=== PATIENT | male | born 1955 | race Caucasian/White ===

== ENCOUNTER 2019-06-28 08:27 | Outpatient (CLI) | payer MEDICARE, BC, SELFPAY ==
--- NOTE | 2019-06-28 09:40 | XR_ITS ---
WS: [id number] CHEST 2 VIEWS HISTORY: SHORTNESS OF Breath; cough COMPARISON: 09/20/2018 Lungs: Benign granuloma LEFT lower lung field and in the RIGHT upper lung. No suspicious mass or nodu le. No pneumonia. There is mild flattening of the diaphragms and chronic emphysema. Cardiac size: Normal. Mediastinum/Aorta: Moderate atherosclerosis and ectasia of aorta. Bones: Focal kyphosis centered at the thoracolumbar junction. There are multiple compression fracture s with vertebroplasty throughout the mid to lower thoracic spine and lumbar spine. XR/XR chest 2V* [id number] IMPRESSION: 1. Chronic emphysema with no acute cardiopulmonary disease. 2. Ectatic calcified thoracic aorta.
--- NOTE | 2019-06-29 10:59 | ONC FU_ITS ---
Dr. Brody Patient Follow-Up Note Patient: Flaco Cardona Unit #: [id number]: [id number] Dicatated By: Christopher Brody M.D.Date of Visit:Jun 28, 2019 Onc Med Follow-up/Prog Note Chief Complaint: Myeloma/prostate cancer. History of Present Illness: This is a 62 year-old man with IgA kappa myeloma, stage IIIB. He has now been found to have metastatic prostate cancer involving the bone marrow. He was diagnosed with IgA kappa myeloma in October 2009. He presented at that time with anemia, hypercalcemia, renal failure, and severe osteopenia with multiple vertebral compression fractures. He was seen at the [facility] for his initial evaluation. He was treated on their standard arm Total Therapy 4 which included M-VTD-PACE induction and a second induction with VTD-PACE. He then underwent tandem transplants with high-dose melphalan conditioning in February and in March 2010. He reportedly had an excellent response to the treatment, and he was then consolidated with VTD-PACE in June 2010 and July 2010 followed by maintenance VRD. His maintenance therapy was complicated by depression due to Revlimid and severe neuropathy, and treatment was stopped by June 2011. He restarted treatment with Revlimid in August 2012, but he was again unable to tolerate it due to depression. He stopped treatment again in February 2013. He underwent evaluation at the [facility] in July 2014. At that time he was felt to have disease progression with MRI reporting new lesions in the clivus and in the right humerus. Bone marrow at that time showed 10% plasma cells in the aspirate and 20% in the biopsy. His M protein quantitated at 1 g compared to 0.3 g in February 2014. It was opted at that time to resume treatment with pomalidomide in combination with cyclophosphamide and dexamethasone. The prescribed regimen included pomalidomide 3 mg daily on days 1 through 21 of a 28 day cycle in combination with cyclophosphamide 500 mg/m??? by IV infusion days 1 and 15 and dexamethasone 20 mg weekly. As of 03/05/2015 he had completed 7 cycles of treatment with the cyclophosphamide administered on a day 1/day 15 schedule. In March his treatment was held, as he was pretty ill with pneumonia, and he ended up being treated for it in [place]. He had an uneventful recovery, and he was able to resume treatment on 04/16/2015. He had a restaging evaluation at the [facility] on 08/12/2015. Bone marrow aspiration/biopsy at that time showed an overall cellularity of 35%. The aspirate showed 6% plasma cells. By flow cytometry total plasma cells were estimated at 1.23%, with 0.69% myeloma cells and 0.54% normal plasma cells. The chromosome analysis showed a translocation involving chromosomes 4 and 8 in a single cell. The clinical significance of that finding was uncertain. I did not receive results of the protein electrophoresis studies. However, he was advised to continue treatment with pomalidomide, dexamethasone, and cyclophosphamide. However, due to his persistently low blood counts, in August 2015 his cyclophosphamide dosage was reduced to 500 mg. In October he continued with his 15th cycle of treatment. However, in November 2015 his cyclophosphamide was put on hold due to persistent neutropenia. He had subsequently continued his regular follow-up at [facility]. As of his follow-up visit there in December 2016 he had continued treatment with pomalidomide and dexamethasone, with the cyclophosphamide remaining on hold. He had a six-month follow-up at [facility] in June 2017. It incluided an MRI bone marrow blood supply exam on 07/07/2017 which showed a slight increase of mild hyperintense homogeneous signal in the marrow of the axial and peripheral skeletons. There was a slight increase of mildly restricted diffusion noted in the marrow cavity. There was interval development of a 2.5 cm focal lesion in the right posterior ilium with restricted diffusion and a 2 cm focal lesion in the right posterior elements at approximately T6, also with restricted diffusion. Bilateral small calvarial lesions were noted with interval punctate and bilateral interval rib lesions were noted. His bone marrow aspiration/biopsy on 07/10/2017 showed overall cellularity of 30% with the differential showing 7% plasma cells. The immunohistochemical stain for CD138 showed 5-10% plasma cells with interstitial and patchy distribution. His M protein was quantitated 0.7 g/dL. He was seen for a follow-up visit here on 07/11/2017. At that point he had become significantly more fatigued. He complained of shortness of breath, and he had been having episodes of passing out. His hemoglobin had dropped to 8.7 g. He was transfused 2 U of packed red blood cells on 07/13/2017. He had symptomatic improvement. He then returned to [facility] and on 07/15/2017 he began treatment with daratuzumab in addition to the pomalidomide/dexamethasone. He had no significant toxicity with the initial infusion of daratuzumab. During subsequent follow-up, there was a gradual decline in his granulocyte count. It nadired at 1200 at week 5 of daratuzumab, but it subsequently increased. He received week 8 of daratuzumab on 09/05/2017. His treatment was then put on hold due to persistent/recurrent pneumonia. He was admitted to the hospital on 09/14/2017 and again on 09/24/2017. With the second admission he was feeling weak and he had fallen several times. Brain MRI reported a 3.7 x 1.7 cm marrow replacing lesion within the clivus, consistent with plasmacytoma. A 7 mm focus of acute ischemia was noted in the right cerebellum. There was a small amount of associated edema. With those findings, he was transferred to [facility] for further management. His evaluation there was consistent with cerebellar stroke with subacute lacunar ischemic infarct on the right cerebellar hemisphere. Also reported was an expansile myelomatous clival lesion with bony erosion of the left carotid canal, erosion of the anterior and posterior cortex of the clivus, and extension into the sphenoid sinuses. The pneumonia improved after 7 days of IV cefepime. He was seen here again on 10/19/2017 and at that time he completed his 9th infusion of daratumumab. His next scheduled treatment was put on hold due to neutropenia and symptoms of respiratory infection. On 11/10/2017 he was admitted to the hospital with neutropenic fever. He was transferred to [facility] for further care. After recovering from that illness he had a restaging evaluation for the myeloma. His bone marrow aspiration/biopsy showed 5% plasma cells. His M protein quantitated at 0.4 g/dL. MRI bone marrow blood supply on 12/18/2017 showed interval worsening with increased size of the focal lesions involving the right temporal bone, clivus, and left parietal bone. There were only minimal changes noted in the spine from the previous studies. There was minimal progression of lesions in the proximal right humerus and in the upper sternum. With those findings, it was recommended that he change treatment to carfilzomib in combination with dexamethasone. He began cycle 1 on 12/27/2017 with the carfilzomib dosed at 20 mg/m???. He also started monthly replacement therapy with IVIG. At day 8 of cycle 1 the carfilzomib dosage was escalated to 36 mg/m???. He tolerated it well, and he was able to continue with cycle 2 on 01/24/2018. As of February 2018 he had completed 3 cycles of treatment. In May 2018 he underwent a stem cell transplant procedure at [facility]. He has had a gradual recovery following that treatment. I had seen him for follow-up here in September 2018. At that time he appeared stable clinically. He then continued his further follow-up at [facility]. He had recently been readmitted to [facility] after he developed fever up to 103 degrees. The fever resolved on antibiotic therapy, though I am not certain that a specific source was ever determined. His repeat bone marrow aspiration/biopsy on 06/12/2019 showed an unexpected finding of involvement with moderately differentiated metastatic adenocarcinoma which was felt to be most consistent with prostatic origin. It was morphologically negative for plasma cell neoplasm. His PSA was elevated in the range of 20 ng/mL. Restaging CT scans of the chest, abdomen, and pelvis on 06/22/2019 showed a small spiculated residual nodular density in the right upper lobe measuring 1.3 cm, decreased in size from 3.5 cm on a prior PET/CT from January 2019. It was felt to be most likely infectious/inflammatory. There were persistent tree-in-bud type nodularity in both lungs, particularly the lower lobes, felt to be suggestive of multifocal infectious/inflammatory change. There were no new pulmonary nodules and there was no pulmonary consolidation noted. There was no evidence of visceral/sherman metastatic disease in the abdomen/pelvis. There were faint sclerotic lesions in the C7 and T1 vertebral bodies. A bone scan on 06/24/2019 showed multiple focal areas of abnormal uptake which corresponded to the FDG avid osseous lesions noted on the PET/CT from 06/07/2019. These include with the upper thoracic spine, left T9 transverse process, and left posterior ischium. Overall, the findings were felt to be consistent with osteoblastic metastatic disease favoring metastatic prostate cancer over multiple myeloma. He began treatment with bicalutamide 50 mg daily, and he was discharged home with recommendation to continue his androgen deprivation therapy locally. He is seen now for a follow-up visit. He is still very weak generally following his recent hospitalization. His activity is very limited. ECOG score is 3. His appetite has been poor, and he has had further weight loss. He is currently not having fever or night sweating. He continues to have sinus congestion and drainage, and he still has cough, though it is productive of clear sputum. He has shortness of breath, and he is on DuoNeb pulmonary nebulizers at home. He has pain in the chest area with hard coughing. He had an episode of vomiting at home yesterday. He is otherwise not having nausea. His bowels fluctuate between diarrhea and constipation. He has no complaints with bladder function. He has pain in his back and legs, which comes and goes. He says he has not been on any pain medication for a long time, but his pain lately has been getting worse. He has numbness/tingling in his hands and feet. Medications: Acyclovir 1 (200 mg) Tablet Oral daily, Albuterol Sulfate 1 ((2.5 mg/3ml) 0.083%) Nebulization solution Inhalation four times a day PRN, AmLODIPine Besylate 1 Tablet (of 5 mg) Oral at bedtime PRN, Aspirin 1 (81 mg) Tablet Oral daily, Baclofen 1 (10 mg) Tablet Oral at bedtime PRN, Benzonatate 1 Capsule (of 100 mg) Oral t.i.d., Casodex 1 Tablet (of 50 mg) Oral daily, Colace Capsule Oral daily PRN, cultrelle 1 Capsule Oral daily, Cyproheptadine HCl 1 (4 mg) Tablet Oral b.i.d. PRN, D3-1000 Tablet Oral daily, Dapsone 1 Tablet (of 100 mg) Oral daily, Folic Acid 1 (1000 mcg) Tablet Oral b.i.d., Gabapentin 1 Capsule (of 600 mg) Oral at bedtime, Garlic 1 (3000 mg) Capsule Oral b.i.d., Hydrocodone-Acetaminophen 1 (10-325 mg) Tablet Oral four times a day PRN, Ipratropium-Albuterol 1 (20-100 mcg/act) Aerosol, solution Inhalation daily, Multivitamins 1 Capsule Oral daily, Pantoprazole Sodium 1 Tablet (of 40 mg) Tablet, enteric coated Oral daily PRN, Phos-NaK 1 Packet (of 280-160-250 mg) Pack Oral daily for 90 days, Prochlorperazine Maleate 0.5 Tablet (of 10 mg) Oral q 6 hours PRN, Promethazine-Codeine 5 mL (of 6.25-10 mg/5mL) Syrup Oral q 6 hours, Questran 1 (4 g) Pack Oral daily, Xanax 1 Tablet (of 0.25 mg) Oral t.i.d. PRN, Xyzal 1 (5 mg) Tablet Oral daily PRN, Zofran 1 Tablet (of 8 mg) Oral four times a day PRN Allergies: No Known Allergies. Review of Systems: Constitutional - He is very weak now and his activity is very limited. His appetite has been poorand he has continued to loose weight. He was having fever/chills and sweating, but that has resolved. ECOG score is 3, ENMT - He has sinus congestion/drainage. No mouth sores. No sore throat or difficulty swallowing, Hematologic/Lymphatic - He bruises easily, Respiratory - He has shortness of breath and he still has cough. It is productive of clear sputum. He has had pain with hard coughing. No hemoptysis, Cardiovascular - No angina pain. No palpitations, Gastrointestinal - He had one episode of vomiting since discharge from the hospital. No heartburn or acid reflux. His bowels fluctuate between diarrhea or constipation. No blood in the stool or black stools, Genitourinary (M) - No dysuria or hematuria. No urinary frequency. No urgency or incontinence, Musculoskeletal - He has pain in his back and legs, which comes and goes. He has been off pain medication for quite a while, but the pain recently has been getting a little worse, Integumentary - No skin complications, Neurologic - He has numbness/tingling in his hands and feet. No headache or dizziness, Psychiatric - He has anxiety and depression. He has not been sleeping well. Vital Signs: Performed on Jun 28, 2019 08:45 Height - 67.00 in Weight - 159.6 lbs (LOW) BSA - 1.84 sq.m BMI - 25.00 Temperature - 97.8 F (LOW) Pulse - 85 /min Respiration - 22 /min BP - 135/86 mm(hg) O2 Sat - 92 % (LOW) Pain - 0 Physical Examination: Constitutional - He appears generally weak, but not acutely ill, Eyes - Sclerae nonicteric. Conjunctivae clear, ENMT - No lesions noted in the oral cavity, Hematologic/Lymphatic - No cervical, clavicular, or axillary adenopathy, Respiratory - Lungs show diminished air movement bilaterally. There are scattered rales present, Cardiovascular - Heart rhythm is regular. There is no murmur, gallop, or rub noted, Abdomen - Soft. Liver and spleen are not enlarged. There is no abdominal mass or ascites noted and there is no inguinal adenopathy, Extremities - There are mild venous stasis changes bilaterally. There is no edema, Neurologic - No focal neurologic deficits noted. Impression: The patient has IgA kappa myeloma, stage IIIB. He had severe osteopenia with multiple vertebral compression fractures at initial diagnosis in October 2009. He responded well to his initial treatment, but on his evaluation in July 2014 at the [facility], there was evidence of disease progression. In August 2014 he restarted treatment with pomalidomide in combination with cyclophosphamide and dexamethasone. He had evidence of response by M protein level. Repeat bone marrow aspiration/biopsy in July 2015 showed only 6% plasma cells in the aspirate. By flow cytometry, about half of his plasma cells were felt to be myeloma cells. The chromosome analysis showed a 4;8 translocation, but only in a single cell. He had some treatment associated myelosuppression, particularly anemia, for which he had required transfusion. The anemia had shown no obvious response to treatment with Procrit, and he also then became become more significantly neutropenic. As of November 2015 his cyclophosphamide was put on hold, but he continued treatment with pomalidomide and dexamethasone, and he continued his regular follow-up at [facility]. On 07/11/2017 he had presented here with recent onset of shortness of breath. He also felt lightheaded, and he had nearly passed out on a couple of occasions. He was significantly anemic. His chest x-ray and VQ lung scan were unremarkable. He had significant symptomatic improvement following a transfusion of 2 U of packed red blood cells. In the meantime, his recent follow-up evaluation at [facility] did show some evidence of disease progression with 7% plasma cells in the bone marrow and some new lytic lesions by MRI. As such, he began treatment with daratuzumab in combination with his pomalidomide/dexamethasone. He received his initial infusion of daratuzumab on 07/15/2017. He tolerated it well, with just a minimal infusion reaction. During subsequent follow-up there was a gradual decline in his granulocyte count and he remained moderately anemic, but he was able to complete 8 weekly infusions daratumumab. His further treatment was then put on hold due to recurrent/persistent pneumonia. He also was found to have evidence of cerebellar stroke. He was unable to resume his treatment. He completed his ninth infusion of daratumumab on 10/19/2017. His further treatment was put on hold due to neutropenia and fever. His repeat bone marrow aspiration/biopsy on 11/29/2017 showed 5% plasma cells. M protein at that point quantitated 0.4 g/dL. Repeat MRI studies on 12/18/2017 showed only a few areas of slight progression. With those findings his treatment was changed to carfilzomib in combination with dexamethasone beginning on 12/27/2017. He also started monthly replacement therapy with IVIG. He was able to complete his first cycle of carfilzomib/dexamethasone with no adverse effects. He continued to have significant symptoms of orthostatic hypotension. He had no improvement on empiric treatment with fludrocortisone. He was then started on midodrine, but he then experienced a hypertensive crisis over this past weekend, requiring addition of hydrochlorothiazide. As of February 2018 he had completed 3 cycles of treatment with carfilzomib/dexamethasone. In May 2018 he underwent a stem cell transplant procedure at [facility]. He had gradual recovery following that treatment, and he then continued regular followup at [facility]. In May 2019 he was admitted to [facility] with fever up to 103 degrees. The fever resolved on antibiotic therapy. I am not certain that a specific source was identified. However, his bone marrow aspiration/biopsy on 06/12/2019 showed unexpected finding of moderately differentiated metastatic adenocarcinoma of the mid most consistent with prostatic origin. There was no morphologic evidence of plasma cell neoplasm. His PET/CT and bone scans showed several foci of osteoblastic involvement felt to be most consistent with metastatic prostate cancer. Restaging CT scans of the chest, abdomen, and pelvis showed no evidence for visceral or other non-osseous metastatic disease. PSA was elevated in the range of 20 ng/mL. He began treatment with bicalutamide 50 mg daily. At this point he is not had any recurrence of fever. He has very marginal performance status, ECOG score 3. He continues to have shortness of breath and cough, though it is productive of clear sputum. He has some pain in the back and legs. It is chronic, but now getting somewhat worse. Plan: He continues bicalutamide 50 mg daily. He will return Monday to begin androgen deprivation therapy with Depo-Lupron 22.5 mg by intramuscular injection. He will be given a prescription for hydrocodone/APAP, as he feels that his pain is getting worse and he is wanting to restart medication for it. At least for now he will remain off antibiotic therapy. A sputum culture will be repeated if his sputum becomes at all purulent. Signed By: Christopher Brody M.D. <<Signature on File>>
== END 2019-06-28 08:28 | disposition home or self-care (01) ==
PROVIDERS: Family Provider Family Medicine; PCP Family Medicine; Visit Provider Internal Medicine Medical Oncology
DX: C61 Malignant neoplasm of prostate (principal); C79.52 Secondary malignant neoplasm of bone marrow; C79.51 Secondary malignant neoplasm of bone; C90.00 Multiple myeloma not having achieved remission; R06.02 Shortness of breath; R05 Cough; F41.8 Other specified anxiety disorders; G89.29 Other chronic pain; M54.9 Dorsalgia, unspecified; Z79.899 Other long term (current) drug therapy; Z79.51 Long term (current) use of inhaled steroids; Z79.891 Long term (current) use of opiate analgesic; Z87.01 Personal history of pneumonia (recurrent); Z92.21 Personal history of antineoplastic chemotherapy
CPT/HCPCS: 71046; 99214

== ENCOUNTER 2019-07-01 11:04 | Outpatient (CLI) | payer MEDICARE, BC, SELFPAY ==
[2019-07-01] MEDS: leuprolide 22.5 mg Kit IM (11:28)
== END 2019-07-01 11:05 | disposition home or self-care (01) ==
LOC: ONCMED 11:04
PROVIDERS: Family Provider Family Medicine; PCP Family Medicine; Visit Provider Nurse Practitioner
DX: C61 Malignant neoplasm of prostate (principal); Z79.818 Long term (current) use of other agents affecting estrogen receptors and estrogen levels
CPT/HCPCS: 96372; 96402; J9217

== ENCOUNTER 2019-07-09 08:00 | Outpatient (CLI) | payer MEDICARE, BC, SELFPAY ==
[2019-07-09] MEDS: acetaminophen 325 mg Tablet 650 MG PO (09:00)
[2019-07-09] MEDS: sodium chloride 0.9% 250 ML 75 ML IV (09:00)
[2019-07-09] MEDS: diphenhydrAMINE 25 mg Capsule PO (14:39)
[2019-07-09] MEDS: FUROsemide 10 mg/mL SDV 2mL 20 MG IVP (14:40)
== END 2019-07-09 09:00 | disposition home or self-care (01) ==
LOC: ONCMED 12-31 13:14
PROVIDERS: PCP Family Medicine; Visit Provider Internal Medicine Medical Oncology
DX: C90.02 Multiple myeloma in relapse (principal); D64.81 Anemia due to antineoplastic chemotherapy; C61 Malignant neoplasm of prostate; C79.52 Secondary malignant neoplasm of bone marrow; D80.1 Nonfamilial hypogammaglobulinemia; R50.9 Fever, unspecified; T45.1X5D Adverse effect of antineoplastic and immunosuppressive drugs, subsequent encounter
CPT/HCPCS: J1940; J7050

== ENCOUNTER 2019-07-09 09:46 | Outpatient (RCR) | payer MEDICARE, BC, SELFPAY ==
[2019-07-08 08:44] LABS: Basophils % 1.2 %; Eosinophils # 0.1 10^3/uL (0.0-0.8); Eosinophils % 3.1 %; Hematocrit 22.6 % (42.0-52.0); Hemoglobin 6.6 g/dL (11.7-16.6); Lymphocytes # 0.9 10^3/uL (0.8-4.8); Lymphocytes % 36.6 %; Mean Corpuscular HGB Conc 29.2 g/dL (30.0-36.0); Mean Corpuscular Volume 109.7 fL (80-94); Mean Platelet Volume 10.9 fL (7.4-10.4); Monocytes # 0.3 10^3/uL (0.2-0.9); Monocytes % 11.7 %; Neutrophils # 1.2 10^3/uL (1.8-7.7); Neutrophils % 47.4 %; Nucleated Red Blood Cells % 0 %; Platelet Count 78 10^3/cmm (130-400); Red Blood Count 2.06 10^6/uL (4.1-5.3); Red Cell Distribution Width 19.6 % (12.1-15.1); White Blood Count 2.6 10^3/uL (4.0-10.0)
[2019-07-09] VITALS (9 sets, daily range): BP systolic 115–140; BP diastolic 74–84; PULSE 75–85; RESP 17–18; TEMP 36.1–36.8; O2SAT 97–99
== END 2019-07-13 23:59 | disposition home or self-care (01) ==
LOC: ONCMED 09:46
PROVIDERS: Family Provider Family Medicine; PCP Family Medicine; Visit Provider Internal Medicine Medical Oncology
DX: C90.00 Multiple myeloma not having achieved remission (principal); C61 Malignant neoplasm of prostate
CPT/HCPCS: 36415; 36430; 85025; 86850; 86900; J1940; J7050; P9040

== ENCOUNTER 2019-08-12 05:00 | Outpatient (RCR) | payer MEDICARE, BC, SELFPAY ==
[2019-07-15 09:44] LABS: Basophils % 0.5 %; Eosinophils # 0.2 10^3/uL (0.0-0.8); Eosinophils % 3.4 %; Hematocrit 28.6 % (42.0-52.0); Hemoglobin 8.8 g/dL (11.7-16.6); Lymphocytes % 21.6 %; Mean Corpuscular HGB Conc 30.8 g/dL (30.0-36.0); Mean Corpuscular Volume 110.4 fL (80-94); Mean Platelet Volume 10.9 fL (7.4-10.4); Monocytes # 0.4 10^3/uL (0.2-0.9); Monocytes % 7.9 %; Neutrophils # 2.9 10^3/uL (1.8-7.7); Neutrophils % 66.1 %; Nucleated Red Blood Cells % 0 %; Platelet Count 68 10^3/cmm (130-400); Red Blood Count 2.59 10^6/uL (4.1-5.3); Red Cell Distribution Width 20.5 % (12.1-15.1); White Blood Count 4.4 10^3/uL (4.0-10.0)
[2019-07-22 08:56] LABS: Basophils % 0.2 %; Eosinophils # 0.1 10^3/uL (0.0-0.8); Eosinophils % 2.4 %; Hematocrit 31.1 % (42.0-52.0); Hemoglobin 9.5 g/dL (11.7-16.6); Lymphocytes # 1.2 10^3/uL (0.8-4.8); Mean Corpuscular HGB Conc 30.5 g/dL (30.0-36.0); Mean Corpuscular Hemoglobin 34.4 pg (28.0-34.0); Mean Corpuscular Volume 112.7 fL (80-94); Mean Platelet Volume 11.1 fL (7.4-10.4); Monocytes # 0.5 10^3/uL (0.2-0.9); Monocytes % 9.1 %; Neutrophils # 3.2 10^3/uL (1.8-7.7); Neutrophils % 63.7 %; Nucleated Red Blood Cells % 0 %; Platelet Count 94 10^3/cmm (130-400); Red Blood Count 2.76 10^6/uL (4.1-5.3); Red Cell Distribution Width 19.8 % (12.1-15.1); White Blood Count 5.1 10^3/uL (4.0-10.0)
[2019-07-30 15:06] LABS: Alanine Aminotransferase 36 U/L (0-41); Albumin Level 3.8 g/dL (3.5-5.2); Alkaline Phosphatase 96 IU/L (40-130); Aspartate Amino Transferase 27 U/L (0-40); Blood Urea Nitrogen 30 mg/dL (8-23); Calcium 9.5 mg/dL (8.5-10.5); Carbon Dioxide 26 mmol/L (22-29); Chloride 103 mmol/L (98-107); Globulin 3.4 g/dL (1.3-4.6); Glomerular Filtration Rate 43.6 mL/min (90-130); Glucose 115 mg/dL (65-115); Osmolality Calculated 290 mOsm/kg (285-295); Sodium 141 mmol/L (136-145); Total Bilirubin 0.3 mg/dL (0.15-1.2); Total Protein 7.2 g/dL (6.6-8.7)
[2019-07-30 15:07] LABS: Basophils % 0.5 %; Eosinophils # 0.2 10^3/uL (0.0-0.8); Eosinophils % 3.5 %; Hematocrit 34.9 % (42.0-52.0); Hemoglobin 10.8 g/dL (11.7-16.6); Lymphocytes # 1.3 10^3/uL (0.8-4.8); Lymphocytes % 31.1 %; Mean Corpuscular HGB Conc 30.9 g/dL (30.0-36.0); Mean Corpuscular Hemoglobin 34.4 pg (28.0-34.0); Mean Corpuscular Volume 111.1 fL (80-94); Mean Platelet Volume 10.5 fL (7.4-10.4); Monocytes # 0.3 10^3/uL (0.2-0.9); Monocytes % 7.4 %; Neutrophils # 2.5 10^3/uL (1.8-7.7); Nucleated Red Blood Cells % 0 %; Platelet Count 106 10^3/cmm (130-400); Red Blood Count 3.14 10^6/uL (4.1-5.3); Red Cell Distribution Width 18.3 % (12.1-15.1); White Blood Count 4.3 10^3/uL (4.0-10.0)
[2019-07-30 16:21] LABS: Prostate Specific Antigen 4.15 ng/mL (0-4)
[2019-07-31 07:27] LABS: PROTEIN, TOTAL 6.8 g/dL (6.1-8.1)
[2019-07-31 11:56] LABS: KAPPA LIGHT CHAIN, FREE, SERUM 44.6 mg/L (3.3-19.4); KAPPA/LAMBDA LIGHT CHAINS FREE 1.09 (0.26-1.65); LAMBDA LIGHT CHAIN, FREE, SERU 41.1 mg/L (5.7-26.3)
[2019-07-31 12:53] LABS: ALBUMIN 3.5 g/dL (3.8-4.8); ALPHA 1 GLOBULIN 0.4 g/dL (0.2-0.3); BETA 1 GLOBULIN 0.4 g/dL (0.4-0.6); BETA 2 GLOBULIN 0.3 g/dL (0.2-0.5); GAMMA GLOBULIN 1.3 g/dL (0.8-1.7)
--- NOTE | 2019-08-03 10:10 | ONC FU_ITS ---
Dr. Brody Patient Follow-Up Note Patient: Flaco Cardona Unit #: [id number]: [id number] Dicatated By: Christopher Brody M.D.Date of Visit:Jul 31, 2019 Onc Med Follow-up/Prog Note Chief Complaint: Myeloma/prostate cancer. History of Present Illness: This is a 63 year-old man with IgA kappa myeloma, stage IIIB. He has now been found to have metastatic prostate cancer involving the bone marrow. He was diagnosed with IgA kappa myeloma in October 2009. He presented at that time with anemia, hypercalcemia, renal failure, and severe osteopenia with multiple vertebral compression fractures. He was seen at the [facility] for his initial evaluation. He was treated on their standard arm Total Therapy 4 which included M-VTD-PACE induction and a second induction with VTD-PACE. He then underwent tandem transplants with high-dose melphalan conditioning in February and in March 2010. He reportedly had an excellent response to the treatment, and he was then consolidated with VTD-PACE in June 2010 and July 2010 followed by maintenance VRD. His maintenance therapy was complicated by depression due to Revlimid and severe neuropathy, and treatment was stopped by June 2011. He restarted treatment with Revlimid in August 2012, but he was again unable to tolerate it due to depression. He stopped treatment again in February 2013. He underwent evaluation at the [facility] in July 2014. At that time he was felt to have disease progression with MRI reporting new lesions in the clivus and in the right humerus. Bone marrow at that time showed 10% plasma cells in the aspirate and 20% in the biopsy. His M protein quantitated at 1 g compared to 0.3 g in February 2014. It was opted at that time to resume treatment with pomalidomide in combination with cyclophosphamide and dexamethasone. The prescribed regimen included pomalidomide 3 mg daily on days 1 through 21 of a 28 day cycle in combination with cyclophosphamide 500 mg/m??? by IV infusion days 1 and 15 and dexamethasone 20 mg weekly. As of 03/05/2015 he had completed 7 cycles of treatment with the cyclophosphamide administered on a day 1/day 15 schedule. In March his treatment was held, as he was pretty ill with pneumonia, and he ended up being treated for it in [place]. He had an uneventful recovery, and he was able to resume treatment on 04/16/2015. He had a restaging evaluation at the [facility] on 08/12/2015. Bone marrow aspiration/biopsy at that time showed an overall cellularity of 35%. The aspirate showed 6% plasma cells. By flow cytometry total plasma cells were estimated at 1.23%, with 0.69% myeloma cells and 0.54% normal plasma cells. The chromosome analysis showed a translocation involving chromosomes 4 and 8 in a single cell. The clinical significance of that finding was uncertain. I did not receive results of the protein electrophoresis studies. However, he was advised to continue treatment with pomalidomide, dexamethasone, and cyclophosphamide. However, due to his persistently low blood counts, in August 2015 his cyclophosphamide dosage was reduced to 500 mg. In October he continued with his 15th cycle of treatment. However, in November 2015 his cyclophosphamide was put on hold due to persistent neutropenia. He had subsequently continued his regular follow-up at [facility]. As of his follow-up visit there in December 2016 he had continued treatment with pomalidomide and dexamethasone, with the cyclophosphamide remaining on hold. He had a six-month follow-up at [facility] in June 2017. It incluided an MRI bone marrow blood supply exam on 07/07/2017 which showed a slight increase of mild hyperintense homogeneous signal in the marrow of the axial and peripheral skeletons. There was a slight increase of mildly restricted diffusion noted in the marrow cavity. There was interval development of a 2.5 cm focal lesion in the right posterior ilium with restricted diffusion and a 2 cm focal lesion in the right posterior elements at approximately T6, also with restricted diffusion. Bilateral small calvarial lesions were noted with interval punctate and bilateral interval rib lesions were noted. His bone marrow aspiration/biopsy on 07/10/2017 showed overall cellularity of 30% with the differential showing 7% plasma cells. The immunohistochemical stain for CD138 showed 5-10% plasma cells with interstitial and patchy distribution. His M protein was quantitated 0.7 g/dL. He was seen for a follow-up visit here on 07/11/2017. At that point he had become significantly more fatigued. He complained of shortness of breath, and he had been having episodes of passing out. His hemoglobin had dropped to 8.7 g. He was transfused 2 U of packed red blood cells on 07/13/2017. He had symptomatic improvement. He then returned to [facility] and on 07/15/2017 he began treatment with daratuzumab in addition to the pomalidomide/dexamethasone. He had no significant toxicity with the initial infusion of daratuzumab. During subsequent follow-up, there was a gradual decline in his granulocyte count. It nadired at 1200 at week 5 of daratuzumab, but it subsequently increased. He received week 8 of daratuzumab on 09/05/2017. His treatment was then put on hold due to persistent/recurrent pneumonia. He was admitted to the hospital on 09/14/2017 and again on 09/24/2017. With the second admission he was feeling weak and he had fallen several times. Brain MRI reported a 3.7 x 1.7 cm marrow replacing lesion within the clivus, consistent with plasmacytoma. A 7 mm focus of acute ischemia was noted in the right cerebellum. There was a small amount of associated edema. With those findings, he was transferred to [facility] for further management. His evaluation there was consistent with cerebellar stroke with subacute lacunar ischemic infarct on the right cerebellar hemisphere. Also reported was an expansile myelomatous clival lesion with bony erosion of the left carotid canal, erosion of the anterior and posterior cortex of the clivus, and extension into the sphenoid sinuses. The pneumonia improved after 7 days of IV cefepime. He was seen here again on 10/19/2017 and at that time he completed his 9th infusion of daratumumab. His next scheduled treatment was put on hold due to neutropenia and symptoms of respiratory infection. On 11/10/2017 he was admitted to the hospital with neutropenic fever. He was transferred to [facility] for further care. After recovering from that illness he had a restaging evaluation for the myeloma. His bone marrow aspiration/biopsy showed 5% plasma cells. His M protein quantitated at 0.4 g/dL. MRI bone marrow blood supply on 12/18/2017 showed interval worsening with increased size of the focal lesions involving the right temporal bone, clivus, and left parietal bone. There were only minimal changes noted in the spine from the previous studies. There was minimal progression of lesions in the proximal right humerus and in the upper sternum. With those findings, it was recommended that he change treatment to carfilzomib in combination with dexamethasone. He began cycle 1 on 12/27/2017 with the carfilzomib dosed at 20 mg/m???. He also started monthly replacement therapy with IVIG. At day 8 of cycle 1 the carfilzomib dosage was escalated to 36 mg/m???. He tolerated it well, and he was able to continue with cycle 2 on 01/24/2018. As of February 2018 he had completed 3 cycles of treatment. In May 2018 he underwent a stem cell transplant procedure at [facility]. He has had a gradual recovery following that treatment. I had seen him for follow-up here in September 2018. At that time he appeared stable clinically. He then continued his further follow-up at [facility]. He had recently been readmitted to [facility] after he developed fever up to 103 degrees. The fever resolved on antibiotic therapy, though I am not certain that a specific source was ever determined. His repeat bone marrow aspiration/biopsy on 06/12/2019 showed an unexpected finding of involvement with moderately differentiated metastatic adenocarcinoma which was felt to be most consistent with prostatic origin. It was morphologically negative for plasma cell neoplasm. His PSA was elevated in the range of 20 ng/mL. Restaging CT scans of the chest, abdomen, and pelvis on 06/22/2019 showed a small spiculated residual nodular density in the right upper lobe measuring 1.3 cm, decreased in size from 3.5 cm on a prior PET/CT from January 2019. It was felt to be most likely infectious/inflammatory. There were persistent tree-in-bud type nodularity in both lungs, particularly the lower lobes, felt to be suggestive of multifocal infectious/inflammatory change. There were no new pulmonary nodules and there was no pulmonary consolidation noted. There was no evidence of visceral/sherman metastatic disease in the abdomen/pelvis. There were faint sclerotic lesions in the C7 and T1 vertebral bodies. A bone scan on 06/24/2019 showed multiple focal areas of abnormal uptake which corresponded to the FDG avid osseous lesions noted on the PET/CT from 06/07/2019. These include with the upper thoracic spine, left T9 transverse process, and left posterior ischium. Overall, the findings were felt to be consistent with osteoblastic metastatic disease favoring metastatic prostate cancer over multiple myeloma. He began treatment with bicalutamide 50 mg daily, and he was then seen here on to continue his androgen deprivation locally. He received his initial injection of Depo-Lupron 22.5 mg on 07/01/2019. He is seen for a follow-up visit. He continues to have very limited activity. His ECOG score is 3. His appetite has improved somewhat, and he has been eating a little better. He has not had fever. He does have some hot flashes/sweating. He has only a little sinus drainage now. He has not been having sore throat or cough, and he does not complain of shortness of breath or chest pain. He has not been having any nausea. His bowels are so-so. He tends to fluctuate between diarrhea and constipation. Bladder function has been fine. He has been having a lot of back pain. He has been taking his pain medication only at bedtime because it does tend to make him feel groggy. He has pain as well as numbness/tingling in his hands and feet. He has not been having headache or dizziness. Medications: Acyclovir 1 (200 mg) Tablet Oral daily, Albuterol Sulfate 1 ((2.5 mg/3ml) 0.083%) Nebulization solution Inhalation four times a day PRN, AmLODIPine Besylate 1 Tablet (of 5 mg) Oral at bedtime PRN, Aspirin 1 (81 mg) Tablet Oral daily, Baclofen 1 (10 mg) Tablet Oral at bedtime PRN, Benzonatate 1 Capsule (of 100 mg) Oral t.i.d., Casodex 1 Tablet (of 50 mg) Oral daily, Colace Capsule Oral daily PRN, cultrelle 1 Capsule Oral daily, Cyproheptadine HCl 1 (4 mg) Tablet Oral b.i.d. PRN, D3-1000 Tablet Oral daily, Dapsone 1 Tablet (of 100 mg) Oral daily, Folic Acid 1 (1000 mcg) Tablet Oral b.i.d., Gabapentin 1 Capsule (of 600 mg) Oral at bedtime, Garlic 1 (3000 mg) Capsule Oral b.i.d., Hydrocodone-Acetaminophen 1 (10-325 mg) Tablet Oral four times a day PRN, Ipratropium-Albuterol 1 (20-100 mcg/act) Aerosol, solution Inhalation daily, Multivitamins 1 Capsule Oral daily, Pantoprazole Sodium 1 Tablet (of 40 mg) Tablet, enteric coated Oral daily PRN, Phos-NaK 1 Packet (of 280-160-250 mg) Pack Oral daily for 90 days, Prochlorperazine Maleate 0.5 Tablet (of 10 mg) Oral q 6 hours PRN, Promethazine-Codeine 5 mL (of 6.25-10 mg/5mL) Syrup Oral q 6 hours, Questran 1 (4 g) Pack Oral daily, Xanax 1 Tablet (of 0.25 mg) Oral t.i.d. PRN, Xyzal 1 (5 mg) Tablet Oral daily PRN, Zofran 1 Tablet (of 8 mg) Oral four times a day PRN Allergies: No Known Allergies. Review of Systems: Constitutional - He still has very little activity. His appetite is a little better. No fever, but he has had some chills and sweating. ECOG score is 3, ENMT - He has just a little sinus drainage. No mouth sores. No sore throat or difficulty swallowing, Hematologic/Lymphatic - He bruises easily, Respiratory - No shortness of breath. No cough. No pleuritic pain or hemoptysis, Cardiovascular - No angina pain. No palpitations, Gastrointestinal - No nausea or vomiting. No heartburn or acid reflux. His bowels fluctuate between diarrhea and constipation. No blood in the stool or black stools, Genitourinary (M) - No dysuria or hematuria. No urinary frequency. No urgency or incontinence, Musculoskeletal - He has been having a lot of back pain. He is just taking pain medication at bedtime because it tends to make him groggy. He also has pain in his hands and feet, Integumentary - No skin complications, Neurologic - No headache or dizziness. He has numbness/tingling in his hands and feet, Psychiatric - He has anxiety and depression. He has not been sleeping well. Vital Signs: Performed on Jul 31, 2019 10:22 Height - 67.00 in Weight - 162.4 lbs (HIGH) BSA - 1.85 sq.m BMI - 25.44 Temperature - 97.9 F (LOW) Pulse - 110 /min (HIGH) Respiration - 24 /min BP - 114/60 mm(hg) O2 Sat - 99 % Pain - 7 Physical Examination: Constitutional - He appears generally weak, but somewhat better since his last visit, Eyes - Sclerae nonicteric. Conjunctivae clear, ENMT - No lesions noted in the oral cavity, Hematologic/Lymphatic - No cervical, clavicular, or axillary adenopathy, Respiratory - Lungs show diminished air movement and slightly coarse breath sounds bilaterally, Cardiovascular - Heart rhythm is regular with a mild tachycardia. There is no murmur, gallop, or rub noted, Abdomen - Soft. Liver and spleen are not enlarged. There is no abdominal mass or ascites noted and there is no inguinal adenopathy, Extremities - There are mild venous stasis changes bilaterally. There is no edema, Neurologic - No focal neurologic deficits noted. Lab/Imaging: Test performed on Jul 30, 2019 03:53 Sodium 141 mmol/L Potassium 5.0 mmol/L Chloride 103 mmol/L CO2 26 mmol/L Anion Gap 17.0 BUN 30 mg/dL Creatinine 1.6 mg/dL Cr Clearance (Est) 47.1300 mL/min eGFR 43.6 mL/min Glucose 115 mg/dL Calcium 9.5 mg/dL Protein, Total 7.2 g/dL Albumin 3.8 g/dL Globulin 3.4 g/dL Bilirubin, Total 0.3 mg/dL ALT (SGPT) 36 U/L AST (SGOT) 27 U/L Alkaline Phosphatase 96 IU/L WBC 4.3 10 3/uL RBC 3.14 10 6/uL HGB 10.8 g/dL HCT 34.9 % MCV 111.1 fL MCH 34.4 pg MCHC 30.9 g/dL RDW 18.3 % Platelet Count 106 10 3/cmm MPV 10.5 fL Neutrophils 2.5 10 3/uL Lymphocytes 1.3 10 3/uL Monocytes 0.3 10 3/uL Eosinophils 0.2 10 3/uL Basophils 0.0 10 3/uL Neutrophil % 57.0 % Lymphocyte % 31.1 % Monocyte % 7.4 % Eosinophil % 3.5 % Basophils % 0.5 % PSA 4.15 ng/mL Impression: 1. Patient with IgA kappa myeloma, stage IIIB. He had severe osteopenia with multiple vertebral compression fractures at initial diagnosis in October 2009. 2. He had responded well to his initial treatment, but on his evaluation in July 2014 at the [facility], there was evidence of disease progression. In August 2014 he restarted treatment with pomalidomide in combination with cyclophosphamide and dexamethasone. He had evidence of response by M protein level. 3. As of November 2015 his cyclophosphamide was put on hold due to worsening cytopenias, but he continued treatment with pomalidomide and dexamethasone. 4. As of July 2017 his evaluation at [facility] showed evidence of disease progression with 7% plasma cells in the bone marrow and some new lytic lesions by MRI. As such, he began treatment with daratuzumab in combination with the pomalidomide/dexamethasone. During subsequent follow-up there was a gradual decline in his granulocyte count and he remained moderately anemic, but he was able to complete 8 weekly infusions daratumumab. His treatment was then put on hold due to recurrent/persistent pneumonia. He also was found to have evidence of cerebellar stroke. 5. He was able to continue with his 9th infusion of daratumumab on 10/19/2017. His treatment was then put on hold again due to neutropenia and fever. 6. His repeat bone marrow aspiration/biopsy on 11/29/2017 showed 5% plasma cells. M protein at that point quantitated 0.4 g/dL. Repeat MRI studies on 12/18/2017 showed only a few areas of slight progression. With those findings his treatment was changed to carfilzomib in combination with dexamethasone beginning on 12/27/2017. He also started monthly replacement therapy with IVIG. 7. As of February 2018 he had completed 3 cycles of treatment with carfilzomib/dexamethasone. In May 2018 he underwent a stem cell transplant procedure at [facility]. He had gradual recovery following that treatment, and he then continued regular followup at [facility]. 8. Repeat bone marrow aspiration/biopsy on 06/12/2019 showed unexpected finding of moderately differentiated metastatic adenocarcinoma of the mid most consistent with prostatic origin. There was no morphologic evidence of plasma cell neoplasm. His PET/CT and bone scans showed several foci of osteoblastic involvement felt to be most consistent with metastatic prostate cancer. Restaging CT scans of the chest, abdomen, and pelvis showed no evidence for visceral or other non-osseous metastatic disease. PSA was elevated in the range of 20 ng/mL. 9. He began treatment with bicalutamide 50 mg daily, and on 07/01/2019 he received his initial injection of Depo-Lupron 22.5 mg. He has been feeling a little better generally since starting the androgen deprivation therapy. He does appear to be showing response by PSA level. He still has very limited activity. He also continues to have significant back pain, management of which is somewhat problematic due to poor tolerance for opiate pain medication. Plan: He is scheduled to begin further treatment for the myeloma next week with ixazomib in combination with lenalidomide and dexamethasone. He will now be transitioning his anti-androgen therapy from bicalutamide to enzalutamide 160 mg daily. He will be monitoring his laboratory studies with Dr. Garza. He will be transfused as needed. He will otherwise be scheduled for a follow-up visit here in 2 months, at which time he will be due for his next Depo-Lupron injection. In the meantime, at least for now, he prefers to continue with the same pain medication. Signed By: Christopher Brody M.D. <<Signature on File>>
[2019-08-07 16:54] LABS: Basophils % 0.6 %; Eosinophils # 0.1 10^3/uL (0.0-0.8); Eosinophils % 2.5 %; Hematocrit 26.2 % (42.0-52.0); Hemoglobin 8.2 g/dL (11.7-16.6); Lymphocytes # 1.6 10^3/uL (0.8-4.8); Lymphocytes % 30.6 %; Mean Corpuscular HGB Conc 31.3 g/dL (30.0-36.0); Mean Corpuscular Hemoglobin 34.7 pg (28.0-34.0); Mean Platelet Volume 10.2 fL (7.4-10.4); Monocytes # 0.7 10^3/uL (0.2-0.9); Monocytes % 13.3 %; Neutrophils # 2.7 10^3/uL (1.8-7.7); Neutrophils % 52.6 %; Nucleated Red Blood Cells % 0 %; Platelet Count 113 10^3/cmm (130-400); Red Blood Count 2.36 10^6/uL (4.1-5.3); Red Cell Distribution Width 18.1 % (12.1-15.1); White Blood Count 5.1 10^3/uL (4.0-10.0)
[2019-08-09] VITALS (10 sets, daily range): BP systolic 113–138; BP diastolic 71–83; PULSE 78–95; RESP 15–18; TEMP 36–37.4; O2SAT 95–98
[2019-08-09] MEDS: diphenhydrAMINE 25 mg Capsule PO (08:18)
[2019-08-09] MEDS: sodium chloride 0.9% 250 ML 999 ML IV (08:18)
[2019-08-09] MEDS: acetaminophen 325 mg Tablet 650 MG PO (08:18)
[2019-08-09] MEDS: FUROsemide 10 mg/mL SDV 2mL 20 MG IV (10:05)
[2019-08-12 11:57] LABS: Eosinophils # 0.2 10^3/uL (0.0-0.8); Eosinophils % 5.1 %; Hematocrit 33.8 % (42.0-52.0); Hemoglobin 10.4 g/dL (11.7-16.6); Lymphocytes # 1.1 10^3/uL (0.8-4.8); Lymphocytes % 32.1 %; Mean Corpuscular HGB Conc 30.8 g/dL (30.0-36.0); Mean Corpuscular Hemoglobin 33.3 pg (28.0-34.0); Mean Corpuscular Volume 108.3 fL (80-94); Mean Platelet Volume 11.2 fL (7.4-10.4); Monocytes # 0.2 10^3/uL (0.2-0.9); Monocytes % 6.5 %; Neutrophils # 1.9 10^3/uL (1.8-7.7); Neutrophils % 55.4 %; Nucleated Red Blood Cells % 0 %; Platelet Count 98 10^3/cmm (130-400); Red Blood Count 3.12 10^6/uL (4.1-5.3); Red Cell Distribution Width 20.9 % (12.1-15.1); White Blood Count 3.4 10^3/uL (4.0-10.0)
== END 2019-08-13 23:59 | disposition home or self-care (01) ==
LOC: ONCMED 05:00
PROVIDERS: Nurse Practitioner; Family Provider Family Medicine; PCP Family Medicine; Visit Provider Internal Medicine Medical Oncology
DX: D80.1 Nonfamilial hypogammaglobulinemia (principal); C61 Malignant neoplasm of prostate; C79.52 Secondary malignant neoplasm of bone marrow; C90.02 Multiple myeloma in relapse; F41.8 Other specified anxiety disorders; G89.3 Neoplasm related pain (acute) (chronic); Z79.899 Other long term (current) drug therapy; Z79.818 Long term (current) use of other agents affecting estrogen receptors and estrogen levels; Z79.82 Long term (current) use of aspirin
CPT/HCPCS: 36430; 80053; 83883; 84153; 84155; 84165; 85025; 86850; 86900; 86920; 99214; J1940; J7050; P9040

== ENCOUNTER 2019-09-10 06:45 | Outpatient (RCR) | payer MEDICARE, BC, SELFPAY ==
[2019-08-15] MEDS: acetaminophen 325 mg Tablet 650 MG PO (13:35)
[2019-08-19 07:33] LABS: Basophils % 0.8 %; Eosinophils # 0.2 10^3/uL (0.0-0.8); Eosinophils % 3.2 %; Hematocrit 31.8 % (42.0-52.0); Hemoglobin 9.9 g/dL (11.7-16.6); Lymphocytes # 1.5 10^3/uL (0.8-4.8); Mean Corpuscular HGB Conc 31.1 g/dL (30.0-36.0); Mean Corpuscular Hemoglobin 33.4 pg (28.0-34.0); Mean Corpuscular Volume 107.4 fL (80-94); Mean Platelet Volume 11.3 fL (7.4-10.4); Monocytes # 0.7 10^3/uL (0.2-0.9); Monocytes % 14.1 %; Neutrophils # 2.5 10^3/uL (1.8-7.7); Neutrophils % 50.3 %; Nucleated Red Blood Cells % 0 %; Platelet Count 97 10^3/cmm (130-400); Red Blood Count 2.96 10^6/uL (4.1-5.3); Red Cell Distribution Width 18.7 % (12.1-15.1)
[2019-08-26 09:18] LABS: Basophils # 0.1 10^3/uL (0.0-0.1); Basophils % 1.9 %; Eosinophils # 0.2 10^3/uL (0.0-0.8); Eosinophils % 7.3 %; Hematocrit 28.4 % (42.0-52.0); Hemoglobin 8.7 g/dL (11.7-16.6); Lymphocytes # 0.9 10^3/uL (0.8-4.8); Lymphocytes % 34.6 %; Mean Corpuscular HGB Conc 30.6 g/dL (30.0-36.0); Mean Corpuscular Hemoglobin 33.6 pg (28.0-34.0); Mean Corpuscular Volume 109.7 fL (80-94); Mean Platelet Volume 11.1 fL (7.4-10.4); Monocytes # 0.3 10^3/uL (0.2-0.9); Monocytes % 12.7 %; Neutrophils # 1.1 10^3/uL (1.8-7.7); Neutrophils % 43.1 %; Nucleated Red Blood Cells % 0 %; Platelet Count 92 10^3/cmm (130-400); Red Blood Count 2.59 10^6/uL (4.1-5.3); Red Cell Distribution Width 18.6 % (12.1-15.1); White Blood Count 2.6 10^3/uL (4.0-10.0)
[2019-09-09 10:31] LABS: Basophils # 0.1 10^3/uL (0.0-0.1); Basophils % 2.9 %; Eosinophils # 0.2 10^3/uL (0.0-0.8); Eosinophils % 5.2 %; Hematocrit 24.6 % (42.0-52.0); Hemoglobin 7.5 g/dL (11.7-16.6); Lymphocytes # 1.1 10^3/uL (0.8-4.8); Lymphocytes % 35.3 %; Mean Corpuscular HGB Conc 30.5 g/dL (30.0-36.0); Mean Corpuscular Hemoglobin 34.1 pg (28.0-34.0); Mean Corpuscular Volume 111.8 fL (80-94); Monocytes # 0.5 10^3/uL (0.2-0.9); Monocytes % 15.2 %; Neutrophils # 1.3 10^3/uL (1.8-7.7); Neutrophils % 41.4 %; Nucleated Red Blood Cells % 0 %; Platelet Count 89 10^3/cmm (130-400); Red Cell Distribution Width 17.9 % (12.1-15.1); White Blood Count 3.1 10^3/uL (4.0-10.0)
[2019-09-10] VITALS (10 sets, daily range): BP systolic 133–139; BP diastolic 52–98; PULSE 71–82; RESP 18; TEMP 36.3–37.2; O2SAT 94–97
[2019-09-10] MEDS: sodium chloride 0.9% 250 ML 999 ML IV (09:30)
[2019-09-10] MEDS: acetaminophen 325 mg Tablet 650 MG PO (09:35)
[2019-09-10] MEDS: diphenhydrAMINE 25 mg Capsule PO (09:45)
[2019-09-10] MEDS: FUROsemide 10 mg/mL SDV 2mL 20 MG IV (16:41)
== END 2019-09-12 23:59 | disposition home or self-care (01) ==
LOC: ONCMED 06:45
PROVIDERS: Nurse Practitioner; Family Provider Family Medicine; PCP Family Medicine; Visit Provider Internal Medicine Medical Oncology
DX: D80.1 Nonfamilial hypogammaglobulinemia (principal); C90.02 Multiple myeloma in relapse; C61 Malignant neoplasm of prostate; D64.9 Anemia, unspecified
CPT/HCPCS: 36415; 36430; 85025; 86850; 86900; 86920; 96365; 96366; 96375; J1568; J1940; J2930; J7050; P9040

== ENCOUNTER 2019-10-08 08:10 | Outpatient (RCR) | payer MEDICARE, BC, SELFPAY ==
[2019-09-16 13:17] LABS: Basophils # 0.1 10^3/uL (0.0-0.1); Basophils % 1.9 %; Eosinophils # 0.3 10^3/uL (0.0-0.8); Eosinophils % 9.4 %; Hematocrit 35.2 % (42.0-52.0); Hemoglobin 10.6 g/dL (11.7-16.6); Lymphocytes # 1.1 10^3/uL (0.8-4.8); Mean Corpuscular HGB Conc 30.1 g/dL (30.0-36.0); Mean Corpuscular Hemoglobin 32.4 pg (28.0-34.0); Mean Corpuscular Volume 107.6 fL (80-94); Mean Platelet Volume 10.6 fL (7.4-10.4); Monocytes # 0.2 10^3/uL (0.2-0.9); Monocytes % 4.9 %; Neutrophils # 1.4 10^3/uL (1.8-7.7); Neutrophils % 46.5 %; Nucleated Red Blood Cells % 0 %; Platelet Count 87 10^3/cmm (130-400); Red Blood Count 3.27 10^6/uL (4.1-5.3); Red Cell Distribution Width 19.4 % (12.1-15.1); White Blood Count 3.1 10^3/uL (4.0-10.0)
[2019-09-23 12:26] LABS: Basophils # 0.1 10^3/uL (0.0-0.1); Eosinophils # 0.4 10^3/uL (0.0-0.8); Eosinophils % 6.9 %; Hematocrit 28.9 % (42.0-52.0); Hemoglobin 8.7 g/dL (11.7-16.6); Lymphocytes # 2.4 10^3/uL (0.8-4.8); Lymphocytes % 38.6 %; Mean Corpuscular HGB Conc 30.1 g/dL (30.0-36.0); Mean Corpuscular Hemoglobin 33.2 pg (28.0-34.0); Mean Corpuscular Volume 110.3 fL (80-94); Monocytes # 0.6 10^3/uL (0.2-0.9); Monocytes % 9.8 %; Neutrophils # 2.7 10^3/uL (1.8-7.7); Neutrophils % 43.4 %; Nucleated Red Blood Cells % 0 %; Platelet Count 81 10^3/cmm (130-400); Red Blood Count 2.62 10^6/uL (4.1-5.3); Red Cell Distribution Width 19.5 % (12.1-15.1); White Blood Count 6.2 10^3/uL (4.0-10.0)
[2019-09-30 10:09] LABS: Basophils % 0.6 %; Eosinophils # 0.3 10^3/uL (0.0-0.8); Eosinophils % 9.7 %; Hematocrit 24.8 % (42.0-52.0); Hemoglobin 7.2 g/dL (11.7-16.6); Lymphocytes # 1.3 10^3/uL (0.8-4.8); Lymphocytes % 41.9 %; Mean Corpuscular Hemoglobin 33.6 pg (28.0-34.0); Mean Corpuscular Volume 115.9 fL (80-94); Mean Platelet Volume 11.6 fL (7.4-10.4); Monocytes # 0.3 10^3/uL (0.2-0.9); Monocytes % 7.8 %; Neutrophils # 1.3 10^3/uL (1.8-7.7); Neutrophils % 39.4 %; Nucleated Red Blood Cells % 0 %; Platelet Count 63 10^3/cmm (130-400); Red Blood Count 2.14 10^6/uL (4.1-5.3); White Blood Count 3.2 10^3/uL (4.0-10.0)
[2019-09-30 10:31] LABS: Prostate Specific Antigen 0.11 ng/mL (0-4)
[2019-09-30 10:42] LABS: Alanine Aminotransferase 22 U/L (0-41); Albumin Level 3.7 g/dL (3.5-5.2); Alkaline Phosphatase 72 IU/L (40-130); Anion Gap 15.3 (5-19); Aspartate Amino Transferase 22 U/L (0-40); Blood Urea Nitrogen 29 mg/dL (8-23); Calcium 8.6 mg/dL (8.5-10.5); Carbon Dioxide 25 mmol/L (22-29); Chloride 102 mmol/L (98-107); Globulin 2.3 g/dL (1.3-4.6); Glomerular Filtration Rate 33.7 mL/min (90-130); Glucose 134 mg/dL (65-115); Osmolality Calculated 285 mOsm/kg (285-295); Potassium 4.3 mmol/L (3.5-5.1); Sodium 138 mmol/L (136-145); Total Bilirubin 0.6 mg/dL (0.15-1.2)
[2019-10-01] VITALS (10 sets, daily range): BP systolic 100–139; BP diastolic 57–82; PULSE 68–83; RESP 16; TEMP 36.3–37.1; O2SAT 96–99
[2019-10-01] MEDS: acetaminophen 325 mg Tablet 650 MG PO ×2 (08:15→13:07)
[2019-10-01] MEDS: diphenhydrAMINE 25 mg Capsule PO ×2 (08:15→13:07)
[2019-10-01] MEDS: sodium chloride 0.9% 250 ML 999 ML IV (08:43)
[2019-10-01] MEDS: FUROsemide 10 mg/mL SDV 2mL 20 MG IV (10:39)
[2019-10-01] MEDS: leuprolide 22.5 mg Kit IM (15:20)
[2019-10-08 10:31] LABS: Basophils % 1.7 %; Eosinophils # 0.2 10^3/uL (0.0-0.8); Eosinophils % 6.3 %; Hematocrit 28.7 % (42.0-52.0); Hemoglobin 8.8 g/dL (11.7-16.6); Lymphocytes # 1.1 10^3/uL (0.8-4.8); Lymphocytes % 44.2 %; Mean Corpuscular HGB Conc 30.7 g/dL (30.0-36.0); Mean Corpuscular Hemoglobin 33.3 pg (28.0-34.0); Mean Corpuscular Volume 108.7 fL (80-94); Mean Platelet Volume 11.5 fL (7.4-10.4); Monocytes # 0.3 10^3/uL (0.2-0.9); Monocytes % 12.1 %; Neutrophils # 0.9 10^3/uL (1.8-7.7); Neutrophils % 35.7 %; Nucleated Red Blood Cells % 0 %; Platelet Count 52 10^3/cmm (130-400); Red Blood Count 2.64 10^6/uL (4.1-5.3); Red Cell Distribution Width 20.3 % (12.1-15.1); White Blood Count 2.4 10^3/uL (4.0-10.0)
[2019-10-08 10:59] LABS: Alanine Aminotransferase 20 U/L (0-41); Albumin Level 3.3 g/dL (3.5-5.2); Alkaline Phosphatase 71 IU/L (40-130); Anion Gap 14.2 (5-19); Aspartate Amino Transferase 19 U/L (0-40); Blood Urea Nitrogen 38 mg/dL (8-23); Calcium 9.8 mg/dL (8.5-10.5); Carbon Dioxide 26 mmol/L (22-29); Chloride 104 mmol/L (98-107); Globulin 2.8 g/dL (1.3-4.6); Glomerular Filtration Rate 35.8 mL/min (90-130); Glucose 86 mg/dL (65-115); Osmolality Calculated 287 mOsm/kg (285-295); Potassium 4.2 mmol/L (3.5-5.1); Sodium 140 mmol/L (136-145); Total Bilirubin 0.6 mg/dL (0.15-1.2); Total Protein 6.1 g/dL (6.6-8.7)
== END 2019-10-13 23:59 | disposition home or self-care (01) ==
LOC: ONCMED 08:10
PROVIDERS: Internal Medicine Medical Oncology; PCP Family Medicine; Visit Provider Nurse Practitioner
DX: C90.02 Multiple myeloma in relapse (principal); C61 Malignant neoplasm of prostate; C79.52 Secondary malignant neoplasm of bone marrow; D80.1 Nonfamilial hypogammaglobulinemia; F32.9 Major depressive disorder, single episode, unspecified; G62.9 Polyneuropathy, unspecified; Z92.21 Personal history of antineoplastic chemotherapy; Z79.899 Other long term (current) drug therapy
CPT/HCPCS: 36415; 36430; 80053; 84153; 85025; 86850; 86900; 86920; 96365; 96366; 96372; 96375; 96402; 99214; J1568; J1940; J2930; J7050; J9217; P9040

== ENCOUNTER 2019-11-11 08:15 | Outpatient (RCR) | payer MEDICARE, BC, SELFPAY ==
[2019-10-15 10:31] LABS: Basophils # 0.1 10^3/uL (0.0-0.1); Basophils % 1.5 %; Eosinophils # 0.1 10^3/uL (0.0-0.8); Eosinophils % 1.5 %; Hematocrit 26.6 % (42.0-52.0); Hemoglobin 8.4 g/dL (11.7-16.6); Lymphocytes # 1.5 10^3/uL (0.8-4.8); Mean Corpuscular HGB Conc 31.6 g/dL (30.0-36.0); Mean Corpuscular Hemoglobin 35.3 pg (28.0-34.0); Mean Corpuscular Volume 111.8 fL (80-94); Mean Platelet Volume 11.1 fL (7.4-10.4); Monocytes # 0.5 10^3/uL (0.2-0.9); Monocytes % 11.1 %; Neutrophils # 2.4 10^3/uL (1.8-7.7); Neutrophils % 52.7 %; Nucleated Red Blood Cells % 0 %; Platelet Count 75 10^3/cmm (130-400); Red Blood Count 2.38 10^6/uL (4.1-5.3); Red Cell Distribution Width 19.8 % (12.1-15.1); White Blood Count 4.6 10^3/uL (4.0-10.0)
[2019-10-17] VITALS (10 sets, daily range): BP systolic 106–140; BP diastolic 62–80; PULSE 69–84; RESP 18; TEMP 36.1–36.6; O2SAT 86–97
[2019-10-17] MEDS: acetaminophen 325 mg Tablet 650 MG PO (09:00)
[2019-10-17] MEDS: sodium chloride 0.9% 250 ML 75 ML IV (09:15)
[2019-10-17] MEDS: diphenhydrAMINE 25 mg Capsule PO (09:21)
[2019-10-17] MEDS: FUROsemide 10 mg/mL SDV 2mL 20 MG IV (15:50)
[2019-10-22 10:17] LABS: Eosinophils # 0.1 10^3/uL (0.0-0.8); Eosinophils % 3.4 %; Hematocrit 30.5 % (42.0-52.0); Hemoglobin 9.6 g/dL (11.7-16.6); Lymphocytes # 1.2 10^3/uL (0.8-4.8); Lymphocytes % 38.6 %; Mean Corpuscular HGB Conc 31.5 g/dL (30.0-36.0); Mean Corpuscular Hemoglobin 33.7 pg (28.0-34.0); Mean Platelet Volume 10.4 fL (7.4-10.4); Monocytes # 0.3 10^3/uL (0.2-0.9); Monocytes % 9.4 %; Neutrophils # 1.4 10^3/uL (1.8-7.7); Neutrophils % 47.3 %; Nucleated Red Blood Cells % 0 %; Platelet Count 78 10^3/cmm (130-400); Red Blood Count 2.85 10^6/uL (4.1-5.3); Red Cell Distribution Width 20.1 % (12.1-15.1)
[2019-10-29 09:52] LABS: Basophils % 0.3 %; Eosinophils # 0.1 10^3/uL (0.0-0.8); Eosinophils % 4.3 %; Hematocrit 26.2 % (42.0-52.0); Hemoglobin 8.1 g/dL (11.7-16.6); Lymphocytes # 1.3 10^3/uL (0.8-4.8); Lymphocytes % 40.6 %; Mean Corpuscular HGB Conc 30.9 g/dL (30.0-36.0); Mean Corpuscular Hemoglobin 34.5 pg (28.0-34.0); Mean Corpuscular Volume 111.5 fL (80-94); Mean Platelet Volume 9.8 fL (7.4-10.4); Monocytes # 0.2 10^3/uL (0.2-0.9); Monocytes % 6.2 %; Neutrophils # 1.6 10^3/uL (1.8-7.7); Neutrophils % 48.3 %; Nucleated Red Blood Cells % 0 %; Platelet Count 81 10^3/cmm (130-400); Red Blood Count 2.35 10^6/uL (4.1-5.3); White Blood Count 3.2 10^3/uL (4.0-10.0)
[2019-10-29 10:46] LABS: Prostate Specific Antigen 0.096 ng/mL (0-4)
[2019-10-30] MEDS: sodium chloride 0.9% 250 ML 999 ML IV (10:35)
[2019-10-30] MEDS: acetaminophen 325 mg Tablet 650 MG PO (10:45)
[2019-10-30] MEDS: fexofenadine 60 mg Tablet 180 MG PO (10:45)
[2019-10-30] MEDS: montelukast sodium 10 mg Tablet PO (10:45)
[2019-10-30 10:47] LABS: Basophils % 0.9 %; Eosinophils # 0.1 10^3/uL (0.0-0.8); Eosinophils % 3.1 %; Hematocrit 28.3 % (42.0-52.0); Hemoglobin 9.2 g/dL (11.7-16.6); Lymphocytes # 1.3 10^3/uL (0.8-4.8); Lymphocytes % 29.8 %; Mean Corpuscular HGB Conc 32.5 g/dL (30.0-36.0); Mean Corpuscular Hemoglobin 34.2 pg (28.0-34.0); Mean Corpuscular Volume 105.2 fL (80-94); Mean Platelet Volume 11.1 fL (7.4-10.4); Monocytes # 0.4 10^3/uL (0.2-0.9); Monocytes % 8.2 %; Neutrophils # 2.5 10^3/uL (1.8-7.7); Neutrophils % 57.5 %; Nucleated Red Blood Cells % 0 %; Platelet Count 101 10^3/cmm (130-400); Red Blood Count 2.69 10^6/uL (4.1-5.3); Red Cell Distribution Width 19.6 % (12.1-15.1); White Blood Count 4.3 10^3/uL (4.0-10.0)
[2019-10-30 11:12] LABS: Alanine Aminotransferase 17 U/L (0-41); Albumin Level 3.6 g/dL (3.5-5.2); Alkaline Phosphatase 74 IU/L (40-130); Aspartate Amino Transferase 23 U/L (0-40); Globulin 2.7 g/dL (1.3-4.6); Lactate Dehydrogenase 252 U/L (135-225); Total Bilirubin 0.5 mg/dL (0.15-1.2); Total Protein 6.3 g/dL (6.6-8.7)
[2019-11-04 09:41] LABS: Basophils % 0.3 %; Eosinophils # 0.1 10^3/uL (0.0-0.8); Eosinophils % 3.9 %; Hematocrit 23.4 % (42.0-52.0); Hemoglobin 7.3 g/dL (11.7-16.6); Lymphocytes % 32.6 %; Mean Corpuscular HGB Conc 31.2 g/dL (30.0-36.0); Mean Corpuscular Hemoglobin 34.6 pg (28.0-34.0); Mean Corpuscular Volume 110.9 fL (80-94); Mean Platelet Volume 12.1 fL (7.4-10.4); Monocytes # 0.2 10^3/uL (0.2-0.9); Monocytes % 6.9 %; Neutrophils # 1.7 10^3/uL (1.8-7.7); Nucleated Red Blood Cells % 0 %; Platelet Count 66 10^3/cmm (130-400); Red Blood Count 2.11 10^6/uL (4.1-5.3); Red Cell Distribution Width 20.1 % (12.1-15.1)
[2019-11-05] VITALS (8 sets, daily range): BP systolic 111–140; BP diastolic 58–83; PULSE 81–90; RESP 18; TEMP 35.9–37.1; O2SAT 96–97
[2019-11-05] MEDS: diphenhydrAMINE 25 mg Capsule PO (08:25)
[2019-11-05] MEDS: acetaminophen 325 mg Tablet 650 MG PO ×2 (08:25→12:13)
[2019-11-05] MEDS: sodium chloride 0.9% 250 ML 999 ML IV ×2 (08:30→12:20)
[2019-11-05] MEDS: fexofenadine 60 mg Tablet 180 MG PO (12:52)
[2019-11-05] MEDS: montelukast sodium 10 mg Tablet PO (12:52)
[2019-11-05] MEDS: FUROsemide 10 mg/mL SDV 2mL 20 MG IV (13:52)
--- NOTE | 2019-11-06 08:36 | ONC FU_ITS ---
Dr. Brody Patient Follow-Up Note Patient: Flaco Cardona Unit #: [id number]: [id number] Dicatated By: Christopher Brody M.D.Date of Visit:Nov 05, 2019 Onc Med Follow-up/Prog Note Chief Complaint: Myeloma/prostate cancer. History of Present Illness: This is a 63 year-old man with IgA kappa myeloma, stage IIIB. He has now been found to have metastatic prostate cancer involving the bone marrow. He was diagnosed with IgA kappa myeloma in October 2009. He presented at that time with anemia, hypercalcemia, renal failure, and severe osteopenia with multiple vertebral compression fractures. He was seen at the [facility] for his initial evaluation. He was treated on their standard arm Total Therapy 4 which included M-VTD-PACE induction and a second induction with VTD-PACE. He then underwent tandem transplants with high-dose melphalan conditioning in February and in March 2010. He reportedly had an excellent response to the treatment, and he was then consolidated with VTD-PACE in June 2010 and July 2010 followed by maintenance VRD. His maintenance therapy was complicated by depression due to Revlimid and severe neuropathy, and treatment was stopped by June 2011. He restarted treatment with Revlimid in August 2012, but he was again unable to tolerate it due to depression. He stopped treatment again in February 2013. He underwent evaluation at the [facility] in July 2014. At that time he was felt to have disease progression with MRI reporting new lesions in the clivus and in the right humerus. Bone marrow at that time showed 10% plasma cells in the aspirate and 20% in the biopsy. His M protein quantitated at 1 g compared to 0.3 g in February 2014. It was opted at that time to resume treatment with pomalidomide in combination with cyclophosphamide and dexamethasone. The prescribed regimen included pomalidomide 3 mg daily on days 1 through 21 of a 28 day cycle in combination with cyclophosphamide 500 mg/m??? by IV infusion days 1 and 15 and dexamethasone 20 mg weekly. As of 03/05/2015 he had completed 7 cycles of treatment with the cyclophosphamide administered on a day 1/day 15 schedule. In March his treatment was held, as he was pretty ill with pneumonia, and he ended up being treated for it in [place]. He had an uneventful recovery, and he was able to resume treatment on 04/16/2015. He had a restaging evaluation at the [facility] on 08/12/2015. Bone marrow aspiration/biopsy at that time showed an overall cellularity of 35%. The aspirate showed 6% plasma cells. By flow cytometry total plasma cells were estimated at 1.23%, with 0.69% myeloma cells and 0.54% normal plasma cells. The chromosome analysis showed a translocation involving chromosomes 4 and 8 in a single cell. The clinical significance of that finding was uncertain. I did not receive results of the protein electrophoresis studies. However, he was advised to continue treatment with pomalidomide, dexamethasone, and cyclophosphamide. However, due to his persistently low blood counts, in August 2015 his cyclophosphamide dosage was reduced to 500 mg. In October he continued with his 15th cycle of treatment. However, in November 2015 his cyclophosphamide was put on hold due to persistent neutropenia. He had subsequently continued his regular follow-up at [facility]. As of his follow-up visit there in December 2016 he had continued treatment with pomalidomide and dexamethasone, with the cyclophosphamide remaining on hold. He had a six-month follow-up at [facility] in June 2017. It incluided an MRI bone marrow blood supply exam on 07/07/2017 which showed a slight increase of mild hyperintense homogeneous signal in the marrow of the axial and peripheral skeletons. There was a slight increase of mildly restricted diffusion noted in the marrow cavity. There was interval development of a 2.5 cm focal lesion in the right posterior ilium with restricted diffusion and a 2 cm focal lesion in the right posterior elements at approximately T6, also with restricted diffusion. Bilateral small calvarial lesions were noted with interval punctate and bilateral interval rib lesions were noted. His bone marrow aspiration/biopsy on 07/10/2017 showed overall cellularity of 30% with the differential showing 7% plasma cells. The immunohistochemical stain for CD138 showed 5-10% plasma cells with interstitial and patchy distribution. His M protein was quantitated 0.7 g/dL. He was seen for a follow-up visit here on 07/11/2017. At that point he had become significantly more fatigued. He complained of shortness of breath, and he had been having episodes of passing out. His hemoglobin had dropped to 8.7 g. He was transfused 2 U of packed red blood cells on 07/13/2017. He had symptomatic improvement. He then returned to [facility] and on 07/15/2017 he began treatment with daratuzumab in addition to the pomalidomide/dexamethasone. He had no significant toxicity with the initial infusion of daratuzumab. During subsequent follow-up, there was a gradual decline in his granulocyte count. It nadired at 1200 at week 5 of daratuzumab, but it subsequently increased. He received week 8 of daratuzumab on 09/05/2017. His treatment was then put on hold due to persistent/recurrent pneumonia. He was admitted to the hospital on 09/14/2017 and again on 09/24/2017. With the second admission he was feeling weak and he had fallen several times. Brain MRI reported a 3.7 x 1.7 cm marrow replacing lesion within the clivus, consistent with plasmacytoma. A 7 mm focus of acute ischemia was noted in the right cerebellum. There was a small amount of associated edema. With those findings, he was transferred to [facility] for further management. His evaluation there was consistent with cerebellar stroke with subacute lacunar ischemic infarct on the right cerebellar hemisphere. Also reported was an expansile myelomatous clival lesion with bony erosion of the left carotid canal, erosion of the anterior and posterior cortex of the clivus, and extension into the sphenoid sinuses. The pneumonia improved after 7 days of IV cefepime. He was seen here again on 10/19/2017 and at that time he completed his 9th infusion of daratumumab. His next scheduled treatment was put on hold due to neutropenia and symptoms of respiratory infection. On 11/10/2017 he was admitted to the hospital with neutropenic fever. He was transferred to [facility] for further care. After recovering from that illness he had a restaging evaluation for the myeloma. His bone marrow aspiration/biopsy showed 5% plasma cells. His M protein quantitated at 0.4 g/dL. MRI bone marrow blood supply on 12/18/2017 showed interval worsening with increased size of the focal lesions involving the right temporal bone, clivus, and left parietal bone. There were only minimal changes noted in the spine from the previous studies. There was minimal progression of lesions in the proximal right humerus and in the upper sternum. With those findings, it was recommended that he change treatment to carfilzomib in combination with dexamethasone. He began cycle 1 on 12/27/2017 with the carfilzomib dosed at 20 mg/m???. He also started monthly replacement therapy with IVIG. At day 8 of cycle 1 the carfilzomib dosage was escalated to 36 mg/m???. He tolerated it well, and he was able to continue with cycle 2 on 01/24/2018. As of February 2018 he had completed 3 cycles of treatment. In May 2018 he underwent a stem cell transplant procedure at [facility]. He has had a gradual recovery following that treatment. I had seen him for follow-up here in September 2018. At that time he appeared stable clinically. He then continued his further follow-up at [facility]. He had recently been readmitted to [facility] after he developed fever up to 103 degrees. The fever resolved on antibiotic therapy, though I am not certain that a specific source was ever determined. His repeat bone marrow aspiration/biopsy on 06/12/2019 showed an unexpected finding of involvement with moderately differentiated metastatic adenocarcinoma which was felt to be most consistent with prostatic origin. It was morphologically negative for plasma cell neoplasm. His PSA was elevated in the range of 20 ng/mL. Restaging CT scans of the chest, abdomen, and pelvis on 06/22/2019 showed a small spiculated residual nodular density in the right upper lobe measuring 1.3 cm, decreased in size from 3.5 cm on a prior PET/CT from January 2019. It was felt to be most likely infectious/inflammatory. There were persistent tree-in-bud type nodularity in both lungs, particularly the lower lobes, felt to be suggestive of multifocal infectious/inflammatory change. There were no new pulmonary nodules and there was no pulmonary consolidation noted. There was no evidence of visceral/sherman metastatic disease in the abdomen/pelvis. There were faint sclerotic lesions in the C7 and T1 vertebral bodies. A bone scan on 06/24/2019 showed multiple focal areas of abnormal uptake which corresponded to the FDG avid osseous lesions noted on the PET/CT from 06/07/2019. These include with the upper thoracic spine, left T9 transverse process, and left posterior ischium. Overall, the findings were felt to be consistent with osteoblastic metastatic disease favoring metastatic prostate cancer over multiple myeloma. He began treatment with bicalutamide 50 mg daily, and he was then seen here on to continue his androgen deprivation locally. He received his initial injection of Depo-Lupron 22.5 mg on 07/01/2019. He tolerated with no adverse effects, and he then continued with a second Lupron injection on 10/01/2019. At that point his PSA had decreased to 0.11 ng/mL. He was seen for a follow-up visit at [facility] on 10/25/2019. His PET/CT showed an FDG avid right frontotemporal calvarial lesion measuring 2 cm, but with interval resolution of abnormal FDG uptake within a sclerotic left posterior iliac lesion. There was no evidence of metastatic disease. With that finding, he was recommended to restart treatment for the myeloma with daratumumab in combination with cyclophosphamide 100 mg weekly, Revlimid 10 mg daily on a /-day schedule, and dexamethasone 8 mg. He began his week 1 daratumumab on 10/30/2019. He is seen for a follow-up visit. Overall is been feeling a little better generally, though he does complain that he is tired. He is able to do some light work at home. His ECOG score is 1. He has good appetite. He has not had fever and he is not having actual hot flashes, but he does have sweating intermittently, and he sometimes wakes up at night ringing wet. He says he has been having a lot of muscle cramps, especially in his hands and in his legs and feet. He thinks this is related to the Revlimid. He is taking baclofen for it. He has not had sore mouth or throat. Lately he has had some shortness of breath. He does not complain of cough, and he has not been having chest pain. He has not having nausea. He does get acid reflux when he takes dexamethasone. He still has diarrhea intermittently, but it is controlled with Imodium. He has no complaints. He has been having more back pain, but it is still managed adequately with Hickman. He does report having numbness/tingling in his hands and feet. Medications: Acyclovir 1 (200 mg) Tablet Oral daily, Albuterol Sulfate 1 ((2.5 mg/3ml) 0.083%) Nebulization solution Inhalation four times a day PRN, AmLODIPine Besylate 1 Tablet (of 5 mg) Oral at bedtime PRN, Aspirin 1 (81 mg) Tablet Oral daily, Baclofen 1 (10 mg) Tablet Oral at bedtime PRN, Benzonatate 1 Capsule (of 100 mg) Oral t.i.d., Casodex 1 Tablet (of 50 mg) Oral daily, Colace Capsule Oral daily PRN, cultrelle 1 Capsule Oral daily, Cyproheptadine HCl 1 (4 mg) Tablet Oral b.i.d. PRN, D3-1000 Tablet Oral daily, Dapsone 1 Tablet (of 100 mg) Oral daily, Folic Acid 1 (1000 mcg) Tablet Oral b.i.d., Gabapentin 1 Capsule (of 600 mg) Oral at bedtime, Garlic 1 (3000 mg) Capsule Oral b.i.d., Hydrocodone-Acetaminophen 1 (10-325 mg) Tablet Oral four times a day PRN, Ipratropium-Albuterol 1 (20-100 mcg/act) Aerosol, solution Inhalation daily, Multivitamins 1 Capsule Oral daily, Pantoprazole Sodium 1 Tablet (of 40 mg) Tablet, enteric coated Oral daily PRN, Phos-NaK 1 Packet (of 280-160-250 mg) Pack Oral daily for 90 days, Prochlorperazine Maleate 0.5 Tablet (of 10 mg) Oral q 6 hours PRN, Promethazine-Codeine 5 mL (of 6.25-10 mg/5mL) Syrup Oral q 6 hours, Questran 1 (4 g) Pack Oral daily, Xanax 1 Tablet (of 0.25 mg) Oral t.i.d. PRN, Xyzal 1 (5 mg) Tablet Oral daily PRN, Zofran 1 Tablet (of 8 mg) Oral four times a day PRN Allergies: No Known Allergies. Review of Systems: Constitutional - He has been feeling tired. He is able to do light work at home. Appetite is good and weight is stable. No fever. He has been having sweating. He sometimes wakes up wringing wet. ECOG score is 1, ENMT - He complains that his nose drips. No mouth sores. No sore throat or difficulty swallowing, Hematologic/Lymphatic - He has easy bruising, Respiratory - He has some shortness of breath. No cough. No pleuritic pain or hemoptysis, Cardiovascular - No angina pain. No palpitations, Gastrointestinal - No nausea or vomiting. He has acid reflux when he takes dexamethasone. He has intermittent diarrhea. No constipation. No blood in the stool or black stools, Genitourinary (M) - No dysuria or hematuria. No urinary frequency. No urgency or incontinence, Musculoskeletal - He has been having more back pain. He still manages it adequately with Hickman, Neurologic - No headache or dizziness. He has numbness/tingling, Psychiatric - He has anxiety/depression. He does not sleep well. Vital Signs: Performed on Nov 05, 2019 10:57 Height - 67.00 in Weight - 173.8 lbs (HIGH) BSA - 1.90 sq.m BMI - 27.22 Temperature - 97.7 F (LOW) Pulse - 82 /min Respiration - 18 /min BP - 136/84 mm(hg) O2 Sat - 97 % Pain - 0 Physical Examination: Constitutional - He looks a little better generally, Eyes - Sclerae nonicteric. Conjunctivae clear, ENMT - No lesions noted in the oral cavity, Hematologic/Lymphatic - No cervical, clavicular, or axillary adenopathy, Respiratory - Lungs sound clear with some decrease in air movement bilaterally, Cardiovascular - Heart rhythm is regular. There is no murmur, gallop, or rub noted, Abdomen - Soft. Liver and spleen are not enlarged. There is no abdominal mass or ascites noted and there is no inguinal adenopathy, Extremities - There are mild venous stasis changes bilaterally. There is no edema, Neurologic - No focal neurologic deficits noted. Lab/Imaging: CBC shows hemoglobin 7.3 g, white blood cell count 3000, and platelet count 66,000. Impression: 1. Patient with IgA kappa myeloma, stage IIIB. He had severe osteopenia with multiple vertebral compression fractures at initial diagnosis in October 2009. 2. He had responded well to his initial treatment, but on his evaluation in July 2014 at the [facility], there was evidence of disease progression. In August 2014 he restarted treatment with pomalidomide in combination with cyclophosphamide and dexamethasone. He had evidence of response by M protein level. 3. As of November 2015 his cyclophosphamide was put on hold due to worsening cytopenias, but he continued treatment with pomalidomide and dexamethasone. 4. As of July 2017 his evaluation at [facility] showed evidence of disease progression with 7% plasma cells in the bone marrow and some new lytic lesions by MRI. As such, he began treatment with daratuzumab in combination with the pomalidomide/dexamethasone. During subsequent follow-up there was a gradual decline in his granulocyte count and he remained moderately anemic, but he was able to complete 8 weekly infusions daratumumab. His treatment was then put on hold due to recurrent/persistent pneumonia. He also was found to have evidence of cerebellar stroke. 5. He was able to continue with his 9th infusion of daratumumab on 10/19/2017. His treatment was then put on hold again due to neutropenia and fever. 6. His repeat bone marrow aspiration/biopsy on 11/29/2017 showed 5% plasma cells. M protein at that point quantitated 0.4 g/dL. Repeat MRI studies on 12/18/2017 showed only a few areas of slight progression. With those findings his treatment was changed to carfilzomib in combination with dexamethasone beginning on 12/27/2017. He also started monthly replacement therapy with IVIG. 7. As of February 2018 he had completed 3 cycles of treatment with carfilzomib/dexamethasone. In May 2018 he underwent a stem cell transplant procedure at [facility]. He had gradual recovery following that treatment, and he then continued regular followup at [facility]. 8. Repeat bone marrow aspiration/biopsy on 06/12/2019 showed unexpected finding of moderately differentiated metastatic adenocarcinoma of the mid most consistent with prostatic origin. There was no morphologic evidence of plasma cell neoplasm. His PET/CT and bone scans showed several foci of osteoblastic involvement felt to be most consistent with metastatic prostate cancer. Restaging CT scans of the chest, abdomen, and pelvis showed no evidence for visceral or other non-osseous metastatic disease. PSA was elevated in the range of 20 ng/mL. 9. He began treatment with bicalutamide 50 mg daily, and on 07/01/2019 he received his initial injection of Depo-Lupron 22.5 mg. He appeared to have a good respone to the androgen deprivatiopn therapy by PSA level. He continued with his second Depo-Lupron injection on 10/01/2019. At his follow-up visit at [facility] on 10/24/2019, there was evidence of progression of the myeloma with PET/CT showing a new 2 cm FDG avid lesion in the right frontal calvarium. With that finding, he has restarted myeloma therapy with daratumumab in combination with cyclophosphamide, lenalidomide, and dexamethasone. He tolerated his initial infusion of daratumumab with no adverse effects. Overall, he appears to be doing a little better clinically, but he remains anemic. He also has mild neutropenia and moderately severe thrombocytopenia. Plan: He will proceed with his week 2 daratumumab infusion, and he will continue his treatment with cyclophosphamide in combination with lenalidomide and dexamethasone. He will be transfused 2 units PRBC today. He returns in one week. Signed By: Christopher Brody M.D. <<Signature on File>>
[2019-11-11 11:09] LABS: Basophils % 0.3 %; Eosinophils # 0.1 10^3/uL (0.0-0.8); Eosinophils % 2.8 %; Hematocrit 35.5 % (42.0-52.0); Hemoglobin 11.2 g/dL (11.7-16.6); Lymphocytes # 1.1 10^3/uL (0.8-4.8); Lymphocytes % 30.5 %; Mean Corpuscular HGB Conc 31.5 g/dL (30.0-36.0); Mean Corpuscular Hemoglobin 32.7 pg (28.0-34.0); Mean Corpuscular Volume 103.5 fL (80-94); Mean Platelet Volume 11.5 fL (7.4-10.4); Monocytes # 0.3 10^3/uL (0.2-0.9); Monocytes % 8.8 %; Neutrophils % 57.3 %; Nucleated Red Blood Cells % 0 %; Platelet Count 65 10^3/cmm (130-400); Red Blood Count 3.43 10^6/uL (4.1-5.3); White Blood Count 3.5 10^3/uL (4.0-10.0)
[2019-11-11 11:39] LABS: Prostate Specific Antigen 0.089 ng/mL (0-4)
[2019-11-11 11:50] LABS: Alanine Aminotransferase 14 U/L (0-41); Albumin Level 4.1 g/dL (3.5-5.2); Alkaline Phosphatase 75 IU/L (40-130); Aspartate Amino Transferase 14 U/L (0-40); Blood Urea Nitrogen 27 mg/dL (8-23); Calcium 9.2 mg/dL (8.5-10.5); Carbon Dioxide 25 mmol/L (22-29); Chloride 99 mmol/L (98-107); Globulin 2.5 g/dL (1.3-4.6); Glomerular Filtration Rate 43.6 mL/min (90-130); Glucose 86 mg/dL (65-115); Lactate Dehydrogenase 201 U/L (135-225); Osmolality Calculated 278 mOsm/kg (285-295); Sodium 136 mmol/L (136-145); Total Bilirubin 0.6 mg/dL (0.15-1.2); Total Protein 6.6 g/dL (6.6-8.7)
== END 2019-11-12 23:59 | disposition home or self-care (01) ==
LOC: ONCMED 08:15
PROVIDERS: Nurse Practitioner; PCP Family Medicine; Visit Provider Internal Medicine Medical Oncology
DX: Z51.12 Encounter for antineoplastic immunotherapy (principal); C90.02 Multiple myeloma in relapse; C61 Malignant neoplasm of prostate; C79.52 Secondary malignant neoplasm of bone marrow; D80.1 Nonfamilial hypogammaglobulinemia; Z79.818 Long term (current) use of other agents affecting estrogen receptors and estrogen levels; Z79.899 Other long term (current) drug therapy
CPT/HCPCS: 36415; 36430; 80053; 80076; 80500; 82248; 83615; 84153; 85025; 86850; 86870; 86900; 86920; 96367; 96413; 96415; 99214; J1100; J1200; J1940; J7030; J7050; J9145; P9040

== ENCOUNTER 2019-12-11 06:43 | Outpatient (RCR) | payer MEDICARE, BC, SELFPAY ==
[2019-11-13] MEDS: acetaminophen 325 mg Tablet 650 MG PO (13:52)
[2019-11-13] MEDS: sodium chloride 0.9% 250 ML 999 ML IV (13:53)
[2019-11-13] MEDS: montelukast sodium 10 mg Tablet PO (14:10)
[2019-11-13] MEDS: fexofenadine 60 mg Tablet 180 MG PO (14:12)
[2019-11-19 09:33] LABS: Basophils % 0.5 %; Eosinophils # 0.1 10^3/uL (0.0-0.8); Eosinophils % 2.7 %; Hematocrit 25.9 % (42.0-52.0); Hemoglobin 8.2 g/dL (11.7-16.6); Lymphocytes # 0.7 10^3/uL (0.8-4.8); Lymphocytes % 37.8 %; Mean Corpuscular HGB Conc 31.7 g/dL (30.0-36.0); Mean Corpuscular Hemoglobin 33.6 pg (28.0-34.0); Mean Corpuscular Volume 106.1 fL (80-94); Mean Platelet Volume 11.4 fL (7.4-10.4); Monocytes # 0.2 10^3/uL (0.2-0.9); Monocytes % 11.2 %; Neutrophils # 0.9 10^3/uL (1.8-7.7); Neutrophils % 47.3 %; Nucleated Red Blood Cells % 0 %; Platelet Count 69 10^3/cmm (130-400); Red Blood Count 2.44 10^6/uL (4.1-5.3); Red Cell Distribution Width 21.5 % (12.1-15.1); White Blood Count 1.9 10^3/uL (4.0-10.0)
[2019-11-19 09:52] LABS: Alanine Aminotransferase 16 U/L (0-41); Albumin Level 3.5 g/dL (3.5-5.2); Alkaline Phosphatase 59 IU/L (40-130); Anion Gap 10.8 (5-19); Aspartate Amino Transferase 14 U/L (0-40); Blood Urea Nitrogen 25 mg/dL (8-23); Calcium 9.1 mg/dL (8.5-10.5); Carbon Dioxide 29 mmol/L (22-29); Chloride 102 mmol/L (98-107); Globulin 2.3 g/dL (1.3-4.6); Glomerular Filtration Rate 38.1 mL/min (90-130); Glucose 88 mg/dL (65-115); Osmolality Calculated 282 mOsm/kg (285-295); Potassium 3.8 mmol/L (3.5-5.1); Sodium 138 mmol/L (136-145); Total Bilirubin 0.5 mg/dL (0.15-1.2); Total Protein 5.8 g/dL (6.6-8.7)
[2019-11-20] VITALS (9 sets, daily range): BP systolic 100–117; BP diastolic 60–72; PULSE 78–102; RESP 18; TEMP 36.4–37.7; O2SAT 89–96
[2019-11-20] MEDS: acetaminophen 325 mg Tablet 650 MG PO ×2 (09:55→13:40)
[2019-11-20] MEDS: sodium chloride 0.9% 250 ML 999 ML IV (12:20)
[2019-11-20] MEDS: montelukast sodium 10 mg Tablet PO (13:40)
[2019-11-20] MEDS: fexofenadine 60 mg Tablet 180 MG PO (13:40)
[2019-11-20] MEDS: FUROsemide 10 mg/mL SDV 2mL 20 MG IV (17:33)
[2019-11-20] MEDS: diphenhydrAMINE 25 mg Capsule PO (17:33)
--- NOTE | 2019-11-23 12:36 | ONC FU_ITS ---
Dr. Brody Patient Follow-Up Note Patient: Flaco Cardona Unit #: [id number]: 1955 Dicatated By: Christopher Brody M.D.Date of Visit:Nov 20, 2019 Onc Med Follow-up/Prog Note Chief Complaint: Myeloma/prostate cancer. History of Present Illness: This is a 63 year-old man with IgA kappa myeloma, stage IIIB. He has now been found to have metastatic prostate cancer involving the bone marrow. He was diagnosed with IgA kappa myeloma in October 2009. He presented at that time with anemia, hypercalcemia, renal failure, and severe osteopenia with multiple vertebral compression fractures. He was seen at the [facility] for his initial evaluation. He was treated on their standard arm Total Therapy 4 which included M-VTD-PACE induction and a second induction with VTD-PACE. He then underwent tandem transplants with high-dose melphalan conditioning in February and in March 2010. He reportedly had an excellent response to the treatment, and he was then consolidated with VTD-PACE in June 2010 and July 2010 followed by maintenance VRD. His maintenance therapy was complicated by depression due to Revlimid and severe neuropathy, and treatment was stopped by June 2011. He restarted treatment with Revlimid in August 2012, but he was again unable to tolerate it due to depression. He stopped treatment again in February 2013. He underwent evaluation at the [facility] in July 2014. At that time he was felt to have disease progression with MRI reporting new lesions in the clivus and in the right humerus. Bone marrow at that time showed 10% plasma cells in the aspirate and 20% in the biopsy. His M protein quantitated at 1 g compared to 0.3 g in February 2014. It was opted at that time to resume treatment with pomalidomide in combination with cyclophosphamide and dexamethasone. The prescribed regimen included pomalidomide 3 mg daily on days 1 through 21 of a 28 day cycle in combination with cyclophosphamide 500 mg/m??? by IV infusion days 1 and 15 and dexamethasone 20 mg weekly. As of 03/05/2015 he had completed 7 cycles of treatment with the cyclophosphamide administered on a day 1/day 15 schedule. In March his treatment was held, as he was pretty ill with pneumonia, and he ended up being treated for it in [place]. He had an uneventful recovery, and he was able to resume treatment on 04/16/2015. He had a restaging evaluation at the [facility] on 08/12/2015. Bone marrow aspiration/biopsy at that time showed an overall cellularity of 35%. The aspirate showed 6% plasma cells. By flow cytometry total plasma cells were estimated at 1.23%, with 0.69% myeloma cells and 0.54% normal plasma cells. The chromosome analysis showed a translocation involving chromosomes 4 and 8 in a single cell. The clinical significance of that finding was uncertain. I did not receive results of the protein electrophoresis studies. However, he was advised to continue treatment with pomalidomide, dexamethasone, and cyclophosphamide. However, due to his persistently low blood counts, in August 2015 his cyclophosphamide dosage was reduced to 500 mg. In October he continued with his 15th cycle of treatment. However, in November 2015 his cyclophosphamide was put on hold due to persistent neutropenia. He had subsequently continued his regular follow-up at [facility]. As of his follow-up visit there in December 2016 he had continued treatment with pomalidomide and dexamethasone, with the cyclophosphamide remaining on hold. He had a six-month follow-up at [facility] in June 2017. It incluided an MRI bone marrow blood supply exam on 07/07/2017 which showed a slight increase of mild hyperintense homogeneous signal in the marrow of the axial and peripheral skeletons. There was a slight increase of mildly restricted diffusion noted in the marrow cavity. There was interval development of a 2.5 cm focal lesion in the right posterior ilium with restricted diffusion and a 2 cm focal lesion in the right posterior elements at approximately T6, also with restricted diffusion. Bilateral small calvarial lesions were noted with interval punctate and bilateral interval rib lesions were noted. His bone marrow aspiration/biopsy on 07/10/2017 showed overall cellularity of 30% with the differential showing 7% plasma cells. The immunohistochemical stain for CD138 showed 5-10% plasma cells with interstitial and patchy distribution. His M protein was quantitated 0.7 g/dL. He was seen for a follow-up visit here on 07/11/2017. At that point he had become significantly more fatigued. He complained of shortness of breath, and he had been having episodes of passing out. His hemoglobin had dropped to 8.7 g. He was transfused 2 U of packed red blood cells on 07/13/2017. He had symptomatic improvement. He then returned to [facility] and on 07/15/2017 he began treatment with daratuzumab in addition to the pomalidomide/dexamethasone. He had no significant toxicity with the initial infusion of daratuzumab. During subsequent follow-up, there was a gradual decline in his granulocyte count. It nadired at 1200 at week 5 of daratuzumab, but it subsequently increased. He received week 8 of daratuzumab on 09/05/2017. His treatment was then put on hold due to persistent/recurrent pneumonia. He was admitted to the hospital on 09/14/2017 and again on 09/24/2017. With the second admission he was feeling weak and he had fallen several times. Brain MRI reported a 3.7 x 1.7 cm marrow replacing lesion within the clivus, consistent with plasmacytoma. A 7 mm focus of acute ischemia was noted in the right cerebellum. There was a small amount of associated edema. With those findings, he was transferred to [facility] for further management. His evaluation there was consistent with cerebellar stroke with subacute lacunar ischemic infarct on the right cerebellar hemisphere. Also reported was an expansile myelomatous clival lesion with bony erosion of the left carotid canal, erosion of the anterior and posterior cortex of the clivus, and extension into the sphenoid sinuses. The pneumonia improved after 7 days of IV cefepime. He was seen here again on 10/19/2017 and at that time he completed his 9th infusion of daratumumab. His next scheduled treatment was put on hold due to neutropenia and symptoms of respiratory infection. On 11/10/2017 he was admitted to the hospital with neutropenic fever. He was transferred to [facility] for further care. After recovering from that illness he had a restaging evaluation for the myeloma. His bone marrow aspiration/biopsy showed 5% plasma cells. His M protein quantitated at 0.4 g/dL. MRI bone marrow blood supply on 12/18/2017 showed interval worsening with increased size of the focal lesions involving the right temporal bone, clivus, and left parietal bone. There were only minimal changes noted in the spine from the previous studies. There was minimal progression of lesions in the proximal right humerus and in the upper sternum. With those findings, it was recommended that he change treatment to carfilzomib in combination with dexamethasone. He began cycle 1 on 12/27/2017 with the carfilzomib dosed at 20 mg/m???. He also started monthly replacement therapy with IVIG. At day 8 of cycle 1 the carfilzomib dosage was escalated to 36 mg/m???. He tolerated it well, and he was able to continue with cycle 2 on 01/24/2018. As of February 2018 he had completed 3 cycles of treatment. In May 2018 he underwent a stem cell transplant procedure at [facility]. He has had a gradual recovery following that treatment. I had seen him for follow-up here in September 2018. At that time he appeared stable clinically. He then continued his further follow-up at [facility]. He had recently been readmitted to [facility] after he developed fever up to 103 degrees. The fever resolved on antibiotic therapy, though I am not certain that a specific source was ever determined. His repeat bone marrow aspiration/biopsy on 06/12/2019 showed an unexpected finding of involvement with moderately differentiated metastatic adenocarcinoma which was felt to be most consistent with prostatic origin. It was morphologically negative for plasma cell neoplasm. His PSA was elevated in the range of 20 ng/mL. Restaging CT scans of the chest, abdomen, and pelvis on 06/22/2019 showed a small spiculated residual nodular density in the right upper lobe measuring 1.3 cm, decreased in size from 3.5 cm on a prior PET/CT from January 2019. It was felt to be most likely infectious/inflammatory. There were persistent tree-in-bud type nodularity in both lungs, particularly the lower lobes, felt to be suggestive of multifocal infectious/inflammatory change. There were no new pulmonary nodules and there was no pulmonary consolidation noted. There was no evidence of visceral/sherman metastatic disease in the abdomen/pelvis. There were faint sclerotic lesions in the C7 and T1 vertebral bodies. A bone scan on 06/24/2019 showed multiple focal areas of abnormal uptake which corresponded to the FDG avid osseous lesions noted on the PET/CT from 06/07/2019. These include with the upper thoracic spine, left T9 transverse process, and left posterior ischium. Overall, the findings were felt to be consistent with osteoblastic metastatic disease favoring metastatic prostate cancer over multiple myeloma. He began treatment with bicalutamide 50 mg daily, and he was then seen here on to continue his androgen deprivation locally. He received his initial injection of Depo-Lupron 22.5 mg on 07/01/2019. He tolerated with no adverse effects, and he then continued with a second Lupron injection on 10/01/2019. At that point his PSA had decreased to 0.11 ng/mL. He was seen for a follow-up visit at [facility] on 10/25/2019. His PET/CT showed an FDG avid right frontotemporal calvarial lesion measuring 2 cm, but with interval resolution of abnormal FDG uptake within a sclerotic left posterior iliac lesion. There was no evidence of metastatic disease. With that finding, he was recommended to restart treatment for the myeloma with daratumumab in combination with cyclophosphamide 100 mg weekly, Revlimid 10 mg daily on a 21/28-day schedule, and dexamethasone 8 mg. He began his week 1 daratumumab on 10/30/2019. He has tolerated the daratumumab without acute toxicity, and he then continued the daratumumab weekly. As of 11/13/2019 he had completed his third weekly infusion. He is seen for a follow-up visit. He still has very limited activity, though he has been able to do some walking and a little gardening. ECOG score is 2. His appetite is improving. He has not had fever. He still has some hot flashes, but not as bad. His sinus drainage also has improved. He has had no mouth sores. He has some shortness of breath, but lately his breathing has been pretty good. He does not complain of cough and he has not been having chest pain. He has heartburn when he takes dexamethasone. His bowels fluctuate between diarrhea and constipation. Bladder function is pretty good, though he says his urination is a little slow when he sometimes has hesitancy. He has been having more back pain, but it is still managed adequately with medication. He has a little bit of orthostatic lightheadedness. He has numbness/tingling in his hands and feet. He has been sleeping better lately. Medications: Acyclovir 1 (200 mg) Tablet Oral daily, Albuterol Sulfate 1 ((2.5 mg/3ml) 0.083%) Nebulization solution Inhalation four times a day PRN, Aspirin 1 (81 mg) Tablet Oral daily, Baclofen 1 (10 mg) Tablet Oral at bedtime PRN, Benzonatate 1 Capsule (of 100 mg) Oral t.i.d., Casodex 1 Tablet (of 50 mg) Oral daily, Colace Capsule Oral daily PRN, cultrelle 1 Capsule Oral daily, Cyproheptadine HCl 1 (4 mg) Tablet Oral b.i.d. PRN, D3-1000 Tablet Oral daily, Dapsone 1 Tablet (of 100 mg) Oral daily, Folic Acid 1 (1000 mcg) Tablet Oral b.i.d., Gabapentin 1 Capsule (of 600 mg) Oral at bedtime, Hydrocodone-Acetaminophen 1 (10-325 mg) Tablet Oral four times a day PRN, Ipratropium-Albuterol 1 (20-100 mcg/act) Aerosol, solution Inhalation daily, Multivitamins 1 Capsule Oral daily, Pantoprazole Sodium 1 Tablet (of 40 mg) Tablet, enteric coated Oral daily PRN, Phos-NaK 1 Packet (of 280-160-250 mg) Pack Oral daily for 90 days, Questran 1 (4 g) Pack Oral daily, Revlimid 1 Capsule (of 10 mg) Oral daily, Xanax 1 Tablet (of 0.25 mg) Oral t.i.d. PRN, Xyzal 1 (5 mg) Tablet Oral daily PRN, Zofran 1 Tablet (of 8 mg) Oral four times a day PRN Allergies: No Known Allergies. Review of Systems: Constitutional - He has limited activity. He is doing a little gardening. He has been able to do some walking. His appetite is improving. He has not had fever. His hot flashes and night sweating are not as bad now. ECOG score is 2, ENMT - His sinus symptoms are better. No mouth sores. No sore throat or difficulty swallowing, Hematologic/Lymphatic - He bruises very easily, Respiratory - He has some shortness of breath, but his breathing is pretty good. No cough. No pleuritic pain or hemoptysis, Cardiovascular - No angina pain. No palpitations, Gastrointestinal - No nausea or vomiting. He has heartburn when he takes dexamethasone. His bowels tend to fluctuate between diarrhea and constipation. No blood in the stool or black stools, Genitourinary (M) - He has some hesitancy, and his urination is a little slow. No dysuria or hematuria. No urinary frequency. No urgency or incontinence, Musculoskeletal - He has been having a little more bone pain, Integumentary - No skin rash, Neurologic - No headache. He has a little bit of orthostatic lightheadedness. He has numbness/tingling in his hands and feet. No other focal neurologic symptoms, Psychiatric - No anxiety or depression. He is sleeping better. Vital Signs: Performed on Nov 20, 2019 10:13 Height - 67.00 in Temperature - 98.0 F (LOW) Pulse - 77 /min Respiration - 17 /min BP - 100/64 mm(hg) O2 Sat - 89 % (LOW) Pain - 0 Physical Examination: Constitutional - He appears somewhat weak generally, Eyes - Sclerae nonicteric. Conjunctivae clear, ENMT - No lesions noted in the oral cavity, Hematologic/Lymphatic - No cervical, clavicular, or axillary adenopathy, Respiratory - Lungs show some decrease in air movement bilaterally. There are a few rales present, Cardiovascular - Heart rhythm is regular. There is no murmur, gallop, or rub noted, Abdomen - Soft. Liver and spleen are not enlarged. There is no abdominal mass or ascites noted and there is no inguinal adenopathy, Extremities - No edema, Neurologic - No focal neurologic deficits noted. Lab/Imaging: CBC shows hemoglobin 8.2 g, white blood cell count 1900, and platelet count 69,000. The absolute neutrophil count is 900. CHEM profile shows borderline renal function with BUN 25 and creatinine 1.8 mg/dL. The liver enzymes are normal. Impression: 1. Patient with IgA kappa myeloma, stage IIIB. He had severe osteopenia with multiple vertebral compression fractures at initial diagnosis in October 2009. 2. He had responded well to his initial treatment, but on his evaluation in July 2014 at the [facility], there was evidence of disease progression. In August 2014 he restarted treatment with pomalidomide in combination with cyclophosphamide and dexamethasone. He had evidence of response by M protein level. 3. As of November 2015 his cyclophosphamide was put on hold due to worsening cytopenias, but he continued treatment with pomalidomide and dexamethasone. 4. As of July 2017 his evaluation at [facility] showed evidence of disease progression with 7% plasma cells in the bone marrow and some new lytic lesions by MRI. As such, he began treatment with daratuzumab in combination with the pomalidomide/dexamethasone. During subsequent follow-up there was a gradual decline in his granulocyte count and he remained moderately anemic, but he was able to complete 8 weekly infusions daratumumab. His treatment was then put on hold due to recurrent/persistent pneumonia. He also was found to have evidence of cerebellar stroke. 5. He was able to continue with his 9th infusion of daratumumab on 10/19/2017. His treatment was then put on hold again due to neutropenia and fever. 6. His repeat bone marrow aspiration/biopsy on 11/29/2017 showed 5% plasma cells. M protein at that point quantitated 0.4 g/dL. Repeat MRI studies on 12/18/2017 showed only a few areas of slight progression. With those findings his treatment was changed to carfilzomib in combination with dexamethasone beginning on 12/27/2017. He also started monthly replacement therapy with IVIG. 7. As of February 2018 he had completed 3 cycles of treatment with carfilzomib/dexamethasone. In May 2018 he underwent a stem cell transplant procedure at [facility]. He had gradual recovery following that treatment, and he then continued regular followup at [facility]. 8. Repeat bone marrow aspiration/biopsy on 06/12/2019 showed unexpected finding of moderately differentiated metastatic adenocarcinoma of the mid most consistent with prostatic origin. There was no morphologic evidence of plasma cell neoplasm. His PET/CT and bone scans showed several foci of osteoblastic involvement felt to be most consistent with metastatic prostate cancer. Restaging CT scans of the chest, abdomen, and pelvis showed no evidence for visceral or other non-osseous metastatic disease. PSA was elevated in the range of 20 ng/mL. 9. He began treatment with bicalutamide 50 mg daily, and on 07/01/2019 he received his initial injection of Depo-Lupron 22.5 mg. He appeared to have a good respone to the androgen deprivatiopn therapy by PSA level. He continued with his second Depo-Lupron injection on 10/01/2019. At his follow-up visit at [facility] on 10/24/2019, there was evidence of progression of the myeloma with PET/CT showing a new 2 cm FDG avid lesion in the right frontal calvarium. With that finding, he restarted myeloma therapy with daratumumab in combination with cyclophosphamide, lenalidomide, and dexamethasone. He tolerated his initial infusion of daratumumab with no adverse effects, and he then continued daratumumab infusions weekly. During this time he has continued to have transfusion dependent anemia, and he has continued to have mild neutropenia and mild thrombocytopenia. He has been showing some improvement in his clincal status. Plan: He will proceed with his week 4 daratumumab infusion, and he will continue his treatment with cyclophosphamide in combination with lenalidomide and dexamethasone. He is being transfused 2 units PRBC today. With the decrease in his neutrophil count, the cyclophosphamide and Revlimid will be put on hold.He returns in 1 week and or a followup visit in 2 weeks. Signed By: Christopher Brody M.D. <<Signature on file>>
[2019-11-26 10:20] LABS: Basophils % 1.4 %; Eosinophils # 0.1 10^3/uL (0.0-0.8); Eosinophils % 2.8 %; Hemoglobin 11.5 g/dL (11.7-16.6); Lymphocytes # 0.9 10^3/uL (0.8-4.8); Lymphocytes % 31.7 %; Mean Corpuscular HGB Conc 31.9 g/dL (30.0-36.0); Mean Corpuscular Volume 103.4 fL (80-94); Mean Platelet Volume 9.8 fL (7.4-10.4); Monocytes # 0.4 10^3/uL (0.2-0.9); Monocytes % 15.3 %; Neutrophils # 1.36 10^3/uL (1.8-7.7); Neutrophils % 48.4 %; Nucleated Red Blood Cells % 0 %; Platelet Count 64 10^3/cmm (130-400); Red Blood Count 3.48 10^6/uL (4.1-5.3); Red Cell Distribution Width 21.1 % (12.1-15.1); White Blood Count 2.8 10^3/uL (4.0-10.0)
[2019-11-26 10:47] LABS: Alanine Aminotransferase 16 U/L (0-41); Albumin Level 3.9 g/dL (3.5-5.2); Alkaline Phosphatase 73 IU/L (40-130); Anion Gap 15.6 (5-19); Aspartate Amino Transferase 15 U/L (0-40); Blood Urea Nitrogen 38 mg/dL (8-23); Calcium 9.5 mg/dL (8.5-10.5); Carbon Dioxide 28 mmol/L (22-29); Chloride 99 mmol/L (98-107); Glomerular Filtration Rate 35.8 mL/min (90-130); Glucose 86 mg/dL (65-115); Osmolality Calculated 283 mOsm/kg (285-295); Potassium 4.6 mmol/L (3.5-5.1); Sodium 138 mmol/L (136-145); Total Bilirubin 0.6 mg/dL (0.15-1.2); Total Protein 5.9 g/dL (6.6-8.7)
[2019-11-27] MEDS: fexofenadine 60 mg Tablet 180 MG PO (13:52)
[2019-11-27] MEDS: montelukast sodium 10 mg Tablet PO (13:52)
[2019-11-27] MEDS: acetaminophen 325 mg Tablet 650 MG PO (13:52)
[2019-12-03 09:26] LABS: Eosinophils # 0.1 10^3/uL (0.0-0.8); Eosinophils % 1.5 %; Hematocrit 27.1 % (42.0-52.0); Hemoglobin 8.3 g/dL (11.7-16.6); Lymphocytes # 1.3 10^3/uL (0.8-4.8); Lymphocytes % 31.5 %; Mean Corpuscular HGB Conc 30.6 g/dL (30.0-36.0); Mean Corpuscular Hemoglobin 32.2 pg (28.0-34.0); Mean Platelet Volume 10.6 fL (7.4-10.4); Monocytes # 0.5 10^3/uL (0.2-0.9); Monocytes % 13.4 %; Neutrophils # 2.07 10^3/uL (1.8-7.7); Neutrophils % 52.1 %; Nucleated Red Blood Cells % 0 %; Platelet Count 99 10^3/cmm (130-400); Red Blood Count 2.58 10^6/uL (4.1-5.3)
[2019-12-03 09:48] LABS: Alanine Aminotransferase 18 U/L (0-41); Albumin Level 3.9 g/dL (3.5-5.2); Alkaline Phosphatase 74 IU/L (40-130); Anion Gap 13.1 (5-19); Aspartate Amino Transferase 20 U/L (0-40); Blood Urea Nitrogen 43 mg/dL (8-23); Calcium 8.9 mg/dL (8.5-10.5); Carbon Dioxide 26 mmol/L (22-29); Chloride 105 mmol/L (98-107); Globulin 2.5 g/dL (1.3-4.6); Glomerular Filtration Rate 31.9 mL/min (90-130); Glucose 91 mg/dL (65-115); Osmolality Calculated 285 mOsm/kg (285-295); Potassium 5.1 mmol/L (3.5-5.1); Sodium 139 mmol/L (136-145); Total Bilirubin 0.6 mg/dL (0.15-1.2); Total Protein 6.4 g/dL (6.6-8.7)
[2019-12-04] VITALS (8 sets, daily range): BP systolic 107–134; BP diastolic 66–86; PULSE 76–87; RESP 18; TEMP 36.4–37.2; O2SAT 91–97
[2019-12-04] MEDS: sodium chloride 0.9% 250 ML 999 ML IV ×2 (13:10→13:50)
[2019-12-04] MEDS: montelukast sodium 10 mg Tablet PO (14:20)
[2019-12-04] MEDS: fexofenadine 60 mg Tablet 180 MG PO (14:20)
[2019-12-04] MEDS: acetaminophen 325 mg Tablet 650 MG PO (14:30)
[2019-12-05] MEDS: diphenhydrAMINE 25 mg Capsule PO (15:58)
[2019-12-05] MEDS: FUROsemide 10 mg/mL SDV 2mL 20 MG IV (16:07)
[2019-12-10 11:04] LABS: Basophils % 0.4 %; Eosinophils # 0.1 10^3/uL (0.0-0.8); Eosinophils % 2.2 %; Hematocrit 29.6 % (42.0-52.0); Hemoglobin 9.1 g/dL (11.7-16.6); Lymphocytes % 21.6 %; Mean Corpuscular HGB Conc 30.7 g/dL (30.0-36.0); Mean Corpuscular Hemoglobin 32.5 pg (28.0-34.0); Mean Corpuscular Volume 105.7 fL (80-94); Mean Platelet Volume 11.7 fL (7.4-10.4); Monocytes # 0.4 10^3/uL (0.2-0.9); Monocytes % 8.8 %; Neutrophils # 2.97 10^3/uL (1.8-7.7); Neutrophils % 66.8 %; Nucleated Red Blood Cells % 0 %; Platelet Count 87 10^3/cmm (130-400); Red Cell Distribution Width 22.9 % (12.1-15.1); White Blood Count 4.5 10^3/uL (4.0-10.0)
[2019-12-10 11:21] LABS: Alanine Aminotransferase 21 U/L (0-41); Albumin Level 3.7 g/dL (3.5-5.2); Alkaline Phosphatase 67 IU/L (40-130); Anion Gap 11.1 (5-19); Aspartate Amino Transferase 20 U/L (0-40); Blood Urea Nitrogen 38 mg/dL (8-23); Calcium 8.6 mg/dL (8.5-10.5); Carbon Dioxide 30 mmol/L (22-29); Chloride 103 mmol/L (98-107); Globulin 2.3 g/dL (1.3-4.6); Glomerular Filtration Rate 40.7 mL/min (90-130); Glucose 88 mg/dL (65-115); Osmolality Calculated 285 mOsm/kg (285-295); Potassium 5.1 mmol/L (3.5-5.1); Sodium 139 mmol/L (136-145); Total Bilirubin 0.9 mg/dL (0.15-1.2)
[2019-12-11] MEDS: fexofenadine 60 mg Tablet 180 MG PO (13:50)
[2019-12-11] MEDS: montelukast sodium 10 mg Tablet PO (13:50)
[2019-12-11] MEDS: acetaminophen 325 mg Tablet 650 MG PO (13:50)
[2019-12-11] MEDS: sodium chloride 0.9% 500 ML 999 ML IV (13:57)
== END 2019-12-13 23:59 | disposition home or self-care (01) ==
LOC: ONCMED 06:43
PROVIDERS: Internal Medicine Medical Oncology; PCP Family Medicine; Visit Provider Nurse Practitioner
DX: Z51.12 Encounter for antineoplastic immunotherapy (principal); C90.02 Multiple myeloma in relapse; C61 Malignant neoplasm of prostate; C79.52 Secondary malignant neoplasm of bone marrow; G89.3 Neoplasm related pain (acute) (chronic); F32.9 Major depressive disorder, single episode, unspecified; G62.9 Polyneuropathy, unspecified; Z98.1 Arthrodesis status; Z79.899 Other long term (current) drug therapy; Z79.818 Long term (current) use of other agents affecting estrogen receptors and estrogen levels; Z79.82 Long term (current) use of aspirin; Z79.891 Long term (current) use of opiate analgesic; Z87.01 Personal history of pneumonia (recurrent); Z94.84 Stem cells transplant status; Z87.891 Personal history of nicotine dependence
CPT/HCPCS: 36430; 80053; 84153; 85025; 86850; 86870; 86900; 86920; 96367; 96413; 96415; 99214; J1100; J1200; J1940; J7030; J7040; J7050; J9145; P9040

== ENCOUNTER 2020-01-09 05:39 | Outpatient (RCR) | payer MEDICARE, BC, SELFPAY ==
[2019-12-17 10:04] LABS: Basophils % 0.3 %; Eosinophils # 0.2 10^3/uL (0.0-0.8); Eosinophils % 2.6 %; Hematocrit 24.3 % (42.0-52.0); Hemoglobin 7.7 g/dL (11.7-16.6); Lymphocytes # 1.4 10^3/uL (0.8-4.8); Lymphocytes % 22.8 %; Mean Corpuscular HGB Conc 31.7 g/dL (30.0-36.0); Mean Corpuscular Hemoglobin 35.3 pg (28.0-34.0); Mean Corpuscular Volume 111.5 fL (80-94); Mean Platelet Volume 11.9 fL (7.4-10.4); Monocytes # 0.8 10^3/uL (0.2-0.9); Monocytes % 12.8 %; Neutrophils # 3.72 10^3/uL (1.8-7.7); Nucleated Red Blood Cells % 0 %; Platelet Count 85 10^3/cmm (130-400); Red Blood Count 2.18 10^6/uL (4.1-5.3); Red Cell Distribution Width 24.7 % (12.1-15.1); White Blood Count 6.1 10^3/uL (4.0-10.0)
[2019-12-17 10:20] LABS: Alanine Aminotransferase 17 U/L (0-41); Albumin Level 3.9 g/dL (3.5-5.2); Alkaline Phosphatase 76 IU/L (40-130); Anion Gap 11.5 (5-19); Aspartate Amino Transferase 19 U/L (0-40); Blood Urea Nitrogen 39 mg/dL (8-23); Calcium 8.6 mg/dL (8.5-10.5); Carbon Dioxide 26 mmol/L (22-29); Chloride 106 mmol/L (98-107); Globulin 2.2 g/dL (1.3-4.6); Glucose 102 mg/dL (65-115); Osmolality Calculated 286 mOsm/kg (285-295); Potassium 4.5 mmol/L (3.5-5.1); Sodium 139 mmol/L (136-145); Total Bilirubin 0.7 mg/dL (0.15-1.2); Total Protein 6.1 g/dL (6.6-8.7)
[2019-12-18] VITALS (10 sets, daily range): BP systolic 126–164; BP diastolic 70–99; PULSE 81–94; RESP 16; TEMP 36–36.9; O2SAT 97–100
[2019-12-18] MEDS: acetaminophen 325 mg Tablet 650 MG PO ×2 (09:20→13:45)
[2019-12-18] MEDS: diphenhydrAMINE 25 mg Capsule PO (09:20)
[2019-12-18] MEDS: montelukast sodium 10 mg Tablet PO (13:45)
[2019-12-18] MEDS: fexofenadine 60 mg Tablet 180 MG PO (13:45)
[2019-12-18] MEDS: sodium chloride 0.9% 250 ML 999 ML IV (14:11)
[2019-12-18] MEDS: FUROsemide 10 mg/mL SDV 2mL 20 MG IV (15:55)
[2019-12-31 10:56] LABS: Basophils % 0.7 %; Eosinophils # 0.1 10^3/uL (0.0-0.8); Eosinophils % 2.4 %; Hematocrit 23.2 % (42.0-52.0); Lymphocytes % 22.2 %; Mean Corpuscular HGB Conc 30.2 g/dL (30.0-36.0); Mean Corpuscular Hemoglobin 34.7 pg (28.0-34.0); Mean Corpuscular Volume 114.9 fL (80-94); Mean Platelet Volume 11.5 fL (7.4-10.4); Monocytes # 0.6 10^3/uL (0.2-0.9); Monocytes % 12.6 %; Neutrophils # 2.83 10^3/uL (1.8-7.7); Neutrophils % 61.7 %; Nucleated Red Blood Cells % 0 %; Platelet Count 65 10^3/cmm (130-400); Red Blood Count 2.02 10^6/uL (4.1-5.3); Red Cell Distribution Width 24.6 % (12.1-15.1); White Blood Count 4.6 10^3/uL (4.0-10.0)
[2019-12-31 11:22] LABS: Prostate Specific Antigen 0.057 ng/mL (0-4)
[2019-12-31 11:33] LABS: Alanine Aminotransferase 15 U/L (0-41); Albumin Level 3.5 g/dL (3.5-5.2); Alkaline Phosphatase 72 IU/L (40-130); Anion Gap 15.5 (5-19); Aspartate Amino Transferase 19 U/L (0-40); Blood Urea Nitrogen 36 mg/dL (8-23); Calcium 8.7 mg/dL (8.5-10.5); Carbon Dioxide 24 mmol/L (22-29); Chloride 106 mmol/L (98-107); Globulin 1.8 g/dL (1.3-4.6); Glomerular Filtration Rate 33.6 mL/min (90-130); Glucose 93 mg/dL (65-115); Osmolality Calculated 289 mOsm/kg (285-295); Potassium 4.5 mmol/L (3.5-5.1); Sodium 141 mmol/L (136-145); Total Bilirubin 0.5 mg/dL (0.15-1.2); Total Protein 5.3 g/dL (6.6-8.7)
[2020-01-01] VITALS (10 sets, daily range): BP systolic 105–141; BP diastolic 63–95; PULSE 73–83; RESP 16; TEMP 36.1–37.3; O2SAT 96–100
[2020-01-01] MEDS: acetaminophen 325 mg Tablet 650 MG PO (10:00)
[2020-01-01] MEDS: diphenhydrAMINE 25 mg Capsule PO (10:00)
[2020-01-01] MEDS: sodium chloride 0.9% 250 ML 999 ML IV (11:16)
[2020-01-01] MEDS: FUROsemide 10 mg/mL SDV 2mL 20 MG IV (12:47)
[2020-01-01] MEDS: fexofenadine 60 mg Tablet 180 MG PO (14:30)
[2020-01-01] MEDS: montelukast sodium 10 mg Tablet PO (14:30)
--- NOTE | 2020-01-04 14:42 | ONC FU_ITS ---
Dr. Brody Patient Follow-Up Note Patient: Flaco Cardona Unit #: [id number]: [id number] Dicatated By: Christopher Brody M.D.Date of Visit:Jan 01, 2020 Onc Med Follow-up/Prog Note Chief Complaint: Myeloma/prostate cancer. History of Present Illness: This is a 64 year-old man with IgA kappa myeloma, stage IIIB. During followup he was found to have metastatic prostate cancer involving the bone marrow. He was diagnosed with IgA kappa myeloma in October 2009. He presented at that time with anemia, hypercalcemia, renal failure, and severe osteopenia with multiple vertebral compression fractures. He was seen at the [facility] for his initial evaluation. He was treated on their standard arm Total Therapy 4 which included M-VTD-PACE induction and a second induction with VTD-PACE. He then underwent tandem transplants with high-dose melphalan conditioning in February and in March 2010. He reportedly had an excellent response to the treatment, and he was then consolidated with VTD-PACE in June 2010 and July 2010 followed by maintenance VRD. His maintenance therapy was complicated by depression due to Revlimid and severe neuropathy, and treatment was stopped by June 2011. He restarted treatment with Revlimid in August 2012, but he was again unable to tolerate it due to depression. He stopped treatment again in February 2013. He underwent evaluation at the [facility] in July 2014. At that time he was felt to have disease progression with MRI reporting new lesions in the clivus and in the right humerus. Bone marrow at that time showed 10% plasma cells in the aspirate and 20% in the biopsy. His M protein quantitated at 1 g compared to 0.3 g in February 2014. It was opted at that time to resume treatment with pomalidomide in combination with cyclophosphamide and dexamethasone. The prescribed regimen included pomalidomide 3 mg daily on days 1 through 21 of a 28 day cycle in combination with cyclophosphamide 500 mg/m??? by IV infusion days 1 and 15 and dexamethasone 20 mg weekly. As of 03/05/2015 he had completed 7 cycles of treatment with the cyclophosphamide administered on a day 1/day 15 schedule. In March his treatment was held, as he was pretty ill with pneumonia, and he ended up being treated for it in [place]. He had an uneventful recovery, and he was able to resume treatment on 04/16/2015. He had a restaging evaluation at the [facility] on 08/12/2015. Bone marrow aspiration/biopsy at that time showed an overall cellularity of 35%. The aspirate showed 6% plasma cells. By flow cytometry total plasma cells were estimated at 1.23%, with 0.69% myeloma cells and 0.54% normal plasma cells. The chromosome analysis showed a translocation involving chromosomes 4 and 8 in a single cell. The clinical significance of that finding was uncertain. I did not receive results of the protein electrophoresis studies. However, he was advised to continue treatment with pomalidomide, dexamethasone, and cyclophosphamide. However, due to his persistently low blood counts, in August 2015 his cyclophosphamide dosage was reduced to 500 mg. In October he continued with his 15th cycle of treatment. However, in November 2015 his cyclophosphamide was put on hold due to persistent neutropenia. He had subsequently continued his regular follow-up at [facility]. As of his follow-up visit there in December 2016 he had continued treatment with pomalidomide and dexamethasone, with the cyclophosphamide remaining on hold. He had a six-month follow-up at [facility] in June 2017. It incluided an MRI bone marrow blood supply exam on 07/07/2017 which showed a slight increase of mild hyperintense homogeneous signal in the marrow of the axial and peripheral skeletons. There was a slight increase of mildly restricted diffusion noted in the marrow cavity. There was interval development of a 2.5 cm focal lesion in the right posterior ilium with restricted diffusion and a 2 cm focal lesion in the right posterior elements at approximately T6, also with restricted diffusion. Bilateral small calvarial lesions were noted with interval punctate and bilateral interval rib lesions were noted. His bone marrow aspiration/biopsy on 07/10/2017 showed overall cellularity of 30% with the differential showing 7% plasma cells. The immunohistochemical stain for CD138 showed 5-10% plasma cells with interstitial and patchy distribution. His M protein was quantitated 0.7 g/dL. He was seen for a follow-up visit here on 07/11/2017. At that point he had become significantly more fatigued. He complained of shortness of breath, and he had been having episodes of passing out. His hemoglobin had dropped to 8.7 g. He was transfused 2 U of packed red blood cells on 07/13/2017. He had symptomatic improvement. He then returned to [facility] and on 07/15/2017 he began treatment with daratuzumab in addition to the pomalidomide/dexamethasone. He had no significant toxicity with the initial infusion of daratuzumab. During subsequent follow-up, there was a gradual decline in his granulocyte count. It nadired at 1200 at week 5 of daratuzumab, but it subsequently increased. He received week 8 of daratuzumab on 09/05/2017. His treatment was then put on hold due to persistent/recurrent pneumonia. He was admitted to the hospital on 09/14/2017 and again on 09/24/2017. With the second admission he was feeling weak and he had fallen several times. Brain MRI reported a 3.7 x 1.7 cm marrow replacing lesion within the clivus, consistent with plasmacytoma. A 7 mm focus of acute ischemia was noted in the right cerebellum. There was a small amount of associated edema. With those findings, he was transferred to [facility] for further management. His evaluation there was consistent with cerebellar stroke with subacute lacunar ischemic infarct on the right cerebellar hemisphere. Also reported was an expansile myelomatous clival lesion with bony erosion of the left carotid canal, erosion of the anterior and posterior cortex of the clivus, and extension into the sphenoid sinuses. The pneumonia improved after 7 days of IV cefepime. He was seen here again on 10/19/2017 and at that time he completed his 9th infusion of daratumumab. His next scheduled treatment was put on hold due to neutropenia and symptoms of respiratory infection. On 11/10/2017 he was admitted to the hospital with neutropenic fever. He was transferred to [facility] for further care. After recovering from that illness he had a restaging evaluation for the myeloma. His bone marrow aspiration/biopsy showed 5% plasma cells. His M protein quantitated at 0.4 g/dL. MRI bone marrow blood supply on 12/18/2017 showed interval worsening with increased size of the focal lesions involving the right temporal bone, clivus, and left parietal bone. There were only minimal changes noted in the spine from the previous studies. There was minimal progression of lesions in the proximal right humerus and in the upper sternum. With those findings, it was recommended that he change treatment to carfilzomib in combination with dexamethasone. He began cycle 1 on 12/27/2017 with the carfilzomib dosed at 20 mg/m???. He also started monthly replacement therapy with IVIG. At day 8 of cycle 1 the carfilzomib dosage was escalated to 36 mg/m???. He tolerated it well, and he was able to continue with cycle 2 on 01/24/2018. As of February 2018 he had completed 3 cycles of treatment. In May 2018 he underwent a stem cell transplant procedure at [facility]. He has had a gradual recovery following that treatment. I had seen him for follow-up here in September 2018. At that time he appeared stable clinically. He then continued his further follow-up at [facility]. He had recently been readmitted to [facility] after he developed fever up to 103 degrees. The fever resolved on antibiotic therapy, though I am not certain that a specific source was ever determined. His repeat bone marrow aspiration/biopsy on 06/12/2019 showed an unexpected finding of involvement with moderately differentiated metastatic adenocarcinoma which was felt to be most consistent with prostatic origin. It was morphologically negative for plasma cell neoplasm. His PSA was elevated in the range of 20 ng/mL. Restaging CT scans of the chest, abdomen, and pelvis on 06/22/2019 showed a small spiculated residual nodular density in the right upper lobe measuring 1.3 cm, decreased in size from 3.5 cm on a prior PET/CT from January 2019. It was felt to be most likely infectious/inflammatory. There were persistent tree-in-bud type nodularity in both lungs, particularly the lower lobes, felt to be suggestive of multifocal infectious/inflammatory change. There were no new pulmonary nodules and there was no pulmonary consolidation noted. There was no evidence of visceral/sherman metastatic disease in the abdomen/pelvis. There were faint sclerotic lesions in the C7 and T1 vertebral bodies. A bone scan on 06/24/2019 showed multiple focal areas of abnormal uptake which corresponded to the FDG avid osseous lesions noted on the PET/CT from 06/07/2019. These include with the upper thoracic spine, left T9 transverse process, and left posterior ischium. Overall, the findings were felt to be consistent with osteoblastic metastatic disease favoring metastatic prostate cancer over multiple myeloma. He began treatment with bicalutamide 50 mg daily, and he was then seen here on to continue his androgen deprivation locally. He received his initial injection of Depo-Lupron 22.5 mg on 07/01/2019. He tolerated with no adverse effects, and he then continued with a second Lupron injection on 10/01/2019. At that point his PSA had decreased to 0.11 ng/mL. He was seen for a follow-up visit at [facility] on 10/25/2019. His PET/CT showed an FDG avid right frontotemporal calvarial lesion measuring 2 cm, but with interval resolution of abnormal FDG uptake within a sclerotic left posterior iliac lesion. There was no evidence of metastatic disease. With that finding, he was recommended to restart treatment for the myeloma with daratumumab in combination with cyclophosphamide 100 mg weekly, Revlimid 10 mg daily on a 21/28-day schedule, and dexamethasone 8 mg. He began his week 1 daratumumab on 10/30/2019. He has tolerated the daratumumab without acute toxicity, and he then continued the daratumumab weekly. At his follow-up visit on 11/20/2019 the lenalidomide and cyclophosphamide were put on hold due to neutropenia, ANC 1300. Both were restarted on 12/04/2019 but with the lenalidomide dosage reduced to 5 mg daily. As of 12/18/2019 he had completed his 8th weekly infusion of daratumumab. He is seen for a follow-up visit. He has been feeling more tired than usual. He is still able to live independently, though. His ECOG score is 1. His appetite is pretty good. He has not had fever. He does have some night sweating, but lately it has been a little better. He has shortness of breath when his blood count gets low. His breathing is otherwise pretty good. He is not having cough, and he does not complain of chest pain. He has had no nausea. He has a little bit of heartburn with the dexamethasone. He has chronic constipation, but bowel function has been adequate. He has no complaints. He has chronic back pain. It is tolerable with his medication. He has some dizziness and lightheadedness. He has neuropathy in his hands and feet, but that is unchanged. Medications: Acyclovir 1 (200 mg) Tablet Oral daily, Albuterol Sulfate 1 ((2.5 mg/3ml) 0.083%) Nebulization solution Inhalation four times a day PRN, Aspirin 1 (81 mg) Tablet Oral daily, Baclofen 1 (10 mg) Tablet Oral at bedtime PRN, Benzonatate 1 Capsule (of 100 mg) Oral t.i.d., Casodex 1 Tablet (of 50 mg) Oral daily, Colace Capsule Oral daily PRN, cultrelle 1 Capsule Oral daily, Cyproheptadine HCl 1 (4 mg) Tablet Oral b.i.d. PRN, D3-1000 Tablet Oral daily, Dapsone 1 Tablet (of 100 mg) Oral daily, Folic Acid 1 (1000 mcg) Tablet Oral b.i.d., Gabapentin 1 Capsule (of 600 mg) Oral at bedtime, Hydrocodone-Acetaminophen 1 (10-325 mg) Tablet Oral four times a day PRN, Ipratropium-Albuterol 1 (20-100 mcg/act) Aerosol, solution Inhalation daily, Multivitamins 1 Capsule Oral daily, Pantoprazole Sodium 1 Tablet (of 40 mg) Tablet, enteric coated Oral daily PRN, Phos-NaK 1 Packet (of 280-160-250 mg) Pack Oral daily for 90 days, Questran 1 (4 g) Pack Oral daily, Revlimid 1 Capsule (of 10 mg) Oral daily, Xanax 1 Tablet (of 0.5 mg) Oral t.i.d. PRN, Zofran 1 Tablet (of 8 mg) Oral four times a day PRN Allergies: No Known Allergies. Review of Systems: Constitutional - He has been feeling more tired, but he is still able to live independently. His appetite is pretty good. He has not had fever. He has had night sweating, but lately that has been a little better. ECOG score is 1, ENMT - He has sinus congestion/drainage. No mouth sores. No sore throat or difficulty swallowing, Hematologic/Lymphatic - He has easy bruising. No other bleeding, Respiratory - He has some shortness of breath. No cough. No pleuritic pain or hemoptysis, Cardiovascular - No angina pain. No palpitations, Gastrointestinal - No nausea or vomiting. He has a little acid reflux. He has chronic constipation. No blood in the stool or black stools, Genitourinary (M) - No dysuria or hematuria. No urinary frequency. No urgency or incontinence, Musculoskeletal - He has chronic back pain. It is tolerable with his current pain medication, Integumentary - No skin rash, Neurologic - No headache. He has dizziness and lightheadedness. He has neuropathy in his hands and feet. It is unchanged, Psychiatric - No anxiety or depression. Lately has been sleeping better. Vital Signs: Performed on Jan 01, 2020 11:15 Height - 67.00 in Temperature - 98.1 F (LOW) Pulse - 82 /min Respiration - 16 /min BP - 105/63 mm(hg) O2 Sat - 96 % Pain - 5 Fatigue - 8 Physical Examination: Constitutional - He appears somewhat weak generally, Eyes - Sclerae nonicteric. Conjunctivae clear, ENMT - No lesions noted in the oral cavity, Hematologic/Lymphatic - No cervical, clavicular, or axillary adenopathy, Respiratory - Lungs show some decrease in air movement bilaterally. He has slightly coarse breath sounds, Cardiovascular - Heart rhythm is regular. There is no murmur, gallop, or rub noted, Abdomen - Soft. Liver and spleen are not enlarged. There is no abdominal mass or ascites noted and there is no inguinal adenopathy, Extremities - No edema, Neurologic - No focal neurologic deficits noted. Lab/Imaging: CBC shows hemoglobin 7.0 g, white blood cell count 4600, and platelet count 65,000. Comprehensive metabolic profile shows elevated BUN and creatinine at 36 and 2.0 mg/dL. Liver enzymes are normal. His PSA is down to 0.057 ng/mL. Impression: 1. Patient with IgA kappa myeloma, stage IIIB. He had severe osteopenia with multiple vertebral compression fractures at initial diagnosis in October 2009. 2. He had responded well to his initial treatment, but on his evaluation in July 2014 at the [facility], there was evidence of disease progression. In August 2014 he restarted treatment with pomalidomide in combination with cyclophosphamide and dexamethasone. He had evidence of response by M protein level. 3. As of November 2015 his cyclophosphamide was put on hold due to worsening cytopenias, but he continued treatment with pomalidomide and dexamethasone. 4. As of July 2017 his evaluation at [facility] showed evidence of disease progression with 7% plasma cells in the bone marrow and some new lytic lesions by MRI. As such, he began treatment with daratuzumab in combination with the pomalidomide/dexamethasone. During subsequent follow-up there was a gradual decline in his granulocyte count and he remained moderately anemic, but he was able to complete 8 weekly infusions daratumumab. His treatment was then put on hold due to recurrent/persistent pneumonia. He also was found to have evidence of cerebellar stroke. 5. He was able to continue with his 9th infusion of daratumumab on 10/19/2017. His treatment was then put on hold again due to neutropenia and fever. 6. His repeat bone marrow aspiration/biopsy on 11/29/2017 showed 5% plasma cells. M protein at that point quantitated 0.4 g/dL. Repeat MRI studies on 12/18/2017 showed only a few areas of slight progression. With those findings his treatment was changed to carfilzomib in combination with dexamethasone beginning on 12/27/2017. He also started monthly replacement therapy with IVIG. 7. As of February 2018 he had completed 3 cycles of treatment with carfilzomib/dexamethasone. In May 2018 he underwent a stem cell transplant procedure at [facility]. He had gradual recovery following that treatment, and he then continued regular followup at [facility]. 8. Repeat bone marrow aspiration/biopsy on 06/12/2019 showed unexpected finding of moderately differentiated metastatic adenocarcinoma of the mid most consistent with prostatic origin. There was no morphologic evidence of plasma cell neoplasm. His PET/CT and bone scans showed several foci of osteoblastic involvement felt to be most consistent with metastatic prostate cancer. Restaging CT scans of the chest, abdomen, and pelvis showed no evidence for visceral or other non-osseous metastatic disease. PSA was elevated in the range of 20 ng/mL. 9. He began treatment with bicalutamide 50 mg daily, and on 07/01/2019 he received his initial injection of Depo-Lupron 22.5 mg. He appeared to have a good respone to the androgen deprivatiopn therapy by PSA level. He continued with his second Depo-Lupron injection on 10/01/2019. At his follow-up visit at [facility] on 10/24/2019, there was evidence of progression of the myeloma with PET/CT showing a new 2 cm FDG avid lesion in the right frontal calvarium. With that finding, he restarted myeloma therapy with daratumumab in combination with cyclophosphamide, lenalidomide, and dexamethasone. He tolerated his initial infusion of daratumumab with no adverse effects, and he then continued daratumumab infusions weekly. As of 12/18/2019 he had completed his 8th infusion at the weekly interval. At week 4 his cyclophosphamide and lenalidomide had been put on hold due to neutropenia. They were able to be restarted at week 6 with the lenalidomide dosage reduced to 5 mg daily. During this time he is continued to have significant fatigue, and he has continued to have transfusion dependent anemia. However, he has shown some improvement in his overall clinical status. Plan: He will proceed with his 1st infusion of daratumumab at the 2-week dosing interval. He continues his treatment with cyclophosphamide in combination with lenalidomide and dexamethasone. The lenalidomide dosage remains the same at 5 mg daily. He is being transfused 2 units PRBC today, and he will be transfused again as needed. He also is due for his next Depo-Lupron injection. He returns in 2 weeks. Signed By: Christopher Brody M.D. <<Signature on File>>
[2020-01-08] MEDS: acetaminophen 325 mg Tablet 650 MG PO (11:00)
[2020-01-08] MEDS: lidocaine 1% INJ 20 mL INJECTION (11:05)
[2020-01-08] MEDS: goserelin acetate 10.8 mg Implant IM (11:17)
[2020-01-08 11:49] LABS: Basophils % 0.7 %; Eosinophils # 0.1 10^3/uL (0.0-0.8); Eosinophils % 2.8 %; Hematocrit 27.1 % (42.0-52.0); Hemoglobin 8.4 g/dL (11.7-16.6); Lymphocytes # 1.1 10^3/uL (0.8-4.8); Lymphocytes % 22.8 %; Mean Corpuscular Hemoglobin 34.3 pg (28.0-34.0); Mean Corpuscular Volume 110.6 fL (80-94); Mean Platelet Volume 11.3 fL (7.4-10.4); Monocytes # 0.4 10^3/uL (0.2-0.9); Monocytes % 8.7 %; Neutrophils # 2.96 10^3/uL (1.8-7.7); Neutrophils % 64.3 %; Nucleated Red Blood Cells % 0 %; Platelet Count 57 10^3/cmm (130-400); Red Blood Count 2.45 10^6/uL (4.1-5.3); Red Cell Distribution Width 26.5 % (12.1-15.1); White Blood Count 4.6 10^3/uL (4.0-10.0)
[2020-01-09] VITALS (9 sets, daily range): BP systolic 145–167; BP diastolic 83–94; PULSE 80–90; RESP 18; TEMP 36.6–37.1; O2SAT 92–95
[2020-01-09] MEDS: sodium chloride 0.9% 250 ML 999 ML IV (08:30)
[2020-01-09] MEDS: acetaminophen 325 mg Tablet 650 MG PO (08:30)
[2020-01-09] MEDS: diphenhydrAMINE 25 mg Capsule PO (15:26)
[2020-01-09] MEDS: FUROsemide 10 mg/mL SDV 2mL 20 MG IV (15:27)
== END 2020-01-13 23:59 | disposition home or self-care (01) ==
LOC: ONCMED 05:39
PROVIDERS: Nurse Practitioner; PCP Family Medicine; Visit Provider Internal Medicine Medical Oncology
DX: Z51.12 Encounter for antineoplastic immunotherapy (principal); C90.02 Multiple myeloma in relapse; C61 Malignant neoplasm of prostate; C79.52 Secondary malignant neoplasm of bone marrow; D80.1 Nonfamilial hypogammaglobulinemia; D64.81 Anemia due to antineoplastic chemotherapy; T45.1X5A Adverse effect of antineoplastic and immunosuppressive drugs, initial encounter; F32.9 Major depressive disorder, single episode, unspecified; G62.9 Polyneuropathy, unspecified
CPT/HCPCS: 36430; 80053; 84153; 85025; 86850; 86870; 86900; 86920; 96361; 96365; 96366; 96367; 96372; 96375; 96402; 96413; 96415; 99214; J1100; J1200; J1568; J1940; J2930; J7040; J7050; J9145; J9202; P9040

== ENCOUNTER 2020-02-11 09:20 | Outpatient (RCR) | payer MEDICARE, BC, SELFPAY ==
[2020-01-21 11:42] LABS: Basophils # 0.1 10^3/uL (0.0-0.1); Basophils % 1.2 %; Eosinophils # 0.1 10^3/uL (0.0-0.8); Eosinophils % 2.9 %; Hematocrit 28.9 % (42.0-52.0); Hemoglobin 8.9 g/dL (11.7-16.6); Lymphocytes # 1.1 10^3/uL (0.8-4.8); Lymphocytes % 24.9 %; Mean Corpuscular HGB Conc 30.8 g/dL (30.0-36.0); Mean Corpuscular Volume 110.3 fL (80-94); Mean Platelet Volume 10.5 fL (7.4-10.4); Monocytes # 0.3 10^3/uL (0.2-0.9); Monocytes % 7.8 %; Neutrophils # 2.64 10^3/uL (1.8-7.7); Neutrophils % 62.7 %; Nucleated Red Blood Cells % 0 %; Platelet Count 66 10^3/cmm (130-400); Red Blood Count 2.62 10^6/uL (4.1-5.3); Red Cell Distribution Width 22.5 % (12.1-15.1); White Blood Count 4.2 10^3/uL (4.0-10.0)
[2020-01-23 23:37] LABS: CMV DNA By PCR <200 IU/mL; CMV DNA, QN PCR <2.30 Log IU/mL; SOURCE BLOOD
[2020-01-24 17:52] LABS: Aspergillus AG,EIA,Serum NOT DETECTED; Aspergillus Galactomannan Inde <0.50
[2020-01-28 11:04] LABS: Basophils % 0.4 %; Eosinophils # 0.1 10^3/uL (0.0-0.8); Eosinophils % 2.2 %; Hematocrit 21.9 % (42.0-52.0); Hemoglobin 6.7 g/dL (11.7-16.6); Lymphocytes # 1.4 10^3/uL (0.8-4.8); Lymphocytes % 26.7 %; Mean Corpuscular HGB Conc 30.6 g/dL (30.0-36.0); Mean Corpuscular Hemoglobin 34.9 pg (28.0-34.0); Mean Corpuscular Volume 114.1 fL (80-94); Mean Platelet Volume 10.7 fL (7.4-10.4); Monocytes # 0.5 10^3/uL (0.2-0.9); Monocytes % 8.6 %; Neutrophils # 3.27 10^3/uL (1.8-7.7); Neutrophils % 61.2 %; Nucleated Red Blood Cells % 0 %; Platelet Count 50 10^3/cmm (130-400); Red Blood Count 1.92 10^6/uL (4.1-5.3); Red Cell Distribution Width 22.9 % (12.1-15.1); White Blood Count 5.4 10^3/uL (4.0-10.0)
[2020-01-28 11:39] LABS: Alanine Aminotransferase 13 U/L (0-41); Albumin Level 3.1 g/dL (3.5-5.2); Alkaline Phosphatase 64 IU/L (40-130); Anion Gap 14.4 (5-19); Aspartate Amino Transferase 18 U/L (0-40); Blood Urea Nitrogen 27 mg/dL (8-23); Calcium 8.3 mg/dL (8.5-10.5); Carbon Dioxide 28 mmol/L (22-29); Chloride 103 mmol/L (98-107); Glomerular Filtration Rate 27.2 mL/min (90-130); Glucose 91 mg/dL (65-115); Osmolality Calculated 289 mOsm/kg (285-295); Potassium 4.4 mmol/L (3.5-5.1); Sodium 141 mmol/L (136-145); Total Bilirubin 0.3 mg/dL (0.15-1.2); Total Protein 5.1 g/dL (6.6-8.7)
[2020-01-28 12:18] LABS: C Reactive Protein 67.2 mg/L (0.0-4.9)
[2020-01-29] VITALS (7 sets, daily range): BP systolic 119–136; BP diastolic 74–82; PULSE 75–85; RESP 18; TEMP 36.6–37; O2SAT 93–96
[2020-01-29] MEDS: acetaminophen 325 mg Tablet 650 MG PO (08:30)
[2020-01-29] MEDS: sodium chloride 0.9% 250 ML 999 ML IV (09:35)
[2020-01-29] MEDS: FUROsemide 10 mg/mL SDV 2mL 20 MG IV (10:56)
[2020-01-29] MEDS: diphenhydrAMINE 25 mg Capsule PO (13:10)
[2020-01-31] MEDS: montelukast sodium 10 mg Tablet PO (09:48)
[2020-01-31] MEDS: acetaminophen 325 mg Tablet 650 MG PO (09:48)
[2020-01-31] MEDS: fexofenadine 60 mg Tablet 180 MG PO (09:48)
[2020-01-31] MEDS: sodium chloride 0.9% 250 ML 75 ML IV (09:50)
[2020-02-04 11:31] LABS: Eosinophils # 0.1 10^3/uL (0.0-0.8); Eosinophils % 3.7 %; Hematocrit 28.1 % (42.0-52.0); Hemoglobin 8.7 g/dL (11.7-16.6); Lymphocytes # 0.7 10^3/uL (0.8-4.8); Mean Corpuscular Hemoglobin 33.7 pg (28.0-34.0); Mean Corpuscular Volume 108.9 fL (80-94); Mean Platelet Volume 10.4 fL (7.4-10.4); Monocytes # 0.4 10^3/uL (0.2-0.9); Monocytes % 14.2 %; Neutrophils % 57.4 %; Nucleated Red Blood Cells % 0 %; Platelet Count 52 10^3/cmm (130-400); Red Blood Count 2.58 10^6/uL (4.1-5.3); Red Cell Distribution Width 22.5 % (12.1-15.1)
[2020-02-04 11:54] LABS: Alanine Aminotransferase 19 U/L (0-41); Albumin Level 3.2 g/dL (3.5-5.2); Alkaline Phosphatase 59 IU/L (40-130); Anion Gap 13.9 (5-19); Aspartate Amino Transferase 23 U/L (0-40); Blood Urea Nitrogen 27 mg/dL (8-23); C Reactive Protein 27.5 mg/L (0.0-4.9); Calcium 8.4 mg/dL (8.5-10.5); Carbon Dioxide 28 mmol/L (22-29); Chloride 103 mmol/L (98-107); Globulin 2.4 g/dL (1.3-4.6); Glomerular Filtration Rate 40.5 mL/min (90-130); Glucose 80 mg/dL (65-115); Osmolality Calculated 294 mOsm/kg (285-295); Potassium 4.9 mmol/L (3.5-5.1); Sodium 140 mmol/L (136-145); Total Bilirubin 0.4 mg/dL (0.15-1.2); Total Protein 5.6 g/dL (6.6-8.7)
[2020-02-11 12:22] LABS: Basophils % 0.9 %; Eosinophils # 0.1 10^3/uL (0.0-0.8); Eosinophils % 6.3 %; Hemoglobin 7.6 g/dL (11.7-16.6); Lymphocytes # 0.6 10^3/uL (0.8-4.8); Lymphocytes % 28.4 %; Mean Corpuscular HGB Conc 30.4 g/dL (30.0-36.0); Mean Corpuscular Hemoglobin 34.4 pg (28.0-34.0); Mean Corpuscular Volume 113.1 fL (80-94); Mean Platelet Volume 10.7 fL (7.4-10.4); Monocytes # 0.3 10^3/uL (0.2-0.9); Monocytes % 15.3 %; Neutrophils # 1.08 10^3/uL (1.8-7.7); Neutrophils % 48.6 %; Nucleated Red Blood Cells % 0 %; Platelet Count 64 10^3/cmm (130-400); Red Blood Count 2.21 10^6/uL (4.1-5.3); Red Cell Distribution Width 22.1 % (12.1-15.1); White Blood Count 2.2 10^3/uL (4.0-10.0)
[2020-02-11 12:48] LABS: Alanine Aminotransferase 28 U/L (0-41); Albumin Level 3.4 g/dL (3.5-5.2); Alkaline Phosphatase 58 IU/L (40-130); Anion Gap 11.3 (5-19); Aspartate Amino Transferase 33 U/L (0-40); Blood Urea Nitrogen 26 mg/dL (8-23); Calcium 8.3 mg/dL (8.5-10.5); Carbon Dioxide 26 mmol/L (22-29); Chloride 109 mmol/L (98-107); Globulin 2.1 g/dL (1.3-4.6); Glomerular Filtration Rate 46.8 mL/min (90-130); Glucose 87 mg/dL (65-115); Osmolality Calculated 298 mOsm/kg (285-295); Potassium 4.3 mmol/L (3.5-5.1); Sodium 142 mmol/L (136-145); Total Bilirubin 0.5 mg/dL (0.15-1.2); Total Protein 5.5 g/dL (6.6-8.7)
== END 2020-02-12 09:00 | disposition home or self-care (01) ==
LOC: ONCMED 09:20
PROVIDERS: Nurse Practitioner; PCP Family Medicine; Visit Provider Internal Medicine Medical Oncology
DX: Z51.12 Encounter for antineoplastic immunotherapy (principal); C90.02 Multiple myeloma in relapse; C61 Malignant neoplasm of prostate; D80.1 Nonfamilial hypogammaglobulinemia; C79.52 Secondary malignant neoplasm of bone marrow
CPT/HCPCS: 36415; 36430; 80048; 80053; 80076; 85025; 86140; 86850; 86900; 86920; 87305; 87496; 96365; 96366; 96367; 96401; C9062; C9399; J1100; J1200; J1568; J1940; J7050; P9040

== ENCOUNTER 2020-03-11 05:33 | Outpatient (RCR) | payer MEDICARE, BC, SELFPAY ==
[2020-02-13] MEDS: acetaminophen 325 mg Tablet 650 MG PO (09:14)
[2020-02-13] MEDS: dexamethasone 4 mg Tablet 10 MG PO (10:50)
[2020-02-13] MEDS: diphenhydrAMINE 25 mg Capsule PO ×2 (10:50)
[2020-02-13] MEDS: sodium chloride 0.9% 250 ML 999 ML IV ×2 (10:50→10:55)
[2020-02-13] MEDS: FUROsemide 10 mg/mL SDV 2mL 20 MG IV (17:15)
--- NOTE | 2020-02-16 10:21 | ONC FU_ITS ---
Dr. Brody Patient Follow-Up Note Patient: Flaco Cardona Unit #: [id number]: [id number] Dicatated By: Christopher Brody M.D.Date of Visit:Feb 13, 2020 Onc Med Follow-up/Prog Note Chief Complaint: Myeloma/prostate cancer. History of Present Illness: This is a 64 year-old man with IgA kappa myeloma, stage IIIB. During followup he was found to have metastatic prostate cancer involving the bone marrow. He was diagnosed with IgA kappa myeloma in October 2009. He presented at that time with anemia, hypercalcemia, renal failure, and severe osteopenia with multiple vertebral compression fractures. He was seen at the [facility] for his initial evaluation. He was treated on their standard arm Total Therapy 4 which included M-VTD-PACE induction and a second induction with VTD-PACE. He then underwent tandem transplants with high-dose melphalan conditioning in February and in March 2010. He reportedly had an excellent response to the treatment, and he was then consolidated with VTD-PACE in June 2010 and July 2010 followed by maintenance VRD. His maintenance therapy was complicated by depression due to Revlimid and severe neuropathy, and treatment was stopped by June 2011. He restarted treatment with Revlimid in August 2012, but he was again unable to tolerate it due to depression. He stopped treatment again in February 2013. He underwent evaluation at the [facility] in July 2014. At that time he was felt to have disease progression with MRI reporting new lesions in the clivus and in the right humerus. Bone marrow at that time showed 10% plasma cells in the aspirate and 20% in the biopsy. His M protein quantitated at 1 g compared to 0.3 g in February 2014. It was opted at that time to resume treatment with pomalidomide in combination with cyclophosphamide and dexamethasone. The prescribed regimen included pomalidomide 3 mg daily on days 1 through 21 of a 28 day cycle in combination with cyclophosphamide 500 mg/m??? by IV infusion days 1 and 15 and dexamethasone 20 mg weekly. As of 03/05/2015 he had completed 7 cycles of treatment with the cyclophosphamide administered on a day 1/day 15 schedule. In March his treatment was held, as he was pretty ill with pneumonia, and he ended up being treated for it in [place]. He had an uneventful recovery, and he was able to resume treatment on 04/16/2015. He had a restaging evaluation at the [facility] on 08/12/2015. Bone marrow aspiration/biopsy at that time showed an overall cellularity of 35%. The aspirate showed 6% plasma cells. By flow cytometry total plasma cells were estimated at 1.23%, with 0.69% myeloma cells and 0.54% normal plasma cells. The chromosome analysis showed a translocation involving chromosomes 4 and 8 in a single cell. The clinical significance of that finding was uncertain. I did not receive results of the protein electrophoresis studies. However, he was advised to continue treatment with pomalidomide, dexamethasone, and cyclophosphamide. However, due to his persistently low blood counts, in August 2015 his cyclophosphamide dosage was reduced to 500 mg. In October he continued with his 15th cycle of treatment. However, in November 2015 his cyclophosphamide was put on hold due to persistent neutropenia. He had subsequently continued his regular follow-up at [facility]. As of his follow-up visit there in December 2016 he had continued treatment with pomalidomide and dexamethasone, with the cyclophosphamide remaining on hold. He had a six-month follow-up at [facility] in June 2017. It incluided an MRI bone marrow blood supply exam on 07/07/2017 which showed a slight increase of mild hyperintense homogeneous signal in the marrow of the axial and peripheral skeletons. There was a slight increase of mildly restricted diffusion noted in the marrow cavity. There was interval development of a 2.5 cm focal lesion in the right posterior ilium with restricted diffusion and a 2 cm focal lesion in the right posterior elements at approximately T6, also with restricted diffusion. Bilateral small calvarial lesions were noted with interval punctate and bilateral interval rib lesions were noted. His bone marrow aspiration/biopsy on 07/10/2017 showed overall cellularity of 30% with the differential showing 7% plasma cells. The immunohistochemical stain for CD138 showed 5-10% plasma cells with interstitial and patchy distribution. His M protein was quantitated 0.7 g/dL. He was seen for a follow-up visit here on 07/11/2017. At that point he had become significantly more fatigued. He complained of shortness of breath, and he had been having episodes of passing out. His hemoglobin had dropped to 8.7 g. He was transfused 2 U of packed red blood cells on 07/13/2017. He had symptomatic improvement. He then returned to [facility] and on 07/15/2017 he began treatment with daratuzumab in addition to the pomalidomide/dexamethasone. He had no significant toxicity with the initial infusion of daratuzumab. During subsequent follow-up, there was a gradual decline in his granulocyte count. It nadired at 1200 at week 5 of daratuzumab, but it subsequently increased. He received week 8 of daratuzumab on 09/05/2017. His treatment was then put on hold due to persistent/recurrent pneumonia. He was admitted to the hospital on 09/14/2017 and again on 09/24/2017. With the second admission he was feeling weak and he had fallen several times. Brain MRI reported a 3.7 x 1.7 cm marrow replacing lesion within the clivus, consistent with plasmacytoma. A 7 mm focus of acute ischemia was noted in the right cerebellum. There was a small amount of associated edema. With those findings, he was transferred to [facility] for further management. His evaluation there was consistent with cerebellar stroke with subacute lacunar ischemic infarct on the right cerebellar hemisphere. Also reported was an expansile myelomatous clival lesion with bony erosion of the left carotid canal, erosion of the anterior and posterior cortex of the clivus, and extension into the sphenoid sinuses. The pneumonia improved after 7 days of IV cefepime. He was seen here again on 10/19/2017 and at that time he completed his 9th infusion of daratumumab. His next scheduled treatment was put on hold due to neutropenia and symptoms of respiratory infection. On 11/10/2017 he was admitted to the hospital with neutropenic fever. He was transferred to [facility] for further care. After recovering from that illness he had a restaging evaluation for the myeloma. His bone marrow aspiration/biopsy showed 5% plasma cells. His M protein quantitated at 0.4 g/dL. MRI bone marrow blood supply on 12/18/2017 showed interval worsening with increased size of the focal lesions involving the right temporal bone, clivus, and left parietal bone. There were only minimal changes noted in the spine from the previous studies. There was minimal progression of lesions in the proximal right humerus and in the upper sternum. With those findings, it was recommended that he change treatment to carfilzomib in combination with dexamethasone. He began cycle 1 on 12/27/2017 with the carfilzomib dosed at 20 mg/m???. He also started monthly replacement therapy with IVIG. At day 8 of cycle 1 the carfilzomib dosage was escalated to 36 mg/m???. He tolerated it well, and he was able to continue with cycle 2 on 01/24/2018. As of February 2018 he had completed 3 cycles of treatment. In May 2018 he underwent a stem cell transplant procedure at [facility]. He has had a gradual recovery following that treatment. I had seen him for follow-up here in September 2018. At that time he appeared stable clinically. He then continued his further follow-up at [facility]. He had recently been readmitted to [facility] after he developed fever up to 103 degrees. The fever resolved on antibiotic therapy, though I am not certain that a specific source was ever determined. His repeat bone marrow aspiration/biopsy on 06/12/2019 showed an unexpected finding of involvement with moderately differentiated metastatic adenocarcinoma which was felt to be most consistent with prostatic origin. It was morphologically negative for plasma cell neoplasm. His PSA was elevated in the range of 20 ng/mL. Restaging CT scans of the chest, abdomen, and pelvis on 06/22/2019 showed a small spiculated residual nodular density in the right upper lobe measuring 1.3 cm, decreased in size from 3.5 cm on a prior PET/CT from January 2019. It was felt to be most likely infectious/inflammatory. There were persistent tree-in-bud type nodularity in both lungs, particularly the lower lobes, felt to be suggestive of multifocal infectious/inflammatory change. There were no new pulmonary nodules and there was no pulmonary consolidation noted. There was no evidence of visceral/sherman metastatic disease in the abdomen/pelvis. There were faint sclerotic lesions in the C7 and T1 vertebral bodies. A bone scan on 06/24/2019 showed multiple focal areas of abnormal uptake which corresponded to the FDG avid osseous lesions noted on the PET/CT from 06/07/2019. These include with the upper thoracic spine, left T9 transverse process, and left posterior ischium. Overall, the findings were felt to be consistent with osteoblastic metastatic disease favoring metastatic prostate cancer over multiple myeloma. He began treatment with bicalutamide 50 mg daily, and he was then seen here on to continue his androgen deprivation locally. He received his initial injection of Depo-Lupron 22.5 mg on 07/01/2019. He tolerated with no adverse effects, and he then continued with a second Lupron injection on 10/01/2019. At that point his PSA had decreased to 0.11 ng/mL. He was seen for a follow-up visit at [facility] on 10/25/2019. His PET/CT showed an FDG avid right frontotemporal calvarial lesion measuring 2 cm, but with interval resolution of abnormal FDG uptake within a sclerotic left posterior iliac lesion. There was no evidence of metastatic disease. With that finding, he was recommended to restart treatment for the myeloma with daratumumab in combination with cyclophosphamide 100 mg weekly, Revlimid 10 mg daily on a 21/28-day schedule, and dexamethasone 8 mg. He began his week 1 daratumumab on 10/30/2019. He has tolerated the daratumumab without acute toxicity, and he then continued the daratumumab weekly. At his follow-up visit on 11/20/2019 the lenalidomide and cyclophosphamide were put on hold due to neutropenia, ANC 1300. Both were restarted on 12/04/2019 but with the lenalidomide dosage reduced to 5 mg daily. As of 12/18/2019 he had completed his 8th weekly infusion of daratumumab. He is seen for a follow-up visit. He has been feeling more draggy lately. He says he has been trying to do some walking, but he is not doing much of any work activity. He is up and around. His ECOG score is 2. Appetite is not the best, but he is eating. He does not have fever. His night sweating lately has not been as bad. He has shortness of breath with activity. He has cough associated with the sinus drainage. He does not complain of chest pain. He has been having some nausea with the Xtandi. His acid reflux is adequately managed with Tums. He has no problems with bowel or bladder function. He has chronic back pain, which tends to get worse afternoon. He is also been having more aching. His pain, though, is still adequately managed with medication. He has some sinus pressure headache. He sometimes feels wobbly. He has neuropathy in the lower extremities, and he is having leg cramps at night. Medications: Acyclovir 1 (200 mg) Tablet Oral daily, Albuterol Sulfate 1 ((2.5 mg/3ml) 0.083%) Nebulization solution Inhalation four times a day PRN, Aspirin 1 (81 mg) Tablet Oral daily, Baclofen 1 (10 mg) Tablet Oral at bedtime PRN, Benzonatate 1 Capsule (of 100 mg) Oral t.i.d., Casodex 1 Tablet (of 50 mg) Oral daily, Colace Capsule Oral daily PRN, cultrelle 1 Capsule Oral daily, Cyproheptadine HCl 1 (4 mg) Tablet Oral b.i.d. PRN, D3-1000 Tablet Oral daily, Dapsone 1 Tablet (of 100 mg) Oral daily, Folic Acid 1 (1000 mcg) Tablet Oral b.i.d., Gabapentin 1 Capsule (of 600 mg) Oral at bedtime, Hydrocodone-Acetaminophen 1 (10-325 mg) Tablet Oral four times a day PRN, Ipratropium-Albuterol 1 (20-100 mcg/act) Aerosol, solution Inhalation daily, Multivitamins 1 Capsule Oral daily, Pantoprazole Sodium 1 Tablet (of 40 mg) Tablet, enteric coated Oral daily PRN, Phos-NaK 1 Packet (of 280-160-250 mg) Pack Oral daily for 90 days, Questran 1 (4 g) Pack Oral daily, Revlimid 1 Capsule (of 10 mg) Oral daily, Xanax 1 Tablet (of 0.5 mg) Oral t.i.d. PRN, Zofran 1 Tablet (of 8 mg) Oral four times a day PRN Allergies: No Known Allergies. Review of Systems: Constitutional - He has been dragging more. He is trying to do some walking, but he does not do much of any work activity now. He is up and around. His appetite is not the best, but he is eating. He has not had fever. He says his night sweating has not been as bad lately. ECOG score is 2, ENMT - He has sinus congestion/drainage. No mouth sores. No sore throat or difficulty swallowing, Hematologic/Lymphatic - He has easy bruising, Respiratory - He has shortness of breath with activity. He has cough with the sinus drainage.. No pleuritic pain or hemoptysis, Cardiovascular - No angina pain. No palpitations, Gastrointestinal - He is having some nausea with the Xtandi. His acid reflux is adequately managed with Tums. No diarrhea or constipation. No blood in the stool or black stools, Genitourinary (M) - No dysuria or hematuria. No urinary frequency. No urgency or incontinence, Musculoskeletal - He has chronic back pain which tends to get worse afternoon. He is having more generalized aching. His pain, though, is still adequately managed with medication, Integumentary - No skin rash, Neurologic - He has headache associated with sinus pressure. He sometimes feels wobbly. He has neuropathy in the lower extremities and he continues to have a lot of leg cramps at night, Psychiatric - He has anxiety/depression. He has difficulty sleeping at night. Vital Signs: Blood pressure 165/86, pulse 87, respirations 24, temp 98.2 degrees, oxygen saturation 93%. Physical Examination: Constitutional - He appears somewhat weak generally, Eyes - Sclerae nonicteric. Conjunctivae clear, ENMT - No lesions noted in the oral cavity, Hematologic/Lymphatic - No cervical, clavicular, or axillary adenopathy, Respiratory - Lungs sound clear with some decrease in air movement bilaterally, Cardiovascular - Heart rhythm is regular. There is no murmur, gallop, or rub noted, Abdomen - Soft. Liver and spleen are not enlarged. There is no abdominal mass or ascites noted and there is no inguinal adenopathy, Extremities - There are venous stasis changes bilaterally. There is just slight lower extremity edema, Neurologic - No focal neurologic deficits noted. Lab/Imaging: CBC shows hemoglobin 7.6 g, white blood cell count 2200, and platelet count 64,000. Comprehensive metabolic profile shows stable renal function with BUN 26 and creatinine 1.5 mg/dL. Bilirubin and liver enzymes are normal. Impression: 1. Patient with IgA kappa myeloma, stage IIIB. He had severe osteopenia with multiple vertebral compression fractures at initial diagnosis in October 2009. 2. He had responded well to his initial treatment, but on his evaluation in July 2014 at the [facility], there was evidence of disease progression. In August 2014 he restarted treatment with pomalidomide in combination with cyclophosphamide and dexamethasone. He had evidence of response by M protein level. 3. As of November 2015 his cyclophosphamide was put on hold due to worsening cytopenias, but he continued treatment with pomalidomide and dexamethasone. 4. As of July 2017 his evaluation at [facility] showed evidence of disease progression with 7% plasma cells in the bone marrow and some new lytic lesions by MRI. As such, he began treatment with daratuzumab in combination with the pomalidomide/dexamethasone. During subsequent follow-up there was a gradual decline in his granulocyte count and he remained moderately anemic, but he was able to complete 8 weekly infusions daratumumab. His treatment was then put on hold due to recurrent/persistent pneumonia. He also was found to have evidence of cerebellar stroke. 5. He was able to continue with his 9th infusion of daratumumab on 10/19/2017. His treatment was then put on hold again due to neutropenia and fever. 6. His repeat bone marrow aspiration/biopsy on 11/29/2017 showed 5% plasma cells. M protein at that point quantitated 0.4 g/dL. Repeat MRI studies on 12/18/2017 showed only a few areas of slight progression. With those findings his treatment was changed to carfilzomib in combination with dexamethasone beginning on 12/27/2017. He also started monthly replacement therapy with IVIG. 7. As of February 2018 he had completed 3 cycles of treatment with carfilzomib/dexamethasone. In May 2018 he underwent a stem cell transplant procedure at [facility]. He had gradual recovery following that treatment, and he then continued regular followup at [facility]. 8. Repeat bone marrow aspiration/biopsy on 06/12/2019 showed unexpected finding of moderately differentiated metastatic adenocarcinoma of the mid most consistent with prostatic origin. There was no morphologic evidence of plasma cell neoplasm. His PET/CT and bone scans showed several foci of osteoblastic involvement felt to be most consistent with metastatic prostate cancer. Restaging CT scans of the chest, abdomen, and pelvis showed no evidence for visceral or other non-osseous metastatic disease. PSA was elevated in the range of 20 ng/mL. 9. He began treatment with bicalutamide 50 mg daily, and on 07/01/2019 he received his initial injection of Depo-Lupron 22.5 mg. He appeared to have a good respone to the androgen deprivatiopn therapy by PSA level. He continued with his second Depo-Lupron injection on 10/01/2019. At his follow-up visit at [facility] on 10/24/2019, there was evidence of progression of the myeloma with PET/CT showing a new 2 cm FDG avid lesion in the right frontal calvarium. With that finding, he restarted myeloma therapy with daratumumab in combination with cyclophosphamide, lenalidomide, and dexamethasone. He tolerated his initial infusion of daratumumab with no adverse effects, and he then continued daratumumab infusions weekly. As of 12/18/2019 he had completed his 8th infusion at the weekly interval. At week 4 his cyclophosphamide and lenalidomide had been put on hold due to neutropenia. They were able to be restarted at week 6 with the lenalidomide dosage reduced to 5 mg daily. During this time he is continued to have significant fatigue, and he has continued to have transfusion dependent anemia. Plan: He will daratumumab at the 2-week dosing interval. He continues his treatment with cyclophosphamide in combination with lenalidomide and dexamethasone. The dosages remain the same. He is being transfused 2 units PRBC today. He will be transfused again as needed. He returns in 2 weeks. Signed By: Christopher Brody M.D. <<Signature on File>>
[2020-02-18 09:30] LABS: Basophils % 0.7 %; Eosinophils # 0.2 10^3/uL (0.0-0.8); Hematocrit 35.1 % (42.0-52.0); Lymphocytes # 1.4 10^3/uL (0.8-4.8); Lymphocytes % 31.9 %; Mean Corpuscular HGB Conc 31.3 g/dL (30.0-36.0); Mean Corpuscular Hemoglobin 33.4 pg (28.0-34.0); Mean Corpuscular Volume 106.7 fL (80-94); Mean Platelet Volume 10.9 fL (7.4-10.4); Monocytes # 0.3 10^3/uL (0.2-0.9); Monocytes % 7.6 %; Neutrophils # 2.48 10^3/uL (1.8-7.7); Neutrophils % 55.4 %; Nucleated Red Blood Cells % 0 %; Platelet Count 64 10^3/cmm (130-400); Red Blood Count 3.29 10^6/uL (4.1-5.3); Red Cell Distribution Width 23.2 % (12.1-15.1); White Blood Count 4.5 10^3/uL (4.0-10.0)
[2020-02-18 09:47] LABS: Alanine Aminotransferase 23 U/L (0-41); Albumin Level 3.6 g/dL (3.5-5.2); Alkaline Phosphatase 73 IU/L (40-130); Anion Gap 14.6 (5-19); Aspartate Amino Transferase 21 U/L (0-40); Blood Urea Nitrogen 35 mg/dL (8-23); Calcium 9.4 mg/dL (8.5-10.5); Carbon Dioxide 27 mmol/L (22-29); Chloride 105 mmol/L (98-107); Globulin 2.3 g/dL (1.3-4.6); Glomerular Filtration Rate 40.5 mL/min (90-130); Glucose 121 mg/dL (65-115); Immunoglobulin IGG 751 mg/dL (700-1600); Osmolality Calculated 303 mOsm/kg (285-295); Potassium 4.6 mmol/L (3.5-5.1); Sodium 142 mmol/L (136-145); Total Bilirubin 0.5 mg/dL (0.15-1.2); Total Protein 5.9 g/dL (6.6-8.7)
[2020-02-18 10:04] LABS: Immunoglobulin IGA < 50 mg/dL (70-400); Immunoglobulin IGM < 25 mg/dL (40-230)
[2020-02-19 12:31] LABS: KAPPA LIGHT CHAIN, FREE, SERUM 6.4 mg/L (3.3-19.4); KAPPA/LAMBDA LIGHT CHAINS FREE 0.85 (0.26-1.65); LAMBDA LIGHT CHAIN, FREE, SERU 7.5 mg/L (5.7-26.3)
[2020-02-19 13:01] LABS: PROTEIN, TOTAL 5.5 g/dL (6.1-8.1)
[2020-02-20 13:21] LABS: ABNORMAL PROTEIN BAND 1 0.1 g/dL (NONE DETECTED); ALBUMIN 3.3 g/dL (3.8-4.8); ALPHA 1 GLOBULIN 0.4 g/dL (0.2-0.3); ALPHA 2 GLOBULIN 0.6 g/dL (0.5-0.9); BETA 1 GLOBULIN 0.3 g/dL (0.4-0.6); BETA 2 GLOBULIN 0.2 g/dL (0.2-0.5); GAMMA GLOBULIN 0.7 g/dL (0.8-1.7)
[2020-02-25 12:11] LABS: Basophils % 0.3 %; Eosinophils # 0.1 10^3/uL (0.0-0.8); Hematocrit 28.1 % (42.0-52.0); Hemoglobin 8.7 g/dL (11.7-16.6); Lymphocytes # 1.6 10^3/uL (0.8-4.8); Lymphocytes % 24.3 %; Mean Corpuscular Hemoglobin 34.5 pg (28.0-34.0); Mean Corpuscular Volume 111.5 fL (80-94); Mean Platelet Volume 11.8 fL (7.4-10.4); Monocytes # 0.6 10^3/uL (0.2-0.9); Monocytes % 9.7 %; Neutrophils # 4.15 10^3/uL (1.8-7.7); Neutrophils % 63.1 %; Nucleated Red Blood Cells % 0 %; Platelet Count 64 10^3/cmm (130-400); Red Blood Count 2.52 10^6/uL (4.1-5.3); Red Cell Distribution Width 22.2 % (12.1-15.1); White Blood Count 6.6 10^3/uL (4.0-10.0)
[2020-02-25 12:22] LABS: Alanine Aminotransferase 22 U/L (0-41); Albumin Level 3.6 g/dL (3.5-5.2); Alkaline Phosphatase 79 IU/L (40-130); Anion Gap 13.1 (5-19); Aspartate Amino Transferase 21 U/L (0-40); Blood Urea Nitrogen 30 mg/dL (8-23); C Reactive Protein 176.3 mg/L (0.0-4.9); Calcium 8.4 mg/dL (8.5-10.5); Carbon Dioxide 26 mmol/L (22-29); Chloride 104 mmol/L (98-107); Globulin 2.2 g/dL (1.3-4.6); Glomerular Filtration Rate 46.8 mL/min (90-130); Glucose 91 mg/dL (65-115); Osmolality Calculated 294 mOsm/kg (285-295); Potassium 4.1 mmol/L (3.5-5.1); Sodium 139 mmol/L (136-145); Total Bilirubin 0.6 mg/dL (0.15-1.2); Total Protein 5.8 g/dL (6.6-8.7)
[2020-02-26] MEDS: montelukast sodium 10 mg Tablet PO (13:03)
[2020-02-26] MEDS: diphenhydrAMINE 25 mg Capsule 50 MG PO (13:03)
[2020-02-26] MEDS: acetaminophen 325 mg Tablet 650 MG PO (13:03)
[2020-02-26] MEDS: fexofenadine 60 mg Tablet 180 MG PO (13:03)
[2020-02-26] MEDS: dexamethasone 4 mg Tablet 10 MG PO (13:03)
[2020-02-27] MEDS: sodium chloride 0.9% 250 ML 999 ML IV ×2 (09:44→10:00)
[2020-02-27] MEDS: diphenhydrAMINE 25 mg Capsule PO (09:45)
[2020-02-27] MEDS: acetaminophen 325 mg Tablet 650 MG PO (10:45)
[2020-02-27 10:50] VITALS: BP 149/67; PULSE 97; RESP 18; TEMP 37.3; O2SAT 96
[2020-02-27 11:05] VITALS: BP 131/73; PULSE 97; RESP 18; TEMP 37.2; O2SAT 99
[2020-02-27] MEDS: FUROsemide 10 mg/mL SDV 2mL 20 MG IV (12:55)
[2020-02-27] MEDS: ondansetron 2 mg/ML SDV 2 mL 8 MG IVP (15:34)
[2020-03-03 12:48] LABS: Basophils % 0.7 %; Eosinophils # 0.1 10^3/uL (0.0-0.8); Eosinophils % 2.1 %; Hematocrit 30.5 % (42.0-52.0); Hemoglobin 9.7 g/dL (11.7-16.6); Lymphocytes # 1.2 10^3/uL (0.8-4.8); Lymphocytes % 27.5 %; Mean Corpuscular HGB Conc 31.8 g/dL (30.0-36.0); Mean Corpuscular Hemoglobin 33.6 pg (28.0-34.0); Mean Corpuscular Volume 105.5 fL (80-94); Mean Platelet Volume 10.5 fL (7.4-10.4); Monocytes # 0.7 10^3/uL (0.2-0.9); Monocytes % 16.6 %; Neutrophils # 2.29 10^3/uL (1.8-7.7); Neutrophils % 52.9 %; Nucleated Red Blood Cells % 0 %; Platelet Count 56 10^3/cmm (130-400); Red Blood Count 2.89 10^6/uL (4.1-5.3); White Blood Count 4.3 10^3/uL (4.0-10.0)
[2020-03-03 13:49] LABS: Alanine Aminotransferase 20 U/L (0-41); Albumin Level 3.2 g/dL (3.5-5.2); Alkaline Phosphatase 107 IU/L (40-130); Anion Gap 11.2 (5-19); Aspartate Amino Transferase 21 U/L (0-40); Blood Urea Nitrogen 21 mg/dL (8-23); Carbon Dioxide 27 mmol/L (22-29); Chloride 100 mmol/L (98-107); Glomerular Filtration Rate 50.7 mL/min (90-130); Glucose 85 mg/dL (65-115); Osmolality Calculated 280 mOsm/kg (285-295); Potassium 4.2 mmol/L (3.5-5.1); Sodium 134 mmol/L (136-145); Total Bilirubin 0.6 mg/dL (0.15-1.2); Total Protein 6.2 g/dL (6.6-8.7)
[2020-03-03 14:20] LABS: C Reactive Protein 192.9 mg/L (0.0-4.9)
[2020-03-10 09:42] LABS: Basophils % 0.9 %; Eosinophils # 0.1 10^3/uL (0.0-0.8); Eosinophils % 2.1 %; Hematocrit 30.4 % (42.0-52.0); Hemoglobin 9.5 g/dL (11.7-16.6); Lymphocytes # 1.4 10^3/uL (0.8-4.8); Mean Corpuscular HGB Conc 31.3 g/dL (30.0-36.0); Mean Corpuscular Hemoglobin 33.8 pg (28.0-34.0); Mean Corpuscular Volume 108.2 fL (80-94); Monocytes # 0.2 10^3/uL (0.2-0.9); Monocytes % 5.3 %; Neutrophils # 2.64 10^3/uL (1.8-7.7); Neutrophils % 60.5 %; Nucleated Red Blood Cells % 0 %; Platelet Count 72 10^3/cmm (130-400); Red Blood Count 2.81 10^6/uL (4.1-5.3); Red Cell Distribution Width 19.7 % (12.1-15.1); White Blood Count 4.4 10^3/uL (4.0-10.0)
[2020-03-10 10:04] LABS: Alanine Aminotransferase 27 U/L (0-41); Albumin Level 3.5 g/dL (3.5-5.2); Alkaline Phosphatase 83 IU/L (40-130); Anion Gap 12.1 (5-19); Aspartate Amino Transferase 23 U/L (0-40); Blood Urea Nitrogen 27 mg/dL (8-23); C Reactive Protein 31.7 mg/L (0.0-4.9); Calcium 8.9 mg/dL (8.5-10.5); Carbon Dioxide 27 mmol/L (22-29); Chloride 102 mmol/L (98-107); Globulin 2.5 g/dL (1.3-4.6); Glomerular Filtration Rate 43.5 mL/min (90-130); Glucose 107 mg/dL (65-115); Osmolality Calculated 290 mOsm/kg (285-295); Potassium 4.1 mmol/L (3.5-5.1); Sodium 137 mmol/L (136-145); Total Bilirubin 0.4 mg/dL (0.15-1.2)
[2020-03-11] MEDS: ipratropium-albuterol 3 mL Neb INHALATION (12:48)
[2020-03-11] MEDS: diphenhydrAMINE 25 mg Capsule 50 MG PO (12:50)
[2020-03-11] MEDS: fexofenadine 60 mg Tablet 180 MG PO (12:50)
[2020-03-11] MEDS: acetaminophen 325 mg Tablet 650 MG PO (12:50)
[2020-03-11] MEDS: montelukast sodium 10 mg Tablet PO (12:50)
[2020-03-11] MEDS: dexamethasone 4 mg Tablet 10 MG PO (12:50)
== END 2020-03-14 23:59 | disposition home or self-care (01) ==
LOC: ONCMED 05:33
PROVIDERS: Internal Medicine Medical Oncology; PCP Family Medicine; Visit Provider Nurse Practitioner
DX: Z51.12 Encounter for antineoplastic immunotherapy (principal); C90.02 Multiple myeloma in relapse; C61 Malignant neoplasm of prostate; C79.52 Secondary malignant neoplasm of bone marrow; D70.1 Agranulocytosis secondary to cancer chemotherapy; T45.1X5D Adverse effect of antineoplastic and immunosuppressive drugs, subsequent encounter; R53.83 Other fatigue; D64.9 Anemia, unspecified; Z94.84 Stem cells transplant status; Z86.73 Personal history of transient ischemic attack (TIA), and cerebral infarction without residual deficits; Z79.899 Other long term (current) drug therapy; Z79.52 Long term (current) use of systemic steroids
CPT/HCPCS: 36415; 36430; 80053; 82784; 83883; 84155; 84165; 85025; 86140; 86850; 86900; 86920; 96375; 96401; C9062; J1568; J1940; J2405; J7050; J8540; P9040

== ENCOUNTER 2020-04-08 05:45 | Outpatient (RCR) | payer MEDICARE, BC, SELFPAY ==
[2020-03-24 09:45] LABS: Basophils % 0.3 %; Eosinophils # 0.2 10^3/uL (0.0-0.8); Eosinophils % 2.3 %; Hematocrit 22.5 % (42.0-52.0); Hemoglobin 6.9 g/dL (11.7-16.6); Lymphocytes # 2.1 10^3/uL (0.8-4.8); Lymphocytes % 28.1 %; Mean Corpuscular HGB Conc 30.7 g/dL (30.0-36.0); Mean Corpuscular Hemoglobin 36.1 pg (28.0-34.0); Mean Corpuscular Volume 117.8 fL (80-94); Mean Platelet Volume 10.6 fL (7.4-10.4); Monocytes # 0.4 10^3/uL (0.2-0.9); Monocytes % 5.7 %; Neutrophils # 4.67 10^3/uL (1.8-7.7); Neutrophils % 63.2 %; Nucleated Red Blood Cells % 0 %; Platelet Count 75 10^3/cmm (130-400); Red Blood Count 1.91 10^6/uL (4.1-5.3); Red Cell Distribution Width 21.3 % (12.1-15.1); White Blood Count 7.4 10^3/uL (4.0-10.0)
[2020-03-24 10:07] LABS: Alanine Aminotransferase 16 U/L (0-41); Albumin Level 3.3 g/dL (3.5-5.2); Alkaline Phosphatase 79 IU/L (40-130); Anion Gap 13.6 (5-19); Aspartate Amino Transferase 16 U/L (0-40); Blood Urea Nitrogen 30 mg/dL (8-23); Calcium 8.7 mg/dL (8.5-10.5); Carbon Dioxide 27 mmol/L (22-29); Chloride 104 mmol/L (98-107); Globulin 2.4 g/dL (1.3-4.6); Glomerular Filtration Rate 46.8 mL/min (90-130); Glucose 103 mg/dL (65-115); Osmolality Calculated 298 mOsm/kg (285-295); Potassium 3.6 mmol/L (3.5-5.1); Sodium 141 mmol/L (136-145); Total Bilirubin 0.4 mg/dL (0.15-1.2); Total Protein 5.7 g/dL (6.6-8.7)
[2020-03-25] VITALS (11 sets, daily range): BP systolic 114–136; BP diastolic 73–88; PULSE 88–94; RESP 17–18; TEMP 37.2–37.3; O2SAT 95–97
[2020-03-25] MEDS: acetaminophen 325 mg Tablet 650 MG PO ×2 (09:15→13:55)
[2020-03-25] MEDS: diphenhydrAMINE 25 mg Capsule PO (09:15)
[2020-03-25] MEDS: sodium chloride 0.9% 250 ML 999 ML IV (09:15)
[2020-03-25] MEDS: FUROsemide 10 mg/mL SDV 2mL 20 MG IV (11:25)
[2020-03-25] MEDS: diphenhydrAMINE 25 mg Capsule 50 MG PO (14:00)
[2020-03-25] MEDS: montelukast sodium 10 mg Tablet PO (14:00)
[2020-03-25] MEDS: dexamethasone 4 mg Tablet 10 MG PO (14:00)
[2020-03-25] MEDS: fexofenadine 60 mg Tablet 180 MG PO (14:00)
[2020-04-07 14:33] LABS: Basophils % 0.5 %; Eosinophils # 0.1 10^3/uL (0.0-0.8); Eosinophils % 1.7 %; Hematocrit 29.9 % (42.0-52.0); Hemoglobin 9.2 g/dL (11.7-16.6); Lymphocytes # 2.1 10^3/uL (0.8-4.8); Lymphocytes % 36.5 %; Mean Corpuscular HGB Conc 30.8 g/dL (30.0-36.0); Mean Corpuscular Hemoglobin 35.2 pg (28.0-34.0); Mean Corpuscular Volume 114.6 fL (80-94); Mean Platelet Volume 10.8 fL (7.4-10.4); Monocytes # 0.4 10^3/uL (0.2-0.9); Monocytes % 6.6 %; Neutrophils # 3.14 10^3/uL (1.8-7.7); Neutrophils % 54.4 %; Nucleated Red Blood Cells % 0 %; Platelet Count 92 10^3/cmm (130-400); Red Blood Count 2.61 10^6/uL (4.1-5.3); Red Cell Distribution Width 21.8 % (12.1-15.1); White Blood Count 5.8 10^3/uL (4.0-10.0)
[2020-04-07 14:50] LABS: Alanine Aminotransferase 22 U/L (0-41); Albumin Level 3.8 g/dL (3.5-5.2); Alkaline Phosphatase 85 IU/L (40-130); Anion Gap 13.5 (5-19); Aspartate Amino Transferase 18 U/L (0-40); Blood Urea Nitrogen 28 mg/dL (8-23); C Reactive Protein 21.4 mg/L (0.0-4.9); Calcium 9.2 mg/dL (8.5-10.5); Carbon Dioxide 30 mmol/L (22-29); Chloride 97 mmol/L (98-107); Globulin 2.2 g/dL (1.3-4.6); Glomerular Filtration Rate 43.5 mL/min (90-130); Glucose 76 mg/dL (65-115); Iron 231 ug/dL (59-158); Magnesium 2.4 mg/dL (1.7-2.3); Osmolality Calculated 286 mOsm/kg (285-295); Potassium 4.5 mmol/L (3.5-5.1); Sodium 136 mmol/L (136-145); Total Bilirubin 0.3 mg/dL (0.15-1.2)
[2020-04-07 15:05] LABS: Ferritin 3400 ng/mL (30-400); Percent Saturation 93.1 % (20-50); Total Iron Binding Capacity 248 mcg/dl; Unsaturated Iron Binding < 17 ug/dL (112-347)
[2020-04-07 15:06] LABS: Vitamin B12 346 pg/mL (232-1245)
[2020-04-07 15:50] LABS: Folate Level > 20.0 ng/mL (4.5-32.2)
[2020-04-08] MEDS: fexofenadine 60 mg Tablet 180 MG PO (10:32)
[2020-04-08] MEDS: dexamethasone 4 mg Tablet 10 MG PO (10:32)
[2020-04-08] MEDS: diphenhydrAMINE 25 mg Capsule 50 MG PO (10:32)
[2020-04-08] MEDS: acetaminophen 325 mg Tablet 650 MG PO ×2 (10:32→14:20)
[2020-04-08] MEDS: montelukast sodium 10 mg Tablet PO (10:32)
[2020-04-08] MEDS: sodium chloride 0.9% 250 ML 999 ML IV (11:06)
[2020-04-08] MEDS: lidocaine 1% INJ 20 mL INJECTION (11:10)
[2020-04-08] MEDS: goserelin acetate 10.8 mg Implant IM (11:28)
== END 2020-04-13 23:59 | disposition home or self-care (01) ==
LOC: ONCMED 05:45
PROVIDERS: Nurse Practitioner; PCP Family Medicine; Visit Provider Internal Medicine Medical Oncology
DX: Z51.12 Encounter for antineoplastic immunotherapy (principal); C90.02 Multiple myeloma in relapse; C61 Malignant neoplasm of prostate; C79.52 Secondary malignant neoplasm of bone marrow; D80.1 Nonfamilial hypogammaglobulinemia; R79.0 Abnormal level of blood mineral; D64.81 Anemia due to antineoplastic chemotherapy; T45.1X5A Adverse effect of antineoplastic and immunosuppressive drugs, initial encounter; F32.9 Major depressive disorder, single episode, unspecified; Z79.899 Other long term (current) drug therapy
CPT/HCPCS: 36415; 36430; 80053; 82607; 82728; 82746; 83540; 83550; 83735; 85025; 86140; 86850; 86900; 86920; 96365; 96366; 96372; 96401; 96402; 99214; C9062; J1568; J1940; J7050; J8540; J9202; P9040

== ENCOUNTER 2020-05-05 08:42 | Outpatient (RCR) | payer MEDICARE, BC, SELFPAY ==
[2020-04-21 10:08] LABS: Alanine Aminotransferase 26 U/L (0-41); Albumin Level 3.5 g/dL (3.5-5.2); Alkaline Phosphatase 64 IU/L (40-130); Anion Gap 11.8 (5-19); Aspartate Amino Transferase 24 U/L (0-40); Blood Urea Nitrogen 24 mg/dL (8-23); C Reactive Protein 25.8 mg/L (0.0-4.9); Calcium 8.8 mg/dL (8.5-10.5); Carbon Dioxide 29 mmol/L (22-29); Chloride 105 mmol/L (98-107); Glomerular Filtration Rate 60.6 mL/min (90-130); Glucose 71 mg/dL (65-115); Iron 210 ug/dL (59-158); Magnesium 1.9 mg/dL (1.7-2.3); Osmolality Calculated 297 mOsm/kg (285-295); Potassium 3.8 mmol/L (3.5-5.1); Sodium 142 mmol/L (136-145); Total Bilirubin 0.3 mg/dL (0.15-1.2); Total Protein 5.5 g/dL (6.6-8.7)
[2020-04-21 10:21] LABS: Ferritin 2899 ng/mL (30-400); Percent Saturation 92.5 % (20-50); Total Iron Binding Capacity 227 mcg/dl; Unsaturated Iron Binding < 17 ug/dL (112-347)
[2020-04-21 10:40] LABS: Basophils % 0.4 %; Eosinophils # 0.1 10^3/uL (0.0-0.8); Eosinophils % 2.5 %; Hematocrit 23.5 % (42.0-52.0); Hemoglobin 7.6 g/dL (11.7-16.6); Lymphocytes # 1.1 10^3/uL (0.8-4.8); Lymphocytes % 20.2 %; Mean Corpuscular HGB Conc 32.3 g/dL (30.0-36.0); Mean Corpuscular Hemoglobin 36.9 pg (28.0-34.0); Mean Corpuscular Volume 114.1 fL (80-94); Mean Platelet Volume 11.4 fL (7.4-10.4); Monocytes # 0.4 10^3/uL (0.2-0.9); Monocytes % 7.6 %; Neutrophils # 3.84 10^3/uL (1.8-7.7); Neutrophils % 69.1 %; Nucleated Red Blood Cells % 0 %; Platelet Count 60 10^3/cmm (130-400); Red Blood Count 2.06 10^6/uL (4.1-5.3); Red Cell Distribution Width 20.5 % (12.1-15.1); White Blood Count 5.6 10^3/uL (4.0-10.0)
[2020-04-22] VITALS (8 sets, daily range): BP systolic 130–155; BP diastolic 72–81; PULSE 87–94; RESP 18; TEMP 36.6–37.7; O2SAT 95–97
[2020-04-22] MEDS: sodium chloride 0.9% 250 ML 999 ML IV (10:00)
[2020-04-22] MEDS: diphenhydrAMINE 25 mg Capsule PO (10:30)
[2020-04-22] MEDS: acetaminophen 325 mg Tablet 650 MG PO ×3 (10:30→16:05)
[2020-04-22] MEDS: fexofenadine 60 mg Tablet 180 MG PO (15:20)
[2020-04-22] MEDS: dexamethasone 4 mg Tablet 10 MG PO (15:20)
[2020-04-22] MEDS: montelukast sodium 10 mg Tablet PO ×2 (15:20)
[2020-04-22] MEDS: FUROsemide 10 mg/mL SDV 2mL 20 MG IV (16:00)
[2020-04-22 16:09] LABS: Prostate Specific Antigen 0.041 ng/mL (0-4)
[2020-05-05 10:04] LABS: Basophils % 0.6 %; Eosinophils # 0.1 10^3/uL (0.0-0.8); Eosinophils % 2.7 %; Hematocrit 35.3 % (42.0-52.0); Hemoglobin 11.1 g/dL (11.7-16.6); Lymphocytes # 1.4 10^3/uL (0.8-4.8); Lymphocytes % 26.9 %; Mean Corpuscular HGB Conc 31.4 g/dL (30.0-36.0); Mean Corpuscular Hemoglobin 34.9 pg (28.0-34.0); Mean Platelet Volume 10.5 fL (7.4-10.4); Monocytes # 0.3 10^3/uL (0.2-0.9); Monocytes % 5.2 %; Neutrophils # 3.31 10^3/uL (1.8-7.7); Neutrophils % 64.2 %; Nucleated Red Blood Cells % 0 %; Platelet Count 82 10^3/cmm (130-400); Red Blood Count 3.18 10^6/uL (4.1-5.3); Red Cell Distribution Width 18.7 % (12.1-15.1); White Blood Count 5.2 10^3/uL (4.0-10.0)
[2020-05-05 10:23] LABS: Alanine Aminotransferase 24 U/L (0-41); Albumin Level 3.7 g/dL (3.5-5.2); Alkaline Phosphatase 97 IU/L (40-130); Anion Gap 13.5 (5-19); Aspartate Amino Transferase 15 U/L (0-40); Blood Urea Nitrogen 29 mg/dL (8-23); C Reactive Protein 26.7 mg/L (0.0-4.9); Calcium 9.2 mg/dL (8.5-10.5); Carbon Dioxide 29 mmol/L (22-29); Chloride 98 mmol/L (98-107); Globulin 2.5 g/dL (1.3-4.6); Glomerular Filtration Rate 60.6 mL/min (90-130); Glucose 74 mg/dL (65-115); Osmolality Calculated 286 mOsm/kg (285-295); Potassium 4.5 mmol/L (3.5-5.1); Sodium 136 mmol/L (136-145); Total Bilirubin 0.3 mg/dL (0.15-1.2); Total Protein 6.2 g/dL (6.6-8.7)
== END 2020-05-14 23:59 | disposition home or self-care (01) ==
LOC: ONCMED 08:42
PROVIDERS: Nurse Practitioner; PCP Family Medicine; Visit Provider Internal Medicine Medical Oncology
DX: Z51.12 Encounter for antineoplastic immunotherapy (principal); C90.02 Multiple myeloma in relapse; C61 Malignant neoplasm of prostate; C79.52 Secondary malignant neoplasm of bone marrow; D80.1 Nonfamilial hypogammaglobulinemia; E61.1 Iron deficiency; D64.81 Anemia due to antineoplastic chemotherapy; T45.1X5A Adverse effect of antineoplastic and immunosuppressive drugs, initial encounter; G25.81 Restless legs syndrome; Z79.899 Other long term (current) drug therapy
CPT/HCPCS: 36430; 80053; 82728; 83540; 83550; 83735; 84153; 85025; 86140; 86850; 86900; 86920; 96401; 99214; C9062; J1940; J7050; J8540; P9040

== ENCOUNTER 2020-06-11 07:51 | Outpatient (RCR) | payer MEDICARE, BC, SELFPAY ==
[2020-05-19 10:10] LABS: Basophils % 0.4 %; Eosinophils # 0.2 10^3/uL (0.0-0.8); Eosinophils % 3.7 %; Hematocrit 28.3 % (42.0-52.0); Hemoglobin 8.9 g/dL (11.7-16.6); Lymphocytes # 1.4 10^3/uL (0.8-4.8); Mean Corpuscular HGB Conc 31.4 g/dL (30.0-36.0); Mean Corpuscular Hemoglobin 35.9 pg (28.0-34.0); Mean Corpuscular Volume 114.1 fL (80-94); Mean Platelet Volume 10.4 fL (7.4-10.4); Monocytes # 0.4 10^3/uL (0.2-0.9); Monocytes % 7.2 %; Neutrophils # 3.65 10^3/uL (1.8-7.7); Neutrophils % 64.5 %; Nucleated Red Blood Cells % 0 %; Platelet Count 65 10^3/cmm (130-400); Red Blood Count 2.48 10^6/uL (4.1-5.3); Red Cell Distribution Width 17.8 % (12.1-15.1); White Blood Count 5.7 10^3/uL (4.0-10.0)
[2020-05-19 10:38] LABS: Alanine Aminotransferase 30 U/L (0-41); Albumin Level 3.7 g/dL (3.5-5.2); Alkaline Phosphatase 79 IU/L (40-130); Aspartate Amino Transferase 24 U/L (0-40); Blood Urea Nitrogen 29 mg/dL (8-23); Calcium 8.7 mg/dL (8.5-10.5); Carbon Dioxide 30 mmol/L (22-29); Chloride 102 mmol/L (98-107); Globulin 1.8 g/dL (1.3-4.6); Glomerular Filtration Rate 55.2 mL/min (90-130); Glucose 82 mg/dL (65-115); Osmolality Calculated 291 mOsm/kg (285-295); Sodium 138 mmol/L (136-145); Total Bilirubin 0.3 mg/dL (0.15-1.2); Total Protein 5.5 g/dL (6.6-8.7)
[2020-05-19 14:07] LABS: Prostate Specific Antigen 0.033 ng/mL (0-4)
[2020-06-01 10:19] LABS: Basophils % 0.8 %; Eosinophils # 0.1 10^3/uL (0.0-0.8); Eosinophils % 2.3 %; Hematocrit 26.2 % (42.0-52.0); Hemoglobin 8.1 g/dL (11.7-16.6); Lymphocytes # 1.3 10^3/uL (0.8-4.8); Lymphocytes % 33.6 %; Mean Corpuscular HGB Conc 30.9 g/dL (30.0-36.0); Mean Corpuscular Hemoglobin 37.3 pg (28.0-34.0); Mean Corpuscular Volume 120.7 fL (80-94); Mean Platelet Volume 10.3 fL (7.4-10.4); Monocytes # 0.4 10^3/uL (0.2-0.9); Monocytes % 9.2 %; Neutrophils % 53.8 %; Nucleated Red Blood Cells % 0 %; Platelet Count 62 10^3/cmm (130-400); Red Blood Count 2.17 10^6/uL (4.1-5.3); Red Cell Distribution Width 17.6 % (12.1-15.1); White Blood Count 3.9 10^3/uL (4.0-10.0)
[2020-06-01 10:45] LABS: Prostate Specific Antigen 0.036 ng/mL (0-4)
[2020-06-01 10:56] LABS: Alanine Aminotransferase 21 U/L (0-41); Albumin Level 3.7 g/dL (3.5-5.2); Alkaline Phosphatase 78 IU/L (40-130); Anion Gap 9.6 (5-19); Aspartate Amino Transferase 19 U/L (0-40); Blood Urea Nitrogen 34 mg/dL (8-23); Calcium 8.6 mg/dL (8.5-10.5); Carbon Dioxide 29 mmol/L (22-29); Chloride 105 mmol/L (98-107); Globulin 2.1 g/dL (1.3-4.6); Glomerular Filtration Rate 43.5 mL/min (90-130); Glucose 89 mg/dL (65-115); Osmolality Calculated 295 mOsm/kg (285-295); Potassium 4.6 mmol/L (3.5-5.1); Sodium 139 mmol/L (136-145); Total Bilirubin 0.4 mg/dL (0.15-1.2); Total Protein 5.8 g/dL (6.6-8.7)
[2020-06-03] VITALS (9 sets, daily range): BP systolic 124–146; BP diastolic 71–81; PULSE 82–88; RESP 18–19; TEMP 28.8–37; O2SAT 95–98
[2020-06-03] MEDS: diphenhydrAMINE 25 mg Capsule PO (10:00)
[2020-06-03] MEDS: sodium chloride 0.9% 250 ML 999 ML IV ×2 (10:00)
[2020-06-03] MEDS: acetaminophen 325 mg Tablet 650 MG PO (10:00)
[2020-06-03] MEDS: sodium chloride 0.9% 250 ML 125 ML IV (11:30)
[2020-06-03] MEDS: FUROsemide 10 mg/mL SDV 2mL 20 MG IV (11:35)
[2020-06-03] MEDS: ipratropium-albuterol 3 mL Neb INHALATION (13:15)
[2020-06-03] MEDS: fexofenadine 60 mg Tablet 180 MG PO (13:15)
[2020-06-03] MEDS: dexamethasone 4 mg Tablet 10 MG PO (13:15)
[2020-06-03] MEDS: montelukast sodium 10 mg Tablet PO (13:15)
[2020-06-03] MEDS: diphenhydrAMINE 25 mg Capsule 50 MG PO (15:53)
--- NOTE | 2020-06-07 10:08 | ONC FU_ITS ---
Dr. Brody Patient Follow-Up Note Patient: Flaco Cardona Unit #: [id number]: [id number] Dicatated By: Christopher Brody M.D.Date of Visit:Jun 03, 2020 Onc Med Follow-up/Prog Note Chief Complaint: Myeloma/prostate cancer. History of Present Illness: This is a 64 year-old man with IgA kappa myeloma, stage IIIB. During followup he was found to have metastatic prostate cancer involving the bone marrow. He was diagnosed with IgA kappa myeloma in October 2009. He presented at that time with anemia, hypercalcemia, renal failure, and severe osteopenia with multiple vertebral compression fractures. He was seen at the [facility] for his initial evaluation. He was treated on their standard arm Total Therapy 4 which included M-VTD-PACE induction and a second induction with VTD-PACE. He then underwent tandem transplants with high-dose melphalan conditioning in February and in March 2010. He reportedly had an excellent response to the treatment, and he was then consolidated with VTD-PACE in June 2010 and July 2010 followed by maintenance VRD. His maintenance therapy was complicated by depression due to Revlimid and severe neuropathy, and treatment was stopped by June 2011. He restarted treatment with Revlimid in August 2012, but he was again unable to tolerate it due to depression. He stopped treatment again in February 2013. He underwent evaluation at the [facility] in July 2014. At that time he was felt to have disease progression with MRI reporting new lesions in the clivus and in the right humerus. Bone marrow at that time showed 10% plasma cells in the aspirate and 20% in the biopsy. His M protein quantitated at 1 g compared to 0.3 g in February 2014. It was opted at that time to resume treatment with pomalidomide in combination with cyclophosphamide and dexamethasone. As of 03/05/2015 he had completed 7 cycles of treatment with the cyclophosphamide administered on a day 1/day 15 schedule. He had a restaging evaluation at the [facility] on 08/12/2015. Bone marrow aspiration/biopsy at that time showed an overall cellularity of 35%. The aspirate showed 6% plasma cells. By flow cytometry total plasma cells were estimated at 1.23%, with 0.69% myeloma cells and 0.54% normal plasma cells. The chromosome analysis showed a translocation involving chromosomes 4 and 8 in a single cell. The clinical significance of that finding was uncertain. He was advised to continue treatment with pomalidomide, dexamethasone, and cyclophosphamide. As of November 2015 the cyclophosphamide was put on hold due to persistent neutropenia. He had follow-up at [facility] in June 2017. His MRI bone marrow blood supply exam on 07/07/2017 showed a slight increase of mild hyperintense homogeneous signal in the marrow of the axial and peripheral skeletons. There was a slight increase of mildly restricted diffusion noted in the marrow cavity. There was interval development of a 2.5 cm focal lesion in the right posterior ilium with restricted diffusion and a 2 cm focal lesion in the right posterior elements at approximately T6, also with restricted diffusion. Bilateral small calvarial lesions were noted with interval punctate and bilateral interval rib lesions were noted. His bone marrow aspiration/biopsy on 07/10/2017 showed overall cellularity of 30% with the differential showing 7% plasma cells. The immunohistochemical stain for CD138 showed 5-10% plasma cells with interstitial and patchy distribution. His M protein was quantitated 0.7 g/dL. He was seen for a follow-up visit here on 07/11/2017. At that point he had become significantly more fatigued. He complained of shortness of breath, and he had been having episodes of passing out. His hemoglobin had dropped to 8.7 g. He was transfused 2 U of packed red blood cells on 07/13/2017. He had symptomatic improvement. He then returned to [facility] and on 07/15/2017 he began treatment with daratuzumab in addition to the pomalidomide/dexamethasone. He had no significant toxicity with the initial infusion of daratuzumab. During subsequent follow-up, there was a gradual decline in his granulocyte count. It nadired at 1200 at week 5 of daratuzumab, but it subsequently increased. He received week 8 of daratuzumab on 09/05/2017. His treatment was then put on hold due to persistent/recurrent pneumonia. He was admitted to the hospital on 09/14/2017 and again on 09/24/2017. With the second admission he was feeling weak and he had fallen several times. Brain MRI reported a 3.7 x 1.7 cm marrow replacing lesion within the clivus, consistent with plasmacytoma. A 7 mm focus of acute ischemia was noted in the right cerebellum. There was a small amount of associated edema. With those findings, he was transferred to [facility] for further management. His evaluation there was consistent with cerebellar stroke with subacute lacunar ischemic infarct on the right cerebellar hemisphere. Also reported was an expansile myelomatous clival lesion with bony erosion of the left carotid canal, erosion of the anterior and posterior cortex of the clivus, and extension into the sphenoid sinuses. The pneumonia improved after 7 days of IV cefepime. He was seen here again on 10/19/2017 and at that time he completed his 9th infusion of daratumumab. His next scheduled treatment was put on hold due to neutropenia and symptoms of respiratory infection. On 11/10/2017 he was admitted to the hospital with neutropenic fever. He was transferred to [facility] for further care. After recovering from that illness he had a restaging evaluation for the myeloma. His bone marrow aspiration/biopsy showed 5% plasma cells. His M protein quantitated at 0.4 g/dL. MRI bone marrow blood supply on 12/18/2017 showed interval worsening with increased size of the focal lesions involving the right temporal bone, clivus, and left parietal bone. There were only minimal changes noted in the spine from the previous studies. There was minimal progression of lesions in the proximal right humerus and in the upper sternum. With those findings, it was recommended that he change treatment to carfilzomib in combination with dexamethasone. He began cycle 1 on 12/27/2017 with the carfilzomib dosed at 20 mg/m???. He also started monthly replacement therapy with IVIG. At day 8 of cycle 1 the carfilzomib dosage was escalated to 36 mg/m???. He tolerated it well, and he was able to continue with cycle 2 on 01/24/2018. As of February 2018 he had completed 3 cycles of treatment. In May 2018 he underwent a stem cell transplant procedure at [facility]. He has had a gradual recovery following that treatment. I had seen him for follow-up here in September 2018. At that time he appeared stable clinically. He then continued his further follow-up at [facility]. His repeat bone marrow aspiration/biopsy on 06/12/2019 showed an unexpected finding of involvement with moderately differentiated metastatic adenocarcinoma which was felt to be most consistent with prostatic origin. It was morphologically negative for plasma cell neoplasm. His PSA was elevated in the range of 20 ng/mL. Restaging CT scans of the chest, abdomen, and pelvis on 06/22/2019 showed a small spiculated residual nodular density in the right upper lobe measuring 1.3 cm, decreased in size from 3.5 cm on a prior PET/CT from January 2019. It was felt to be most likely infectious/inflammatory. There were persistent tree-in-bud type nodularity in both lungs, particularly the lower lobes, felt to be suggestive of multifocal infectious/inflammatory change. There were no new pulmonary nodules and there was no pulmonary consolidation noted. There was no evidence of visceral/sherman metastatic disease in the abdomen/pelvis. There were faint sclerotic lesions in the C7 and T1 vertebral bodies. A bone scan on 06/24/2019 showed multiple focal areas of abnormal uptake which corresponded to the FDG avid osseous lesions noted on the PET/CT from 06/07/2019. These include with the upper thoracic spine, left T9 transverse process, and left posterior ischium. Overall, the findings were felt to be consistent with osteoblastic metastatic disease favoring metastatic prostate cancer over multiple myeloma. He began treatment with bicalutamide 50 mg daily, and he was then seen here on to continue his androgen deprivation locally. He received his initial injection of Depo-Lupron 22.5 mg on 07/01/2019. He tolerated with no adverse effects, and he then continued with a second Lupron injection on 10/01/2019. At that point his PSA had decreased to 0.11 ng/mL. He was seen for a follow-up visit at [facility] on 10/25/2019. His PET/CT showed an FDG avid right frontotemporal calvarial lesion measuring 2 cm, but with interval resolution of abnormal FDG uptake within a sclerotic left posterior iliac lesion. There was no evidence of metastatic disease. With that finding, he was recommended to restart treatment for the myeloma with daratumumab in combination with cyclophosphamide 100 mg weekly, Revlimid 10 mg daily on a 21/28-day schedule, and dexamethasone 8 mg. He began his week 1 daratumumab on 10/30/2019. He tolerated the daratumumab without acute toxicity, and he then continued the daratumumab weekly. At his follow-up visit on 11/20/2019 the lenalidomide and cyclophosphamide were put on hold due to neutropenia, ANC 1300. Both were restarted on 12/04/2019 but with the lenalidomide dosage reduced to 5 mg daily. As of December 2019 the frequency of the daratumumab infusions was reduced to every 2 weeks and during that time he continued treatment for the prostate cancer with Zoladex in combination with enzalutamide. He also continued replacement IVIG. He is seen for a follow-up visit. He is now on a monthly schedule with his daratumumab infusions. He complains that he has felt draggy the last couple of days. He is still getting around, though he does not do a lot of walking. His ECOG score is 2. Appetite is just so-so. He has not had fever. He does have some sweating, not as bad since he started Effexor. He has just occasional hot flashes. He has not had mouth sores. He has shortness of breath and his breathing has been a little worse this past week. He is not having cough. He has not had chest pain. He has nausea and acid reflux after he takes dexamethasone. His bowels fluctuate between constipation and loose stools. He has no complaints. He has been having pain in his right shoulder and his right lower rib cage after falling this morning while getting out of his pickup. He says his back pain has not been too bad. The neuropathy pain is worse and he also complains of having severe leg cramps in his legs and feet despite taking baclofen at bedtime. Medications: Acyclovir 1 (200 mg) Tablet Oral daily, Albuterol Sulfate 1 ((2.5 mg/3ml) 0.083%) Nebulization solution Inhalation four times a day PRN, Aspirin 1 (81 mg) Tablet Oral daily, Baclofen 1 (10 mg) Tablet Oral at bedtime PRN, Casodex 1 Tablet (of 50 mg) Oral daily, Colace Capsule Oral daily PRN, cultrelle 1 Capsule Oral daily, Cyproheptadine HCl 1 (4 mg) Tablet Oral b.i.d. PRN, D3-1000 Tablet Oral daily, Dapsone 1 Tablet (of 100 mg) Oral daily, Folic Acid 1 (1000 mcg) Tablet Oral b.i.d., Gabapentin 1 Capsule (of 600 mg) Oral at bedtime, Hydrocodone-Acetaminophen 1 (10-325 mg) Tablet Oral four times a day PRN, Ipratropium-Albuterol 1 (20-100 mcg/act) Aerosol, solution Inhalation daily, Multivitamins 1 Capsule Oral daily, Pantoprazole Sodium 1 Tablet (of 40 mg) Tablet, enteric coated Oral daily PRN, Phos-NaK 1 Packet (of 280-160-250 mg) Pack Oral daily for 90 days, Questran 1 (4 g) Pack Oral daily, Revlimid 1 Capsule (of 5 mg) Oral daily, Xanax 1 Tablet (of 0.5 mg) Oral t.i.d. PRN, Zofran 1 Tablet (of 8 mg) Oral four times a day PRN Allergies: No Known Allergies. Vital Signs: Performed on Jun 03, 2020 10:32 Height - 67.00 in Weight - 167 lbs (HIGH) BSA - 1.87 sq.m BMI - 26.16 Temperature - 98.6 F Pulse - 86 /min Respiration - 18 /min BP - 166/90 mm(hg) (HIGH) O2 Sat - 98 % Pain - 6 Physical Examination: Constitutional - He appears somewhat weak generally, Eyes - Sclerae nonicteric. Conjunctivae clear, ENMT - No lesions noted in the oral cavity, Hematologic/Lymphatic - No cervical, clavicular, or axillary adenopathy, Respiratory - Lungs show slightly coarse breath sounds with some decrease in air movement bilaterally, Cardiovascular - Heart rhythm is regular. There is no murmur, gallop, or rub noted, Abdomen - Soft. Liver and spleen are not enlarged. There is no abdominal mass or ascites noted and there is no inguinal adenopathy, Extremities - There are venous stasis changes bilaterally. There is currently no edema, Neurologic - No focal neurologic deficits noted. Lab/Imaging: CBC shows hemoglobin 8.1 g, white blood cell count 3900, and platelet count 62,000. Comprehensive metabolic profile shows elevated BUN and creatinine at 34 and 1.6 mg/dL. Bilirubin and liver enzymes are normal. Problem List: 1. IgA kappa myeloma, stage IIIB. He had severe osteopenia with multiple vertebral compression fractures at initial diagnosis in October 2009. 2. He has undergone treatment through [facility] which initially included treatment on the Total Therapy 4 program followed by tandem stem cell transplants with high-dose melphalan conditioning. He had maintenance therapy with VRD, stopped in February 2013 due to side effects. 3. He had evidence of relapse/progression of the myeloma in July 2014. Since then he has had multiple salvage therapies, including a repeat stem cell transplant in May 2018. He is currently on treatment with daratumumab in combination with cyclophosphamide, lenalidomide, and dexamethasone. 4. Repeat bone marrow aspiration/biopsy on 06/12/2019 showed unexpected finding of moderately differentiated metastatic adenocarcinoma of the mid most consistent with prostatic origin. There was no morphologic evidence of plasma cell neoplasm. His PET/CT and bone scans showed several foci of osteoblastic involvement felt to be most consistent with metastatic prostate cancer. Restaging CT scans of the chest, abdomen, and pelvis showed no evidence for visceral or other non-osseous metastatic disease. PSA was elevated in the range of 20 ng/mL. He began treatment with bicalutamide 50 mg daily, and on 07/01/2019 he received his initial injection of Depo-Lupron 22.5 mg. He had a good clinical response, his androgen deprivation therapy was subsequently transitioned to Zoladex in combination with enzalutamide. 5. 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 He is on replacement IVIG due to recurrent episodes of pneumonia. 6. Chronic anemia, multifactorial. 7. Treatment related peripheral neuropathy. 8. History of cerebellar stroke in September 2017. 9. Depression. Problems Addressed with this Encounter and Plan: 1. IgA kappa myeloma, stage IIIB. He had severe osteopenia with multiple vertebral compression fractures at initial diagnosis in October 2009. He has been followed at [facility] and has been extensively treated. His disease currently has been stable on a regimen of daratumumab in combination with cyclophosphamide, lenalidomide, and dexamethasone. The daratumumab infusions now are being administered at 4-week intervals, and he the cyclophosphamide and lenalidomide have been administered at reduced dosages due to neutropenia. He has fairly marginal performance status, but in the absence of any obvious progression of the myeloma, he will be given daratumumab 1800 mg by IV infusion and the other medications will be continued at the same dosages. He returns in 4 weeks. 2. He has chronic anemia. This is likely to be multifactorial. He has transfusion dependent. With his hemoglobin back down to 8.1 g, he will be transfused 2 units PRBC today. Blood counts will be monitored weekly and he will be transfused again as needed. 3. He has chronic immunosuppression associated with his myeloma. He has had recurrent hospitalizations for pneumonia. He continues replacement IVIG at the same dosage. 4. Metastatic prostate cancer, diagnosed by bone marrow aspiration/biopsy on 06/12/2019. His PSA level has remained adequately suppressed on androgen deprivation therapy with Zoladex in combination with enzalutamide. Thus far he has been able to tolerate treatment with acceptable toxicity. He continues the enzalutamide at 160 mg daily. He is due for Zoladex again next month. 5. He has chronic pain, due in part to his multiple vertebral compression fractures and to treatment related neuropathy. It does appear to be managed adequately with his current medications, which will be continued at the same dosages. Signed By: Christopher Brody M.D. <<Signature on File>>
[2020-06-11 12:14] LABS: Eosinophils # 0.1 10^3/uL (0.0-0.8); Eosinophils % 2.4 %; Hematocrit 32.5 % (42.0-52.0); Hemoglobin 10.1 g/dL (11.7-16.6); Lymphocytes # 1.7 10^3/uL (0.8-4.8); Lymphocytes % 42.2 %; Mean Corpuscular HGB Conc 31.1 g/dL (30.0-36.0); Mean Corpuscular Hemoglobin 34.9 pg (28.0-34.0); Mean Corpuscular Volume 112.5 fL (80-94); Mean Platelet Volume 10.6 fL (7.4-10.4); Monocytes # 0.3 10^3/uL (0.2-0.9); Neutrophils # 1.89 10^3/uL (1.8-7.7); Neutrophils % 46.2 %; Nucleated Red Blood Cells % 0 %; Platelet Count 82 10^3/cmm (130-400); Red Blood Count 2.89 10^6/uL (4.1-5.3); Red Cell Distribution Width 21.5 % (12.1-15.1); White Blood Count 4.1 10^3/uL (4.0-10.0)
== END 2020-06-14 23:59 | disposition home or self-care (01) ==
LOC: ONCMED 07:51
PROVIDERS: Nurse Practitioner; PCP Family Medicine; Visit Provider Internal Medicine Medical Oncology
DX: Z51.12 Encounter for antineoplastic immunotherapy (principal); C90.02 Multiple myeloma in relapse; C61 Malignant neoplasm of prostate; C79.52 Secondary malignant neoplasm of bone marrow; D80.1 Nonfamilial hypogammaglobulinemia; G62.0 Drug-induced polyneuropathy; D70.1 Agranulocytosis secondary to cancer chemotherapy; T45.1X5A Adverse effect of antineoplastic and immunosuppressive drugs, initial encounter; D84.81 Immunodeficiency due to conditions classified elsewhere; D63.0 Anemia in neoplastic disease; M48.50XD Collapsed vertebra, not elsewhere classified, site unspecified, subsequent encounter for fracture with routine healing; Z94.84 Stem cells transplant status; Z79.899 Other long term (current) drug therapy; Z79.818 Long term (current) use of other agents affecting estrogen receptors and estrogen levels
CPT/HCPCS: 36415; 36430; 80053; 84153; 85025; 86850; 86900; 86920; 96366; 96367; 96401; 99215; J1568; J1940; J7050; J8540; J9144; P9040

== ENCOUNTER 2020-07-07 08:15 | Outpatient (RCR) | payer MEDICARE, BC, SELFPAY ==
[2020-06-16 10:24] LABS: Basophils % 0.5 %; Eosinophils # 0.1 10^3/uL (0.0-0.8); Eosinophils % 1.6 %; Lymphocytes % 35.2 %; Mean Corpuscular HGB Conc 31.3 g/dL (30.0-36.0); Mean Corpuscular Hemoglobin 34.8 pg (28.0-34.0); Mean Corpuscular Volume 111.5 fL (80-94); Mean Platelet Volume 10.6 fL (7.4-10.4); Monocytes # 0.4 10^3/uL (0.2-0.9); Monocytes % 6.7 %; Neutrophils # 3.15 10^3/uL (1.8-7.7); Neutrophils % 55.6 %; Nucleated Red Blood Cells % 0 %; Platelet Count 74 10^3/cmm (130-400); Red Blood Count 2.87 10^6/uL (4.1-5.3); Red Cell Distribution Width 20.3 % (12.1-15.1); White Blood Count 5.7 10^3/uL (4.0-10.0)
[2020-06-23 10:02] LABS: Basophils % 0.5 %; Eosinophils # 0.1 10^3/uL (0.0-0.8); Eosinophils % 2.9 %; Hematocrit 28.3 % (42.0-52.0); Lymphocytes # 1.4 10^3/uL (0.8-4.8); Lymphocytes % 37.8 %; Mean Corpuscular HGB Conc 31.8 g/dL (30.0-36.0); Mean Corpuscular Hemoglobin 35.6 pg (28.0-34.0); Mean Corpuscular Volume 111.9 fL (80-94); Mean Platelet Volume 11.1 fL (7.4-10.4); Monocytes # 0.3 10^3/uL (0.2-0.9); Monocytes % 8.8 %; Neutrophils # 1.86 10^3/uL (1.8-7.7); Nucleated Red Blood Cells % 0 %; Platelet Count 73 10^3/cmm (130-400); Red Blood Count 2.53 10^6/uL (4.1-5.3); Red Cell Distribution Width 19.9 % (12.1-15.1); White Blood Count 3.7 10^3/uL (4.0-10.0)
[2020-06-23 10:25] LABS: Iron 207 ug/dL (59-158)
[2020-06-23 10:47] LABS: Percent Saturation 91.1 % (20-50); Total Iron Binding Capacity 227 mcg/dl; Unsaturated Iron Binding 20 ug/dL (112-347)
[2020-06-23 10:48] LABS: Ferritin 2965 ng/mL (30-400)
[2020-06-30 13:07] LABS: Basophils % 0.4 %; Eosinophils # 0.2 10^3/uL (0.0-0.8); Eosinophils % 3.2 %; Hematocrit 25.2 % (42.0-52.0); Hemoglobin 7.9 g/dL (11.7-16.6); Lymphocytes # 1.2 10^3/uL (0.8-4.8); Lymphocytes % 25.9 %; Mean Corpuscular HGB Conc 31.3 g/dL (30.0-36.0); Mean Corpuscular Hemoglobin 35.9 pg (28.0-34.0); Mean Corpuscular Volume 114.5 fL (80-94); Monocytes # 0.4 10^3/uL (0.2-0.9); Monocytes % 8.4 %; Neutrophils # 2.86 10^3/uL (1.8-7.7); Neutrophils % 61.7 %; Nucleated Red Blood Cells % 0 %; Platelet Count 67 10^3/cmm (130-400); Red Cell Distribution Width 20.4 % (12.1-15.1); White Blood Count 4.6 10^3/uL (4.0-10.0)
[2020-06-30 13:22] LABS: Alanine Aminotransferase 26 U/L (0-41); Albumin Level 3.5 g/dL (3.5-5.2); Alkaline Phosphatase 87 IU/L (40-130); Anion Gap 9.8 (5-19); Aspartate Amino Transferase 21 U/L (0-40); Blood Urea Nitrogen 30 mg/dL (8-23); C Reactive Protein 12.3 mg/L (0.0-4.9); Calcium 8.6 mg/dL (8.5-10.5); Carbon Dioxide 27 mmol/L (22-29); Chloride 105 mmol/L (98-107); Globulin 2.1 g/dL (1.3-4.6); Glomerular Filtration Rate 60.6 mL/min (90-130); Glucose 79 mg/dL (65-115); Osmolality Calculated 289 mOsm/kg (285-295); Potassium 4.8 mmol/L (3.5-5.1); Sodium 137 mmol/L (136-145); Total Bilirubin 0.5 mg/dL (0.15-1.2); Total Protein 5.6 g/dL (6.6-8.7)
[2020-07-02] VITALS (9 sets, daily range): BP systolic 127–151; BP diastolic 70–76; PULSE 72–81; RESP 18; TEMP 36–37; O2SAT 96–99
[2020-07-02] MEDS: acetaminophen 325 mg Tablet 650 MG PO ×2 (10:25→12:20)
[2020-07-02] MEDS: diphenhydrAMINE 25 mg Capsule PO (10:25)
[2020-07-02] MEDS: sodium chloride 0.9% 250 ML 999 ML IV (10:55)
[2020-07-02] MEDS: montelukast sodium 10 mg Tablet PO (12:20)
[2020-07-02] MEDS: dexamethasone 4 mg Tablet 10 MG PO (12:20)
[2020-07-02] MEDS: fexofenadine 60 mg Tablet 180 MG PO (12:20)
[2020-07-02] MEDS: sodium chloride 0.9% (100 ml) 100 ML 46 ML (12:25)
[2020-07-02] MEDS: FUROsemide 10 mg/mL SDV 2mL 20 MG IV (12:45)
[2020-07-02] MEDS: lidocaine 1% INJ 20 mL INJECTION (14:10)
[2020-07-02] MEDS: goserelin acetate 10.8 mg Implant IM (14:30)
--- NOTE | 2020-07-06 07:43 | ONC FU_ITS ---
Dr. Brody Patient Follow-Up Note Patient: Flaco Cardona Unit #: [id number]: 1955 Dicatated By: Christopher Brody M.D.Date of Visit:Jul 02, 2020 Onc Med Follow-up/Prog Note Chief Complaint: Myeloma/prostate cancer. History of Present Illness: This is a 64 year-old man with IgA kappa myeloma, stage IIIB. During followup he was found to have metastatic prostate cancer involving the bone marrow. He was diagnosed with IgA kappa myeloma in October 2009. He presented at that time with anemia, hypercalcemia, renal failure, and severe osteopenia with multiple vertebral compression fractures. He was seen at the [facility] for his initial evaluation. He was treated on their standard arm Total Therapy 4 which included M-VTD-PACE induction and a second induction with VTD-PACE. He then underwent tandem transplants with high-dose melphalan conditioning in February and in March 2010. He reportedly had an excellent response to the treatment, and he was then consolidated with VTD-PACE in June 2010 and July 2010 followed by maintenance VRD. His maintenance therapy was complicated by depression due to Revlimid and severe neuropathy, and treatment was stopped by June 2011. He restarted treatment with Revlimid in August 2012, but he was again unable to tolerate it due to depression. He stopped treatment again in February 2013. He underwent evaluation at the [facility] in July 2014. At that time he was felt to have disease progression with MRI reporting new lesions in the clivus and in the right humerus. Bone marrow at that time showed 10% plasma cells in the aspirate and 20% in the biopsy. His M protein quantitated at 1 g compared to 0.3 g in February 2014. It was opted at that time to resume treatment with pomalidomide in combination with cyclophosphamide and dexamethasone. As of 03/05/2015 he had completed 7 cycles of treatment with the cyclophosphamide administered on a day 1/day 15 schedule. He had a restaging evaluation at the [facility] on 08/12/2015. Bone marrow aspiration/biopsy at that time showed an overall cellularity of 35%. The aspirate showed 6% plasma cells. By flow cytometry total plasma cells were estimated at 1.23%, with 0.69% myeloma cells and 0.54% normal plasma cells. The chromosome analysis showed a translocation involving chromosomes 4 and 8 in a single cell. The clinical significance of that finding was uncertain. He was advised to continue treatment with pomalidomide, dexamethasone, and cyclophosphamide. As of November 2015 the cyclophosphamide was put on hold due to persistent neutropenia. He had follow-up at [facility] in June 2017. His MRI bone marrow blood supply exam on 07/07/2017 showed a slight increase of mild hyperintense homogeneous signal in the marrow of the axial and peripheral skeletons. There was a slight increase of mildly restricted diffusion noted in the marrow cavity. There was interval development of a 2.5 cm focal lesion in the right posterior ilium with restricted diffusion and a 2 cm focal lesion in the right posterior elements at approximately T6, also with restricted diffusion. Bilateral small calvarial lesions were noted with interval punctate and bilateral interval rib lesions were noted. His bone marrow aspiration/biopsy on 07/10/2017 showed overall cellularity of 30% with the differential showing 7% plasma cells. The immunohistochemical stain for CD138 showed 5-10% plasma cells with interstitial and patchy distribution. His M protein was quantitated 0.7 g/dL. He was seen for a follow-up visit here on 07/11/2017. At that point he had become significantly more fatigued. He complained of shortness of breath, and he had been having episodes of passing out. His hemoglobin had dropped to 8.7 g. He was transfused 2 U of packed red blood cells on 07/13/2017. He had symptomatic improvement. He then returned to [facility] and on 07/15/2017 he began treatment with daratuzumab in addition to the pomalidomide/dexamethasone. He had no significant toxicity with the initial infusion of daratuzumab. During subsequent follow-up, there was a gradual decline in his granulocyte count. It nadired at 1200 at week 5 of daratuzumab, but it subsequently increased. He received week 8 of daratuzumab on 09/05/2017. His treatment was then put on hold due to persistent/recurrent pneumonia. He was admitted to the hospital on 09/14/2017 and again on 09/24/2017. With the second admission he was feeling weak and he had fallen several times. Brain MRI reported a 3.7 x 1.7 cm marrow replacing lesion within the clivus, consistent with plasmacytoma. A 7 mm focus of acute ischemia was noted in the right cerebellum. There was a small amount of associated edema. With those findings, he was transferred to [facility] for further management. His evaluation there was consistent with cerebellar stroke with subacute lacunar ischemic infarct on the right cerebellar hemisphere. Also reported was an expansile myelomatous clival lesion with bony erosion of the left carotid canal, erosion of the anterior and posterior cortex of the clivus, and extension into the sphenoid sinuses. The pneumonia improved after 7 days of IV cefepime. He was seen here again on 10/19/2017 and at that time he completed his 9th infusion of daratumumab. His next scheduled treatment was put on hold due to neutropenia and symptoms of respiratory infection. On 11/10/2017 he was admitted to the hospital with neutropenic fever. He was transferred to [facility] for further care. After recovering from that illness he had a restaging evaluation for the myeloma. His bone marrow aspiration/biopsy showed 5% plasma cells. His M protein quantitated at 0.4 g/dL. MRI bone marrow blood supply on 12/18/2017 showed interval worsening with increased size of the focal lesions involving the right temporal bone, clivus, and left parietal bone. There were only minimal changes noted in the spine from the previous studies. There was minimal progression of lesions in the proximal right humerus and in the upper sternum. With those findings, it was recommended that he change treatment to carfilzomib in combination with dexamethasone. He began cycle 1 on 12/27/2017 with the carfilzomib dosed at 20 mg/m???. He also started monthly replacement therapy with IVIG. At day 8 of cycle 1 the carfilzomib dosage was escalated to 36 mg/m???. He tolerated it well, and he was able to continue with cycle 2 on 01/24/2018. As of February 2018 he had completed 3 cycles of treatment. In May 2018 he underwent a stem cell transplant procedure at [facility]. He has had a gradual recovery following that treatment. I had seen him for follow-up here in September 2018. At that time he appeared stable clinically. He then continued his further follow-up at [facility]. His repeat bone marrow aspiration/biopsy on 06/12/2019 showed an unexpected finding of involvement with moderately differentiated metastatic adenocarcinoma which was felt to be most consistent with prostatic origin. It was morphologically negative for plasma cell neoplasm. His PSA was elevated in the range of 20 ng/mL. Restaging CT scans of the chest, abdomen, and pelvis on 06/22/2019 showed a small spiculated residual nodular density in the right upper lobe measuring 1.3 cm, decreased in size from 3.5 cm on a prior PET/CT from January 2019. It was felt to be most likely infectious/inflammatory. There were persistent tree-in-bud type nodularity in both lungs, particularly the lower lobes, felt to be suggestive of multifocal infectious/inflammatory change. There were no new pulmonary nodules and there was no pulmonary consolidation noted. There was no evidence of visceral/sherman metastatic disease in the abdomen/pelvis. There were faint sclerotic lesions in the C7 and T1 vertebral bodies. A bone scan on 06/24/2019 showed multiple focal areas of abnormal uptake which corresponded to the FDG avid osseous lesions noted on the PET/CT from 06/07/2019. These include with the upper thoracic spine, left T9 transverse process, and left posterior ischium. Overall, the findings were felt to be consistent with osteoblastic metastatic disease favoring metastatic prostate cancer over multiple myeloma. He began treatment with bicalutamide 50 mg daily, and he was then seen here on to continue his androgen deprivation locally. He received his initial injection of Depo-Lupron 22.5 mg on 07/01/2019. He tolerated with no adverse effects, and he then continued with a second Lupron injection on 10/01/2019. At that point his PSA had decreased to 0.11 ng/mL. He was seen for a follow-up visit at [facility] on 10/25/2019. His PET/CT showed an FDG avid right frontotemporal calvarial lesion measuring 2 cm, but with interval resolution of abnormal FDG uptake within a sclerotic left posterior iliac lesion. There was no evidence of metastatic disease. With that finding, he was recommended to restart treatment for the myeloma with daratumumab in combination with cyclophosphamide 100 mg weekly, Revlimid 10 mg daily on a 21/28-day schedule, and dexamethasone 8 mg. He began his week 1 daratumumab on 10/30/2019. He tolerated the daratumumab without acute toxicity, and he then continued the daratumumab weekly. At his follow-up visit on 11/20/2019 the lenalidomide and cyclophosphamide were put on hold due to neutropenia, ANC 1300. Both were restarted on 12/04/2019 but with the lenalidomide dosage reduced to 5 mg daily. As of December 2019 the frequency of the daratumumab infusions was reduced to every 2 weeks and during that time he continued treatment for the prostate cancer with Zoladex in combination with enzalutamide. He also continued replacement IVIG. He is seen for a follow-up visit. He has continued his myeloma treatment but with the cyclophosphamide dosage adjusted to 500 mg every 2 weeks. His Revlimid dosage has remained the same at 5 mg daily on a 21/28 day schedule, and his daratumumab infusions are now being administered every 4 weeks. He has been feeling weak and tired, and he is short of breath with activity. His ECOG score is 2. Appetite is not as good, but still OK. He has no fever, but he does have night sweating. He does not complain of cough and he has not been having chest pain. He gets heartburn with dexamethasone. He has no other GI or complaints. His back has been pretty sore. He has pain in his neck and shoulders and he has pain in all of his major joints. He has numbness/tingling in his hands and feet. Medications: Acyclovir 1 (200 mg) Tablet Oral daily, Albuterol Sulfate 1 ((2.5 mg/3ml) 0.083%) Nebulization solution Inhalation four times a day PRN, Aspirin 1 (81 mg) Tablet Oral daily, Baclofen 1 (10 mg) Tablet Oral at bedtime PRN, Casodex 1 Tablet (of 50 mg) Oral daily, Colace Capsule Oral daily PRN, cultrelle 1 Capsule Oral daily, Cyproheptadine HCl 1 (4 mg) Tablet Oral b.i.d. PRN, D3-1000 Tablet Oral daily, Dapsone 1 Tablet (of 100 mg) Oral daily, Folic Acid 1 (1000 mcg) Tablet Oral b.i.d., Gabapentin 1 Capsule (of 600 mg) Oral at bedtime, Hydrocodone-Acetaminophen 1 (10-325 mg) Tablet Oral four times a day PRN, Ipratropium-Albuterol 1 (20-100 mcg/act) Aerosol, solution Inhalation daily, Multivitamins 1 Capsule Oral daily, Pantoprazole Sodium 1 Tablet (of 40 mg) Tablet, enteric coated Oral daily PRN, Phos-NaK 1 Packet (of 280-160-250 mg) Pack Oral daily for 90 days, Questran 1 (4 g) Pack Oral daily, Revlimid 1 Capsule (of 5 mg) Oral daily, Xanax 1 Tablet (of 0.5 mg) Oral t.i.d. PRN, Zofran 1 Tablet (of 8 mg) Oral four times a day PRN Allergies: No Known Allergies. Vital Signs: Performed on Jul 02, 2020 10:42 Height - 67.00 in Temperature - 98.3 F (LOW) Pulse - 78 /min Respiration - 17 /min BP - 128/72 mm(hg) O2 Sat - 95 % (LOW) Pain - 7 Fatigue - 0 Physical Examination: Constitutional - He appears somewhat weak generally, Eyes - Sclerae nonicteric. Conjunctivae clear, ENMT - No lesions noted in the oral cavity, Hematologic/Lymphatic - No cervical, clavicular, or axillary adenopathy, Respiratory - Lungs show a few scattered rales bilaterally, Cardiovascular - Heart rhythm is regular. There is no murmur, gallop, or rub noted, Abdomen - Soft. Liver and spleen are not enlarged. There is no abdominal mass or ascites noted and there is no inguinal adenopathy, Extremities - There are venous stasis changes bilaterally. There is no edema, Neurologic - No focal neurologic deficits noted. Lab/Imaging: CBC shows hemoglobin 7.9 g, white blood cell count 4600, and platelet count 67,000. Comprehensive metabolic profile shows improved renal function with BUN 30 and creatinine 1.2 mg/dL. Bilirubin and liver enzymes are normal. PSA level stable at 0.030 ng/mL. Problem List: 1. IgA kappa myeloma, stage IIIB. He had severe osteopenia with multiple vertebral compression fractures at initial diagnosis in October 2009. 2. He has undergone treatment through [facility] which initially included treatment on the Total Therapy 4 program followed by tandem stem cell transplants with high-dose melphalan conditioning. He had maintenance therapy with VRD, stopped in February 2013 due to side effects. 3. He had evidence of relapse/progression of the myeloma in July 2014. Since then he has had multiple salvage therapies, including a repeat stem cell transplant in May 2018. He is currently on treatment with daratumumab in combination with cyclophosphamide, lenalidomide, and dexamethasone. 4. Repeat bone marrow aspiration/biopsy on 06/12/2019 showed unexpected finding of moderately differentiated metastatic adenocarcinoma of the mid most consistent with prostatic origin. There was no morphologic evidence of plasma cell neoplasm. His PET/CT and bone scans showed several foci of osteoblastic involvement felt to be most consistent with metastatic prostate cancer. Restaging CT scans of the chest, abdomen, and pelvis showed no evidence for visceral or other non-osseous metastatic disease. PSA was elevated in the range of 20 ng/mL. He began treatment with bicalutamide 50 mg daily, and on 07/01/2019 he received his initial injection of Depo-Lupron 22.5 mg. He had a good clinical response, his androgen deprivation therapy was subsequently transitioned to Zoladex in combination with enzalutamide. 5. 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 He is on replacement IVIG due to recurrent episodes of pneumonia. 6. Chronic anemia, multifactorial. 7. Treatment related peripheral neuropathy. 8. History of cerebellar stroke in September 2017. 9. Depression. Problems Addressed with this Encounter and Plan: 1. IgA kappa myeloma, stage IIIB. He had severe osteopenia with multiple vertebral compression fractures at initial diagnosis in October 2009. He has been followed at [facility] and has been extensively treated. His disease currently has been stable on a regimen of daratumumab in combination with cyclophosphamide, lenalidomide, and dexamethasone. The daratumumab infusions now are being administered at 4-week intervals, and he the cyclophosphamide and lenalidomide have been administered at reduced dosages due to neutropenia. During follow-up he has had somewhat marginal performance status, but he appears stable clinically. In the absence of any obvious progression of the myeloma, he will be given daratumumab 1800 mg by IV infusion. He continues treatment with lenalidomide 5 mg daily on a 21/20-day schedule together with cyclophosphamide 500 mg every 14 days. He returns in 4 weeks. 2. He has chronic anemia which appears to be multifactorial. He has been transfusion dependent. He is symptomatic his recent hemoglobin at 7.9 g. He will be transfused 2 units PRBC today. Blood counts will be rechecked in 2 weekls. He will be transfused again as needed. 3. He has chronic immunosuppression associated with his myeloma. He has had recurrent hospitalizations for pneumonia. He continues replacement IVIG at the same dosage. 4. Metastatic prostate cancer, diagnosed by bone marrow aspiration/biopsy on 06/12/2019. He has had a good response by PSA level, and his PSA remains adequately suppressed on androgen deprivation therapy with Zoladex in combination with enzalutamide. Thus far he has been able to tolerate treatment with acceptable toxicity. He will be given Zoladex 10.8 mg by subcutaneous injection. He continues the enzalutamide at 160 mg daily. 5. He has chronic pain, due in part to his multiple vertebral compression fractures and to treatment related neuropathy. It does appear to be managed adequately with his current medications, which will be continued at the same dosages. Signed By: Christopher Brody M.D. <<Signature on File>>
[2020-07-07 11:04] LABS: Basophils % 0.8 %; Eosinophils # 0.1 10^3/uL (0.0-0.8); Eosinophils % 1.8 %; Hematocrit 33.5 % (42.0-52.0); Hemoglobin 10.5 g/dL (11.7-16.6); Lymphocytes # 1.2 10^3/uL (0.8-4.8); Mean Corpuscular HGB Conc 31.3 g/dL (30.0-36.0); Mean Corpuscular Hemoglobin 34.1 pg (28.0-34.0); Mean Corpuscular Volume 108.8 fL (80-94); Mean Platelet Volume 10.8 fL (7.4-10.4); Monocytes # 0.3 10^3/uL (0.2-0.9); Monocytes % 8.8 %; Neutrophils # 2.18 10^3/uL (1.8-7.7); Neutrophils % 56.3 %; Nucleated Red Blood Cells % 0 %; Platelet Count 53 10^3/cmm (130-400); Red Blood Count 3.08 10^6/uL (4.1-5.3); Red Cell Distribution Width 19.7 % (12.1-15.1); White Blood Count 3.9 10^3/uL (4.0-10.0)
[2020-07-07 11:30] LABS: Alanine Aminotransferase 20 U/L (0-41); Albumin Level 3.5 g/dL (3.5-5.2); Alkaline Phosphatase 90 IU/L (40-130); Anion Gap 11.1 (5-19); Aspartate Amino Transferase 18 U/L (0-40); Blood Urea Nitrogen 38 mg/dL (8-23); C Reactive Protein 13.3 mg/L (0.0-4.9); Calcium 9.3 mg/dL (8.5-10.5); Carbon Dioxide 28 mmol/L (22-29); Chloride 104 mmol/L (98-107); Globulin 2.6 g/dL (1.3-4.6); Glomerular Filtration Rate 46.8 mL/min (90-130); Glucose 99 mg/dL (65-115); Osmolality Calculated 297 mOsm/kg (285-295); Potassium 4.1 mmol/L (3.5-5.1); Sodium 139 mmol/L (136-145); Total Bilirubin 0.4 mg/dL (0.15-1.2); Total Protein 6.1 g/dL (6.6-8.7)
== END 2020-07-12 23:59 | disposition home or self-care (01) ==
LOC: ONCMED 08:15
PROVIDERS: PCP Family Medicine; Visit Provider Internal Medicine Medical Oncology
DX: Z51.11 Encounter for antineoplastic chemotherapy (principal); C90.02 Multiple myeloma in relapse; C61 Malignant neoplasm of prostate; C79.52 Secondary malignant neoplasm of bone marrow; D80.1 Nonfamilial hypogammaglobulinemia; D64.81 Anemia due to antineoplastic chemotherapy; G62.0 Drug-induced polyneuropathy; T45.1X5A Adverse effect of antineoplastic and immunosuppressive drugs, initial encounter; E61.1 Iron deficiency; F32.9 Major depressive disorder, single episode, unspecified; Z86.73 Personal history of transient ischemic attack (TIA), and cerebral infarction without residual deficits; Z79.899 Other long term (current) drug therapy
CPT/HCPCS: 36430; 80053; 82728; 83540; 83550; 84153; 85025; 86140; 86850; 86870; 86900; 86920; 96365; 96366; 96372; 96401; 96402; 99215; J1568; J1940; J7050; J8540; J9144; J9202; P9040

== ENCOUNTER 2020-08-12 08:19 | Outpatient (RCR) | payer MEDICARE, BC, SELFPAY ==
[2020-07-14 11:06] LABS: Basophils % 0.4 %; Eosinophils # 0.1 10^3/uL (0.0-0.8); Eosinophils % 1.2 %; Hematocrit 28.6 % (42.0-52.0); Hemoglobin 8.8 g/dL (11.7-16.6); Lymphocytes # 1.2 10^3/uL (0.8-4.8); Lymphocytes % 24.4 %; Mean Corpuscular HGB Conc 30.8 g/dL (30.0-36.0); Mean Corpuscular Hemoglobin 34.1 pg (28.0-34.0); Mean Corpuscular Volume 110.9 fL (80-94); Mean Platelet Volume 10.5 fL (7.4-10.4); Monocytes # 0.5 10^3/uL (0.2-0.9); Monocytes % 9.5 %; Neutrophils # 3.18 10^3/uL (1.8-7.7); Neutrophils % 64.3 %; Nucleated Red Blood Cells % 0 %; Platelet Count 55 10^3/cmm (130-400); Red Blood Count 2.58 10^6/uL (4.1-5.3)
[2020-07-14 11:24] LABS: Alanine Aminotransferase 32 U/L (0-41); Albumin Level 3.5 g/dL (3.5-5.2); Alkaline Phosphatase 79 IU/L (40-130); Anion Gap 9.7 (5-19); Aspartate Amino Transferase 25 U/L (0-40); Blood Urea Nitrogen 33 mg/dL (8-23); Calcium 8.6 mg/dL (8.5-10.5); Carbon Dioxide 29 mmol/L (22-29); Chloride 100 mmol/L (98-107); Globulin 2.3 g/dL (1.3-4.6); Glomerular Filtration Rate 50.7 mL/min (90-130); Glucose 79 mg/dL (65-115); Iron 206 ug/dL (59-158); Osmolality Calculated 286 mOsm/kg (285-295); Potassium 3.7 mmol/L (3.5-5.1); Sodium 135 mmol/L (136-145); Total Bilirubin 0.4 mg/dL (0.15-1.2); Total Protein 5.8 g/dL (6.6-8.7)
[2020-07-14 12:17] LABS: Ferritin 2994 ng/mL (30-400); Unsaturated Iron Binding < 17 ug/dL (112-347)
[2020-07-14 12:18] LABS: Percent Saturation 92.3 % (20-50); Total Iron Binding Capacity 223 mcg/dl
[2020-07-21 10:00] LABS: Basophils % 0.4 %; Eosinophils # 0.1 10^3/uL (0.0-0.8); Eosinophils % 1.8 %; Hematocrit 24.4 % (42.0-52.0); Hemoglobin 7.5 g/dL (11.7-16.6); Lymphocytes # 1.2 10^3/uL (0.8-4.8); Lymphocytes % 26.9 %; Mean Corpuscular HGB Conc 30.7 g/dL (30.0-36.0); Mean Corpuscular Hemoglobin 35.2 pg (28.0-34.0); Mean Corpuscular Volume 114.6 fL (80-94); Mean Platelet Volume 10.4 fL (7.4-10.4); Monocytes # 0.4 10^3/uL (0.2-0.9); Monocytes % 9.1 %; Neutrophils # 2.75 10^3/uL (1.8-7.7); Neutrophils % 61.4 %; Nucleated Red Blood Cells % 0 %; Platelet Count 70 10^3/cmm (130-400); Red Blood Count 2.13 10^6/uL (4.1-5.3); Red Cell Distribution Width 18.8 % (12.1-15.1); White Blood Count 4.5 10^3/uL (4.0-10.0)
[2020-07-21 10:35] LABS: Alanine Aminotransferase 22 U/L (0-41); Albumin Level 3.4 g/dL (3.5-5.2); Alkaline Phosphatase 72 IU/L (40-130); Anion Gap 11.1 (5-19); Aspartate Amino Transferase 20 U/L (0-40); Blood Urea Nitrogen 33 mg/dL (8-23); Calcium 8.5 mg/dL (8.5-10.5); Carbon Dioxide 28 mmol/L (22-29); Chloride 105 mmol/L (98-107); Globulin 2.2 g/dL (1.3-4.6); Glomerular Filtration Rate 37.9 mL/min (90-130); Glucose 98 mg/dL (65-115); Osmolality Calculated 297 mOsm/kg (285-295); Potassium 4.1 mmol/L (3.5-5.1); Sodium 140 mmol/L (136-145); Total Bilirubin 0.4 mg/dL (0.15-1.2); Total Protein 5.6 g/dL (6.6-8.7)
[2020-07-23] MEDS: acetaminophen 325 mg Tablet 650 MG PO (10:20)
[2020-07-23] MEDS: diphenhydrAMINE 25 mg Capsule PO (10:20)
[2020-07-23] MEDS: sodium chloride 0.9% 250 ML 999 ML IV (10:20)
[2020-07-23] MEDS: FUROsemide 10 mg/mL SDV 2mL 20 MG IV (12:35)
[2020-07-28 11:38] LABS: Basophils % 0.3 %; Eosinophils # 0.1 10^3/uL (0.0-0.8); Eosinophils % 1.7 %; Hemoglobin 9.6 g/dL (11.7-16.6); Lymphocytes # 1.1 10^3/uL (0.8-4.8); Lymphocytes % 19.2 %; Mean Corpuscular Hemoglobin 34.9 pg (28.0-34.0); Mean Corpuscular Volume 112.7 fL (80-94); Mean Platelet Volume 10.7 fL (7.4-10.4); Monocytes # 0.4 10^3/uL (0.2-0.9); Monocytes % 6.6 %; Neutrophils # 4.13 10^3/uL (1.8-7.7); Nucleated Red Blood Cells % 0 %; Platelet Count 62 10^3/cmm (130-400); Red Blood Count 2.75 10^6/uL (4.1-5.3); Red Cell Distribution Width 20.1 % (12.1-15.1); White Blood Count 5.7 10^3/uL (4.0-10.0)
[2020-07-28 12:11] LABS: Alanine Aminotransferase 25 U/L (0-41); Albumin Level 3.4 g/dL (3.5-5.2); Alkaline Phosphatase 71 IU/L (40-130); Anion Gap 11.7 (5-19); Aspartate Amino Transferase 23 U/L (0-40); Blood Urea Nitrogen 31 mg/dL (8-23); Calcium 8.5 mg/dL (8.5-10.5); Carbon Dioxide 28 mmol/L (22-29); Chloride 107 mmol/L (98-107); Globulin 2.2 g/dL (1.3-4.6); Glomerular Filtration Rate 60.6 mL/min (90-130); Glucose 86 mg/dL (65-115); Osmolality Calculated 302 mOsm/kg (285-295); Potassium 3.7 mmol/L (3.5-5.1); Sodium 143 mmol/L (136-145); Total Bilirubin 0.4 mg/dL (0.15-1.2); Total Protein 5.6 g/dL (6.6-8.7)
[2020-07-29] MEDS: montelukast sodium 10 mg Tablet PO (10:00)
[2020-07-29] MEDS: dexamethasone 4 mg Tablet 10 MG PO (10:00)
[2020-07-29] MEDS: diphenhydrAMINE 25 mg Capsule 50 MG PO (10:00)
[2020-07-29] MEDS: acetaminophen 325 mg Tablet 650 MG PO (10:00)
[2020-07-29] MEDS: fexofenadine 60 mg Tablet 180 MG PO (10:20)
[2020-07-29] MEDS: sodium chloride 0.9% 250 ML 999 ML IV (10:20)
[2020-07-29] MEDS: ipratropium-albuterol 3 mL Neb INHALATION (10:20)
--- NOTE | 2020-07-29 10:40 | ONC FU_ITS ---
Dr. Brody Patient Follow-Up Note Patient: Flaoc Cardona Unit #: [id number]: [id number] Dicatated By: Christopher Brody M.D.Date of Visit:Jul 29, 2020 Onc Med Follow-up/Prog Note Chief Complaint: Myeloma/prostate cancer. History of Present Illness: This is a 64 year-old man with IgA kappa myeloma, stage IIIB. During followup he was found to have metastatic prostate cancer involving the bone marrow. He was diagnosed with IgA kappa myeloma in October 2009. He presented at that time with anemia, hypercalcemia, renal failure, and severe osteopenia with multiple vertebral compression fractures. He was seen at the [facility] for his initial evaluation. He was treated on their standard arm Total Therapy 4 which included M-VTD-PACE induction and a second induction with VTD-PACE. He then underwent tandem transplants with high-dose melphalan conditioning in February and in March 2010. He reportedly had an excellent response to the treatment, and he was then consolidated with VTD-PACE in June 2010 and July 2010 followed by maintenance VRD. His maintenance therapy was complicated by depression due to Revlimid and severe neuropathy, and treatment was stopped by June 2011. He restarted treatment with Revlimid in August 2012, but he was again unable to tolerate it due to depression. He stopped treatment again in February 2013. He underwent evaluation at the [facility] in July 2014. At that time he was felt to have disease progression with MRI reporting new lesions in the clivus and in the right humerus. Bone marrow at that time showed 10% plasma cells in the aspirate and 20% in the biopsy. His M protein quantitated at 1 g compared to 0.3 g in February 2014. It was opted at that time to resume treatment with pomalidomide in combination with cyclophosphamide and dexamethasone. As of 03/05/2015 he had completed 7 cycles of treatment with the cyclophosphamide administered on a day 1/day 15 schedule. He had a restaging evaluation at the [facility] on 08/12/2015. Bone marrow aspiration/biopsy at that time showed an overall cellularity of 35%. The aspirate showed 6% plasma cells. By flow cytometry total plasma cells were estimated at 1.23%, with 0.69% myeloma cells and 0.54% normal plasma cells. The chromosome analysis showed a translocation involving chromosomes 4 and 8 in a single cell. The clinical significance of that finding was uncertain. He was advised to continue treatment with pomalidomide, dexamethasone, and cyclophosphamide. As of November 2015 the cyclophosphamide was put on hold due to persistent neutropenia. He had follow-up at [facility] in June 2017. His MRI bone marrow blood supply exam on 07/07/2017 showed a slight increase of mild hyperintense homogeneous signal in the marrow of the axial and peripheral skeletons. There was a slight increase of mildly restricted diffusion noted in the marrow cavity. There was interval development of a 2.5 cm focal lesion in the right posterior ilium with restricted diffusion and a 2 cm focal lesion in the right posterior elements at approximately T6, also with restricted diffusion. Bilateral small calvarial lesions were noted with interval punctate and bilateral interval rib lesions were noted. His bone marrow aspiration/biopsy on 07/10/2017 showed overall cellularity of 30% with the differential showing 7% plasma cells. The immunohistochemical stain for CD138 showed 5-10% plasma cells with interstitial and patchy distribution. His M protein was quantitated 0.7 g/dL. He was seen for a follow-up visit here on 07/11/2017. At that point he had become significantly more fatigued. He complained of shortness of breath, and he had been having episodes of passing out. His hemoglobin had dropped to 8.7 g. He was transfused 2 U of packed red blood cells on 07/13/2017. He had symptomatic improvement. He then returned to [facility] and on 07/15/2017 he began treatment with daratuzumab in addition to the pomalidomide/dexamethasone. He had no significant toxicity with the initial infusion of daratuzumab. During subsequent follow-up, there was a gradual decline in his granulocyte count. It nadired at 1200 at week 5 of daratuzumab, but it subsequently increased. He received week 8 of daratuzumab on 09/05/2017. His treatment was then put on hold due to persistent/recurrent pneumonia. He was admitted to the hospital on 09/14/2017 and again on 09/24/2017. With the second admission he was feeling weak and he had fallen several times. Brain MRI reported a 3.7 x 1.7 cm marrow replacing lesion within the clivus, consistent with plasmacytoma. A 7 mm focus of acute ischemia was noted in the right cerebellum. There was a small amount of associated edema. With those findings, he was transferred to [facility] for further management. His evaluation there was consistent with cerebellar stroke with subacute lacunar ischemic infarct on the right cerebellar hemisphere. Also reported was an expansile myelomatous clival lesion with bony erosion of the left carotid canal, erosion of the anterior and posterior cortex of the clivus, and extension into the sphenoid sinuses. The pneumonia improved after 7 days of IV cefepime. He was seen here again on 10/19/2017 and at that time he completed his 9th infusion of daratumumab. His next scheduled treatment was put on hold due to neutropenia and symptoms of respiratory infection. On 11/10/2017 he was admitted to the hospital with neutropenic fever. He was transferred to [facility] for further care. After recovering from that illness he had a restaging evaluation for the myeloma. His bone marrow aspiration/biopsy showed 5% plasma cells. His M protein quantitated at 0.4 g/dL. MRI bone marrow blood supply on 12/18/2017 showed interval worsening with increased size of the focal lesions involving the right temporal bone, clivus, and left parietal bone. There were only minimal changes noted in the spine from the previous studies. There was minimal progression of lesions in the proximal right humerus and in the upper sternum. With those findings, it was recommended that he change treatment to carfilzomib in combination with dexamethasone. He began cycle 1 on 12/27/2017 with the carfilzomib dosed at 20 mg/m???. He also started monthly replacement therapy with IVIG. At day 8 of cycle 1 the carfilzomib dosage was escalated to 36 mg/m???. He tolerated it well, and he was able to continue with cycle 2 on 01/24/2018. As of February 2018 he had completed 3 cycles of treatment. In May 2018 he underwent a stem cell transplant procedure at [facility]. He has had a gradual recovery following that treatment. I had seen him for follow-up here in September 2018. At that time he appeared stable clinically. He then continued his further follow-up at [facility]. His repeat bone marrow aspiration/biopsy on 06/12/2019 showed an unexpected finding of involvement with moderately differentiated metastatic adenocarcinoma which was felt to be most consistent with prostatic origin. It was morphologically negative for plasma cell neoplasm. His PSA was elevated in the range of 20 ng/mL. Restaging CT scans of the chest, abdomen, and pelvis on 06/22/2019 showed a small spiculated residual nodular density in the right upper lobe measuring 1.3 cm, decreased in size from 3.5 cm on a prior PET/CT from January 2019. It was felt to be most likely infectious/inflammatory. There were persistent tree-in-bud type nodularity in both lungs, particularly the lower lobes, felt to be suggestive of multifocal infectious/inflammatory change. There were no new pulmonary nodules and there was no pulmonary consolidation noted. There was no evidence of visceral/sherman metastatic disease in the abdomen/pelvis. There were faint sclerotic lesions in the C7 and T1 vertebral bodies. A bone scan on 06/24/2019 showed multiple focal areas of abnormal uptake which corresponded to the FDG avid osseous lesions noted on the PET/CT from 06/07/2019. These include with the upper thoracic spine, left T9 transverse process, and left posterior ischium. Overall, the findings were felt to be consistent with osteoblastic metastatic disease favoring metastatic prostate cancer over multiple myeloma. He began treatment with bicalutamide 50 mg daily, and he was then seen here on to continue his androgen deprivation locally. He received his initial injection of Depo-Lupron 22.5 mg on 07/01/2019. He tolerated with no adverse effects, and he then continued with a second Lupron injection on 10/01/2019. At that point his PSA had decreased to 0.11 ng/mL. He was seen for a follow-up visit at [facility] on 10/25/2019. His PET/CT showed an FDG avid right frontotemporal calvarial lesion measuring 2 cm, but with interval resolution of abnormal FDG uptake within a sclerotic left posterior iliac lesion. There was no evidence of metastatic disease. With that finding, he was recommended to restart treatment for the myeloma with daratumumab in combination with cyclophosphamide 100 mg weekly, Revlimid 10 mg daily on a 21/28-day schedule, and dexamethasone 8 mg. He began his week 1 daratumumab on 10/30/2019. He tolerated the daratumumab without acute toxicity, and he then continued the daratumumab weekly. At his follow-up visit on 11/20/2019 the lenalidomide and cyclophosphamide were put on hold due to neutropenia, ANC 1300. Both were restarted on 12/04/2019 but with the lenalidomide dosage reduced to 5 mg daily. As of December 2019 the frequency of the daratumumab infusions was reduced to every 2 weeks and during that time he continued treatment for the prostate cancer with Zoladex in combination with enzalutamide. He also continued replacement IVIG. He is seen for a follow-up visit. His main complaint today is that he had fallen 10 days ago and injured his right shoulder. It was evaluated with x-ray, which was unrevealing. He has continued to have pain, and he is now scheduled to see an orthopedic surgeon. His energy is so-so. He still has limited activity. His ECOG score is 2. Appetite is fair. He has not had fever. He does have some sweating at night. He has ongoing problems with sinus drainage. He has very little cough. His breathing has been okay. He does not complain of chest pain. He still has nausea occasionally. He sometimes has acid reflux, typically when he takes dexamethasone. Bowel and bladder function have been okay. He also has pain in his neck and he has chronic back pain. He still manages it with hydrocodone 10/APAP, which he takes 2 or 3 times a day. He does not complain of headache or dizziness. He has numbness/tingling in his hands and feet. Medications: Acyclovir 1 (200 mg) Tablet Oral daily, Albuterol Sulfate 1 ((2.5 mg/3ml) 0.083%) Nebulization solution Inhalation four times a day PRN, Aspirin 1 (81 mg) Tablet Oral daily, Baclofen 1 (10 mg) Tablet Oral at bedtime PRN, Casodex 1 Tablet (of 50 mg) Oral daily, Colace Capsule Oral daily PRN, cultrelle 1 Capsule Oral daily, Cyproheptadine HCl 1 (4 mg) Tablet Oral b.i.d. PRN, D3-1000 Tablet Oral daily, Dapsone 1 Tablet (of 100 mg) Oral daily, Folic Acid 1 (1000 mcg) Tablet Oral b.i.d., Gabapentin 1 Capsule (of 600 mg) Oral at bedtime, Hydrocodone-Acetaminophen 1 (10-325 mg) Tablet Oral four times a day PRN, Ipratropium-Albuterol 1 (20-100 mcg/act) Aerosol, solution Inhalation daily, Multivitamins 1 Capsule Oral daily, Pantoprazole Sodium 1 Tablet (of 40 mg) Tablet, enteric coated Oral daily PRN, Phos-NaK 1 Packet (of 280-160-250 mg) Pack Oral daily for 90 days, Questran 1 (4 g) Pack Oral daily, Revlimid 1 Capsule (of 5 mg) Oral daily, Xanax 1 Tablet (of 0.5 mg) Oral t.i.d. PRN, Zofran 1 Tablet (of 8 mg) Oral four times a day PRN Allergies: No Known Allergies. Vital Signs: Performed on Jul 29, 2020 09:38 Height - 67.00 in Weight - 172.6 lbs (HIGH) BSA - 1.90 sq.m BMI - 27.03 Temperature - 98.3 F (LOW) Pulse - 83 /min Respiration - 18 /min BP - 165/90 mm(hg) (HIGH) O2 Sat - 97 % Pain - 9 Fatigue - 5 Physical Examination: Constitutional - He appears somewhat weak generally, Eyes - Sclerae nonicteric. Conjunctivae clear, ENMT - No lesions noted in the oral cavity, Hematologic/Lymphatic - No cervical, clavicular, or axillary adenopathy, Respiratory - Lungs sound clear today, Cardiovascular - Heart rhythm is regular. There is no murmur, gallop, or rub noted, Abdomen - Soft. Liver and spleen are not enlarged. There is no abdominal mass or ascites noted and there is no inguinal adenopathy, Extremities - There are venous stasis changes bilaterally. There is mild edema, Integumentary - There is a healing abrasion on the right anterior tibial area, Neurologic - No focal neurologic deficits noted. Lab/Imaging: CBC shows hemoglobin 9.6 g, white blood cell count 5700, and platelet count 62,000. Comprehensive metabolic profile shows stable renal function with BUN 31 and creatinine 1.2 mg/dL. Bilirubin and liver enzymes are normal. Problem List: 1. IgA kappa myeloma, stage IIIB. He had severe osteopenia with multiple vertebral compression fractures at initial diagnosis in October 2009. 2. He has undergone treatment through [facility] which initially included treatment on the Total Therapy 4 program followed by tandem stem cell transplants with high-dose melphalan conditioning. He had maintenance therapy with VRD, stopped in February 2013 due to side effects. 3. He had evidence of relapse/progression of the myeloma in July 2014. Since then he has had multiple salvage therapies, including a repeat stem cell transplant in May 2018. He is currently on treatment with daratumumab in combination with cyclophosphamide, lenalidomide, and dexamethasone. 4. Repeat bone marrow aspiration/biopsy on 06/12/2019 showed unexpected finding of moderately differentiated metastatic adenocarcinoma of the mid most consistent with prostatic origin. There was no morphologic evidence of plasma cell neoplasm. His PET/CT and bone scans showed several foci of osteoblastic involvement felt to be most consistent with metastatic prostate cancer. Restaging CT scans of the chest, abdomen, and pelvis showed no evidence for visceral or other non-osseous metastatic disease. PSA was elevated in the range of 20 ng/mL. He began treatment with bicalutamide 50 mg daily, and on 07/01/2019 he received his initial injection of Depo-Lupron 22.5 mg. He had a good clinical response, his androgen deprivation therapy was subsequently transitioned to Zoladex in combination with enzalutamide. 5. 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 He is on replacement IVIG due to recurrent episodes of pneumonia. 6. Chronic anemia, multifactorial. 7. Treatment related peripheral neuropathy. 8. History of cerebellar stroke in September 2017. 9. Depression. Problems Addressed with this Encounter and Plan: 1. IgA kappa myeloma, stage IIIB. He had severe osteopenia with multiple vertebral compression fractures at initial diagnosis in October 2009. He has been followed at [facility] and has been extensively treated. His disease currently has been stable on a regimen of daratumumab in combination with cyclophosphamide, lenalidomide, and dexamethasone. The daratumumab infusions now are being administered at 4-week intervals, and the the cyclophosphamide and lenalidomide have been administered at reduced dosages due to neutropenia. During follow-up he has continued to have somewhat marginal performance status. His clinical status, though, appears stable without obvious progression of the myeloma. As such, he will be given daratumumab 1800 mg by IV infusion. He will continue treatment with lenalidomide 5 mg daily on a 21/20-day schedule together with cyclophosphamide 500 mg every 14 days. He returns in 4 weeks. 2. He has chronic anemia which appears to be multifactorial. He has been transfusion dependent. His blood counts today are adequate. I will repeat his CBC in 2 weeks and he will be transfused again as needed. 3. He has chronic immunosuppression associated with his myeloma. He has had recurrent hospitalizations for pneumonia. He continues replacement IVIG at the same dosage. 4. Metastatic prostate cancer, diagnosed by bone marrow aspiration/biopsy on 06/12/2019. He has had a good response by PSA level, and his PSA remains adequately suppressed on androgen deprivation therapy with Zoladex in combination with enzalutamide. Thus far he has been able to tolerate treatment with acceptable toxicity. He will be due for repeat PSA level and for Zoladex again in 2 months. 5. He has chronic pain, due in part to his multiple vertebral compression fractures and to treatment related neuropathy. It does appear to be managed adequately with his current medications, which will be continued at the same dosages. Signed By: Christopher Brody M.D. <<Signature on File>>
[2020-08-04 10:04] LABS: Basophils % 0.6 %; Eosinophils # 0.1 10^3/uL (0.0-0.8); Eosinophils % 1.4 %; Hematocrit 29.1 % (42.0-52.0); Hemoglobin 9.2 g/dL (11.7-16.6); Lymphocytes # 1.4 10^3/uL (0.8-4.8); Lymphocytes % 28.6 %; Mean Corpuscular HGB Conc 31.6 g/dL (30.0-36.0); Mean Corpuscular Hemoglobin 35.7 pg (28.0-34.0); Mean Corpuscular Volume 112.8 fL (80-94); Mean Platelet Volume 10.4 fL (7.4-10.4); Monocytes # 0.4 10^3/uL (0.2-0.9); Monocytes % 8.5 %; Neutrophils # 2.93 10^3/uL (1.8-7.7); Neutrophils % 60.7 %; Nucleated Red Blood Cells % 0 %; Platelet Count 67 10^3/cmm (130-400); Red Blood Count 2.58 10^6/uL (4.1-5.3); Red Cell Distribution Width 19.4 % (12.1-15.1); White Blood Count 4.8 10^3/uL (4.0-10.0)
[2020-08-04 10:30] LABS: Alanine Aminotransferase 24 U/L (0-41); Albumin Level 3.3 g/dL (3.5-5.2); Alkaline Phosphatase 74 IU/L (40-130); Anion Gap 9.5 (5-19); Aspartate Amino Transferase 29 U/L (0-40); Blood Urea Nitrogen 39 mg/dL (8-23); C Reactive Protein 18.1 mg/L (0.0-4.9); Calcium 8.7 mg/dL (8.5-10.5); Carbon Dioxide 27 mmol/L (22-29); Chloride 106 mmol/L (98-107); Globulin 2.8 g/dL (1.3-4.6); Glomerular Filtration Rate 50.7 mL/min (90-130); Glucose 76 mg/dL (65-115); Osmolality Calculated 294 mOsm/kg (285-295); Potassium 4.5 mmol/L (3.5-5.1); Sodium 138 mmol/L (136-145); Total Bilirubin 0.3 mg/dL (0.15-1.2); Total Protein 6.1 g/dL (6.6-8.7)
[2020-08-11 10:52] LABS: Basophils % 0.2 %; Eosinophils # 0.1 10^3/uL (0.0-0.8); Eosinophils % 0.9 %; Hemoglobin 8.4 g/dL (11.7-16.6); Lymphocytes # 1.1 10^3/uL (0.8-4.8); Lymphocytes % 20.1 %; Mean Corpuscular HGB Conc 31.1 g/dL (30.0-36.0); Mean Corpuscular Hemoglobin 36.5 pg (28.0-34.0); Mean Corpuscular Volume 117.4 fL (80-94); Mean Platelet Volume 10.6 fL (7.4-10.4); Monocytes # 0.5 10^3/uL (0.2-0.9); Monocytes % 8.6 %; Neutrophils # 3.71 10^3/uL (1.8-7.7); Neutrophils % 69.8 %; Nucleated Red Blood Cells % 0 %; Platelet Count 67 10^3/cmm (130-400); Red Cell Distribution Width 19.6 % (12.1-15.1); White Blood Count 5.3 10^3/uL (4.0-10.0)
[2020-08-11 11:04] LABS: Alanine Aminotransferase 22 U/L (0-41); Albumin Level 3.4 g/dL (3.5-5.2); Alkaline Phosphatase 68 IU/L (40-130); Anion Gap 13.7 (5-19); Aspartate Amino Transferase 21 U/L (0-40); Blood Urea Nitrogen 29 mg/dL (8-23); Calcium 8.6 mg/dL (8.5-10.5); Carbon Dioxide 26 mmol/L (22-29); Chloride 104 mmol/L (98-107); Globulin 2.4 g/dL (1.3-4.6); Glomerular Filtration Rate 55.2 mL/min (90-130); Glucose 87 mg/dL (65-115); Osmolality Calculated 295 mOsm/kg (285-295); Potassium 3.7 mmol/L (3.5-5.1); Sodium 140 mmol/L (136-145); Total Bilirubin 0.3 mg/dL (0.15-1.2); Total Protein 5.8 g/dL (6.6-8.7)
[2020-08-12] MEDS: sodium chloride 0.9% 250 ML 999 ML IV (09:00)
[2020-08-12] MEDS: acetaminophen 325 mg Tablet 650 MG PO (09:00)
[2020-08-12] MEDS: diphenhydrAMINE 25 mg Capsule PO (10:00)
[2020-08-12] MEDS: FUROsemide 10 mg/mL SDV 2mL 20 MG IV (11:30)
[2020-09-08 11:55] LABS: Basophils % 0.2 %; Eosinophils % 0.7 %; Hematocrit 35.2 % (42.0-52.0); Hemoglobin 11.1 g/dL (11.7-16.6); Lymphocytes # 1.6 10^3/uL (0.8-4.8); Lymphocytes % 28.6 %; Mean Corpuscular HGB Conc 31.5 g/dL (30.0-36.0); Mean Corpuscular Hemoglobin 33.4 pg (28.0-34.0); Mean Platelet Volume 10.7 fL (7.4-10.4); Monocytes # 0.6 10^3/uL (0.2-0.9); Neutrophils # 3.36 10^3/uL (1.8-7.7); Neutrophils % 60.1 %; Nucleated Red Blood Cells % 0 %; Platelet Count 81 10^3/cmm (130-400); Red Blood Count 3.32 10^6/uL (4.1-5.3); Red Cell Distribution Width 23.2 % (12.1-15.1); White Blood Count 5.6 10^3/uL (4.0-10.0)
[2020-09-08 12:16] LABS: Alanine Aminotransferase 25 U/L (0-41); Albumin Level 4.2 g/dL (3.5-5.2); Alkaline Phosphatase 78 IU/L (40-130); Aspartate Amino Transferase 25 U/L (0-40); Blood Urea Nitrogen 39 mg/dL (8-23); Calcium 8.8 mg/dL (8.5-10.5); Carbon Dioxide 27 mmol/L (22-29); Chloride 101 mmol/L (98-107); Globulin 2.7 g/dL (1.3-4.6); Glomerular Filtration Rate 50.7 mL/min (90-130); Glucose 78 mg/dL (65-115); Immunoglobulin IGA 67 mg/dL (70-400); Immunoglobulin IGG 977 mg/dL (700-1600); Osmolality Calculated 294 mOsm/kg (285-295); Sodium 138 mmol/L (136-145); Total Bilirubin 0.3 mg/dL (0.15-1.2); Total Protein 6.9 g/dL (6.6-8.7)
[2020-09-08 12:36] LABS: Immunoglobulin IGM < 25 mg/dL (40-230)
[2020-09-09 09:03] LABS: PROTEIN, TOTAL 6.3 g/dL (6.1-8.1)
[2020-09-09 13:27] LABS: KAPPA LIGHT CHAIN, FREE, SERUM 14.5 mg/L (3.3-19.4); KAPPA/LAMBDA LIGHT CHAINS FREE 1.88 (0.26-1.65); LAMBDA LIGHT CHAIN, FREE, SERU 7.7 mg/L (5.7-26.3)
[2020-09-09 15:02] LABS: ALBUMIN 3.6 g/dL (3.8-4.8); ALPHA 1 GLOBULIN 0.4 g/dL (0.2-0.3); ALPHA 2 GLOBULIN 0.7 g/dL (0.5-0.9); BETA 1 GLOBULIN 0.3 g/dL (0.4-0.6); BETA 2 GLOBULIN 0.4 g/dL (0.2-0.5); GAMMA GLOBULIN 0.9 g/dL (0.8-1.7)
== END 2020-08-12 23:59 | disposition home or self-care (01) ==
LOC: ONCMED 08:19
PROVIDERS: Nurse Practitioner; PCP Family Medicine; Visit Provider Internal Medicine Medical Oncology
DX: C90.02 Multiple myeloma in relapse (principal); C61 Malignant neoplasm of prostate; C79.52 Secondary malignant neoplasm of bone marrow; D64.89 Other specified anemias; R53.83 Other fatigue; R06.02 Shortness of breath; D80.1 Nonfamilial hypogammaglobulinemia; G62.0 Drug-induced polyneuropathy; T45.1X5A Adverse effect of antineoplastic and immunosuppressive drugs, initial encounter; G89.29 Other chronic pain; M48.50XD Collapsed vertebra, not elsewhere classified, site unspecified, subsequent encounter for fracture with routine healing; M85.88 Other specified disorders of bone density and structure, other site; Z94.84 Stem cells transplant status; Z79.899 Other long term (current) drug therapy; Z79.818 Long term (current) use of other agents affecting estrogen receptors and estrogen levels
CPT/HCPCS: 80053; 82728; 83540; 83550; 85025; 86140; 86850; 86900; 86920; 96365; 96366; 96401; 99214; J1568; J1940; J7050; J8540; J9144; P9040

== ENCOUNTER 2020-09-08 08:55 | Outpatient (RCR) | payer MEDICARE, BC, SELFPAY ==
[2020-08-20 11:17] LABS: Basophils % 0.2 %; Eosinophils % 0.3 %; Hematocrit 30.5 % (42.0-52.0); Hemoglobin 9.8 g/dL (11.7-16.6); Lymphocytes # 1.1 10^3/uL (0.8-4.8); Lymphocytes % 17.4 %; Mean Corpuscular HGB Conc 32.1 g/dL (30.0-36.0); Mean Corpuscular Hemoglobin 34.3 pg (28.0-34.0); Mean Corpuscular Volume 106.6 fL (80-94); Mean Platelet Volume 9.6 fL (7.4-10.4); Monocytes # 0.4 10^3/uL (0.2-0.9); Monocytes % 6.8 %; Neutrophils # 4.86 10^3/uL (1.8-7.7); Neutrophils % 74.8 %; Nucleated Red Blood Cells % 0 %; Platelet Count 61 10^3/cmm (130-400); Red Blood Count 2.86 10^6/uL (4.1-5.3); White Blood Count 6.5 10^3/uL (4.0-10.0)
[2020-08-20 11:51] LABS: Alanine Aminotransferase 22 U/L (0-41); Albumin Level 3.5 g/dL (3.5-5.2); Alkaline Phosphatase 69 IU/L (40-130); Aspartate Amino Transferase 19 U/L (0-40); Blood Urea Nitrogen 29 mg/dL (8-23); C Reactive Protein 14.6 mg/L (0.0-4.9); Calcium 8.4 mg/dL (8.5-10.5); Carbon Dioxide 27 mmol/L (22-29); Chloride 107 mmol/L (98-107); Globulin 2.1 g/dL (1.3-4.6); Glucose 113 mg/dL (65-115); Osmolality Calculated 301 mOsm/kg (285-295); Sodium 142 mmol/L (136-145); Total Bilirubin 0.3 mg/dL (0.15-1.2); Total Protein 5.6 g/dL (6.6-8.7)
[2020-08-25 11:51] LABS: Basophils % 0.2 %; Eosinophils % 0.6 %; Hematocrit 30.2 % (42.0-52.0); Hemoglobin 9.2 g/dL (11.7-16.6); Lymphocytes # 1.2 10^3/uL (0.8-4.8); Lymphocytes % 23.2 %; Mean Corpuscular HGB Conc 30.5 g/dL (30.0-36.0); Mean Corpuscular Hemoglobin 34.1 pg (28.0-34.0); Mean Corpuscular Volume 111.9 fL (80-94); Mean Platelet Volume 10.6 fL (7.4-10.4); Monocytes # 0.4 10^3/uL (0.2-0.9); Monocytes % 7.2 %; Neutrophils # 3.42 10^3/uL (1.8-7.7); Neutrophils % 68.4 %; Nucleated Red Blood Cells % 0 %; Platelet Count 69 10^3/cmm (130-400); Red Cell Distribution Width 21.7 % (12.1-15.1)
[2020-08-25 12:13] LABS: Alanine Aminotransferase 23 U/L (0-41); Albumin Level 3.4 g/dL (3.5-5.2); Alkaline Phosphatase 69 IU/L (40-130); Anion Gap 9.9 (5-19); Aspartate Amino Transferase 23 U/L (0-40); Blood Urea Nitrogen 34 mg/dL (8-23); Carbon Dioxide 27 mmol/L (22-29); Chloride 107 mmol/L (98-107); Globulin 2.1 g/dL (1.3-4.6); Glomerular Filtration Rate 46.8 mL/min (90-130); Glucose 107 mg/dL (65-115); Osmolality Calculated 298 mOsm/kg (285-295); Potassium 3.9 mmol/L (3.5-5.1); Sodium 140 mmol/L (136-145); Total Bilirubin 0.4 mg/dL (0.15-1.2); Total Protein 5.5 g/dL (6.6-8.7)
[2020-08-26] MEDS: diphenhydrAMINE 25 mg Capsule 50 MG PO (11:50)
[2020-08-26] MEDS: fexofenadine 60 mg Tablet 180 MG PO (11:50)
[2020-08-26] MEDS: montelukast sodium 10 mg Tablet PO (11:50)
[2020-08-26] MEDS: acetaminophen 325 mg Tablet 650 MG PO (11:50)
[2020-08-26] MEDS: dexamethasone 4 mg Tablet 10 MG PO (11:50)
[2020-08-26] MEDS: sodium chloride 0.9% 250 ML 999 ML IV (13:00)
[2020-08-26 15:01] LABS: Magnesium 1.9 mg/dL (1.7-2.3)
[2020-09-01 11:31] LABS: Basophils % 0.2 %; Eosinophils % 0.2 %; Hematocrit 27.3 % (42.0-52.0); Hemoglobin 8.4 g/dL (11.7-16.6); Lymphocytes # 1.1 10^3/uL (0.8-4.8); Lymphocytes % 25.9 %; Mean Corpuscular HGB Conc 30.8 g/dL (30.0-36.0); Mean Corpuscular Hemoglobin 34.6 pg (28.0-34.0); Mean Corpuscular Volume 112.3 fL (80-94); Mean Platelet Volume 10.6 fL (7.4-10.4); Monocytes # 0.3 10^3/uL (0.2-0.9); Neutrophils # 2.83 10^3/uL (1.8-7.7); Neutrophils % 66.2 %; Nucleated Red Blood Cells % 0 %; Platelet Count 64 10^3/cmm (130-400); Red Blood Count 2.43 10^6/uL (4.1-5.3); White Blood Count 4.3 10^3/uL (4.0-10.0)
[2020-09-01 11:52] LABS: Alanine Aminotransferase 21 U/L (0-41); Albumin Level 3.7 g/dL (3.5-5.2); Alkaline Phosphatase 68 IU/L (40-130); Anion Gap 11.1 (5-19); Aspartate Amino Transferase 22 U/L (0-40); Blood Urea Nitrogen 25 mg/dL (8-23); C Reactive Protein 23.5 mg/L (0.0-4.9); Calcium 8.2 mg/dL (8.5-10.5); Carbon Dioxide 29 mmol/L (22-29); Chloride 103 mmol/L (98-107); Globulin 2.4 g/dL (1.3-4.6); Glomerular Filtration Rate 50.7 mL/min (90-130); Glucose 103 mg/dL (65-115); Osmolality Calculated 293 mOsm/kg (285-295); Potassium 4.1 mmol/L (3.5-5.1); Sodium 139 mmol/L (136-145); Total Bilirubin 0.2 mg/dL (0.15-1.2); Total Protein 6.1 g/dL (6.6-8.7)
[2020-09-02] VITALS (10 sets, daily range): BP systolic 141–160; BP diastolic 59–88; PULSE 18–85; RESP 18–81; TEMP 36.2–36.8; O2SAT 97–98
[2020-09-02] MEDS: diphenhydrAMINE 25 mg Capsule PO (09:30)
[2020-09-02] MEDS: acetaminophen 325 mg Tablet 650 MG PO (09:30)
[2020-09-02] MEDS: sodium chloride 0.9% 250 ML 999 ML IV (09:30)
[2020-09-02] MEDS: FUROsemide 10 mg/mL SDV 2mL 20 MG IV (11:30)
--- NOTE | 2020-09-05 21:15 | ONC FU_ITS ---
[facility] Patient Note Patient: Flaco Cardona Unit #: [id number]: [id number] Dictated By: Artis NixonDate of Visit: Aug 26, 2020 Onc MED Follow-Up/Prog Note Chief Complaint: Myeloma/prostate cancer. History of Present Illness: Mr Cardona is a 64 year-old man with IgA kappa myeloma, stage IIIB. During followup he was found to have metastatic prostate cancer involving the bone marrow. He was diagnosed with IgA kappa myeloma in October 2009. He presented at that time with anemia, hypercalcemia, renal failure, and severe osteopenia with multiple vertebral compression fractures. He was seen at the [facility] for his initial evaluation. He was treated on their standard arm Total Therapy 4 which included M-VTD-PACE induction and a second induction with VTD-PACE. He then underwent tandem transplants with high-dose melphalan conditioning in February and in March 2010. He reportedly had an excellent response to the treatment, and he was then consolidated with VTD-PACE in June 2010 and July 2010 followed by maintenance VRD. His maintenance therapy was complicated by depression due to Revlimid and severe neuropathy, and treatment was stopped by June 2011. He restarted treatment with Revlimid in August 2012, but he was again unable to tolerate it due to depression. He stopped treatment again in February 2013. He underwent evaluation at the [facility] in July 2014. At that time he was felt to have disease progression with MRI reporting new lesions in the clivus and in the right humerus. Bone marrow at that time showed 10% plasma cells in the aspirate and 20% in the biopsy. His M protein quantitated at 1 g compared to 0.3 g in February 2014. It was opted at that time to resume treatment with pomalidomide in combination with cyclophosphamide and dexamethasone. As of 03/05/2015 he had completed 7 cycles of treatment with the cyclophosphamide administered on a day 1/day 15 schedule. He had a restaging evaluation at the [facility] on 08/12/2015. Bone marrow aspiration/biopsy at that time showed an overall cellularity of 35%. The aspirate showed 6% plasma cells. By flow cytometry total plasma cells were estimated at 1.23%, with 0.69% myeloma cells and 0.54% normal plasma cells. The chromosome analysis showed a translocation involving chromosomes 4 and 8 in a single cell. The clinical significance of that finding was uncertain. He was advised to continue treatment with pomalidomide, dexamethasone, and cyclophosphamide. As of November 2015 the cyclophosphamide was put on hold due to persistent neutropenia. He had follow-up at [facility] in June 2017. His MRI bone marrow blood supply exam on 07/07/2017 showed a slight increase of mild hyperintense homogeneous signal in the marrow of the axial and peripheral skeletons. There was a slight increase of mildly restricted diffusion noted in the marrow cavity. There was interval development of a 2.5 cm focal lesion in the right posterior ilium with restricted diffusion and a 2 cm focal lesion in the right posterior elements at approximately T6, also with restricted diffusion. Bilateral small calvarial lesions were noted with interval punctate and bilateral interval rib lesions were noted. His bone marrow aspiration/biopsy on 07/10/2017 showed overall cellularity of 30% with the differential showing 7% plasma cells. The immunohistochemical stain for CD138 showed 5-10% plasma cells with interstitial and patchy distribution. His M protein was quantitated 0.7 g/dL. He was seen for a follow-up visit here on 07/11/2017. At that point he had become significantly more fatigued. He complained of shortness of breath, and he had been having episodes of passing out. His hemoglobin had dropped to 8.7 g. He was transfused 2 U of packed red blood cells on 07/13/2017. He had symptomatic improvement. He then returned to [facility] and on 07/15/2017 he began treatment with daratuzumab in addition to the pomalidomide/dexamethasone. He had no significant toxicity with the initial infusion of daratuzumab. During subsequent follow-up, there was a gradual decline in his granulocyte count. It nadired at 1200 at week 5 of daratuzumab, but it subsequently increased. He received week 8 of daratuzumab on 09/05/2017. His treatment was then put on hold due to persistent/recurrent pneumonia. He was admitted to the hospital on 09/14/2017 and again on 09/24/2017. With the second admission he was feeling weak and he had fallen several times. Brain MRI reported a 3.7 x 1.7 cm marrow replacing lesion within the clivus, consistent with plasmacytoma. A 7 mm focus of acute ischemia was noted in the right cerebellum. There was a small amount of associated edema. With those findings, he was transferred to [facility] for further management. His evaluation there was consistent with cerebellar stroke with subacute lacunar ischemic infarct on the right cerebellar hemisphere. Also reported was an expansile myelomatous clival lesion with bony erosion of the left carotid canal, erosion of the anterior and posterior cortex of the clivus, and extension into the sphenoid sinuses. The pneumonia improved after 7 days of IV cefepime. He was seen here again on 10/19/2017 and at that time he completed his 9th infusion of daratumumab. His next scheduled treatment was put on hold due to neutropenia and symptoms of respiratory infection. On 11/10/2017 he was admitted to the hospital with neutropenic fever. He was transferred to [facility] for further care. After recovering from that illness he had a restaging evaluation for the myeloma. His bone marrow aspiration/biopsy showed 5% plasma cells. His M protein quantitated at 0.4 g/dL. MRI bone marrow blood supply on 12/18/2017 showed interval worsening with increased size of the focal lesions involving the right temporal bone, clivus, and left parietal bone. There were only minimal changes noted in the spine from the previous studies. There was minimal progression of lesions in the proximal right humerus and in the upper sternum. With those findings, it was recommended that he change treatment to carfilzomib in combination with dexamethasone. He began cycle 1 on 12/27/2017 with the carfilzomib dosed at 20 mg/m???. He also started monthly replacement therapy with IVIG. At day 8 of cycle 1 the carfilzomib dosage was escalated to 36 mg/m???. He tolerated it well, and he was able to continue with cycle 2 on 01/24/2018. As of February 2018 he had completed 3 cycles of treatment. In May 2018 he underwent a stem cell transplant procedure at [facility]. He has had a gradual recovery following that treatment. Dr Brody had seen him for follow-up here in September 2018. At that time he appeared stable clinically. He then continued his further follow-up at [facility]. His repeat bone marrow aspiration/biopsy on 06/12/2019 showed an unexpected finding of involvement with moderately differentiated metastatic adenocarcinoma which was felt to be most consistent with prostatic origin. It was morphologically negative for plasma cell neoplasm. His PSA was elevated in the range of 20 ng/mL. Restaging CT scans of the chest, abdomen, and pelvis on 06/22/2019 showed a small spiculated residual nodular density in the right upper lobe measuring 1.3 cm, decreased in size from 3.5 cm on a prior PET/CT from January 2019. It was felt to be most likely infectious/inflammatory. There were persistent tree-in-bud type nodularity in both lungs, particularly the lower lobes, felt to be suggestive of multifocal infectious/inflammatory change. There were no new pulmonary nodules and there was no pulmonary consolidation noted. There was no evidence of visceral/sherman metastatic disease in the abdomen/pelvis. There were faint sclerotic lesions in the C7 and T1 vertebral bodies. A bone scan on 06/24/2019 showed multiple focal areas of abnormal uptake which corresponded to the FDG avid osseous lesions noted on the PET/CT from 06/07/2019. These include with the upper thoracic spine, left T9 transverse process, and left posterior ischium. Overall, the findings were felt to be consistent with osteoblastic metastatic disease favoring metastatic prostate cancer over multiple myeloma. He began treatment with bicalutamide 50 mg daily, and he was then seen here on to continue his androgen deprivation locally. He received his initial injection of Depo-Lupron 22.5 mg on 07/01/2019. He tolerated with no adverse effects, and he then continued with a second Lupron injection on 10/01/2019. At that point his PSA had decreased to 0.11 ng/mL. He was seen for a follow-up visit at [facility] on 10/25/2019. His PET/CT showed an FDG avid right frontotemporal calvarial lesion measuring 2 cm, but with interval resolution of abnormal FDG uptake within a sclerotic left posterior iliac lesion. There was no evidence of metastatic disease. With that finding, he was recommended to restart treatment for the myeloma with daratumumab in combination with cyclophosphamide 100 mg weekly, Revlimid 10 mg daily on a 21/-day schedule, and dexamethasone 8 mg. He began his week 1 daratumumab on 10/30/2019. He tolerated the daratumumab without acute toxicity, and he then continued the daratumumab weekly. At his follow-up visit on 11/20/2019 the lenalidomide and cyclophosphamide were put on hold due to neutropenia, ANC 1300. Both were restarted on 12/04/2019 but with the lenalidomide dosage reduced to 5 mg daily. As of December 2019 the frequency of the daratumumab infusions was reduced to every 2 weeks and during that time he continued treatment for the prostate cancer with Zoladex in combination with enzalutamide. He also continued replacement IVIG. Mr Cardona is here today for followup. His main complaint today is that he is still having pain in his right shoulder after he had fallen about 4-6 weeks ago. It was evaluated with x-ray, which was unrevealing. He has not has any other imaging but states he pain and mobility is getting worse. His energy is good some days and marginal others. He still has limited activity. 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 His ECOG score is 2. Appetite is fair. He denies fever. He does have some sweating at night. He has chronic sinus drainage. He has very little cough. His breathing has been good , except he gets pretty short of breath when his hemoglobin gets below 8.4 or so . He does not complain of chest pain. He still has nausea occasionally. He sometimes has acid reflux, typically when he takes dexamethasone. Bowel and bladder function have been okay. He also has pain in his neck and he has chronic back pain. He still manages it with hydrocodone 10/APAP, which he takes 2 or 3 times a day. He does not complain of headache or dizziness. He has chronic numbness/tingling in his hands and feet-which he states is stable. He states he has been having some significant leg cramps at night and actually had a severe leg camp while in the exam room today. Mr. Cardona states that he has had some trouble sleeping. He has not tried his lorazepam. He states he generally works at about 3:30 in the morning and cannot go back to sleep. He states he does have some lorazepam on hold but display had thought about trying it. He will try it and let us know if that is not working. Past Medical History: Depression Multiple myeloma Peripheral neuropathy Prostate cancer Past Surgical History: Carpal tunnel release on the left Multiple vertebroplasty/kyphoplasty procedures Stem cell transplant in 2019 Cataract excision in 2016 Allergies: No Known Allergies. Medications: Acyclovir 1 (200 mg) Tablet Oral daily Albuterol Sulfate 1 ((2.5 mg/3ml) 0.083%) Nebulization solution Inhalation four times a day PRN Aspirin 1 (81 mg) Tablet Oral daily Baclofen 1 (10 mg) Tablet Oral at bedtime PRN Casodex 1 Tablet (of 50 mg) Oral daily Colace Capsule Oral daily PRN cultrelle 1 Capsule Oral daily Cyproheptadine HCl 1 (4 mg) Tablet Oral b.i.d. PRN D3-1000 Tablet Oral daily Dapsone 1 Tablet (of 100 mg) Oral daily Folic Acid 1 (1000 mcg) Tablet Oral b.i.d. Gabapentin 1 Capsule (of 600 mg) Oral at bedtime Hydrocodone-Acetaminophen 1 (10-325 mg) Tablet Oral four times a day PRN Ipratropium-Albuterol 1 (20-100 mcg/act) Aerosol, solution Inhalation daily Multivitamins 1 Capsule Oral daily Pantoprazole Sodium 1 Tablet (of 40 mg) Tablet, enteric coated Oral daily PRN Phos-NaK 1 Packet (of 280-160-250 mg) Pack Oral daily for 90 days Questran 1 (4 g) Pack Oral daily Revlimid 1 Capsule (of 5 mg) Oral daily Xanax 1 Tablet (of 0.5 mg) Oral t.i.d. PRN Zofran 1 Tablet (of 8 mg) Oral four times a day PRN Family History: Family history significant for father having of lymphoma at age 58. A sister also has multiple myeloma. Social History: Mr. Cardona is and he is a disabled. Mr. Cardona no longer smokes but had smoked 0.5 packs/day for 16 years. Review Of Symptoms: see above Vital Signs: Performed on Aug 26, 2020 10:35 Height - 67.00 in Weight - 169.0 lbs (LOW) BSA - 1.88 sq.m BMI - 26.47 Temperature - 98.6 F Pulse - 95 /min Respiration - 18 /min BP - 144/72 mm(hg) (HIGH) O2 Sat - 95 % (LOW) Pain - 0,2 - Ambulatory/capable of all self-care, unable to perform any work activities. Up and about more than 50% of waking hours. (ECOG) Physical Examination: Constitutional Alert, oriented, no acute distress. Skin PALE/pink, warm and dry. Significant fatigue. Head Normocephalic; atraumatic. Eyes Conjunctivae and sclerae are clear and without icterus. Pupils are reactive and equal. ENMT Sinuses are nontender. No oral exudates, ulcers, masses, thrush or mucositis. Oropharynx clear. Tongue normal. Neck Supple without masses or thyromegaly. No jugular venous distension. Hematologic/Lymphatic No petechiae or purpura. Respiratory Lungs are diminished to auscultation without rhonchi or wheezing. Cardiovascular Regular rate and rhythm of heart without murmurs,clicks, gallops or rubs. Abdomen Non-tender, non-distended, no masses, ascites. Back/Spine Non-tender to palpation. Extremities No visible deformities, no cyanosis, clubbing or edema. Musculoskeletal No tenderness or swelling, normal range of motion without obvious weakness. Integumentary No rashes or lesions. Neurologic No sensory or motor deficits, normal cerebellar function, normal gait. Psychiatric Alert and oriented times three. Coherent speech. Verbalizes understanding of our discussions today. Laboratory:Test performed on Aug 25, 2020 08:09 Magnesium 1.9 mg/dL Test performed on Aug 11, 2020 07:57 Sodium 140 mmol/L Potassium 3.7 mmol/L Chloride 104 mmol/L CO2 26 mmol/L Anion Gap 13.7 BUN 29 mg/dL Creatinine 1.3 mg/dL Cr Clearance (Est) 58.2400 mL/min eGFR 55.2 mL/min Glucose 87 mg/dL Osmolality - Calculated 295 mOsm/kg Calcium 8.6 mg/dL Protein, Total 5.8 g/dL Albumin 3.4 g/dL Globulin 2.4 g/dL Bilirubin, Total 0.3 mg/dL ALT (SGPT) 22 U/L AST (SGOT) 21 U/L Alkaline Phosphatase 68 IU/L WBC 5.3 10 3/uL RBC 2.30 10 6/uL HGB 8.4 g/dL HCT 27.0 % MCV 117.4 fL MCH 36.5 pg MCHC 31.1 g/dL RDW 19.6 % Platelet Count 67 10 3/cmm MPV 10.6 fL Neutrophils 3.71 10 3/uL Lymphocytes 1.1 10 3/uL Monocytes 0.5 10 3/uL Eosinophils 0.1 10 3/uL Basophils 0.0 10 3/uL Neutrophil % 69.8 % Lymphocyte % 20.1 % Monocyte % 8.6 % Eosinophil % 0.9 % Basophils % 0.2 % NRBC % 0 % Antibody Screen, [facility] NEGATIVE Irradiated Red Blood Cells [id number] AP RCI XM COMPATIBLE Anti-D Positive / 4+ Blood Type AP Antibody Screen (Gel) NEGATIVE Test performed on Jul 14, 2020 09:26 Ferritin 2994 ng/mL Iron 206 mcg/dL Iron Binding Capacity (TIBC) 223 mcg/dl % Iron Saturation 92.3 % UIBC < 17 mcg/dL Impression: 1. IgA kappa myeloma, stage IIIB. He had severe osteopenia with multiple vertebral compression fractures at initial diagnosis in October 2009. 2. He has undergone treatment through [facility] which initially included treatment on the Total Therapy 4 program followed by tandem stem cell transplants with high-dose melphalan conditioning. He had maintenance therapy with VRD, stopped in February 2013 due to side effects. 3. He had evidence of relapse/progression of the myeloma in July 2014. Since then he has had multiple salvage therapies, including a repeat stem cell transplant in May 2018. He is currently on treatment with daratumumab in combination with cyclophosphamide, lenalidomide, and dexamethasone. 4. Repeat bone marrow aspiration/biopsy on 06/12/2019 showed unexpected finding of moderately differentiated metastatic adenocarcinoma of the mid most consistent with prostatic origin. There was no morphologic evidence of plasma cell neoplasm. His PET/CT and bone scans showed several foci of osteoblastic involvement felt to be most consistent with metastatic prostate cancer. Restaging CT scans of the chest, abdomen, and pelvis showed no evidence for visceral or other non-osseous metastatic disease. PSA was elevated in the range of 20 ng/mL. He began treatment with bicalutamide 50 mg daily, and on 07/01/2019 he received his initial injection of Depo-Lupron 22.5 mg. He had a good clinical response, his androgen deprivation therapy was subsequently transitioned to Zoladex in combination with enzalutamide. 5. 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 He is on replacement IVIG due to recurrent episodes of pneumonia. 6. Chronic anemia, multifactorial. 7. Treatment related peripheral neuropathy. 8. History of cerebellar stroke in September 2017. 9. Depression. Plan: 1. IgA kappa myeloma, stage IIIB. He had severe osteopenia with multiple vertebral compression fractures at initial diagnosis in October 2009. He has been followed at [facility] and has been extensively treated. His disease currently has been stable on a regimen of daratumumab in combination with cyclophosphamide, lenalidomide, and dexamethasone. The daratumumab infusions now are being administered at 4-week intervals, and the the cyclophosphamide and lenalidomide have been administered at reduced dosages due to neutropenia. During follow-up he has continued to have somewhat marginal performance status. His clinical status, though, appears stable without obvious progression of the myeloma. A. Proceed with daratumumab 1800 mg by IV infusion. B. He will continue treatment with lenalidomide 5 mg daily on a 21/28-day schedule C. Continue cyclophosphamide 500 mg every 14 days. 2. He has chronic anemia which appears to be multifactorial. He has been transfusion dependent. A. His Hgb is 9.2 today. B. Recheck in 2 weeks. 3. He has chronic immunosuppression associated with his myeloma. He has had recurrent hospitalizations for pneumonia. A. He continues replacement IVIG at the same dosage. He is due for IVIG today. 4. Metastatic prostate cancer, diagnosed by bone marrow aspiration/biopsy on 06/12/2019. He has had a good response by PSA level, and his PSA remains adequately suppressed on androgen deprivation therapy with Zoladex in combination with enzalutamide. A. Continue enzalutamide @ 160 mg daily. 5. He has chronic pain, due in part to his multiple vertebral compression fractures and to treatment related neuropathy. It does appear to be managed adequately with his current medications, which will be continued at the same dosages. 6. Elevated ferritin???it was 2994 on July 14, 2020. His iron level was 206 and iron saturation was 92.3%. A. We did discuss his ferritin level from July. He is having increased fatigue, forgetfulness and significant leg cramps. He states he is willing to try iron chelator. We will review treatment options as well as his current labs and other health concerns. B. Most likely will try to start with Jadenu possibly at reduced dosing as his creatinine is already borderline elevated due to the myeloma. We will check his chemistries with his blood counts at least every other week. 7. Total time spent on this patient's care today was 65 minutes in review of patient records prior to his followup; review of current plan of care and side effect identification and management; review of iron studies and discussion of plan of care for iron overload as well as symptoms related to iron overload (Mr Cardona was given written information on iron overload and iron chelating agents) as well as post visit research regarding plan of care for iron overload and post visit documentation. DATE OF ADDENDUM: [08/26/2020] ADDENDUM: [Insomnia/difficulty sleeping. A. Mr. Cardona is advised to try lorazepam 1 mg???max 2 mg at bedtime. Right shoulder pain after fall approximately 4 to 6 weeks ago. A. X-ray was unrevealing. B. We will have him do an MRI without contrast due to his elevated creatinine of 1.5 and his history of myeloma. We will make appropriate referrals from there.] Signed By: Artis Nixon-, AOCNP Christopher Brody MD <<Signature on File>>
--- NOTE | 2020-09-07 17:30 | MR_ITS ---
WS: [id number] MRI RIGHT SHOULDER HISTORY: RT SHOULDER PAIN, LIMITED ROM COMPARISON: None available. TECHNIQUE: Multiplanar sequences of the shoulder joint are submitted. Motion artifact due to the spasms and patient's inability to remain still. Moderate AC joint arthritis encroaching upon the anterior supraspinatus tendon and muscle with deform ity. Increased T2 signal throughout the AC joint no os acromion. Biceps tendon remains in the bicipit al groove. Humeral head is high riding with subchondral cyst in the posterior lateral humeral head. No rotator c uff tears are identified. There is a small amount of edema within the supraspinatus muscle which may be related to encroachment of the AC joint. Moderate narrowing of the acromial humeral space due to t he high riding humeral head. Loss of cartilage over the humeral head with moderate narrowing of the g lenohumeral joint. There is very minimal atrophy of the supraspinatus muscle but no edema. Small amou nt of fluid at the subscapularis recess. Intrasubstance degenerative changes are present within the l abrum. Cannot confirm tear due to the motion. MR/MR shoulder RT wo con* [id number] IMPRESSION: 1. Moderate AC joint arthritis with encroachment upon the supraspinatus tendon and muscle. 2. Small amount of edema in the supraspinatus muscle is probably related to th e AC joint encroachment. 3. No rotator cuff tear. 4. High riding humeral head narrowing the acromiohumeral space. 5. Moderate narrowing of the glenohumeral joint with loss of cartilage.
== END 2020-09-11 23:59 | disposition home or self-care (01) ==
LOC: ONCMED 08:55
PROVIDERS: Internal Medicine Medical Oncology; PCP Family Medicine; Visit Provider Nurse Practitioner
DX: Z51.11 Encounter for antineoplastic chemotherapy (principal); C90.02 Multiple myeloma in relapse; C61 Malignant neoplasm of prostate; C79.52 Secondary malignant neoplasm of bone marrow; D80.1 Nonfamilial hypogammaglobulinemia; D64.81 Anemia due to antineoplastic chemotherapy; F32.9 Major depressive disorder, single episode, unspecified; G62.9 Polyneuropathy, unspecified; Z79.899 Other long term (current) drug therapy
CPT/HCPCS: 36430; 73221; 80053; 82784; 83735; 83883; 84155; 84165; 85025; 86140; 86850; 86900; 86920; 96365; 96366; 96401; 99215; J1568; J1940; J7050; J8540; J9144; P9040

== ENCOUNTER 2020-10-08 05:37 | Outpatient (RCR) | payer MEDICARE, BC, SELFPAY ==
[2020-09-17 13:13] LABS: Basophils % 0.3 %; Eosinophils % 0.5 %; Hematocrit 30.9 % (42.0-52.0); Hemoglobin 9.6 g/dL (11.7-16.6); Lymphocytes # 1.4 10^3/uL (0.8-4.8); Lymphocytes % 23.2 %; Mean Corpuscular HGB Conc 31.1 g/dL (30.0-36.0); Mean Corpuscular Hemoglobin 34.2 pg (28.0-34.0); Mean Platelet Volume 10.6 fL (7.4-10.4); Monocytes # 0.4 10^3/uL (0.2-0.9); Monocytes % 7.2 %; Neutrophils # 4.03 10^3/uL (1.8-7.7); Neutrophils % 68.6 %; Nucleated Red Blood Cells % 0 %; Platelet Count 89 10^3/cmm (130-400); Red Blood Count 2.81 10^6/uL (4.1-5.3); Red Cell Distribution Width 22.5 % (12.1-15.1); White Blood Count 5.9 10^3/uL (4.0-10.0)
[2020-09-17 13:36] LABS: Alanine Aminotransferase 22 U/L (0-41); Albumin Level 3.5 g/dL (3.5-5.2); Alkaline Phosphatase 72 IU/L (40-130); Anion Gap 12.3 (5-19); Aspartate Amino Transferase 19 U/L (0-40); Blood Urea Nitrogen 25 mg/dL (8-23); Calcium 8.3 mg/dL (8.5-10.5); Carbon Dioxide 29 mmol/L (22-29); Chloride 103 mmol/L (98-107); Globulin 2.2 g/dL (1.3-4.6); Glucose 73 mg/dL (65-115); Osmolality Calculated 293 mOsm/kg (285-295); Potassium 4.3 mmol/L (3.5-5.1); Sodium 140 mmol/L (136-145); Total Bilirubin 0.2 mg/dL (0.15-1.2); Total Protein 5.7 g/dL (6.6-8.7)
[2020-09-17 13:57] LABS: Immunoglobulin IGA 71 mg/dL (70-400); Immunoglobulin IGG 754 mg/dL (700-1600)
[2020-09-17 14:10] LABS: Immunoglobulin IGM < 25 mg/dL (40-230)
[2020-09-18 07:54] LABS: PROTEIN, TOTAL 5.6 g/dL (6.1-8.1)
[2020-09-18 15:04] LABS: KAPPA LIGHT CHAIN, FREE, SERUM 12.7 mg/L (3.3-19.4); KAPPA/LAMBDA LIGHT CHAINS FREE 1.67 (0.26-1.65); LAMBDA LIGHT CHAIN, FREE, SERU 7.6 mg/L (5.7-26.3)
[2020-09-21 15:59] LABS: ABNORMAL PROTEIN BAND 1 0.1 g/dL (NONE DETECTED); ALBUMIN 3.3 g/dL (3.8-4.8); ALPHA 1 GLOBULIN 0.3 g/dL (0.2-0.3); ALPHA 2 GLOBULIN 0.7 g/dL (0.5-0.9); BETA 1 GLOBULIN 0.3 g/dL (0.4-0.6); BETA 2 GLOBULIN 0.3 g/dL (0.2-0.5); GAMMA GLOBULIN 0.7 g/dL (0.8-1.7)
[2020-09-24 12:56] LABS: Basophils % 0.4 %; Eosinophils % 0.8 %; Hematocrit 29.4 % (42.0-52.0); Hemoglobin 9.1 g/dL (11.7-16.6); Mean Corpuscular Hemoglobin 34.3 pg (28.0-34.0); Mean Corpuscular Volume 110.9 fL (80-94); Mean Platelet Volume 10.1 fL (7.4-10.4); Monocytes # 0.5 10^3/uL (0.2-0.9); Monocytes % 9.4 %; Neutrophils # 3.45 10^3/uL (1.8-7.7); Neutrophils % 69.2 %; Nucleated Red Blood Cells % 0 %; Platelet Count 84 10^3/cmm (130-400); Red Blood Count 2.65 10^6/uL (4.1-5.3)
[2020-09-24 13:27] LABS: Alanine Aminotransferase 18 U/L (0-41); Albumin Level 3.8 g/dL (3.5-5.2); Alkaline Phosphatase 70 IU/L (40-130); Anion Gap 9.1 (5-19); Aspartate Amino Transferase 17 U/L (0-40); Blood Urea Nitrogen 24 mg/dL (8-23); Calcium 8.6 mg/dL (8.5-10.5); Carbon Dioxide 33 mmol/L (22-29); Chloride 104 mmol/L (98-107); Globulin 2.2 g/dL (1.3-4.6); Glomerular Filtration Rate 60.6 mL/min (90-130); Glucose 70 mg/dL (65-115); Immunoglobulin IGA 75 mg/dL (70-400); Immunoglobulin IGG 674 mg/dL (700-1600); Osmolality Calculated 296 mOsm/kg (285-295); Potassium 4.1 mmol/L (3.5-5.1); Sodium 142 mmol/L (136-145); Total Bilirubin 0.3 mg/dL (0.15-1.2)
[2020-09-24 13:47] LABS: Immunoglobulin IGM 8 mg/dL (40-230)
[2020-09-25 08:57] LABS: PROTEIN, TOTAL 5.7 g/dL (6.1-8.1)
[2020-09-25 14:32] LABS: KAPPA LIGHT CHAIN, FREE, SERUM 8.4 mg/L (3.3-19.4); KAPPA/LAMBDA LIGHT CHAINS FREE 1.04 (0.26-1.65); LAMBDA LIGHT CHAIN, FREE, SERU 8.1 mg/L (5.7-26.3)
[2020-09-25 16:11] LABS: ABNORMAL PROTEIN BAND 1 0.1 g/dL (NONE DETECTED); ALBUMIN 3.4 g/dL (3.8-4.8); ALPHA 1 GLOBULIN 0.4 g/dL (0.2-0.3); ALPHA 2 GLOBULIN 0.7 g/dL (0.5-0.9); BETA 1 GLOBULIN 0.3 g/dL (0.4-0.6); BETA 2 GLOBULIN 0.3 g/dL (0.2-0.5); GAMMA GLOBULIN 0.6 g/dL (0.8-1.7)
[2020-09-29 11:21] LABS: Basophils % 0.6 %; Eosinophils # 0.1 10^3/uL (0.0-0.8); Eosinophils % 1.7 %; Hematocrit 28.1 % (42.0-52.0); Hemoglobin 8.6 g/dL (11.7-16.6); Lymphocytes # 1.3 10^3/uL (0.8-4.8); Lymphocytes % 23.6 %; Mean Corpuscular HGB Conc 30.6 g/dL (30.0-36.0); Mean Corpuscular Hemoglobin 35.1 pg (28.0-34.0); Mean Corpuscular Volume 114.7 fL (80-94); Mean Platelet Volume 10.9 fL (7.4-10.4); Monocytes # 0.6 10^3/uL (0.2-0.9); Monocytes % 10.8 %; Neutrophils # 3.35 10^3/uL (1.8-7.7); Neutrophils % 62.2 %; Nucleated Red Blood Cells % 0 %; Platelet Count 89 10^3/cmm (130-400); Red Blood Count 2.45 10^6/uL (4.1-5.3); Red Cell Distribution Width 23.3 % (12.1-15.1); White Blood Count 5.4 10^3/uL (4.0-10.0)
[2020-09-29 11:37] LABS: Alanine Aminotransferase 19 U/L (0-41); Albumin Level 3.9 g/dL (3.5-5.2); Alkaline Phosphatase 72 IU/L (40-130); Anion Gap 12.6 (5-19); Aspartate Amino Transferase 23 U/L (0-40); Blood Urea Nitrogen 37 mg/dL (8-23); Calcium 8.5 mg/dL (8.5-10.5); Carbon Dioxide 27 mmol/L (22-29); Chloride 103 mmol/L (98-107); Globulin 2.2 g/dL (1.3-4.6); Glomerular Filtration Rate 46.8 mL/min (90-130); Glucose 76 mg/dL (65-115); Immunoglobulin IGA 75 mg/dL (70-400); Immunoglobulin IGG 627 mg/dL (700-1600); Osmolality Calculated 293 mOsm/kg (285-295); Potassium 4.6 mmol/L (3.5-5.1); Sodium 138 mmol/L (136-145); Total Bilirubin 0.4 mg/dL (0.15-1.2); Total Protein 6.1 g/dL (6.6-8.7)
[2020-09-29 11:53] LABS: Immunoglobulin IGM < 25 mg/dL (40-230)
[2020-09-30 07:58] LABS: PROTEIN, TOTAL 5.5 g/dL (6.1-8.1)
[2020-09-30] MEDS: acetaminophen 325 mg Tablet 650 MG PO (09:40)
[2020-09-30] MEDS: diphenhydrAMINE 25 mg Capsule PO (09:40)
[2020-09-30] MEDS: sodium chloride 0.9% 250 ML 75 ML IV (10:08)
[2020-09-30] MEDS: lidocaine 1% INJ 20 mL INJECTION (12:35)
[2020-09-30] MEDS: goserelin acetate 10.8 mg Implant SUBCUT (12:40)
[2020-09-30 15:48] LABS: ABNORMAL PROTEIN BAND 1 0.1 g/dL (NONE DETECTED); ALBUMIN 3.3 g/dL (3.8-4.8); ALPHA 1 GLOBULIN 0.3 g/dL (0.2-0.3); ALPHA 2 GLOBULIN 0.7 g/dL (0.5-0.9); BETA 1 GLOBULIN 0.3 g/dL (0.4-0.6); BETA 2 GLOBULIN 0.3 g/dL (0.2-0.5); GAMMA GLOBULIN 0.6 g/dL (0.8-1.7)
--- NOTE | 2020-09-30 19:11 | ONC FU_ITS ---
Dr. Brody Patient Follow-Up Note Patient: Flaco Cardona Unit #: [id number]: 1955 Dicatated By: Christopher Brody M.D.Date of Visit:September 30, 2020 Onc Med Follow-up/Prog Note Chief Complaint: Myeloma/prostate cancer. History of Present Illness: This is a 64 year-old man with IgA kappa myeloma, stage IIIB. During followup he was found to have metastatic prostate cancer involving the bone marrow. He was diagnosed with IgA kappa myeloma in October 2009. He presented at that time with anemia, hypercalcemia, renal failure, and severe osteopenia with multiple vertebral compression fractures. He was seen at the [facility] for his initial evaluation. He was treated on their standard arm Total Therapy 4 which included M-VTD-PACE induction and a second induction with VTD-PACE. He then underwent tandem transplants with high-dose melphalan conditioning in February and in March 2010. He reportedly had an excellent response to the treatment, and he was then consolidated with VTD-PACE in June 2010 and July 2010 followed by maintenance VRD. His maintenance therapy was complicated by depression due to Revlimid and severe neuropathy, and treatment was stopped by June 2011. He restarted treatment with Revlimid in August 2012, but he was again unable to tolerate it due to depression. He stopped treatment again in February 2013. He underwent evaluation at the [facility] in July 2014. At that time he was felt to have disease progression with MRI reporting new lesions in the clivus and in the right humerus. Bone marrow at that time showed 10% plasma cells in the aspirate and 20% in the biopsy. His M protein quantitated at 1 g compared to 0.3 g in February 2014. It was opted at that time to resume treatment with pomalidomide in combination with cyclophosphamide and dexamethasone. As of 03/05/2015 he had completed 7 cycles of treatment with the cyclophosphamide administered on a day 1/day 15 schedule. He had a restaging evaluation at the [facility] on 08/12/2015. Bone marrow aspiration/biopsy at that time showed an overall cellularity of 35%. The aspirate showed 6% plasma cells. By flow cytometry total plasma cells were estimated at 1.23%, with 0.69% myeloma cells and 0.54% normal plasma cells. The chromosome analysis showed a translocation involving chromosomes 4 and 8 in a single cell. The clinical significance of that finding was uncertain. He was advised to continue treatment with pomalidomide, dexamethasone, and cyclophosphamide. As of November 2015 the cyclophosphamide was put on hold due to persistent neutropenia. He had follow-up at [facility] in June 2017. His MRI bone marrow blood supply exam on 07/07/2017 showed a slight increase of mild hyperintense homogeneous signal in the marrow of the axial and peripheral skeletons. There was a slight increase of mildly restricted diffusion noted in the marrow cavity. There was interval development of a 2.5 cm focal lesion in the right posterior ilium with restricted diffusion and a 2 cm focal lesion in the right posterior elements at approximately T6, also with restricted diffusion. Bilateral small calvarial lesions were noted with interval punctate and bilateral interval rib lesions were noted. His bone marrow aspiration/biopsy on 07/10/2017 showed overall cellularity of 30% with the differential showing 7% plasma cells. The immunohistochemical stain for CD138 showed 5-10% plasma cells with interstitial and patchy distribution. His M protein was quantitated 0.7 g/dL. He was seen for a follow-up visit here on 07/11/2017. At that point he had become significantly more fatigued. He complained of shortness of breath, and he had been having episodes of passing out. His hemoglobin had dropped to 8.7 g. He was transfused 2 U of packed red blood cells on 07/13/2017. He had symptomatic improvement. He then returned to [facility] and on 07/15/2017 he began treatment with daratuzumab in addition to the pomalidomide/dexamethasone. He had no significant toxicity with the initial infusion of daratuzumab. During subsequent follow-up, there was a gradual decline in his granulocyte count. It nadired at 1200 at week 5 of daratuzumab, but it subsequently increased. He received week 8 of daratuzumab on 09/05/2017. His treatment was then put on hold due to persistent/recurrent pneumonia. He was admitted to the hospital on 09/14/2017 and again on 09/24/2017. With the second admission he was feeling weak and he had fallen several times. Brain MRI reported a 3.7 x 1.7 cm marrow replacing lesion within the clivus, consistent with plasmacytoma. A 7 mm focus of acute ischemia was noted in the right cerebellum. There was a small amount of associated edema. With those findings, he was transferred to [facility] for further management. His evaluation there was consistent with cerebellar stroke with subacute lacunar ischemic infarct on the right cerebellar hemisphere. Also reported was an expansile myelomatous clival lesion with bony erosion of the left carotid canal, erosion of the anterior and posterior cortex of the clivus, and extension into the sphenoid sinuses. The pneumonia improved after 7 days of IV cefepime. He was seen here again on 10/19/2017 and at that time he completed his 9th infusion of daratumumab. His next scheduled treatment was put on hold due to neutropenia and symptoms of respiratory infection. On 11/10/2017 he was admitted to the hospital with neutropenic fever. He was transferred to [facility] for further care. After recovering from that illness he had a restaging evaluation for the myeloma. His bone marrow aspiration/biopsy showed 5% plasma cells. His M protein quantitated at 0.4 g/dL. MRI bone marrow blood supply on 12/18/2017 showed interval worsening with increased size of the focal lesions involving the right temporal bone, clivus, and left parietal bone. There were only minimal changes noted in the spine from the previous studies. There was minimal progression of lesions in the proximal right humerus and in the upper sternum. With those findings, it was recommended that he change treatment to carfilzomib in combination with dexamethasone. He began cycle 1 on 12/27/2017 with the carfilzomib dosed at 20 mg/m???. He also started monthly replacement therapy with IVIG. At day 8 of cycle 1 the carfilzomib dosage was escalated to 36 mg/m???. He tolerated it well, and he was able to continue with cycle 2 on 01/24/2018. As of February 2018 he had completed 3 cycles of treatment. In May 2018 he underwent a stem cell transplant procedure at [facility]. He has had a gradual recovery following that treatment. I had seen him for follow-up here in September 2018. At that time he appeared stable clinically. He then continued his further follow-up at [facility]. His repeat bone marrow aspiration/biopsy on 06/12/2019 showed an unexpected finding of involvement with moderately differentiated metastatic adenocarcinoma which was felt to be most consistent with prostatic origin. It was morphologically negative for plasma cell neoplasm. His PSA was elevated in the range of 20 ng/mL. Restaging CT scans of the chest, abdomen, and pelvis on 06/22/2019 showed a small spiculated residual nodular density in the right upper lobe measuring 1.3 cm, decreased in size from 3.5 cm on a prior PET/CT from January 2019. It was felt to be most likely infectious/inflammatory. There were persistent tree-in-bud type nodularity in both lungs, particularly the lower lobes, felt to be suggestive of multifocal infectious/inflammatory change. There were no new pulmonary nodules and there was no pulmonary consolidation noted. There was no evidence of visceral/sherman metastatic disease in the abdomen/pelvis. There were faint sclerotic lesions in the C7 and T1 vertebral bodies. A bone scan on 06/24/2019 showed multiple focal areas of abnormal uptake which corresponded to the FDG avid osseous lesions noted on the PET/CT from 06/07/2019. These include with the upper thoracic spine, left T9 transverse process, and left posterior ischium. Overall, the findings were felt to be consistent with osteoblastic metastatic disease favoring metastatic prostate cancer over multiple myeloma. He began treatment with bicalutamide 50 mg daily, and he was then seen here on to continue his androgen deprivation locally. He received his initial injection of Depo-Lupron 22.5 mg on 07/01/2019. He tolerated with no adverse effects, and he then continued with a second Lupron injection on 10/01/2019. At that point his PSA had decreased to 0.11 ng/mL. He was seen for a follow-up visit at [facility] on 10/25/2019. His PET/CT showed an FDG avid right frontotemporal calvarial lesion measuring 2 cm, but with interval resolution of abnormal FDG uptake within a sclerotic left posterior iliac lesion. There was no evidence of metastatic disease. With that finding, he was recommended to restart treatment for the myeloma with daratumumab in combination with cyclophosphamide 100 mg weekly, Revlimid 10 mg daily on a 21/28-day schedule, and dexamethasone 8 mg. He began his week 1 daratumumab on 10/30/2019. He tolerated the daratumumab without acute toxicity, and he then continued the daratumumab weekly. At his follow-up visit on 11/20/2019 the lenalidomide and cyclophosphamide were put on hold due to neutropenia, ANC 1300. Both were restarted on 12/04/2019 but with the lenalidomide dosage reduced to 5 mg daily. As of December 2019 the frequency of the daratumumab infusions was reduced to every 2 weeks and during that time he continued treatment for the prostate cancer with Zoladex in combination with enzalutamide. He also continued replacement IVIG. He is seen for a follow-up visit. He had a scheduled follow-up at [facility] last month. I have not yet received the full report, but at that point I did recommend that he stop the daratumumab/lenalidomide/cyclophosphamide and that he begin treatment with belantamab mafodotin at a standard dose of 2.5 mg/kg by IV infusion every 3 weeks. He says his energy has not been too good. He is able to do some light work, but he does have to push himself. ECOG score is 2. His appetite is just fair. He does not have fever or night sweats. He has sinus drainage and raspy throat, attributable to pollen. His breathing is mostly good. He has mild shortness of breath with activity. He does not complain of cough and he has not been having chest pain. He has acid reflux with dexamethasone, managed with Tums. He has diarrhea off and on. He says it just comes and goes and it varies from loose bowel movements to liquid stools. Bladder function has been okay. He says his pain is been pretty constant, mainly in the neck/right shoulder and in the lower back. He has been undergoing evaluation for the shoulder pain. He has occasional sinus headache. He has numbness/tingling in his hands and feet, and he also has leg cramps. Medications: Acyclovir 1 (200 mg) Tablet Oral daily, Albuterol Sulfate 1 ((2.5 mg/3ml) 0.083%) Nebulization solution Inhalation four times a day PRN, Aspirin 1 (81 mg) Tablet Oral daily, Baclofen 1 (10 mg) Tablet Oral at bedtime PRN, Casodex 1 Tablet (of 50 mg) Oral daily, Colace Capsule Oral daily PRN, cultrelle 1 Capsule Oral daily, Cyproheptadine HCl 1 (4 mg) Tablet Oral b.i.d. PRN, D3-1000 Tablet Oral daily, Dapsone 1 Tablet (of 100 mg) Oral daily, Folic Acid 1 (1000 mcg) Tablet Oral b.i.d., Gabapentin 1 Capsule (of 600 mg) Oral at bedtime, Hydrocodone-Acetaminophen 1 (10-325 mg) Tablet Oral four times a day PRN, Ipratropium-Albuterol 1 (20-100 mcg/act) Aerosol, solution Inhalation daily, Multivitamins 1 Capsule Oral daily, Pantoprazole Sodium 1 Tablet (of 40 mg) Tablet, enteric coated Oral daily PRN, Phos-NaK 1 Packet (of 280-160-250 mg) Pack Oral daily for 90 days, Questran 1 (4 g) Pack Oral daily, Revlimid 1 Capsule (of 5 mg) Oral daily, Xanax 1 Tablet (of 0.5 mg) Oral t.i.d. PRN, Zofran 1 Tablet (of 8 mg) Oral four times a day PRN Allergies: No Known Allergies. Vital Signs: Performed on September 30, 2020 08:58 Height - 67.00 in Weight - 166 lbs (LOW) BSA - 1.87 sq.m BMI - 26.00 Temperature - 98.0 F (LOW) Pulse - 89 /min Respiration - 17 /min BP - 132/76 mm(hg) O2 Sat - 95 % (LOW) Pain - 6 Physical Examination: Constitutional - He appears somewhat weak generally, Eyes - Sclerae nonicteric. Conjunctivae clear, ENMT - No lesions noted in the oral cavity, Hematologic/Lymphatic - No cervical, clavicular, or axillary adenopathy, Respiratory - Lungs sound clear with some decrease in air movement bilaterally, Cardiovascular - Heart rhythm is regular. There is no murmur, gallop, or rub noted, Abdomen - Soft. Liver and spleen are not enlarged. There is no abdominal mass or ascites noted and there is no inguinal adenopathy, Extremities - There are venous stasis changes bilaterally. There is no edema, Neurologic - No focal neurologic deficits noted. Lab/Imaging: Test performed on September 29, 2020 08:17 Sodium 138 mmol/L Potassium 4.6 mmol/L Chloride 103 mmol/L CO2 27 mmol/L Anion Gap 12.6 BUN 37 mg/dL Creatinine 1.5 mg/dL Cr Clearance (Est) 50.4700 mL/min eGFR 46.8 mL/min Glucose 76 mg/dL Osmolality - Calculated 293 mOsm/kg Calcium 8.5 mg/dL Protein, Total 6.1 g/dL Albumin 3.9 g/dL Globulin 2.2 g/dL Bilirubin, Total 0.4 mg/dL ALT (SGPT) 19 U/L AST (SGOT) 23 U/L Alkaline Phosphatase 72 IU/L WBC 5.4 10 3/uL RBC 2.45 10 6/uL HGB 8.6 g/dL HCT 28.1 % MCV 114.7 fL MCH 35.1 pg MCHC 30.6 g/dL RDW 23.3 % Platelet Count 89 10 3/cmm MPV 10.9 fL Neutrophils 3.35 10 3/uL Lymphocytes 1.3 10 3/uL Monocytes 0.6 10 3/uL Eosinophils 0.1 10 3/uL Basophils 0.0 10 3/uL Neutrophil % 62.2 % Lymphocyte % 23.6 % Monocyte % 10.8 % Eosinophil % 1.7 % Basophils % 0.6 % NRBC % 0 % IgG 627 mg/dL IgA 75 mg/dL IgM < 25 mg/dL Problem List: 1. IgA kappa myeloma, stage IIIB. He had severe osteopenia with multiple vertebral compression fractures at initial diagnosis in October 2009. 2. His bone marrow aspiration/biopsy on 06/12/2019 showed unexpected finding of moderately differentiated metastatic adenocarcinoma of the mid most consistent with prostatic origin. His PET/CT and bone scans showed several foci of osteoblastic involvement felt to be most consistent with metastatic prostate cancer. 3. 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 He is on replacement IVIG due to recurrent episodes of pneumonia. 4. Chronic anemia, multifactorial, transfusion dependent. 5. He has evidence of transfusion associated iron overload. 6. Treatment related peripheral neuropathy. 7. History of cerebellar stroke in September 2017. 8. Depression. Problems Addressed with this Encounter and Plan: 1. Patient with IgA kappa myeloma, stage IIIB. He had severe osteopenia with multiple vertebral compression fractures at initial diagnosis in October 2009. He has been followed at [facility] and has been extensively treated. His prior treatments included: Induction therapy on the Total Therapy 4 program followed by tandem stem cell transplants with high-dose melphalan conditioning. Maintenance therapy with VRD, stopped in February 2013 due to side effects. Multiple salvage therapies following relapse in July 2014, including repeat stem cell transplant in May 2018. His recent treatment included daratumumab in combination with cyclophosphamide, lenalidomide, and dexamethasone, during which time his disease had been stable. Treatment now has been discontinued, and he has been recommended to transition to belantamab mafodotin at a standard dose of 2.5 mg/kg by IV infusion every 3 weeks. I reviewed anticipated side effects including the risk for ocular toxicity, infusion reactions, and thrombocytopenia, among others. He is aware that he will need an eye exam prior to each treatment, that is being arranged with an cryptography teacher. I anticipate getting his first cycle started next week. 2. He has chronic anemia which appears to be multifactorial. He has been transfusion dependent, and he now has evidence of transfusion associated iron overload. His blood counts will be monitored weekly and he will be transfused as needed. At this point I am also going to look into the possibility of initiating chelating therapy with Jadenu, though at a reduced dosage due to his renal impairment. It will be subject to verification of insurance coverage. 3. He has hypogammaglobulinemia with chronic immunosuppression associated with his myeloma. He has had recurrent hospitalizations for pneumonia. He continues replacement IVIG at the same dosage. 4. Metastatic prostate cancer, diagnosed by bone marrow aspiration/biopsy on 06/12/2019. He has had a good response by PSA level, and his PSA remains adequately suppressed on androgen deprivation therapy with Zoladex in combination with enzalutamide. Thus far he has been able to tolerate treatment with acceptable toxicity. He is due now for Zoladex 10.8 mg. He continues enzalutamide 160 mg daily. 5. He has chronic pain, due in part to his multiple vertebral compression fractures and to treatment related neuropathy. It does appear to be managed adequately with his current medications, which will be continued at the same dosages. Signed By: Christopher Brody M.D. <<Signature on File>>
[2020-10-01 09:11] LABS: Prostate Specific Antigen 0.021 ng/mL (0-4)
[2020-10-06 10:42] LABS: Basophils % 0.6 %; Eosinophils # 0.1 10^3/uL (0.0-0.8); Eosinophils % 1.8 %; Hematocrit 26.1 % (42.0-52.0); Hemoglobin 8.1 g/dL (11.7-16.6); Lymphocytes # 1.8 10^3/uL (0.8-4.8); Lymphocytes % 36.2 %; Mean Corpuscular Hemoglobin 36.8 pg (28.0-34.0); Mean Corpuscular Volume 118.6 fL (80-94); Mean Platelet Volume 10.3 fL (7.4-10.4); Monocytes # 0.3 10^3/uL (0.2-0.9); Monocytes % 5.9 %; Neutrophils # 2.73 10^3/uL (1.8-7.7); Neutrophils % 55.3 %; Nucleated Red Blood Cells % 0 %; Platelet Count 64 10^3/cmm (130-400); White Blood Count 4.9 10^3/uL (4.0-10.0)
[2020-10-06 11:00] LABS: Alanine Aminotransferase 18 U/L (0-41); Albumin Level 3.6 g/dL (3.5-5.2); Alkaline Phosphatase 75 IU/L (40-130); Anion Gap 14.6 (5-19); Aspartate Amino Transferase 23 U/L (0-40); Blood Urea Nitrogen 23 mg/dL (8-23); Carbon Dioxide 28 mmol/L (22-29); Chloride 104 mmol/L (98-107); Globulin 2.1 g/dL (1.3-4.6); Glucose 131 mg/dL (65-115); Immunoglobulin IGA 83 mg/dL (70-400); Immunoglobulin IGG 938 mg/dL (700-1600); Osmolality Calculated 301 mOsm/kg (285-295); Potassium 3.6 mmol/L (3.5-5.1); Sodium 143 mmol/L (136-145); Total Bilirubin 0.3 mg/dL (0.15-1.2); Total Protein 5.7 g/dL (6.6-8.7)
[2020-10-06 11:25] LABS: Immunoglobulin IGM < 25 mg/dL (40-230)
[2020-10-07 08:38] LABS: PROTEIN, TOTAL 5.4 g/dL (6.1-8.1)
[2020-10-07 12:03] LABS: ABNORMAL PROTEIN BAND 1 0.1 g/dL (NONE DETECTED); ALPHA 1 GLOBULIN 0.3 g/dL (0.2-0.3); ALPHA 2 GLOBULIN 0.6 g/dL (0.5-0.9); BETA 1 GLOBULIN 0.3 g/dL (0.4-0.6); BETA 2 GLOBULIN 0.3 g/dL (0.2-0.5); GAMMA GLOBULIN 0.8 g/dL (0.8-1.7)
[2020-10-07 13:07] LABS: KAPPA LIGHT CHAIN, FREE, SERUM 14.3 mg/L (3.3-19.4); KAPPA/LAMBDA LIGHT CHAINS FREE 1.86 (0.26-1.65); LAMBDA LIGHT CHAIN, FREE, SERU 7.7 mg/L (5.7-26.3)
[2020-10-08] MEDS: diphenhydrAMINE 25 mg Capsule PO (13:00)
[2020-10-08] MEDS: acetaminophen 325 mg Tablet 650 MG PO ×2 (13:00→16:35)
[2020-10-08 13:10] VITALS: BP 118/76; PULSE 82; RESP 18; TEMP 36.8; O2SAT 99
[2020-10-08] MEDS: FUROsemide 10 mg/mL SDV 2mL 20 MG IVP (14:50)
[2020-10-08 14:55] VITALS: BP 139/76; PULSE 81; RESP 18; TEMP 36.6; O2SAT 97
[2020-10-08] MEDS: ondansetron 2 mg/ML SDV 2 mL 8 MG IV (16:35)
[2020-10-08] MEDS: sodium chloride 0.9% 250 ML 999 ML IV (16:35)
[2020-10-08] MEDS: diphenhydrAMINE 50 mg/mL SDV 1mL 25 MG IV (16:39)
[2020-10-08 18:27] LABS: Alanine Aminotransferase 16 U/L (0-41); Albumin Level 3.5 g/dL (3.5-5.2); Alkaline Phosphatase 70 IU/L (40-130); Aspartate Amino Transferase 24 U/L (0-40); Globulin 2.3 g/dL (1.3-4.6); Total Bilirubin 0.2 mg/dL (0.15-1.2); Total Protein 5.8 g/dL (6.6-8.7)
== END 2020-10-12 23:59 | disposition home or self-care (01) ==
LOC: ONCMED 05:37
PROVIDERS: Nurse Practitioner; PCP Family Medicine; Visit Provider Internal Medicine Medical Oncology
DX: Z51.11 Encounter for antineoplastic chemotherapy (principal); C90.02 Multiple myeloma in relapse; C61 Malignant neoplasm of prostate; C79.52 Secondary malignant neoplasm of bone marrow; D80.1 Nonfamilial hypogammaglobulinemia; E83.111 Hemochromatosis due to repeated red blood cell transfusions; D64.81 Anemia due to antineoplastic chemotherapy; T45.1X5A Adverse effect of antineoplastic and immunosuppressive drugs, initial encounter; F32.9 Major depressive disorder, single episode, unspecified; Z79.899 Other long term (current) drug therapy; Z86.73 Personal history of transient ischemic attack (TIA), and cerebral infarction without residual deficits
CPT/HCPCS: 36430; 80053; 80076; 82784; 83883; 84153; 84155; 84165; 85025; 86141; 86850; 86900; 86920; 96365; 96366; 96367; 96372; 96375; 96402; 96413; 99215; J1100; J1200; J1568; J1940; J2405; J7050; J9037; J9202; P9040

== ENCOUNTER 2020-11-11 05:47 | Outpatient (RCR) | payer MEDICARE, BC, SELFPAY ==
[2020-10-21 10:01] LABS: Basophils % 0.3 %; Eosinophils # 0.1 10^3/uL (0.0-0.8); Eosinophils % 1.8 %; Hematocrit 33.9 % (42.0-52.0); Hemoglobin 11.1 g/dL (11.7-16.6); Lymphocytes # 1.9 10^3/uL (0.8-4.8); Mean Corpuscular HGB Conc 32.7 g/dL (30.0-36.0); Mean Corpuscular Volume 106.9 fL (80-94); Mean Platelet Volume 12.6 fL (7.4-10.4); Monocytes # 0.5 10^3/uL (0.2-0.9); Monocytes % 6.8 %; Neutrophils # 4.06 10^3/uL (1.8-7.7); Neutrophils % 61.8 %; Nucleated Red Blood Cells % 0 %; Platelet Count 36 10^3/cmm (130-400); Red Blood Count 3.17 10^6/uL (4.1-5.3); White Blood Count 6.6 10^3/uL (4.0-10.0)
[2020-10-21] MEDS: acetaminophen 325 mg Tablet 650 MG PO (12:00)
[2020-10-21] MEDS: diphenhydrAMINE 25 mg Capsule PO (12:00)
[2020-10-21 12:29] LABS: Basophils % 0.2 %; Eosinophils # 0.1 10^3/uL (0.0-0.8); Eosinophils % 1.4 %; Hematocrit 29.7 % (42.0-52.0); Hemoglobin 9.5 g/dL (11.7-16.6); Lymphocytes # 1.3 10^3/uL (0.8-4.8); Lymphocytes % 23.2 %; Mean Corpuscular Hemoglobin 34.5 pg (28.0-34.0); Mean Platelet Volume 9.5 fL (7.4-10.4); Monocytes # 0.4 10^3/uL (0.2-0.9); Monocytes % 7.6 %; Neutrophils # 3.73 10^3/uL (1.8-7.7); Neutrophils % 67.2 %; Nucleated Red Blood Cells % 0 %; Platelet Count 61 10^3/cmm (130-400); Red Blood Count 2.75 10^6/uL (4.1-5.3); White Blood Count 5.6 10^3/uL (4.0-10.0)
[2020-10-29] MEDS: acetaminophen 325 mg Tablet 650 MG PO (15:00)
[2020-10-29] MEDS: diphenhydrAMINE 25 mg Capsule PO (15:00)
[2020-11-03 10:26] LABS: Basophils % 0.6 %; Eosinophils # 0.1 10^3/uL (0.0-0.8); Eosinophils % 1.9 %; Hematocrit 30.7 % (42.0-52.0); Hemoglobin 9.6 g/dL (11.7-16.6); Lymphocytes # 1.8 10^3/uL (0.8-4.8); Lymphocytes % 33.6 %; Mean Corpuscular HGB Conc 31.3 g/dL (30.0-36.0); Mean Corpuscular Hemoglobin 34.8 pg (28.0-34.0); Mean Corpuscular Volume 111.2 fL (80-94); Mean Platelet Volume 11.5 fL (7.4-10.4); Monocytes # 0.5 10^3/uL (0.2-0.9); Neutrophils # 2.84 10^3/uL (1.8-7.7); Neutrophils % 53.5 %; Nucleated Red Blood Cells % 0 %; Platelet Count 42 10^3/cmm (130-400); Red Blood Count 2.76 10^6/uL (4.1-5.3); White Blood Count 5.3 10^3/uL (4.0-10.0)
[2020-11-11 10:47] LABS: Basophils % 0.3 %; Eosinophils # 0.1 10^3/uL (0.0-0.8); Eosinophils % 1.6 %; Hematocrit 30.4 % (42.0-52.0); Hemoglobin 9.7 g/dL (11.7-16.6); Lymphocytes # 2.4 10^3/uL (0.8-4.8); Lymphocytes % 42.4 %; Mean Corpuscular HGB Conc 31.9 g/dL (30.0-36.0); Mean Corpuscular Hemoglobin 35.9 pg (28.0-34.0); Mean Corpuscular Volume 112.6 fL (80-94); Mean Platelet Volume 10.8 fL (7.4-10.4); Monocytes # 0.5 10^3/uL (0.2-0.9); Monocytes % 9.2 %; Neutrophils # 2.66 10^3/uL (1.8-7.7); Neutrophils % 46.3 %; Nucleated Red Blood Cells % 0 %; Platelet Count 52 10^3/cmm (130-400); White Blood Count 5.8 10^3/uL (4.0-10.0)
[2020-11-11] MEDS: sodium chloride 0.9% 250 ML 75 ML IV (15:45)
[2020-11-11] MEDS: acetaminophen 325 mg Tablet 650 MG PO (15:45)
[2020-11-11] MEDS: ondansetron 2 mg/ML SDV 2 mL 8 MG IVP (15:45)
[2020-11-11] MEDS: diphenhydrAMINE 50 mg/mL SDV 1mL 25 MG IVP (15:47)
--- NOTE | 2020-11-16 21:46 | ONC FU_ITS ---
[facility] Patient Note Patient: Flaco Cardona Unit #: [id number]: [id number] Dictated By: Artis NixonDate of Visit: Oct 29, 2020 Onc MED Follow-Up/Prog Note Chief Complaint: Myeloma/prostate cancer. History of Present Illness: Mr Cardona is a 64 year-old man with IgA kappa myeloma, stage IIIB. During followup he was found to have metastatic prostate cancer involving the bone marrow. He was diagnosed with IgA kappa myeloma in October 2009. He presented at that time with anemia, hypercalcemia, renal failure, and severe osteopenia with multiple vertebral compression fractures. He was seen at the [facility] for his initial evaluation. He was treated on their standard arm Total Therapy 4 which included M-VTD-PACE induction and a second induction with VTD-PACE. He then underwent tandem transplants with high-dose melphalan conditioning in February and in March 2010. He reportedly had an excellent response to the treatment, and he was then consolidated with VTD-PACE in June 2010 and July 2010 followed by maintenance VRD. His maintenance therapy was complicated by depression due to Revlimid and severe neuropathy, and treatment was stopped by June 2011. He restarted treatment with Revlimid in August 2012, but he was again unable to tolerate it due to depression. He stopped treatment again in February 2013. He underwent evaluation at the [facility] in July 2014. At that time he was felt to have disease progression with MRI reporting new lesions in the clivus and in the right humerus. Bone marrow at that time showed 10% plasma cells in the aspirate and 20% in the biopsy. His M protein quantitated at 1 g compared to 0.3 g in February 2014. It was opted at that time to resume treatment with pomalidomide in combination with cyclophosphamide and dexamethasone. As of 03/05/2015 he had completed 7 cycles of treatment with the cyclophosphamide administered on a day 1/day 15 schedule. He had a restaging evaluation at the [facility] on 08/12/2015. Bone marrow aspiration/biopsy at that time showed an overall cellularity of 35%. The aspirate showed 6% plasma cells. By flow cytometry total plasma cells were estimated at 1.23%, with 0.69% myeloma cells and 0.54% normal plasma cells. The chromosome analysis showed a translocation involving chromosomes 4 and 8 in a single cell. The clinical significance of that finding was uncertain. He was advised to continue treatment with pomalidomide, dexamethasone, and cyclophosphamide. As of November 2015 the cyclophosphamide was put on hold due to persistent neutropenia. He had follow-up at [facility] in June 2017. His MRI bone marrow blood supply exam on 07/07/2017 showed a slight increase of mild hyperintense homogeneous signal in the marrow of the axial and peripheral skeletons. There was a slight increase of mildly restricted diffusion noted in the marrow cavity. There was interval development of a 2.5 cm focal lesion in the right posterior ilium with restricted diffusion and a 2 cm focal lesion in the right posterior elements at approximately T6, also with restricted diffusion. Bilateral small calvarial lesions were noted with interval punctate and bilateral interval rib lesions were noted. His bone marrow aspiration/biopsy on 07/10/2017 showed overall cellularity of 30% with the differential showing 7% plasma cells. The immunohistochemical stain for CD138 showed 5-10% plasma cells with interstitial and patchy distribution. His M protein was quantitated 0.7 g/dL. He was seen for a follow-up visit here on 07/11/2017. At that point he had become significantly more fatigued. He complained of shortness of breath, and he had been having episodes of passing out. His hemoglobin had dropped to 8.7 g. He was transfused 2 U of packed red blood cells on 07/13/2017. He had symptomatic improvement. He then returned to [facility] and on 07/15/2017 he began treatment with daratuzumab in addition to the pomalidomide/dexamethasone. He had no significant toxicity with the initial infusion of daratuzumab. During subsequent follow-up, there was a gradual decline in his granulocyte count. It nadired at 1200 at week 5 of daratuzumab, but it subsequently increased. He received week 8 of daratuzumab on 09/05/2017. His treatment was then put on hold due to persistent/recurrent pneumonia. He was admitted to the hospital on 09/14/2017 and again on 09/24/2017. With the second admission he was feeling weak and he had fallen several times. Brain MRI reported a 3.7 x 1.7 cm marrow replacing lesion within the clivus, consistent with plasmacytoma. A 7 mm focus of acute ischemia was noted in the right cerebellum. There was a small amount of associated edema. With those findings, he was transferred to [facility] for further management. His evaluation there was consistent with cerebellar stroke with subacute lacunar ischemic infarct on the right cerebellar hemisphere. Also reported was an expansile myelomatous clival lesion with bony erosion of the left carotid canal, erosion of the anterior and posterior cortex of the clivus, and extension into the sphenoid sinuses. The pneumonia improved after 7 days of IV cefepime. He was seen here again on 10/19/2017 and at that time he completed his 9th infusion of daratumumab. His next scheduled treatment was put on hold due to neutropenia and symptoms of respiratory infection. On 11/10/2017 he was admitted to the hospital with neutropenic fever. He was transferred to [facility] for further care. After recovering from that illness he had a restaging evaluation for the myeloma. His bone marrow aspiration/biopsy showed 5% plasma cells. His M protein quantitated at 0.4 g/dL. MRI bone marrow blood supply on 12/18/2017 showed interval worsening with increased size of the focal lesions involving the right temporal bone, clivus, and left parietal bone. There were only minimal changes noted in the spine from the previous studies. There was minimal progression of lesions in the proximal right humerus and in the upper sternum. With those findings, it was recommended that he change treatment to carfilzomib in combination with dexamethasone. He began cycle 1 on 12/27/2017 with the carfilzomib dosed at 20 mg/m???. He also started monthly replacement therapy with IVIG. At day 8 of cycle 1 the carfilzomib dosage was escalated to 36 mg/m???. He tolerated it well, and he was able to continue with cycle 2 on 01/24/2018. As of February 2018 he had completed 3 cycles of treatment. In May 2018 he underwent a stem cell transplant procedure at [facility]. He has had a gradual recovery following that treatment. Dr Brody had seen him for follow-up here in September 2018. At that time he appeared stable clinically. He then continued his further follow-up at [facility]. His repeat bone marrow aspiration/biopsy on 06/12/2019 showed an unexpected finding of involvement with moderately differentiated metastatic adenocarcinoma which was felt to be most consistent with prostatic origin. It was morphologically negative for plasma cell neoplasm. His PSA was elevated in the range of 20 ng/mL. Restaging CT scans of the chest, abdomen, and pelvis on 06/22/2019 showed a small spiculated residual nodular density in the right upper lobe measuring 1.3 cm, decreased in size from 3.5 cm on a prior PET/CT from January 2019. It was felt to be most likely infectious/inflammatory. There were persistent tree-in-bud type nodularity in both lungs, particularly the lower lobes, felt to be suggestive of multifocal infectious/inflammatory change. There were no new pulmonary nodules and there was no pulmonary consolidation noted. There was no evidence of visceral/sherman metastatic disease in the abdomen/pelvis. There were faint sclerotic lesions in the C7 and T1 vertebral bodies. A bone scan on 06/24/2019 showed multiple focal areas of abnormal uptake which corresponded to the FDG avid osseous lesions noted on the PET/CT from 06/07/2019. These include with the upper thoracic spine, left T9 transverse process, and left posterior ischium. Overall, the findings were felt to be consistent with osteoblastic metastatic disease favoring metastatic prostate cancer over multiple myeloma. He began treatment with bicalutamide 50 mg daily, and he was then seen here on to continue his androgen deprivation locally. He received his initial injection of Depo-Lupron 22.5 mg on 07/01/2019. He tolerated with no adverse effects, and he then continued with a second Lupron injection on 10/01/2019. At that point his PSA had decreased to 0.11 ng/mL. He was seen for a follow-up visit at [facility] on 10/25/2019. His PET/CT showed an FDG avid right frontotemporal calvarial lesion measuring 2 cm, but with interval resolution of abnormal FDG uptake within a sclerotic left posterior iliac lesion. There was no evidence of metastatic disease. With that finding, he was recommended to restart treatment for the myeloma with daratumumab in combination with cyclophosphamide 100 mg weekly, Revlimid 10 mg daily on a 21/28-day schedule, and dexamethasone 8 mg. He began his week 1 daratumumab on 10/30/2019. He tolerated the daratumumab without acute toxicity, and he then continued the daratumumab weekly. At his follow-up visit on 11/20/2019 the lenalidomide and cyclophosphamide were put on hold due to neutropenia, ANC 1300. Both were restarted on 12/04/2019 but with the lenalidomide dosage reduced to 5 mg daily. As of December 2019 the frequency of the daratumumab infusions was reduced to every 2 weeks and during that time he continued treatment for the prostate cancer with Zoladex in combination with enzalutamide. He also continued replacement IVIG. He is seen for a follow-up visit. He had a scheduled follow-up at [facility] in August 2020. We have not yet received the full report, but at that point Dr Brody did recommend that he stop the daratumumab/lenalidomide/cyclophosphamide and that he begin treatment with belantamab mafodotin at a standard dose of 2.5 mg/kg by IV infusion every 3 weeks. He began his first cycle on 10/08/2020. Mr. Cardona is here today for follow-up consideration of cycle 2 Blenrep. He has no new concerns today. He states he has had some dry eyes but no significant vision changes. He denies any fever or chills. He denies any signs or symptoms of infection. He denies nausea or vomiting. He states his appetite count of comes and goes. 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 He has continued to have interim transfusion services for anemia. Last transfusion I can find is from 10/06/2020 at which time he had 2 units of irradiated packed red blood cells for hemoglobin of 8.1. He was significantly short of breath and fatigued at that time. His hemoglobin is noted to be 9.5 on October 21, 2020. His last IVIG dose was on September 30, 2020. He also had Zoladex for the prostate cancer on September 30, 2020. He says his pain is still pretty constant, mainly in the neck/right shoulder and in the lower back. He has been undergoing evaluation for the shoulder pain. He has numbness/tingling in his hands and feet, and he also has leg cramps. He had tried Effexor XR for hot flashes and stated this had worked well. He has tried gabapentin and Lyrica both in the past for neuropathy and leg cramps neither of which have been real successful. His ECOG remains at 1. Past Medical History: Depression Multiple myeloma Peripheral neuropathy Prostate cancer Past Surgical History: Carpal tunnel release on the left Multiple vertebroplasty/kyphoplasty procedures Stem cell transplant in 2019 Cataract excision in 2016 Allergies: No Known Allergies. Medications: Acyclovir 1 (200 mg) Tablet Oral daily Albuterol Sulfate 1 ((2.5 mg/3ml) 0.083%) Nebulization solution Inhalation four times a day PRN Aspirin 1 (81 mg) Tablet Oral daily Baclofen 1 (10 mg) Tablet Oral at bedtime PRN Casodex 1 Tablet (of 50 mg) Oral daily Colace Capsule Oral daily PRN cultrelle 1 Capsule Oral daily Cyproheptadine HCl 1 (4 mg) Tablet Oral b.i.d. PRN D3-1000 Tablet Oral daily Dapsone 1 Tablet (of 100 mg) Oral daily Folic Acid 1 (1000 mcg) Tablet Oral b.i.d. Gabapentin 1 Capsule (of 600 mg) Oral at bedtime Hydrocodone-Acetaminophen 1 (10-325 mg) Tablet Oral four times a day PRN Ipratropium-Albuterol 1 (20-100 mcg/act) Aerosol, solution Inhalation daily Multivitamins 1 Capsule Oral daily Pantoprazole Sodium 1 Tablet (of 40 mg) Tablet, enteric coated Oral daily PRN Phos-NaK 1 Packet (of 280-160-250 mg) Pack Oral daily for 90 days Questran 1 (4 g) Pack Oral daily Revlimid 1 Capsule (of 5 mg) Oral daily Xanax 1 Tablet (of 0.5 mg) Oral t.i.d. PRN Zofran 1 Tablet (of 8 mg) Oral four times a day PRN Family History: Family history significant for father having of lymphoma at age 58. A sister also has multiple myeloma. Social History: Mr. Cardona is and he is a disabled. Mr. Cardona no longer smokes but had smoked 0.5 packs/day for 17 years. Review Of Symptoms: <See Above> Vital Signs: Performed on Oct 29, 2020 12:49 Height - 67.00 in Weight - 167.6 lbs (HIGH) BSA - 1.88 sq.m BMI - 26.25 Temperature - 96.2 F (LOW) Pulse - 81 /min Respiration - 18 /min BP - 110/70 mm(hg) O2 Sat - 96 % Pain - 6 Fatigue - 7,1 - No physically strenuous activity, but ambulatory and able to carry out light or sedentary work (e.g. office work, light house work). (ECOG) Physical Examination: Constitutional Alert, oriented, no acute distress. Skin PALE/pink, warm and dry. Significant fatigue. Head Normocephalic; atraumatic. Eyes Conjunctivae and sclerae are clear and without icterus. Pupils are reactive and equal. Hematologic/Lymphatic No petechiae or purpura. Respiratory Lungs are clear to auscultation without rhonchi or wheezing. Cardiovascular Regular rate and rhythm of heart without murmurs,clicks, gallops or rubs. Chest Chest is symmetric without chest wall deformities. Abdomen Non-tender, non-distended, no masses, ascites. Back/Spine Non-tender to palpation. Extremities No visible deformities, no cyanosis, clubbing or edema. Musculoskeletal No tenderness or swelling, normal range of motion without obvious weakness. Integumentary No rashes or lesions. Neurologic No sensory or motor deficits, normal cerebellar function, normal gait. Psychiatric Alert and oriented times three. Coherent speech. Verbalizes understanding of our discussions today. Impression: 1. IgA kappa myeloma, stage IIIB. He had severe osteopenia with multiple vertebral compression fractures at initial diagnosis in October 2009. 2. His bone marrow aspiration/biopsy on 06/12/2019 showed unexpected finding of moderately differentiated metastatic adenocarcinoma of the mid most consistent with prostatic origin. His PET/CT and bone scans showed several foci of osteoblastic involvement felt to be most consistent with metastatic prostate cancer. 3. 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 He is on replacement IVIG due to recurrent episodes of pneumonia. 4. Chronic anemia, multifactorial, transfusion dependent. 5. He has evidence of transfusion associated iron overload. 6. Treatment related peripheral neuropathy. 7. History of cerebellar stroke in September 2017. 8. Depression. Plan/Problems Addressed at this Visit: 1. IgA kappa myeloma, stage IIIB. He had severe osteopenia with multiple vertebral compression fractures at initial diagnosis in October 2009. He has been followed at [facility] and has been extensively treated. His prior treatments included: Induction therapy on the Total Therapy 4 program followed by tandem stem cell transplants with high-dose melphalan conditioning. Maintenance therapy with VRD, stopped in February 2013 due to side effects. Multiple salvage therapies following relapse in July 2014, including repeat stem cell transplant in May 2018. His recent treatment included daratumumab in combination with cyclophosphamide, lenalidomide, and dexamethasone, during which time his disease had been stable. Treatment now has been discontinued, and he has been recommended to transition to belantamab mafodotin at a standard dose of 2.5 mg/kg by IV infusion every [address] Brody reviewed anticipated side effects including the risk for ocular toxicity, infusion reactions, and thrombocytopenia, among others. He is aware that he will need an eye exam prior to each treatment, that is being arranged with an photovoltaic installer. He began his first cycle on October 08, 2020. A. He is due for cycle 2 today. He did have eye exam with Dr. Blankenship's office earlier this morning. However there was some issue obtaining authorization from the [email or web address] rems program. He will not receive cycle 2 today. B. His labs from October 27, 2020 were reviewed in detail and discussed with Mr. Cardona and a copy was given to him. WBC 5.7, hemoglobin 10.2, platelets 55,000 which are stable. ANC is 2700. A chemistry was not reported. 2. He has chronic anemia which appears to be multifactorial. A. He has been transfusion dependent, and he now has evidence of transfusion associated iron overload. His blood counts will be monitored weekly and he will be transfused as needed. We have also requested PA for the possibility of initiating chelating therapy with Jadenu, though at a reduced dosage due to his renal impairment. It will be subject to verification of insurance coverage. 3. He has hypogammaglobulinemia with chronic immunosuppression associated with his myeloma. A. He has had recurrent hospitalizations for pneumonia. B. He continues replacement IVIG at the same dosage. He was given his planned dose today. 4. Metastatic prostate cancer, diagnosed by bone marrow aspiration/biopsy on 06/12/2019. A. He has had a good response by PSA level. B. His last PSA was on September 29, 2020 and reported at 0.021. C Continue androgen deprivation therapy with Zoladex in combination with enzalutamide. Zoladex 10.8 mg last given on September 30, 2020. D. Enzalutamide remains at 160 mg (4 capsules of 40 mg capsules) daily. 5. He has chronic pain, due in part to his multiple vertebral compression fractures and to treatment related neuropathy. A. It does appear to be managed adequately with his current medications-He is using hydrocodone 02/14/2025 1 or 2 every 4 hours as needed pain. B. His last hydrocodone prescription per Dr. Brody's written authorization was on July 29, 2020 for number 120 tablets. 6. Follow-up plan A. He will have a Blenrep once the logistics are figured out with the rems program and his drug can be ordered. B. He will be scheduled for 3-week follow-up once cycle 2 Blenrep is given. He is aware he will need an eye exam again no sooner than 2 weeks prior to his scheduled Blenrep appointment. C. He will be due for IVIG again in 1 month. D. We will ask for weekly follow-up CBC CMP and type and screen for his transfusion dependent anemia. E. With his follow-up for Blenrep 3 weeks for cycle 3 I have also requested to repeat his myeloma labs as we do not have any current records of them. We have not received any records from his [facility] appointment. F. Mr. Cardona was encouraged to contact us in interim should questions or problems arise. Signed By: Artis Nixon-, AOCNP Christopher Brody MD <<Signature on File>>
--- NOTE | 2020-11-16 22:22 | ONC FU_ITS ---
[facility] Patient Note Patient: Flaco Cardona Unit #: [id number]: 1955 Dictated By: Artis NixonDate of Visit: Nov 11, 2020 Onc MED Follow-Up/Prog Note Chief Complaint: Myeloma/prostate cancer. History of Present Illness: Mr Cardona is a 64 year-old man with IgA kappa myeloma, stage IIIB. During followup he was found to have metastatic prostate cancer involving the bone marrow. He was diagnosed with IgA kappa myeloma in October 2009. He presented at that time with anemia, hypercalcemia, renal failure, and severe osteopenia with multiple vertebral compression fractures. He was seen at the [facility] for his initial evaluation. He was treated on their standard arm Total Therapy 4 which included M-VTD-PACE induction and a second induction with VTD-PACE. He then underwent tandem transplants with high-dose melphalan conditioning in February and in March 2010. He reportedly had an excellent response to the treatment, and he was then consolidated with VTD-PACE in June 2010 and July 2010 followed by maintenance VRD. His maintenance therapy was complicated by depression due to Revlimid and severe neuropathy, and treatment was stopped by June 2011. He restarted treatment with Revlimid in August 2012, but he was again unable to tolerate it due to depression. He stopped treatment again in February 2013. He underwent evaluation at the [facility] in July 2014. At that time he was felt to have disease progression with MRI reporting new lesions in the clivus and in the right humerus. Bone marrow at that time showed 10% plasma cells in the aspirate and 20% in the biopsy. His M protein quantitated at 1 g compared to 0.3 g in February 2014. It was opted at that time to resume treatment with pomalidomide in combination with cyclophosphamide and dexamethasone. As of 03/05/2015 he had completed 7 cycles of treatment with the cyclophosphamide administered on a day 1/day 15 schedule. He had a restaging evaluation at the [facility] on 08/12/2015. Bone marrow aspiration/biopsy at that time showed an overall cellularity of 35%. The aspirate showed 6% plasma cells. By flow cytometry total plasma cells were estimated at 1.23%, with 0.69% myeloma cells and 0.54% normal plasma cells. The chromosome analysis showed a translocation involving chromosomes 4 and 8 in a single cell. The clinical significance of that finding was uncertain. He was advised to continue treatment with pomalidomide, dexamethasone, and cyclophosphamide. As of November 2015 the cyclophosphamide was put on hold due to persistent neutropenia. He had follow-up at [facility] in June 2017. His MRI bone marrow blood supply exam on 07/07/2017 showed a slight increase of mild hyperintense homogeneous signal in the marrow of the axial and peripheral skeletons. There was a slight increase of mildly restricted diffusion noted in the marrow cavity. There was interval development of a 2.5 cm focal lesion in the right posterior ilium with restricted diffusion and a 2 cm focal lesion in the right posterior elements at approximately T6, also with restricted diffusion. Bilateral small calvarial lesions were noted with interval punctate and bilateral interval rib lesions were noted. His bone marrow aspiration/biopsy on 07/10/2017 showed overall cellularity of 30% with the differential showing 7% plasma cells. The immunohistochemical stain for CD138 showed 5-10% plasma cells with interstitial and patchy distribution. His M protein was quantitated 0.7 g/dL. He was seen for a follow-up visit here on 07/11/2017. At that point he had become significantly more fatigued. He complained of shortness of breath, and he had been having episodes of passing out. His hemoglobin had dropped to 8.7 g. He was transfused 2 U of packed red blood cells on 07/13/2017. He had symptomatic improvement. He then returned to [facility] and on 07/15/2017 he began treatment with daratuzumab in addition to the pomalidomide/dexamethasone. He had no significant toxicity with the initial infusion of daratuzumab. During subsequent follow-up, there was a gradual decline in his granulocyte count. It nadired at 1200 at week 5 of daratuzumab, but it subsequently increased. He received week 8 of daratuzumab on 09/05/2017. His treatment was then put on hold due to persistent/recurrent pneumonia. He was admitted to the hospital on 09/14/2017 and again on 09/24/2017. With the second admission he was feeling weak and he had fallen several times. Brain MRI reported a 3.7 x 1.7 cm marrow replacing lesion within the clivus, consistent with plasmacytoma. A 7 mm focus of acute ischemia was noted in the right cerebellum. There was a small amount of associated edema. With those findings, he was transferred to [facility] for further management. His evaluation there was consistent with cerebellar stroke with subacute lacunar ischemic infarct on the right cerebellar hemisphere. Also reported was an expansile myelomatous clival lesion with bony erosion of the left carotid canal, erosion of the anterior and posterior cortex of the clivus, and extension into the sphenoid sinuses. The pneumonia improved after 7 days of IV cefepime. He was seen here again on 10/19/2017 and at that time he completed his 9th infusion of daratumumab. His next scheduled treatment was put on hold due to neutropenia and symptoms of respiratory infection. On 11/10/2017 he was admitted to the hospital with neutropenic fever. He was transferred to [facility] for further care. After recovering from that illness he had a restaging evaluation for the myeloma. His bone marrow aspiration/biopsy showed 5% plasma cells. His M protein quantitated at 0.4 g/dL. MRI bone marrow blood supply on 12/18/2017 showed interval worsening with increased size of the focal lesions involving the right temporal bone, clivus, and left parietal bone. There were only minimal changes noted in the spine from the previous studies. There was minimal progression of lesions in the proximal right humerus and in the upper sternum. With those findings, it was recommended that he change treatment to carfilzomib in combination with dexamethasone. He began cycle 1 on 12/27/2017 with the carfilzomib dosed at 20 mg/m???. He also started monthly replacement therapy with IVIG. At day 8 of cycle 1 the carfilzomib dosage was escalated to 36 mg/m???. He tolerated it well, and he was able to continue with cycle 2 on 01/24/2018. As of February 2018 he had completed 3 cycles of treatment. In May 2018 he underwent a stem cell transplant procedure at [facility]. He has had a gradual recovery following that treatment. Dr Brody had seen him for follow-up here in September 2018. At that time he appeared stable clinically. He then continued his further follow-up at [facility]. His repeat bone marrow aspiration/biopsy on 06/12/2019 showed an unexpected finding of involvement with moderately differentiated metastatic adenocarcinoma which was felt to be most consistent with prostatic origin. It was morphologically negative for plasma cell neoplasm. His PSA was elevated in the range of 20 ng/mL. Restaging CT scans of the chest, abdomen, and pelvis on 06/22/2019 showed a small spiculated residual nodular density in the right upper lobe measuring 1.3 cm, decreased in size from 3.5 cm on a prior PET/CT from January 2019. It was felt to be most likely infectious/inflammatory. There were persistent tree-in-bud type nodularity in both lungs, particularly the lower lobes, felt to be suggestive of multifocal infectious/inflammatory change. There were no new pulmonary nodules and there was no pulmonary consolidation noted. There was no evidence of visceral/sherman metastatic disease in the abdomen/pelvis. There were faint sclerotic lesions in the C7 and T1 vertebral bodies. A bone scan on 06/24/2019 showed multiple focal areas of abnormal uptake which corresponded to the FDG avid osseous lesions noted on the PET/CT from 06/07/2019. These include with the upper thoracic spine, left T9 transverse process, and left posterior ischium. Overall, the findings were felt to be consistent with osteoblastic metastatic disease favoring metastatic prostate cancer over multiple myeloma. He began treatment with bicalutamide 50 mg daily, and he was then seen here on to continue his androgen deprivation locally. He received his initial injection of Depo-Lupron 22.5 mg on 07/01/2019. He tolerated with no adverse effects, and he then continued with a second Lupron injection on 10/01/2019. At that point his PSA had decreased to 0.11 ng/mL. He was seen for a follow-up visit at [facility] on 10/25/2019. His PET/CT showed an FDG avid right frontotemporal calvarial lesion measuring 2 cm, but with interval resolution of abnormal FDG uptake within a sclerotic left posterior iliac lesion. There was no evidence of metastatic disease. With that finding, he was recommended to restart treatment for the myeloma with daratumumab in combination with cyclophosphamide 100 mg weekly, Revlimid 10 mg daily on a 21/28-day schedule, and dexamethasone 8 mg. He began his week 1 daratumumab on 10/30/2019. He tolerated the daratumumab without acute toxicity, and he then continued the daratumumab weekly. At his follow-up visit on 11/20/2019 the lenalidomide and cyclophosphamide were put on hold due to neutropenia, ANC 1300. Both were restarted on 12/04/2019 but with the lenalidomide dosage reduced to 5 mg daily. As of December 2019 the frequency of the daratumumab infusions was reduced to every 2 weeks and during that time he continued treatment for the prostate cancer with Zoladex in combination with enzalutamide. He also continued replacement IVIG. He is seen for a follow-up visit. He has many active diagnoses as indicated below. He had a scheduled follow-up at [facility] in August 2020. We have not yet received the full report, but at that point Dr Brody did recommend that he stop the daratumumab/lenalidomide/cyclophosphamide and that he begin treatment with belantamab mafodotin at a standard dose of 2.5 mg/kg by IV infusion every 3 weeks. He began his first cycle on 10/08/2020. Mr. Cardona is here today for follow-up consideration of cycle 2 Blenrep. He has no new concerns today. He had actually presented on October 29, 2020 for the Blenrep as scheduled and had had his planned eye exam that morning. For unknown reasons we are unable to administer the Blenrep that day due to complications with the rems program and his drug was not available. He did receive his IVIG that day. He states he has had some dry eyes but no significant vision changes. He does use the refresh eyedrops as instructed by Dr. Blankenship. He denies any fever or chills. He denies any signs or symptoms of infection. He denies nausea or vomiting. He states his appetite roosevelt of comes and goes. It is ok for the most part. He is actually gained weight this visit. 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 He has continued to have interim transfusion services for anemia. Last transfusion I can find is from 10/06/2020 at which time he had 2 units of irradiated packed red blood cells for hemoglobin of 8.1. He was significantly short of breath and fatigued at that time. His hemoglobin was noted to be 10.2 on October 29, 2020 and 9.6 on November 03, 2020. His last IVIG dose was on October 29, 2020. He had Zoladex for the prostate cancer on September 30, 2020. He says his pain is still pretty constant, mainly in the neck/right shoulder and in the lower back. He has been undergoing evaluation for the shoulder pain, but thus far has not had much answers per his report. He he continues to utilize hydrocodone as needed for the pain. He states this typically works well for him. He has numbness/tingling in his hands and feet, and he also has leg cramps. He had tried Effexor XR for hot flashes and stated this had worked well. He has tried gabapentin and Lyrica both in the past for neuropathy and leg cramps neither of which have been real successful. He is requesting to try Savella for the neuropathy. We have discussed initiating therapy with a titration pack and he is willing to proceed with this plan. 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 Past Medical History: Depression Multiple myeloma Peripheral neuropathy Prostate cancer Past Surgical History: Carpal tunnel release on the left Multiple vertebroplasty/kyphoplasty procedures Stem cell transplant in 2019 Cataract excision in 2016 Allergies: No Known Allergies. Medications: Acyclovir 1 (200 mg) Tablet Oral daily Albuterol Sulfate 1 ((2.5 mg/3ml) 0.083%) Nebulization solution Inhalation four times a day PRN Aspirin 1 (81 mg) Tablet Oral daily Baclofen 1 (10 mg) Tablet Oral at bedtime PRN Casodex 1 Tablet (of 50 mg) Oral daily Colace Capsule Oral daily PRN cultrelle 1 Capsule Oral daily Cyproheptadine HCl 1 (4 mg) Tablet Oral b.i.d. PRN D3-1000 Tablet Oral daily Dapsone 1 Tablet (of 100 mg) Oral daily Folic Acid 1 (1000 mcg) Tablet Oral b.i.d. Gabapentin 1 Capsule (of 600 mg) Oral at bedtime Hydrocodone-Acetaminophen 1 (10-325 mg) Tablet Oral four times a day PRN Ipratropium-Albuterol 1 (20-100 mcg/act) Aerosol, solution Inhalation daily Multivitamins 1 Capsule Oral daily Pantoprazole Sodium 1 Tablet (of 40 mg) Tablet, enteric coated Oral daily PRN Phos-NaK 1 Packet (of 280-160-250 mg) Pack Oral daily for 90 days Questran 1 (4 g) Pack Oral daily Revlimid 1 Capsule (of 5 mg) Oral daily Xanax 1 Tablet (of 0.5 mg) Oral t.i.d. PRN Zofran 1 Tablet (of 8 mg) Oral four times a day PRN Family History: Family history significant for father having of lymphoma at age 58. A sister also has multiple myeloma. Social History: Mr. Cardona is and he is a disabled. Mr. Cardona no longer smokes but had smoked 0.5 packs/day for 17 years. Review Of Symptoms: <See Above> Vital Signs: Performed on Nov 11, 2020 14:38 Height - 67.00 in Weight - 173.8 lbs (HIGH) BSA - 1.90 sq.m BMI - 27.22 Temperature - 97 F (LOW) Pulse - 83 /min Respiration - 18 /min BP - 130/80 mm(hg) O2 Sat - 95 % (LOW) Pain - 7 Fatigue - 7,1 - No physically strenuous activity, but ambulatory and able to carry out light or sedentary work (e.g. office work, light house work). (ECOG) Physical Examination: Constitutional Alert, oriented, no acute distress. Skin pink, warm and dry. Head Normocephalic; atraumatic. Eyes Conjunctivae and sclerae are clear and without icterus. Pupils are reactive and equal. Neck Supple without masses or thyromegaly. No jugular venous distension. Hematologic/Lymphatic No petechiae or purpura. Respiratory Lungs are clear to auscultation without rhonchi or wheezing. Cardiovascular Regular rate and rhythm of heart without murmurs,clicks, gallops or rubs. Abdomen Non-tender, non-distended, no masses, ascites. Back/Spine Non-tender to palpation. Extremities No visible deformities, no cyanosis, clubbing or edema. Musculoskeletal No tenderness or swelling, normal range of motion without obvious weakness. Integumentary No rashes or lesions. Neurologic No sensory or motor deficits, normal cerebellar function, normal gait. Psychiatric Alert and oriented times three. Coherent speech. Verbalizes understanding of our discussions today. Laboratory:Test performed on Nov 11, 2020 10:30 WBC 5.8 10 3/uL RBC 2.70 10 6/uL HGB 9.7 g/dL HCT 30.4 % MCV 112.6 fL MCH 35.9 pg MCHC 31.9 g/dL RDW 19.0 % Platelet Count 52 10 3/cmm MPV 10.8 fL Neutrophils 2.66 10 3/uL Lymphocytes 2.4 10 3/uL Monocytes 0.5 10 3/uL Eosinophils 0.1 10 3/uL Basophils 0.0 10 3/uL Neutrophil % 46.3 % Lymphocyte % 42.4 % Monocyte % 9.2 % Eosinophil % 1.6 % Basophils % 0.3 % NRBC % 0 % Test performed on Oct 27, 2020 11:33 Manual Lymphocytes 38.3 % Manual Monocytes 10.4 % Manual Eosinophils 2.6 % Manual Basophils 0.7 % Test performed on Oct 15, 2020 11:27 GGT 47 IU/L Magnesium 2.04 mg/dL Uric Acid 6.2 mg/dL Glucose 100 mg/dL LDH, Total 288 IU/L Phosphorous 3.5 mg/dL BUN 29 mg/dL Creatinine 1.42 mg/dL Cr Clearance (Est) 54.50 mL/min BUN/Creatinine Ratio 20 Absolute Value Sodium 144 mmol/L Potassium 4.7 mmol/L Chloride 105 mmol/L CO2 25 mmol/L Calcium 9.0 mg/dL Protein, Total 6.2 g/dL Albumin 3.8 g/dL Globulin 2.4 g/dL A/G Ratio 1.6 Absolute Value Bilirubin, Total 0.4 mg/dL Alkaline Phosphatase 94 IU/L AST (SGOT) 44 IU/L ALT (SGPT) 24 IU/L Manual Segs 0.0 % Manual Bands 0.5 % Test performed on Oct 15, 2020 11:05 C-Reactive Protein (mg/L) 9.5 mg/L Test performed on October 08, 2020 07:53 CRP, High Sensitivity 1.880 mg/dL Bilirubin, Direct 0.20 mg/dL Test performed on October 06, 2020 07:53 Anion Gap 14.6 eGFR 67.0 mL/min Osmolality - Calculated 301 mOsm/kg Irradiated Leuko Red RBC [id number] AP RCLRI XM COMPATIBLE Anti-D Positive / 4+ Blood Type AP Antibody Screen (Gel) NEGATIVE IgA 83 mg/dL IgG 938 mg/dL IgM < 25 mg/dL Agency Free Light Chains 14.3 mg/L Lambda Free Light Chains 7.7 mg/L Agency/Lambda Free Ratio 1.86 Test performed on September 29, 2020 08:17 PSA 0.021 ng/mL Test performed on Aug 11, 2020 07:57 Antibody Screen, [place] NEGATIVE Irradiated Red Blood Cells [id number] AP RCI XM COMPATIBLE Test performed on Jul 14, 2020 09:26 Ferritin 2994 ng/mL Iron 206 mcg/dL Iron Binding Capacity (TIBC) 223 mcg/dl % Iron Saturation 92.3 % UIBC < 17 mcg/dL Impression: 1. IgA kappa myeloma, stage IIIB. He had severe osteopenia with multiple vertebral compression fractures at initial diagnosis in October 2009. 2. His bone marrow aspiration/biopsy on 06/12/2019 showed unexpected finding of moderately differentiated metastatic adenocarcinoma of the mid most consistent with prostatic origin. His PET/CT and bone scans showed several foci of osteoblastic involvement felt to be most consistent with metastatic prostate cancer. 3. 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 He is on replacement IVIG due to recurrent episodes of pneumonia. 4. Chronic anemia, multifactorial, transfusion dependent. 5. He has evidence of transfusion associated iron overload. 6. Treatment related peripheral neuropathy. 7. History of cerebellar stroke in September 2017. 8. Depression. Plan/Problems Addressed at this Visit: 1. IgA kappa myeloma, stage IIIB. He had severe osteopenia with multiple vertebral compression fractures at initial diagnosis in October 2009. He has been followed at [facility] and has been extensively treated. His prior treatments included: Induction therapy on the Total Therapy 4 program followed by tandem stem cell transplants with high-dose melphalan conditioning. Maintenance therapy with VRD, stopped in February 2013 due to side effects. Multiple salvage therapies following relapse in July 2014, including repeat stem cell transplant in May 2018. His recent treatment included daratumumab in combination with cyclophosphamide, lenalidomide, and dexamethasone, during which time his disease had been stable. Treatment now has been discontinued, and he has been recommended to transition to belantamab mafodotin at a standard dose of 2.5 mg/kg by IV infusion every 3 weeks. He began his first cycle on October 08, 2020. Cycle 2 has been delayed due to issues with the REMS program and obtaining his BLENREP. A. He is due for cycle 2 today. He did have eye exam with Dr. Blankenship's office on October 29, 2020 that did not report any significant changes. He has not had BLENREP since that exam. His dose was ordered by myself at 1500 and noted to be modified by Shavonne Paredes RN at 1652 to a dose of 1.9 mg per metered squared. His eye exam from October 29, 2020 was normal and I had not anticipated dose reduction. B. His labs from November 11, 2020 were reviewed in detail and discussed with Mr. Cardona and a copy was given to him. WBC 5.8, hemoglobin 9.7, platelet count is 52,000, ANC is 2660. He did have an LDH Dr. Garza's office on 10/14/2020 which was reported at 288 with a reference range of 135-225. His serum reactive protein was reported at 9.5 with reference range less than 0.5; GGT 47 reference range 0-60. His creatinine was 1.42 reference range 0.8-1.4, BUN was 29 calcium 9.0 alk phos 94 AST 44 ALT 24 total bilirubin 0.4 random glucose was 100. C. His IgG on 10/06/2020 was 938 compared to 627 on 09/29/2020. His abnormal protein on 10/06/2020 was reported at 0.1. This is read restricted band (M spike) migrating in the beta-2 region. His free kappa lambda ratio on 10/06/2020 was reported at 1.86. 2. He has chronic anemia which appears to be multifactorial. A. He has been transfusion dependent, and he now has evidence of transfusion associated iron overload. His blood counts will be monitored weekly and he will be transfused as needed. We have also requested PA for the possibility of initiating chelating therapy with Jadenu, though at a reduced dosage due to his renal impairment. It will be subject to verification of insurance coverage. 3. He has hypogammaglobulinemia with chronic immunosuppression associated with his myeloma. A. He has had recurrent hospitalizations for pneumonia. B. He continues replacement IVIG at the same dosage. His last dose was given on October 29, 2020.. 4. Metastatic prostate cancer, diagnosed by bone marrow aspiration/biopsy on 06/12/2019. A. He has had a good response by PSA level. B. His last PSA was on September 29, 2020 and reported at 0.021. C Continue androgen deprivation therapy with Zoladex in combination with enzalutamide. Zoladex 10.8 mg last given on September 30, 2020. D. Enzalutamide remains at 160 mg (4 capsules of 40 mg capsules) daily. 5. He has chronic pain, due in part to his multiple vertebral compression fractures and to treatment related neuropathy. A. It does appear to be managed adequately with his current medications-He is using hydrocodone 02/14/2025 1 or 2 every 4 hours as needed pain. B. His last hydrocodone prescription per Dr. Brody's written authorization was on July 29, 2020 for 120 tablets. C. Trial of Savella titrating pack for chronic neuropathy pain. It comes as a Starter pack with starting dose at 12.5 mg and titrate up to 50 mg twice daily as needed and tolerated. This prescription was sent to [facility] He is completely off the gabapentin. D. Dr. Hansen's October 29, 2020 note regarding his right shoulder pain indicates they are not recommending any surgical intervention. Injection therapy was discussed but Mr. Cardona prefer to avoid this at this time. He will be set up with physical therapy and follow-up with Dr. Emery as needed. 6. Follow-up plan A. He will be due for cycle 3 BLENREP in 3 weeks. He is due for monthly IVIG in 2 weeks. B. He is aware that he will need eye exam no sooner than 2 weeks prior to his next cycle of Blenrep. D. We will ask for weekly follow-up CBC CMP and type and screen for his transfusion dependent anemia. E. With his follow-up for Blenrep 3 weeks for cycle 3, he will have followup visit. F. Mr. Cardona was encouraged to contact us in interim should questions or problems arise. Signed By: Artis Nixon-, [facility] Christopher Brody MD <<Signature on File>>
== END 2020-11-11 23:59 | disposition home or self-care (01) ==
LOC: ONCMED 05:47
PROVIDERS: Internal Medicine Medical Oncology; PCP Family Medicine; Visit Provider Nurse Practitioner
DX: Z51.12 Encounter for antineoplastic immunotherapy (principal); C90.02 Multiple myeloma in relapse; C61 Malignant neoplasm of prostate; C79.51 Secondary malignant neoplasm of bone; D80.1 Nonfamilial hypogammaglobulinemia; J18.9 Pneumonia, unspecified organism; D64.81 Anemia due to antineoplastic chemotherapy; E61.1 Iron deficiency; G62.0 Drug-induced polyneuropathy; T45.1X5A Adverse effect of antineoplastic and immunosuppressive drugs, initial encounter; F32.9 Major depressive disorder, single episode, unspecified; M85.80 Other specified disorders of bone density and structure, unspecified site; Z86.73 Personal history of transient ischemic attack (TIA), and cerebral infarction without residual deficits; Z79.899 Other long term (current) drug therapy
CPT/HCPCS: 36415; 73030; 85025; 86900; 96365; 96366; 96367; 96375; 96413; 99215; J1100; J1200; J1568; J2405; J7050; J9037; P9037

== ENCOUNTER 2021-01-13 14:19 | Outpatient (CLI) | payer MEDICARE, BC, SELFPAY ==
--- NOTE | 2021-01-13 14:26 | USCV_ITS ---
Flaco Cardona Age: 65 Gender: M : 1955 Exam Date: 01/13/2021 14:37 Ordering Phys: Christopher Brody MD Technologist: Exam Location: [facility] [place] Indication: HIGH RISK MED BP: 127 / 74 HR: 88 Rhythm: Sinus Technical Quality: Adequate MEASUREMENTS (Male / Female) Normal Values 2D ECHO LV Diastolic Diameter PLAX 3.2 cm 4.2 - 5.9 / 3.9 - 5.3 cm LV Systolic Diameter PLAX 2.2 cm IVS Diastolic Thickness 0.7 cm 0.6 - 1.0 / 0.6 - 0.9 cm IVS Systolic Thickness 1.3 cm LVPW Diastolic Thickness 3.3 cm 0.6 - 1.0 / 0.6 - 0.9 cm LVPW Systolic Thickness 1.4 cm LVOT Diameter 2.0 cm LV Ejection Fraction 2D Teich 81.9 % LV Ejection Fraction MOD 2C 69.3 % LV Ejection Fraction 2C AL 69.6 % LA Diameter 3.1 cm LA Width 4.1 cm LA Height 5.2 cm RA Width 3.5 cm RA Height 4.9 cm Aorta at Sinotubular Diameter 3.3 cm DOPPLER AV Peak Velocity 173.0 cm/s LVOT Peak Velocity 121.0 cm/s AV Area Cont Eq vti 2.3 cm squared AV Area Cont Eq pk 2.2 cm squared MV Area PHT 5.0 cm squared Mitral E to A Ratio 0.6 MV E' Velocity 52.0 cm/s Mitral E to MV E' Ratio 15.4 Mitral E to LV E' Lateral Ratio 14.7 Mitral E to LV E' Septal Ratio 16.1 TR Peak Velocity 137.0 cm/s TR Peak Gradient 7.5 mmHg TV Peak E Velocity 94.0 cm/s Right Atrial Pressure 3.0 mmHg Pulmonary Artery Systolic Pressu 10.5 mmHg FINDINGS Left Ventricle Normal left ventricular size, systolic function and wall thickness, with no regional wall motion abnormalities. Left ventricular ejection fraction is estimated at 60 %. Grade I diastolic dysfunction (abnormal relaxation filling pattern), normal to mildly elevated filling pressures. Right Ventricle Normal right ventricular size and systolic function. Right ventricular systolic pressure 12 mmHg. Right Atrium Normal right atrial size. Left Atrium Mildly increased left atrial size. Mitral Valve Moderate mitral annular calcification. Mildly thickened mitral valve. No mitral valve stenosis. Trace mitral valve regurgitation. Aortic Valve Mildly thickened trileaflet aortic valve. No aortic valve stenosis. No aortic valve regurgitation. Tricuspid Valve Structurally normal tricuspid valve. Trace tricuspid valve regurgitation. Pulmonic Valve Structurally normal pulmonic valve. No pulmonary valve stenosis. Trace pulmonary valve regurgitation. Pericardium No pericardial effusion. Aorta Dilated aortic root measured anteroposteriorly at sinus of Valsalva at 43 mm. Normal-sized ascending aorta. Normal aortic arch. CONCLUSIONS 1. Normal left ventricular size, systolic function and wall thickness, with no regional wall motion abnormalities. Left ventricular ejection fraction is estimated at 60 %. Grade I diastolic dysfunction (abnormal relaxation filling pattern), normal to mildly elevated filling pressures. 2. Normal right ventricular size and systolic function. 3. Dilated aortic root measured anteroposteriorly at sinus of Valsalva at 43 mm. 4. Normal pulmonary artery pressure. 5. When compared to previous echocardiogram dated 09/21/2018, aortic root appears to be dilated. Ebonie Ashely MD (Electronically Signed) Final Date: 13 January 2021 19:37 S
[2021-01-13 16:22] LABS: Basophils % 0.3 %; Eosinophils # 0.1 10^3/uL (0.0-0.8); Eosinophils % 1.7 %; Hematocrit 23.3 % (42.0-52.0); Hemoglobin 7.3 g/dL (11.7-16.6); Lymphocytes # 2.9 10^3/uL (0.8-4.8); Lymphocytes % 45.1 %; Mean Corpuscular HGB Conc 31.3 g/dL (30.0-36.0); Mean Corpuscular Hemoglobin 38.6 pg (28.0-34.0); Mean Corpuscular Volume 123.3 fl (80-94); Mean Platelet Volume 12.3 fL (7.4-10.4); Monocytes # 0.6 10^3/uL (0.2-0.9); Monocytes % 8.8 %; Neutrophils # 2.85 10^3/uL (1.8-7.7); Neutrophils % 43.8 %; Nucleated Red Blood Cells % 0 %; Platelet Count 39 10^3/cmm (130-400); Red Blood Count 1.89 10^6/uL (4.1-5.3); Red Cell Distribution Width 17.7 % (12.1-15.1); White Blood Count 6.5 10^3/uL (4.0-10.0)
[2021-01-13 16:46] LABS: Alanine Aminotransferase 16 U/L (0-41); Albumin Level 3.4 g/dL (3.5-5.2); Alkaline Phosphatase 104 IU/L (40-130); Anion Gap 14.8 (5-19); Aspartate Amino Transferase 24 U/L (0-40); Blood Urea Nitrogen 27 mg/dL (8-23); Calcium 8.5 mg/dL (8.5-10.5); Carbon Dioxide 24 mmol/L (22-29); Chloride 103 mmol/L (98-107); Globulin 2.7 g/dL (1.3-4.6); Glomerular Filtration Rate 50.5 mL/min (90-130); Glucose 83 mg/dL (65-115); Osmolality Calculated 288 mOsm/kg (285-295); Potassium 4.8 mmol/L (3.5-5.1); Sodium 137 mmol/L (136-145); Total Bilirubin 0.3 mg/dL (0.15-1.2); Total Protein 6.1 g/dL (6.6-8.7)
== END 2021-01-13 14:20 | disposition home or self-care (01) ==
LOC: RAD 14:24 → ONCMED 15:05
PROVIDERS: PCP Family Medicine; Visit Provider Internal Medicine Medical Oncology
DX: C61 Malignant neoplasm of prostate (principal); C90.02 Multiple myeloma in relapse; E83.111 Hemochromatosis due to repeated red blood cell transfusions; C79.52 Secondary malignant neoplasm of bone marrow; D64.81 Anemia due to antineoplastic chemotherapy; D80.1 Nonfamilial hypogammaglobulinemia; I50.30 Unspecified diastolic (congestive) heart failure
CPT/HCPCS: 36415; 80053; 85025; 93306

== ENCOUNTER 2021-01-14 05:43 | Outpatient (CLI) | payer MEDICARE, BC, SELFPAY ==
[2021-01-14] VITALS (9 sets, daily range): BP systolic 146–171; BP diastolic 84–102; PULSE 87–98; RESP 16; TEMP 36.5–37.1; O2SAT 95–98
[2021-01-14] MEDS: sodium chloride 0.9% 500 ML 999 ML IV (09:40)
[2021-01-14] MEDS: acetaminophen 325 mg Tablet 650 MG PO ×2 (09:40→14:30)
[2021-01-14] MEDS: famotidine 20 mg/2 mL INJ IVP (09:58)
[2021-01-14] MEDS: diphenhydrAMINE 50 mg/mL SDV 1mL 25 MG IV (10:00)
[2021-01-14] MEDS: ondansetron 2 mg/ML SDV 2 mL 8 MG IV (10:05)
[2021-01-14 11:02] LABS: Testosterone Total 2.5 ng/dL (193-740)
[2021-01-14] MEDS: sodium chloride 0.9% 250 ML 999 ML IV (12:30)
[2021-01-14] MEDS: diphenhydrAMINE 25 mg Capsule PO (14:30)
[2021-01-14] MEDS: FUROsemide 10 mg/mL SDV 2mL 20 MG IV (14:30)
[2021-01-14] MEDS: lidocaine 1% INJ 20 mL INJECTION (15:15)
[2021-01-14] MEDS: goserelin acetate 10.8 mg Implant SUBCUT (15:30)
--- NOTE | 2021-01-14 19:19 | ONC FU_ITS ---
Dr. Brody Patient Follow-Up Note Patient: Flaco Cardona Unit #: [id number]: 1955 Dicatated By: Christopher Brody M.D.Date of Visit:Jan 14, 2021 Onc Med Follow-up/Prog Note Chief Complaint: Myeloma/prostate cancer. History of Present Illness: This is a 65 year-old man with IgA kappa myeloma, stage IIIB. During followup he was found to have metastatic prostate cancer involving the bone marrow. He was diagnosed with IgA kappa myeloma in October 2009. He presented at that time with anemia, hypercalcemia, renal failure, and severe osteopenia with multiple vertebral compression fractures. He was seen at the [facility] for his initial evaluation. He was treated on their standard arm Total Therapy 4 which included M-VTD-PACE induction and a second induction with VTD-PACE. He then underwent tandem transplants with high-dose melphalan conditioning in February and in March 2010. He reportedly had an excellent response to the treatment, and he was then consolidated with VTD-PACE in June 2010 and July 2010 followed by maintenance VRD. His maintenance therapy was complicated by depression due to Revlimid and severe neuropathy, and treatment was stopped by June 2011. He restarted treatment with Revlimid in August 2012, but he was again unable to tolerate it due to depression. He stopped treatment again in February 2013. He underwent evaluation at the [facility] in July 2014. At that time he was felt to have disease progression with MRI reporting new lesions in the clivus and in the right humerus. Bone marrow at that time showed 10% plasma cells in the aspirate and 20% in the biopsy. His M protein quantitated at 1 g compared to 0.3 g in February 2014. It was opted at that time to resume treatment with pomalidomide in combination with cyclophosphamide and dexamethasone. As of 03/05/2015 he had completed 7 cycles of treatment with the cyclophosphamide administered on a day 1/day 15 schedule. He had a restaging evaluation at the [facility] on 08/12/2015. Bone marrow aspiration/biopsy at that time showed an overall cellularity of 35%. The aspirate showed 6% plasma cells. By flow cytometry total plasma cells were estimated at 1.23%, with 0.69% myeloma cells and 0.54% normal plasma cells. The chromosome analysis showed a translocation involving chromosomes 4 and 8 in a single cell. The clinical significance of that finding was uncertain. He was advised to continue treatment with pomalidomide, dexamethasone, and cyclophosphamide. As of November 2015 the cyclophosphamide was put on hold due to persistent neutropenia. He had follow-up at [facility] in June 2017. His MRI bone marrow blood supply exam on 07/07/2017 showed a slight increase of mild hyperintense homogeneous signal in the marrow of the axial and peripheral skeletons. There was a slight increase of mildly restricted diffusion noted in the marrow cavity. There was interval development of a 2.5 cm focal lesion in the right posterior ilium with restricted diffusion and a 2 cm focal lesion in the right posterior elements at approximately T6, also with restricted diffusion. Bilateral small calvarial lesions were noted with interval punctate and bilateral interval rib lesions were noted. His bone marrow aspiration/biopsy on 07/10/2017 showed overall cellularity of 30% with the differential showing 7% plasma cells. The immunohistochemical stain for CD138 showed 5-10% plasma cells with interstitial and patchy distribution. His M protein was quantitated 0.7 g/dL. He was seen for a follow-up visit here on 07/11/2017. At that point he had become significantly more fatigued. He complained of shortness of breath, and he had been having episodes of passing out. His hemoglobin had dropped to 8.7 g. He was transfused 2 U of packed red blood cells on 07/13/2017. He had symptomatic improvement. He then returned to [facility] and on 07/15/2017 he began treatment with daratuzumab in addition to the pomalidomide/dexamethasone. He had no significant toxicity with the initial infusion of daratuzumab. During subsequent follow-up, there was a gradual decline in his granulocyte count. It nadired at 1200 at week 5 of daratuzumab, but it subsequently increased. He received week 8 of daratuzumab on 09/05/2017. His treatment was then put on hold due to persistent/recurrent pneumonia. He was admitted to the hospital on 09/14/2017 and again on 09/24/2017. With the second admission he was feeling weak and he had fallen several times. Brain MRI reported a 3.7 x 1.7 cm marrow replacing lesion within the clivus, consistent with plasmacytoma. A 7 mm focus of acute ischemia was noted in the right cerebellum. There was a small amount of associated edema. With those findings, he was transferred to [facility] for further management. His evaluation there was consistent with cerebellar stroke with subacute lacunar ischemic infarct on the right cerebellar hemisphere. Also reported was an expansile myelomatous clival lesion with bony erosion of the left carotid canal, erosion of the anterior and posterior cortex of the clivus, and extension into the sphenoid sinuses. The pneumonia improved after 7 days of IV cefepime. He was seen here again on 10/19/2017 and at that time he completed his 9th infusion of daratumumab. His next scheduled treatment was put on hold due to neutropenia and symptoms of respiratory infection. On 11/10/2017 he was admitted to the hospital with neutropenic fever. He was transferred to [facility] for further care. After recovering from that illness he had a restaging evaluation for the myeloma. His bone marrow aspiration/biopsy showed 5% plasma cells. His M protein quantitated at 0.4 g/dL. MRI bone marrow blood supply on 12/18/2017 showed interval worsening with increased size of the focal lesions involving the right temporal bone, clivus, and left parietal bone. There were only minimal changes noted in the spine from the previous studies. There was minimal progression of lesions in the proximal right humerus and in the upper sternum. With those findings, it was recommended that he change treatment to carfilzomib in combination with dexamethasone. He began cycle 1 on 12/27/2017 with the carfilzomib dosed at 20 mg/m???. He also started monthly replacement therapy with IVIG. At day 8 of cycle 1 the carfilzomib dosage was escalated to 36 mg/m???. He tolerated it well, and he was able to continue with cycle 2 on 01/24/2018. As of February 2018 he had completed 3 cycles of treatment. In May 2018 he underwent a stem cell transplant procedure at [facility]. He has had a gradual recovery following that treatment. I had seen him for follow-up here in September 2018. At that time he appeared stable clinically. He then continued his further follow-up at [facility]. His repeat bone marrow aspiration/biopsy on 06/12/2019 showed an unexpected finding of involvement with moderately differentiated metastatic adenocarcinoma which was felt to be most consistent with prostatic origin. It was morphologically negative for plasma cell neoplasm. His PSA was elevated in the range of 20 ng/mL. Restaging CT scans of the chest, abdomen, and pelvis on 06/22/2019 showed a small spiculated residual nodular density in the right upper lobe measuring 1.3 cm, decreased in size from 3.5 cm on a prior PET/CT from January 2019. It was felt to be most likely infectious/inflammatory. There were persistent tree-in-bud type nodularity in both lungs, particularly the lower lobes, felt to be suggestive of multifocal infectious/inflammatory change. There were no new pulmonary nodules and there was no pulmonary consolidation noted. There was no evidence of visceral/sherman metastatic disease in the abdomen/pelvis. There were faint sclerotic lesions in the C7 and T1 vertebral bodies. A bone scan on 06/24/2019 showed multiple focal areas of abnormal uptake which corresponded to the FDG avid osseous lesions noted on the PET/CT from 06/07/2019. These include with the upper thoracic spine, left T9 transverse process, and left posterior ischium. Overall, the findings were felt to be consistent with osteoblastic metastatic disease favoring metastatic prostate cancer over multiple myeloma. He began treatment with bicalutamide 50 mg daily, and he was then seen here on to continue his androgen deprivation locally. He received his initial injection of Depo-Lupron 22.5 mg on 07/01/2019. He tolerated with no adverse effects, and he then continued with a second Lupron injection on 10/01/2019. At that point his PSA had decreased to 0.11 ng/mL. He was seen for a follow-up visit at [facility] on 10/25/2019. His PET/CT showed an FDG avid right frontotemporal calvarial lesion measuring 2 cm, but with interval resolution of abnormal FDG uptake within a sclerotic left posterior iliac lesion. There was no evidence of metastatic disease. With that finding, he was recommended to restart treatment for the myeloma with daratumumab in combination with cyclophosphamide 100 mg weekly, Revlimid 10 mg daily on a 21/28-day schedule, and dexamethasone 8 mg. He began his week 1 daratumumab on 10/30/2019. He tolerated the daratumumab without acute toxicity, and he then continued the daratumumab weekly. At his follow-up visit on 11/20/2019 the lenalidomide and cyclophosphamide were put on hold due to neutropenia, ANC 1300. Both were restarted on 12/04/2019 but with the lenalidomide dosage reduced to 5 mg daily. As of December 2019 the frequency of the daratumumab infusions was reduced to every 2 weeks and during that time he continued treatment for the prostate cancer with Zoladex in combination with enzalutamide. He also continued replacement IVIG. His repeat bone marrow aspiration/biopsy on 09/09/2020 showed 40% cellularity with involvement by plasma cell neoplasm, though with <5% plasma cells reported on both the aspirate and the core biopsy. His M protein is reported <0.1. His PET/CT imaging showed at least 3 FDG avid marrow lesions and worsening of the clivus lesion with adjacent soft tissue involvement and large cortical defect. At his follow-up visit at [facility] on 09/15/2020 it was recommended that he transition to salvage therapy with belantamab mafodotin. He received cycle 1 on 10/08/2020. He tolerated it well and continue with cycle 2 on 11/11/2020. He was seen for follow-up at [facility] on 12/03/2020. There was again evidence of further disease progression by PET/CT. He was recommended to change treatment to weekly carfilzomib beginning at 20 mg/m2 by IV infusion together with pomalidomide 3 mg daily on a 21/28-day schedule and dexamethasone 12 mg IV weekly. He is seen for a follow-up visit. He has been feeling a little better generally since he has been off treatment for a while, though his energy is still not so good. He is able to do some light work. ECOG score is 1. His appetite is not good, but that has improved somewhat. His weight is stable. He does not have fever, night sweats, or hot flashes. His sinusitis symptoms have improved somewhat. He has not had sore mouth or throat. He does not complain of cough. His breathing has been okay, and he has not been having chest pain. He had been having diarrhea for a while, but that has resolved. He has no other GI or complaints. He complains that his back feels tired or weak, but he is not having much pain now. He does have some headaches when he first gets up in the morning. He also feels a little lightheaded at times. He has numbness/tingling in his hands and feet. Medications: Acyclovir 1 (200 mg) Tablet Oral daily, Adult Aspirin EC Low Strength 1 Tablet (of 81 mg) Tablet, enteric coated Oral daily, Albuterol Sulfate 1 ((2.5 mg/3ml) 0.083%) Nebulization solution Inhalation four times a day PRN, Aspirin 1 (81 mg) Tablet Oral daily, Baclofen 1 (10 mg) Tablet Oral at bedtime PRN, Casodex 1 Tablet (of 50 mg) Oral daily, Colace Capsule Oral daily PRN, cultrelle 1 Capsule Oral daily, Cyproheptadine HCl 1 (4 mg) Tablet Oral b.i.d. PRN, D3-1000 Tablet Oral daily, Dapsone 1 Tablet (of 100 mg) Oral daily, Effexor XR 1 (75 mg) Capsule SR 24 HR Oral daily, Folic Acid 1 (1000 mcg) Tablet Oral b.i.d., Gabapentin 1 Capsule (of 600 mg) Oral at bedtime, Hydrocodone-Acetaminophen 1 (10-325 mg) Tablet Oral four times a day PRN, Ipratropium-Albuterol 1 (20-100 mcg/act) Aerosol, solution Inhalation daily, Mirtazapine 1 Tablet (of 15 mg) Oral daily, Multivitamins 1 Capsule Oral daily, Pantoprazole Sodium 1 Tablet (of 40 mg) Tablet, enteric coated Oral daily PRN, Phos-NaK 1 Packet (of 280-160-250 mg) Pack Oral daily for 90 days, Questran 1 (4 g) Pack Oral daily, Xanax 1 Tablet (of 0.5 mg) Oral t.i.d. PRN, Zofran 1 Tablet (of 8 mg) Oral four times a day PRN Allergies: No Known Allergies. Vital Signs: Performed on Jan 14, 2021 08:56 Height - 67.00 in Weight - 167.8 lbs (LOW) BSA - 1.88 sq.m BMI - 26.28 Temperature - 97.1 F (LOW) Pulse - 91 /min Respiration - 18 /min BP - 153/85 mm(hg) (HIGH) O2 Sat - 96 % Pain - 0 Fatigue - 7 Physical Examination: Constitutional - He appears somewhat weak generally, Eyes - Sclerae nonicteric. Conjunctivae clear, ENMT - No lesions noted in the oral cavity, Hematologic/Lymphatic - No cervical, clavicular, or axillary adenopathy, Respiratory - Lungs sound clear with some decrease in air movement bilaterally, Cardiovascular - Heart rhythm is regular. There is no murmur, gallop, or rub noted, Abdomen - Soft. Liver and spleen are not enlarged. There is no abdominal mass or ascites noted and there is no inguinal adenopathy, Extremities - There are mild venous stasis changes bilaterally. There is slight edema, Neurologic - No focal neurologic deficits noted. Lab/Imaging: CBC shows hemoglobin 7.3 g, white blood cell count 6500, and platelet count 39,000. Comprehensive metabolic profile shows borderline renal function with BUN 27 and creatinine 1.4 mg/dL. Bilirubin and liver enzymes are normal. The PSA level remains adequately suppressed at 0.020 ng/mL with testosterone level in castrate range at 2.5 ng/dL. Problem List: 1. IgA kappa myeloma, stage IIIB. He had severe osteopenia with multiple vertebral compression fractures at initial diagnosis in October 2009. 2. His bone marrow aspiration/biopsy on 06/12/2019 showed unexpected finding of moderately differentiated metastatic adenocarcinoma of the mid most consistent with prostatic origin. His PET/CT and bone scans showed several foci of osteoblastic involvement felt to be most consistent with metastatic prostate cancer. 3. 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 He is on replacement IVIG due to recurrent episodes of pneumonia. 4. Chronic anemia, multifactorial, transfusion dependent. 5. He has evidence of transfusion associated iron overload. 6. Treatment related peripheral neuropathy. 7. History of cerebellar stroke in September 2017. 8. Depression. Problems Addressed with this Encounter and Plan: 1. IgA kappa myeloma, stage IIIB. He had severe osteopenia with multiple vertebral compression fractures at initial diagnosis in October 2009. He has been followed at [facility] and has been extensively treated. His prior treatments included: Induction therapy on the Total Therapy 4 program followed by tandem stem cell transplants with high-dose melphalan conditioning. Maintenance therapy with VRD, stopped in February 2013 due to side effects. Multiple salvage therapies following relapse in July 2014, including repeat stem cell transplant in May 2018. Daratumumab in combination with cyclophosphamide, lenalidomide, and dexamethasone, stopped as of September 2020. Belantamab mafodotin at a standard dose of 2.5 mg/kg by IV infusion every 3 weeks beginning October 08, 2020. Cycle 2 administered 11/11/2020. At his follow-up visit at [facility] in November 2020 there was evidence of further disease progression by PET/CT. He has now going to start further treatment with carfilzomib administered by IV infusion weekly, initially at a dosage of 20 mg/m2, to be escalated as tolerated, and administered in conjunction with pomalidomide 3 mg daily on a 21/28-day schedule and with dexamethasone 12 mg IV weekly. He will start cycle 1 today. His baseline echocardiogram showed adequate LV function. The main concern for potential toxicity is to the baseline thrombocytopenia. 2. He has chronic anemia which appears to be multifactorial. He will be transfused as needed. 3. He has hypogammaglobulinemia with chronic immunosuppression associated with his myeloma. He will continue replacement IVIG monthly. 4. Metastatic prostate cancer, diagnosed by bone marrow aspiration/biopsy on 06/12/2019. He has had a good response to androgen deprivation therapy. He is due for Zoladex today, and will be continued at the same dosage, 10.8 mg. He also continues enzalutamide 160 mg daily. 5. He has chronic pain, due in part to his multiple vertebral compression fractures and to treatment related neuropathy. It is managed symptomatically. Signed By: Christopher Brody M.D. <<Signature on File>>
== END 2021-01-14 05:44 | disposition home or self-care (01) ==
LOC: ONCMED 05:44
PROVIDERS: PCP Family Medicine; Visit Provider Internal Medicine Medical Oncology
DX: Z51.11 Encounter for antineoplastic chemotherapy (principal); C90.00 Multiple myeloma not having achieved remission; C61 Malignant neoplasm of prostate; D64.9 Anemia, unspecified; D80.1 Nonfamilial hypogammaglobulinemia; G89.29 Other chronic pain; G62.9 Polyneuropathy, unspecified; Z79.818 Long term (current) use of other agents affecting estrogen receptors and estrogen levels; Z79.899 Other long term (current) drug therapy; Z79.82 Long term (current) use of aspirin
CPT/HCPCS: 36430; 84153; 84403; 86850; 86900; 86920; 96366; 96367; 96372; 96375; 96402; 96413; 99215; J1100; J1200; J1568; J1940; J2405; J3490; J7040; J7050; J9047; J9202; P9040

== ENCOUNTER 2021-01-21 06:15 | Outpatient (CLI) | payer MEDICARE, BC, SELFPAY ==
[2021-01-21 12:58] LABS: Basophils % 0.4 %; Eosinophils # 0.1 10^3/uL (0.0-0.8); Eosinophils % 2.8 %; Hematocrit 28.9 % (42.0-52.0); Lymphocytes % 39.6 %; Mean Corpuscular HGB Conc 31.1 g/dL (30.0-36.0); Mean Corpuscular Hemoglobin 35.9 pg (28.0-34.0); Mean Corpuscular Volume 115.1 fl (80-94); Mean Platelet Volume 11.9 fL (7.4-10.4); Monocytes # 0.4 10^3/uL (0.2-0.9); Monocytes % 8.7 %; Neutrophils # 2.39 10^3/uL (1.8-7.7); Neutrophils % 48.1 %; Nucleated Red Blood Cells % 0 %; Platelet Count 34 10^3/cmm (130-400); Red Blood Count 2.51 10^6/uL (4.1-5.3); Red Cell Distribution Width 22.2 % (12.1-15.1)
[2021-01-21 13:25] LABS: Alanine Aminotransferase 25 U/L (0-41); Albumin Level 3.3 g/dL (3.5-5.2); Alkaline Phosphatase 114 IU/L (40-130); Anion Gap 13.3 (5-19); Aspartate Amino Transferase 28 U/L (0-40); Blood Urea Nitrogen 19 mg/dL (8-23); Calcium 8.4 mg/dL (8.5-10.5); Carbon Dioxide 25 mmol/L (22-29); Chloride 100 mmol/L (98-107); Globulin 3.5 g/dL (1.3-4.6); Glomerular Filtration Rate 60.4 mL/min (90-130); Glucose 107 mg/dL (65-115); Osmolality Calculated 281 mOsm/kg (285-295); Potassium 4.3 mmol/L (3.5-5.1); Sodium 134 mmol/L (136-145); Total Bilirubin 0.3 mg/dL (0.15-1.2); Total Protein 6.8 g/dL (6.6-8.7)
[2021-01-21] MEDS: sodium chloride 0.9% 500 ML 999 ML IV (13:48)
[2021-01-21] MEDS: dextrose 5% 250 ML 75 ML IV (13:48)
[2021-01-21] MEDS: acetaminophen 325 mg Tablet 650 MG PO (14:12)
[2021-01-21] MEDS: ondansetron 2 mg/ML SDV 2 mL 8 MG IVP (14:12)
[2021-01-21] MEDS: famotidine 20 mg/2 mL INJ IVP (14:14)
[2021-01-21] MEDS: diphenhydrAMINE 50 mg/mL SDV 1mL 25 MG IVP (14:16)
== END 2021-01-21 06:16 | disposition home or self-care (01) ==
LOC: ONCMED 06:16
PROVIDERS: PCP Family Medicine; Visit Provider Internal Medicine Medical Oncology
DX: Z51.11 Encounter for antineoplastic chemotherapy (principal); C90.00 Multiple myeloma not having achieved remission; Z79.899 Other long term (current) drug therapy
CPT/HCPCS: 80053; 85025; 96361; 96367; 96375; 96413; J1100; J1200; J2405; J3490; J7040; J9047

== ENCOUNTER 2021-01-22 09:53 | Outpatient (CLI) | payer MEDICARE, BC, SELFPAY ==
--- NOTE | 2021-01-22 | CT_ITS ---
WS: [id number] CT HEAD NONCONTRAST HISTORY: MYELOMA W/ NEW LUMP ON CALVARIUM TECHNIQUE: Contiguous axial imaging performed through the brain in 2.5 mm imaging. Bone and soft tiss ue windows. All CT scans at [facility] use at least one of these dose optimization techniques: automated exposure control; mA and/or kV adjustment per patient size (includes targeted exams where dose is matched to clinical indication); or iterative reconstruction. DLP: 2182.49 mGycm COMPARISON: MRI noncontrast 09/25/2017. There is a large destructive and expansile lesion centered at the skull base with extension into the sphenoid sinuses and through the foramen magnum and to involve the RIGHT temporal lobe. There is loss of the normal fat planes. Right-sided pterygoid muscles and fat planes have been obliterated. There is expansion of the bone at the skull base and foramen magnum. Part of the petrous bone has been dest royed. There is a large amount of artifact through the skull base. This mass is destroying the clivus . Also likely extends into the cavernous sinuses to encase the carotid artery on the RIGHT. No hydrocephalus. Supratentorial structures are normal. Mastoid air cells: Negative. Calvarium and scalp: Destructive expansile lesion involving the RIGHT lateral frontal bone. There is destruction of the bone extending over length of 3.3 cm. There is a soft tissue tumor expansion at th e site of the destruction. The soft tissue extends to the dura and is causing mild displacement of th e dura. There is additional thickening of the cortex involving the RIGHT parietal bone which could be from old treated lesion. Not is marked soft tissue associated with this area. There are additional s mall lytic areas throughout the skull. CT/CT head wo con* [id number] IMPRESSION: 1. Large soft tissue mass centered at the skull base and greatest to the RIGHT of midline. Destruction of the clivus and skull base including the foramen mag num. This mass is difficult to delineate without contrast and on the CT evaluat ion but there is extensive involvement at the skull base extending greatest int o the RIGHT temporal lobe. Probably encasement of the carotid arteries through the cavernous sinus. No hydrocephalus. MRI with brain with and without contrast recommended to confirm extension of tumor. 2. Lytic destructive areas throughout the skull. The most concerning lytic are a is in the RIGHT frontal bone. Complete destruction of the bone with soft tiss ue mass extending to the dura. Notified Christopher Brody MD at 01/22/2021 10:34 AM.
--- NOTE | 2021-01-22 11:31 | MRR_ITS ---
PROCEDURE INFORMATION: Exam: MR Head Without and With Contrast Exam date and time: 01/22/2021 11:31 AM Age: 65 years old Clinical indication: Condition or disease; Other: Multiple myeloma; Patient HX: New lump on calvarium, vision problems/blurry. Also has HX of prostate CA; Additional info: Eval of new symptoms; Multiple myeloma; Tumors noted on, 01/22 CT TECHNIQUE: Imaging protocol: MR of the head without and with intravenous contrast. Contrast material: MULTIHANCE; Contrast volume: 20 ml; Contrast route: INTRAVENOUS (IV); COMPARISON: CT head wo con* [id number] 01/22/2021 10:16 AM FINDINGS: Brain: No acute infarct. No hemorrhage. No edema. No significant mass effect/midline shift. Please see pituitary gland/sella section for further description of the masses. Cerebral ventricles: Normal. No ventriculomegaly. Pituitary gland and sella: There is an aggressive mass with osseous destruction centered at the clivus/right skull base extending into the sella and encasing the traversing intracranial portion of the right carotid artery at the level of the cavernous sinuses. The mass is also seen partially invading into the anterior inferior aspect of the right temporal lobe. The mass approaches and appears to be causing some narrowing at the level of the right orbital apex and likely is causing displacement and possible impingement of the traversing cranial nerves. The mass measures roughly 4.2 x 4.3 cm in axial dimension. Bones/joints: There is a 3.5 cm diffusion restricting and enhancing mass which has invaded entirely through the right calvarium in the frontotemporal region. While the entire within the calvarium appears involved by the mass, there is no evident direct dural invasion. Additional right occipital craniotomy changes noted. There is a 6 mm enhancing calvarial lesion in the midline frontal region as noted on series 13, image 117. Paranasal sinuses: Mucosal thickening of the right maxillary sinus with trace fluid level in the left maxillary sinus. There is also partially opacified right posterior ethmoid air cells. Mastoid air cells: Right mastoid effusion. Trace left mastoid effusion. Orbital cavity: Post cataract surgical changes of the globes. Soft tissues: Unremarkable. MR/MR head wo/w con [id number] IMPRESSION: 1. Aggressive 4.3 cm malignant mass with osseous destruction centered at the clivus/right sphenoid/skull base and invading into the sella, inferior medial right temporal lobe, and encasing the intracranial portion of the right carotid artery. The mass also obliterates the foramen ovale and foramen spinosum with likely involvement/encasement of the right cranial nerve V3 branch. The mass also invades to the level of the right orbital apex with associated narrowing. Given symptomology, this may be impinging the traversing cranial nerves/optic chiasm, or may be secondary to direct perineural spread or direct invasion of the cavernous sinuses. 2. A couple malignant calvarial lesions, including a dominant right calvarial mass invading the entire width of the calvarium at the right frontotemporal region consistent with malignancy. No evident dural invasion, but early invasion is possible. 3. Right mastoid effusion. 4. Multifocal sinusitis.
[2021-01-22] MEDS: gadobenate dimeglumine 20 mL vial IV (12:29)
== END 2021-01-22 09:54 | disposition home or self-care (01) ==
PROVIDERS: PCP Family Medicine; Visit Provider Internal Medicine Medical Oncology
DX: C90.00 Multiple myeloma not having achieved remission (principal); J32.8 Other chronic sinusitis
CPT/HCPCS: 70450; 70553; A9577

== ENCOUNTER 2021-02-11 06:33 | Outpatient (RCR) | payer MEDICARE, BC, SELFPAY ==
--- NOTE | 2021-01-27 | CT_ITS ---
Radiation Therapy Planning CT images; total exam DLP: 346.38 mGy-cm MTDD
[2021-01-27 08:59] LABS: Basophils % 0.2 %; Eosinophils # 0.2 10^3/uL (0.0-0.8); Eosinophils % 4.4 %; Hematocrit 27.6 % (42.0-52.0); Lymphocytes # 1.5 10^3/uL (0.8-4.8); Mean Corpuscular HGB Conc 32.6 g/dL (30.0-36.0); Mean Corpuscular Hemoglobin 37.5 pg (28.0-34.0); Mean Platelet Volume 11.7 fL (7.4-10.4); Monocytes # 0.7 10^3/uL (0.2-0.9); Monocytes % 15.3 %; Neutrophils # 2.17 10^3/uL (1.8-7.7); Neutrophils % 47.2 %; Nucleated Red Blood Cells % 0 %; Platelet Count 32 10^3/cmm (130-400); Red Cell Distribution Width 21.7 % (12.1-15.1); White Blood Count 4.6 10^3/uL (4.0-10.0)
--- NOTE | 2021-01-27 09:16 | N.ONRAD NP_ITS ---
Radiation Oncology Consultation Patient Name: Flaco Cardona Date of : 1955 Date of Service: 01/27/2021 Attending Physician: Gary Gutierrez M.D. Flaco Cardona was seen this morning at the request of Christopher Brody M.D. for cranial radiotherapy for the palliative management of multiple myeloma. The patient was diagnosed with IgA kappa multiple myeloma in October 2009 after being evaluated for anemia, hypercalcemia, renal failure, and multiple vertebral body compression fractures. He received treatment at the [facility] according to Total Therapy for protocol (induction M-VTD-PACE and second induction VTD-PACE). 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 He received consolidation therapy consisting of VTD-PACE completing in July 2010 followed by maintenance VRD. Revlimid was discontinued due to adverse effects (depression and severe neuropathy). Reevaluation at the [facility] in July 2014 identified disease progression (clivus and right humerus). Pomalidomide, cyclophosphamide, dexamethasone were prescribed. Cyclophosphamide was discontinued in November 2015 secondary to the stent neutropenia. Routine follow-up in June 2017 demonstrated development of a right ileal lesion, a T6 lesion, and calvarial lesions. Significant anemia developed and daratumumab, pomalidomide, and dexamethasone were instituted. This therapy was discontinued secondary to recurrent pneumonia. During an admission for pneumonia, an MRI of the brain identified a 3.7 x 1.7 cm clival lesion. In December 2017 the patient's chemotherapy regimen was changed to carfilzomib and dexamethasone and monthly IVIG. In May 2018 a stem cell transplant procedure was performed. A repeat bone marrow biopsy in May 2019 disclosed a moderately differentiated metastatic adenocarcinoma consistent with a prostatic origin. His PSA was greater than 20 ng/mL. A thoracoabdominopelvic CT scan discovered sclerotic lesions in C7 and T1 vertebral bodies. A follow-up nuclear bone scan confirmed multiple focal areas of abnormal uptake in the thoracic spine, and ischium. The radiographic findings were consistent with osteoblastic metastatic disease favoring metastatic prostate cancer. Bicalutamide was instituted. In October 2019, myeloma treatment was resumed with daratumumab, cyclophosphamide, Revlimid, and dexamethasone. PET/CT imaging ordered in August 2020 showed worsening of the clival lesion and a large cortical defect. Salvage chemotherapy consisting of belantamab mafodotin was started. Repeat imaging in November confirmed disease progression. His chemotherapy regimen was changed to carfilzomib, pomalidomide, and dexamethasone. A recent CT of the head obtained for a new skull lesion discerned a destructive and expansile lesion of the right lateral frontal bone measuring 3.3 cm and a skull base lesion invading the sphenoid sinuses and the foramen magnum with involvement of the right temporal lobe. This mass significantly involves the clivus and extends into the cavernous sinus encasing the right carotid artery. Lytic destruction was evident throughout the skull. An MRII of the brain ordered on January 22, 2021 (independently visualized in [facility]) confirmed the aggressive mass in the clivus extending into the sella turcica and encasing the right carotid artery at the level of the cavernous sinuses. The mass invades the right temporal lobe and is narrowing the right orbital apex with probable displacement of the cranial nerves. The mass measures 4.2 cm x 4.3 cm. Also reported was a 3.5 cm enhancing mass invading through the right calvarium into the right frontotemporal region. A 6 mm calvarial lesion was also observed in the midline frontal region. The patient was evaluated for palliative radiotherapy to the calvarial lesions and clival mass. I discussed with the patient the role for radiotherapy in the setting of multiple myeloma. I anticipate a 2 week course of treatment. A computed tomographic radiotherapy planning scan in the treatment position will be performed to delineate the gross tumor volume. The potential toxicities of cranial radiotherapy were reviewed. The patient has verbalized understanding would like to proceed as recommended. The medical treatment plan was discussed with Christopher Brody M.D. Signed by: Dr. Gary Gutierrez 01/28/2021 7:45:39 AM
[2021-01-27 09:19] LABS: Alanine Aminotransferase 25 U/L (0-41); Albumin Level 3.4 g/dL (3.5-5.2); Alkaline Phosphatase 117 IU/L (40-130); Anion Gap 15.1 (5-19); Aspartate Amino Transferase 22 U/L (0-40); Blood Urea Nitrogen 31 mg/dL (8-23); Calcium 9.2 mg/dL (8.5-10.5); Carbon Dioxide 24 mmol/L (22-29); Chloride 104 mmol/L (98-107); Globulin 3.2 g/dL (1.3-4.6); Glomerular Filtration Rate 60.4 mL/min (90-130); Glucose 79 mg/dL (65-115); Osmolality Calculated 293 mOsm/kg (285-295); Potassium 4.1 mmol/L (3.5-5.1); Sodium 139 mmol/L (136-145); Total Bilirubin 0.4 mg/dL (0.15-1.2); Total Protein 6.6 g/dL (6.6-8.7)
[2021-01-28] MEDS: sodium chloride 0.9% 500 ML 999 ML IV (10:41)
[2021-01-28] MEDS: famotidine 20 mg/2 mL INJ IVP (11:00)
[2021-01-28] MEDS: acetaminophen 325 mg Tablet 650 MG PO (11:00)
[2021-01-28] MEDS: ondansetron 2 mg/ML SDV 2 mL 8 MG IV (11:01)
[2021-01-28] MEDS: diphenhydrAMINE 50 mg/mL SDV 1mL 25 MG IV (11:02)
[2021-01-28 12:55] VITALS: BP 169/75; PULSE 84; RESP 18; TEMP 36.2; O2SAT 97
[2021-01-28 13:10] VITALS: BP 137/84; PULSE 89; RESP 18; TEMP 36.2; O2SAT 96
--- NOTE | 2021-01-28 15:53 | ONC FU_ITS ---
Dr. Brody Patient Follow-Up Note Patient: Flaco Cardona Unit #: [id number]: 1955 Dicatated By: Christopher Brody M.D.Date of Visit:Jan 28, 2021 Onc Med Follow-up/Prog Note Chief Complaint: Myeloma/prostate cancer. History of Present Illness: This is a 65 year-old man with IgA kappa myeloma, stage IIIB. During followup he was found to have metastatic prostate cancer involving the bone marrow. He was diagnosed with IgA kappa myeloma in October 2009. He presented at that time with anemia, hypercalcemia, renal failure, and severe osteopenia with multiple vertebral compression fractures. He was seen at the [facility] for his initial evaluation. He was treated on their standard arm Total Therapy 4 which included M-VTD-PACE induction and a second induction with VTD-PACE. He then underwent tandem transplants with high-dose melphalan conditioning in February and in March 2010. He reportedly had an excellent response to the treatment, and he was then consolidated with VTD-PACE in June 2010 and July 2010 followed by maintenance VRD. His maintenance therapy was complicated by depression due to Revlimid and severe neuropathy, and treatment was stopped by June 2011. He restarted treatment with Revlimid in August 2012, but he was again unable to tolerate it due to depression. He stopped treatment again in February 2013. He underwent evaluation at the [facility] in July 2014. At that time he was felt to have disease progression with MRI reporting new lesions in the clivus and in the right humerus. Bone marrow at that time showed 10% plasma cells in the aspirate and 20% in the biopsy. His M protein quantitated at 1 g compared to 0.3 g in February 2014. It was opted at that time to resume treatment with pomalidomide in combination with cyclophosphamide and dexamethasone. As of 03/05/2015 he had completed 7 cycles of treatment with the cyclophosphamide administered on a day 1/day 15 schedule. He had a restaging evaluation at the [facility] on 08/12/2015. Bone marrow aspiration/biopsy at that time showed an overall cellularity of 35%. The aspirate showed 6% plasma cells. By flow cytometry total plasma cells were estimated at 1.23%, with 0.69% myeloma cells and 0.54% normal plasma cells. The chromosome analysis showed a translocation involving chromosomes 4 and 8 in a single cell. The clinical significance of that finding was uncertain. He was advised to continue treatment with pomalidomide, dexamethasone, and cyclophosphamide. As of November 2015 the cyclophosphamide was put on hold due to persistent neutropenia. He had follow-up at [facility] in June 2017. His MRI bone marrow blood supply exam on 07/07/2017 showed a slight increase of mild hyperintense homogeneous signal in the marrow of the axial and peripheral skeletons. There was a slight increase of mildly restricted diffusion noted in the marrow cavity. There was interval development of a 2.5 cm focal lesion in the right posterior ilium with restricted diffusion and a 2 cm focal lesion in the right posterior elements at approximately T6, also with restricted diffusion. Bilateral small calvarial lesions were noted with interval punctate and bilateral interval rib lesions were noted. His bone marrow aspiration/biopsy on 07/10/2017 showed overall cellularity of 30% with the differential showing 7% plasma cells. The immunohistochemical stain for CD138 showed 5-10% plasma cells with interstitial and patchy distribution. His M protein was quantitated 0.7 g/dL. He was seen for a follow-up visit here on 07/11/2017. At that point he had become significantly more fatigued. He complained of shortness of breath, and he had been having episodes of passing out. His hemoglobin had dropped to 8.7 g. He was transfused 2 U of packed red blood cells on 07/13/2017. He had symptomatic improvement. He then returned to [facility] and on 07/15/2017 he began treatment with daratuzumab in addition to the pomalidomide/dexamethasone. He had no significant toxicity with the initial infusion of daratuzumab. During subsequent follow-up, there was a gradual decline in his granulocyte count. It nadired at 1200 at week 5 of daratuzumab, but it subsequently increased. He received week 8 of daratuzumab on 09/05/2017. His treatment was then put on hold due to persistent/recurrent pneumonia. He was admitted to the hospital on 09/14/2017 and again on 09/24/2017. With the second admission he was feeling weak and he had fallen several times. Brain MRI reported a 3.7 x 1.7 cm marrow replacing lesion within the clivus, consistent with plasmacytoma. A 7 mm focus of acute ischemia was noted in the right cerebellum. There was a small amount of associated edema. With those findings, he was transferred to [facility] for further management. His evaluation there was consistent with cerebellar stroke with subacute lacunar ischemic infarct on the right cerebellar hemisphere. Also reported was an expansile myelomatous clival lesion with bony erosion of the left carotid canal, erosion of the anterior and posterior cortex of the clivus, and extension into the sphenoid sinuses. The pneumonia improved after 7 days of IV cefepime. He was seen here again on 10/19/2017 and at that time he completed his 9th infusion of daratumumab. His next scheduled treatment was put on hold due to neutropenia and symptoms of respiratory infection. On 11/10/2017 he was admitted to the hospital with neutropenic fever. He was transferred to [facility] for further care. After recovering from that illness he had a restaging evaluation for the myeloma. His bone marrow aspiration/biopsy showed 5% plasma cells. His M protein quantitated at 0.4 g/dL. MRI bone marrow blood supply on 12/18/2017 showed interval worsening with increased size of the focal lesions involving the right temporal bone, clivus, and left parietal bone. There were only minimal changes noted in the spine from the previous studies. There was minimal progression of lesions in the proximal right humerus and in the upper sternum. With those findings, it was recommended that he change treatment to carfilzomib in combination with dexamethasone. He began cycle 1 on 12/27/2017 with the carfilzomib dosed at 20 mg/m???. He also started monthly replacement therapy with IVIG. At day 8 of cycle 1 the carfilzomib dosage was escalated to 36 mg/m???. He tolerated it well, and he was able to continue with cycle 2 on 01/24/2018. As of February 2018 he had completed 3 cycles of treatment. In May 2018 he underwent a stem cell transplant procedure at [facility]. He has had a gradual recovery following that treatment. I had seen him for follow-up here in September 2018. At that time he appeared stable clinically. He then continued his further follow-up at [facility]. His repeat bone marrow aspiration/biopsy on 06/12/2019 showed an unexpected finding of involvement with moderately differentiated metastatic adenocarcinoma which was felt to be most consistent with prostatic origin. It was morphologically negative for plasma cell neoplasm. His PSA was elevated in the range of 20 ng/mL. Restaging CT scans of the chest, abdomen, and pelvis on 06/22/2019 showed a small spiculated residual nodular density in the right upper lobe measuring 1.3 cm, decreased in size from 3.5 cm on a prior PET/CT from January 2019. It was felt to be most likely infectious/inflammatory. There were persistent tree-in-bud type nodularity in both lungs, particularly the lower lobes, felt to be suggestive of multifocal infectious/inflammatory change. There were no new pulmonary nodules and there was no pulmonary consolidation noted. There was no evidence of visceral/sherman metastatic disease in the abdomen/pelvis. There were faint sclerotic lesions in the C7 and T1 vertebral bodies. A bone scan on 06/24/2019 showed multiple focal areas of abnormal uptake which corresponded to the FDG avid osseous lesions noted on the PET/CT from 06/07/2019. These include with the upper thoracic spine, left T9 transverse process, and left posterior ischium. Overall, the findings were felt to be consistent with osteoblastic metastatic disease favoring metastatic prostate cancer over multiple myeloma. He began treatment with bicalutamide 50 mg daily, and he was then seen here on to continue his androgen deprivation locally. He received his initial injection of Depo-Lupron 22.5 mg on 07/01/2019. He tolerated with no adverse effects, and he then continued with a second Lupron injection on 10/01/2019. At that point his PSA had decreased to 0.11 ng/mL. He was seen for a follow-up visit at [facility] on 10/25/2019. His PET/CT showed an FDG avid right frontotemporal calvarial lesion measuring 2 cm, but with interval resolution of abnormal FDG uptake within a sclerotic left posterior iliac lesion. There was no evidence of metastatic disease. With that finding, he was recommended to restart treatment for the myeloma with daratumumab in combination with cyclophosphamide 100 mg weekly, Revlimid 10 mg daily on a 21/28-day schedule, and dexamethasone 8 mg. He began his week 1 daratumumab on 10/30/2019. He tolerated the daratumumab without acute toxicity, and he then continued the daratumumab weekly. At his follow-up visit on 11/20/2019 the lenalidomide and cyclophosphamide were put on hold due to neutropenia, ANC 1300. Both were restarted on 12/04/2019 but with the lenalidomide dosage reduced to 5 mg daily. As of December 2019 the frequency of the daratumumab infusions was reduced to every 2 weeks and during that time he continued treatment for the prostate cancer with Zoladex in combination with enzalutamide. He also continued replacement IVIG. His repeat bone marrow aspiration/biopsy on 09/09/2020 showed 40% cellularity with involvement by plasma cell neoplasm, though with <5% plasma cells reported on both the aspirate and the core biopsy. His M protein is reported <0.1. His PET/CT imaging showed at least 3 FDG avid marrow lesions and worsening of the clivus lesion with adjacent soft tissue involvement and large cortical defect. At his follow-up visit at [facility] on 09/15/2020 it was recommended that he transition to salvage therapy with belantamab mafodotin. He received cycle 1 on 10/08/2020. He tolerated it well and continue with cycle 2 on 11/11/2020. He was seen for follow-up at [facility] on 12/03/2020. There was again evidence of further disease progression by PET/CT. He was recommended to change treatment to weekly carfilzomib beginning at 20 mg/m2 by IV infusion together with pomalidomide 3 mg daily on a 21/28-day schedule and dexamethasone 12 mg IV weekly. He was seen here on 01/14/2021 to begin his day 1 treatment. His baseline echocardiogram showed adequate LV function with estimated ejection fraction at 60%. He tolerated his treatment without acute toxicity. He presented for day 8 treatment on 01/21/2021. At that time he had developed a new, painful nodule in the right lateral forehead area. Head CT on 01/22/2021 showed lytic destructive areas throughout the skull. The most concerning lytic area was in the right frontal bone, correlating with the palpable mass. It was associated with complete destruction of the bone with soft tissue mass extending to the dura. The most significant finding, though, was a large soft tissue mass centered at the skull base in greatest to the right of the midline. There was destruction of the clivus and skull base including the foramen magnum. Further evaluation with MRI showed a 4.3 cm malignant mass with osseous destruction centered at the clivus/right sphenoid/skull base and invading into the sella and inferior medial right temporal lobe. There was also associated encasement of the intracranial portion of the right carotid artery. The mass was noted to obliterate the foramen ovale and the foramen despite no some with likely involvement/encasement of the right cranial nerve V3 branch. There was invasion to the level of the right orbital apex with associated narrowing. With those findings, he is now seeing Dr. Gutierrez for palliative radiation. He was seen for his scheduled day 15 visit. He reports having constant headache. He says it never completely goes away, but his pain medication does help make it manageable. He says he has been having nosebleed after nosebleed, lasting anywhere from 30 minutes for up to 4 hours. It is mainly from the right side. He says his energy is lackluster. He does still try to get out and do things, but his activity is limited. ECOG score is 2. Appetite is fair. He has not had fever. He occasionally has sweating. He is having some double vision, particularly when he first gets up in the morning. He has not had sore mouth or throat. He has having some shortness of breath. He does not complain of cough, and he has not been having chest pain. He has just occasional nausea. Bowel and bladder function remain adequate. He also has back pain, which is chronic. Has occasional orthostatic lightheadedness. He has neuropathy, but thus far it has not been getting any worse. Medications: Acyclovir 1 (200 mg) Tablet Oral daily, Albuterol Sulfate 1 ((2.5 mg/3ml) 0.083%) Nebulization solution Inhalation four times a day PRN, Baclofen 1 (10 mg) Tablet Oral at bedtime PRN, Casodex 1 Tablet (of 50 mg) Oral daily, Colace Capsule Oral daily PRN, cultrelle 1 Capsule Oral daily, Cyproheptadine HCl 1 (4 mg) Tablet Oral b.i.d. PRN, D3-1000 Tablet Oral daily, Dapsone 1 Tablet (of 100 mg) Oral daily, Effexor XR 1 (75 mg) Capsule SR 24 HR Oral daily, Folic Acid 1 (1000 mcg) Tablet Oral b.i.d., Gabapentin 1 Capsule (of 600 mg) Oral at bedtime, Hydrocodone-Acetaminophen 1 (10-325 mg) Tablet Oral four times a day PRN, Ipratropium-Albuterol 1 (20-100 mcg/act) Aerosol, solution Inhalation daily, Mirtazapine 1 Tablet (of 15 mg) Oral daily, Multivitamins 1 Capsule Oral daily, Pantoprazole Sodium 1 Tablet (of 40 mg) Tablet, enteric coated Oral daily PRN, Phos-NaK 1 Packet (of 280-160-250 mg) Pack Oral daily for 90 days, Questran 1 (4 g) Pack Oral daily, Xanax 1 Tablet (of 0.5 mg) Oral t.i.d. PRN, Zofran 1 Tablet (of 8 mg) Oral four times a day PRN Allergies: No Known Allergies. Vital Signs: Performed on Jan 28, 2021 09:50 Height - 67.00 in Weight - 169.2 lbs (HIGH) BSA - 1.88 sq.m BMI - 26.50 Temperature - 96.8 F (LOW) Pulse - 90 /min Respiration - 18 /min BP - 158/89 mm(hg) (HIGH) O2 Sat - 99 % Pain - 5 Fatigue - 8 Physical Examination: Constitutional - He appears somewhat weak generally, Head - There is a palpable bony nodule in the right frontal calvarium laterally, Eyes - Sclerae nonicteric. Conjunctivae clear, ENMT - No lesions noted in the oral cavity, Hematologic/Lymphatic - No cervical, clavicular, or axillary adenopathy, Respiratory - Lungs sound clear with some decrease in air movement bilaterally, Cardiovascular - Heart rhythm is regular. There is no murmur, gallop, or rub noted, Abdomen - Soft. Liver and spleen are not enlarged. There is no abdominal mass or ascites noted and there is no inguinal adenopathy, Extremities - There are venous stasis changes bilaterally. There is currently no edema, Neurologic - No focal neurologic deficits noted. Lab/Imaging: CBC shows hemoglobin 9.0 g, white blood cell count 4600, and platelet count 32,000. Comprehensive metabolic profile shows stable renal function with BUN 31 and creatinine 1.2 mg/dL. Calcium is 9.2 mg/dL with albumin 3.4 g/dL. Bilirubin and liver enzymes are normal. Problem List: 1. IgA kappa myeloma, stage IIIB. He had severe osteopenia with multiple vertebral compression fractures at initial diagnosis in October 2009. 2. His bone marrow aspiration/biopsy on 06/12/2019 showed unexpected finding of moderately differentiated metastatic adenocarcinoma of the mid most consistent with prostatic origin. His PET/CT and bone scans showed several foci of osteoblastic involvement felt to be most consistent with metastatic prostate cancer. 3. 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 He is on replacement IVIG due to recurrent episodes of pneumonia. 4. Chronic anemia, multifactorial, transfusion dependent. 5. He has evidence of transfusion associated iron overload. 6. Treatment related peripheral neuropathy. 7. History of cerebellar stroke in September 2017. 8. Depression. Problems Addressed with this Encounter and Plan: 1. IgA kappa myeloma, stage IIIB. He had severe osteopenia with multiple vertebral compression fractures at initial diagnosis in October 2009. He has been followed at [facility] and has been extensively treated. His prior treatments included: Induction therapy on the Total Therapy 4 program followed by tandem stem cell transplants with high-dose melphalan conditioning. Maintenance therapy with VRD, stopped in February 2013 due to side effects. Multiple salvage therapies following relapse in July 2014, including repeat stem cell transplant in May 2018. Daratumumab in combination with cyclophosphamide, lenalidomide, and dexamethasone, stopped as of September 2020. Belantamab mafodotin at a standard dose of 2.5 mg/kg by IV infusion every 3 weeks beginning October 08, 2020. Cycle 2 administered 11/11/2020. At his follow-up visit at [facility] in November 2020 there was evidence of further disease progression by PET/CT. He has now going to start further treatment with carfilzomib administered by IV infusion weekly, initially at a dosage of 20 mg/m2, to be escalated as tolerated, and administered in conjunction with pomalidomide 3 mg daily on a 21/28-day schedule and with dexamethasone 12 mg IV weekly. His baseline echocardiogram showed adequate LV function. He is currently at day 15 of his 1st cycle. He continues to have moderately severe thrombocytopenia. His blood counts otherwise remain adequate. He has been having epistaxis, somewhat disproportionate to the severity of the thrombocytopenia. However, under the circumstances, he will be given a platelet pheresis. He will continue with his day 15 carfilzomib, and he will continue the pomalidomide as ordered. 2. At day 8 he presented with a new palpable mass in the right forehead area laterally. He was confirmed by CT and subsequently by MRI to have a bony destructive lesion at that site. More significantly, there was a large mass noted involving the clivus/skull base. He is now seeing Dr. Gutierrez for palliative radiation. As he is having significant headache with it, his pain medication will be increased to immediate release oxycodone 15 mg to take up to 4 times daily as needed. 3. He has chronic anemia which appears to be multifactorial. He will be transfused as needed. 3. Metastatic prostate cancer, diagnosed by bone marrow aspiration/biopsy on 06/12/2019. He has had a good response to androgen deprivation therapy. He is due for Zoladex today, and will be continued at the same dosage, 10.8 mg. He also continues enzalutamide 160 mg daily. Signed By: Christopher Brody M.D. <<Signature on File>>
[2021-02-01] VITALS (8 sets, daily range): BP systolic 132–160; BP diastolic 70–90; PULSE 77–92; RESP 18; TEMP 36.6–37.1; O2SAT 95–96
[2021-02-01 10:57] LABS: Basophils % 0.3 %; Eosinophils # 0.2 10^3/uL (0.0-0.8); Hematocrit 26.2 % (42.0-52.0); Hemoglobin 8.1 g/dL (11.7-16.6); Lymphocytes # 1.5 10^3/uL (0.8-4.8); Lymphocytes % 45.4 %; Mean Corpuscular HGB Conc 30.9 g/dL (30.0-36.0); Mean Corpuscular Hemoglobin 36.3 pg (28.0-34.0); Mean Corpuscular Volume 117.5 fl (80-94); Mean Platelet Volume 11.6 fL (7.4-10.4); Monocytes # 0.4 10^3/uL (0.2-0.9); Monocytes % 11.9 %; Neutrophils # 1.18 10^3/uL (1.8-7.7); Neutrophils % 35.2 %; Nucleated Red Blood Cells % 0.6 %; Platelet Count 31 10^3/cmm (130-400); Red Blood Count 2.23 10^6/uL (4.1-5.3); White Blood Count 3.4 10^3/uL (4.0-10.0)
[2021-02-01 11:23] LABS: Alanine Aminotransferase 24 U/L (0-41); Albumin Level 3.3 g/dL (3.5-5.2); Alkaline Phosphatase 123 IU/L (40-130); Blood Urea Nitrogen 16 mg/dL (8-23); Calcium 8.7 mg/dL (8.5-10.5); Carbon Dioxide 25 mmol/L (22-29); Chloride 103 mmol/L (98-107); Glomerular Filtration Rate 74.5 mL/min (90-130); Glucose 83 mg/dL (65-115); Osmolality Calculated 280 mOsm/kg (285-295); Sodium 135 mmol/L (136-145); Total Bilirubin 0.5 mg/dL (0.15-1.2); Total Protein 6.3 g/dL (6.6-8.7)
[2021-02-01 11:26] LABS: Anion Gap 11.8 (5-19); Aspartate Amino Transferase 23 U/L (0-40); Potassium 4.8 mmol/L (3.5-5.1)
[2021-02-01] MEDS: diphenhydrAMINE 25 mg Capsule PO (11:45)
[2021-02-01] MEDS: acetaminophen 325 mg Tablet 650 MG PO (11:45)
[2021-02-01] MEDS: sodium chloride 0.9% 250 ML 999 ML IV (12:00)
[2021-02-01] MEDS: FUROsemide 10 mg/mL SDV 2mL 20 MG IV (13:55)
--- NOTE | 2021-02-02 14:01 | ONCRAD TMN_ITS ---
Radiation Oncology Treatment Management Note Patient Name: Flaco Cardona Date of : 1955 Date of Service: 02/02/2021 Attending Physician: Gary Gutierrez M.D. Flaco Cardona is a 65 year old white male recently diagnosed with diagnosed with IgA kappa multiple myeloma in October 2009 after being evaluated for anemia, hypercalcemia, renal failure, and multiple vertebral body compression fractures. A recent CT of the head obtained for a new skull lesion discerned a destructive and expansile lesion of the right lateral frontal bone measuring 3.3 cm and a skull base lesion invading the sphenoid sinuses and the foramen magnum with involvement of the right temporal lobe. This mass significantly involves the clivus and extends into the cavernous sinus encasing the right carotid artery. Lytic destruction was evident throughout the skull. An MR I of the brain ordered on January 22, 2021 confirmed the aggressive mass in the clivus extending into the sella turcica and encasing the right carotid artery at the level of the cavernous sinuses. The mass invades the right temporal lobe and is narrowing the right orbital apex with probable displacement of the cranial nerves. The mass measures 4.2 cm x 4.3 cm. Also reported was a 3.5 cm enhancing mass invading through the right calvarium into the right frontotemporal region. A 6 mm calvarial lesion was also observed in the midline frontal region. The patient has received 6 Gy of a prescribed 30 Ni with a 3-dimensional conformal radiotherapy plan utilizing opposed lateral portal pablo. Upon review of systems, he denied any neurological complaints. On physical examination, the patient weighed 173 lbs. His temperature was 97.9 ???F with a blood pressure of 150/98 mmHg. His pulse was 65 bpm and his respiratory rate was 18. Cranial nerves were intact. Continue cranial radiotherapy as prescribed. Signed by: Dr. Gary Gutierrez 02/02/2021 1:59:29 PM
[2021-02-04 10:13] LABS: Basophils % 0.7 %; Eosinophils # 0.3 10^3/uL (0.0-0.8); Eosinophils % 6.4 %; Hematocrit 33.8 % (42.0-52.0); Hemoglobin 10.9 g/dL (11.7-16.6); Lymphocytes # 1.7 10^3/uL (0.8-4.8); Lymphocytes % 41.4 %; Mean Corpuscular HGB Conc 32.2 g/dL (30.0-36.0); Mean Corpuscular Hemoglobin 34.3 pg (28.0-34.0); Mean Corpuscular Volume 106.3 fl (80-94); Mean Platelet Volume 11.8 fL (7.4-10.4); Monocytes # 0.5 10^3/uL (0.2-0.9); Monocytes % 13.1 %; Neutrophils # 1.53 10^3/uL (1.8-7.7); Neutrophils % 37.7 %; Nucleated Red Blood Cells % 0 %; Platelet Count 37 10^3/cmm (130-400); Red Blood Count 3.18 10^6/uL (4.1-5.3); Red Cell Distribution Width 23.4 % (12.1-15.1); White Blood Count 4.1 10^3/uL (4.0-10.0)
[2021-02-04 10:38] LABS: Alanine Aminotransferase 20 U/L (0-41); Albumin Level 3.4 g/dL (3.5-5.2); Alkaline Phosphatase 119 IU/L (40-130); Anion Gap 13.3 (5-19); Aspartate Amino Transferase 18 U/L (0-40); Blood Urea Nitrogen 26 mg/dL (8-23); Carbon Dioxide 25 mmol/L (22-29); Chloride 101 mmol/L (98-107); Globulin 3.3 g/dL (1.3-4.6); Glomerular Filtration Rate 74.5 mL/min (90-130); Glucose 79 mg/dL (65-115); Osmolality Calculated 284 mOsm/kg (285-295); Potassium 4.3 mmol/L (3.5-5.1); Sodium 135 mmol/L (136-145); Total Bilirubin 0.8 mg/dL (0.15-1.2); Total Protein 6.7 g/dL (6.6-8.7)
[2021-02-04] MEDS: famotidine 20 mg/2 mL INJ IVP (11:16)
[2021-02-04] MEDS: acetaminophen 325 mg Tablet 650 MG PO (11:16)
[2021-02-04] MEDS: ondansetron 2 mg/ML SDV 2 mL 8 MG IV (11:18)
[2021-02-04] MEDS: diphenhydrAMINE 50 mg/mL SDV 1mL 25 MG IV (11:22)
[2021-02-04] MEDS: sodium chloride 0.9% 500 ML 999 ML IV (12:26)
--- NOTE | 2021-02-07 12:33 | ONC FU_ITS ---
Dr. Brody Patient Follow-Up Note Patient: Flaco Cardona Unit #: [id number]: 1955 Dicatated By: Christopher Brody M.D.Date of Visit:Feb 04, 2021 Onc Med Follow-up/Prog Note Chief Complaint: Myeloma/prostate cancer. History of Present Illness: This is a 65 year-old man with IgA kappa myeloma, stage IIIB. During followup he was found to have metastatic prostate cancer involving the bone marrow. He was diagnosed with IgA kappa myeloma in October 2009. He presented at that time with anemia, hypercalcemia, renal failure, and severe osteopenia with multiple vertebral compression fractures. He was seen at the [facility] for his initial evaluation. He was treated on their standard arm Total Therapy 4 which included M-VTD-PACE induction and a second induction with VTD-PACE. He then underwent tandem transplants with high-dose melphalan conditioning in February and in March 2010. He reportedly had an excellent response to the treatment, and he was then consolidated with VTD-PACE in June 2010 and July 2010 followed by maintenance VRD. His maintenance therapy was complicated by depression due to Revlimid and severe neuropathy, and treatment was stopped by June 2011. He restarted treatment with Revlimid in August 2012, but he was again unable to tolerate it due to depression. He stopped treatment again in February 2013. He underwent evaluation at the [facility] in July 2014. At that time he was felt to have disease progression with MRI reporting new lesions in the clivus and in the right humerus. Bone marrow at that time showed 10% plasma cells in the aspirate and 20% in the biopsy. His M protein quantitated at 1 g compared to 0.3 g in February 2014. It was opted at that time to resume treatment with pomalidomide in combination with cyclophosphamide and dexamethasone. As of 03/05/2015 he had completed 7 cycles of treatment with the cyclophosphamide administered on a day 1/day 15 schedule. He had a restaging evaluation at the [facility] on 08/12/2015. Bone marrow aspiration/biopsy at that time showed an overall cellularity of 35%. The aspirate showed 6% plasma cells. By flow cytometry total plasma cells were estimated at 1.23%, with 0.69% myeloma cells and 0.54% normal plasma cells. The chromosome analysis showed a translocation involving chromosomes 4 and 8 in a single cell. The clinical significance of that finding was uncertain. He was advised to continue treatment with pomalidomide, dexamethasone, and cyclophosphamide. As of November 2015 the cyclophosphamide was put on hold due to persistent neutropenia. He had follow-up at [facility] in June 2017. His MRI bone marrow blood supply exam on 07/07/2017 showed a slight increase of mild hyperintense homogeneous signal in the marrow of the axial and peripheral skeletons. There was a slight increase of mildly restricted diffusion noted in the marrow cavity. There was interval development of a 2.5 cm focal lesion in the right posterior ilium with restricted diffusion and a 2 cm focal lesion in the right posterior elements at approximately T6, also with restricted diffusion. Bilateral small calvarial lesions were noted with interval punctate and bilateral interval rib lesions were noted. His bone marrow aspiration/biopsy on 07/10/2017 showed overall cellularity of 30% with the differential showing 7% plasma cells. The immunohistochemical stain for CD138 showed 5-10% plasma cells with interstitial and patchy distribution. His M protein was quantitated 0.7 g/dL. He was seen for a follow-up visit here on 07/11/2017. At that point he had become significantly more fatigued. He complained of shortness of breath, and he had been having episodes of passing out. His hemoglobin had dropped to 8.7 g. He was transfused 2 U of packed red blood cells on 07/13/2017. He had symptomatic improvement. He then returned to [facility] and on 07/15/2017 he began treatment with daratuzumab in addition to the pomalidomide/dexamethasone. He had no significant toxicity with the initial infusion of daratuzumab. During subsequent follow-up, there was a gradual decline in his granulocyte count. It nadired at 1200 at week 5 of daratuzumab, but it subsequently increased. He received week 8 of daratuzumab on 09/05/2017. His treatment was then put on hold due to persistent/recurrent pneumonia. He was admitted to the hospital on 09/14/2017 and again on 09/24/2017. With the second admission he was feeling weak and he had fallen several times. Brain MRI reported a 3.7 x 1.7 cm marrow replacing lesion within the clivus, consistent with plasmacytoma. A 7 mm focus of acute ischemia was noted in the right cerebellum. There was a small amount of associated edema. With those findings, he was transferred to [facility] for further management. His evaluation there was consistent with cerebellar stroke with subacute lacunar ischemic infarct on the right cerebellar hemisphere. Also reported was an expansile myelomatous clival lesion with bony erosion of the left carotid canal, erosion of the anterior and posterior cortex of the clivus, and extension into the sphenoid sinuses. The pneumonia improved after 7 days of IV cefepime. He was seen here again on 10/19/2017 and at that time he completed his 9th infusion of daratumumab. His next scheduled treatment was put on hold due to neutropenia and symptoms of respiratory infection. On 11/10/2017 he was admitted to the hospital with neutropenic fever. He was transferred to [facility] for further care. After recovering from that illness he had a restaging evaluation for the myeloma. His bone marrow aspiration/biopsy showed 5% plasma cells. His M protein quantitated at 0.4 g/dL. MRI bone marrow blood supply on 12/18/2017 showed interval worsening with increased size of the focal lesions involving the right temporal bone, clivus, and left parietal bone. There were only minimal changes noted in the spine from the previous studies. There was minimal progression of lesions in the proximal right humerus and in the upper sternum. With those findings, it was recommended that he change treatment to carfilzomib in combination with dexamethasone. He began cycle 1 on 12/27/2017 with the carfilzomib dosed at 20 mg/m???. He also started monthly replacement therapy with IVIG. At day 8 of cycle 1 the carfilzomib dosage was escalated to 36 mg/m???. He tolerated it well, and he was able to continue with cycle 2 on 01/24/2018. As of February 2018 he had completed 3 cycles of treatment. In May 2018 he underwent a stem cell transplant procedure at [facility]. He has had a gradual recovery following that treatment. I had seen him for follow-up here in September 2018. At that time he appeared stable clinically. He then continued his further follow-up at [facility]. His repeat bone marrow aspiration/biopsy on 06/12/2019 showed an unexpected finding of involvement with moderately differentiated metastatic adenocarcinoma which was felt to be most consistent with prostatic origin. It was morphologically negative for plasma cell neoplasm. His PSA was elevated in the range of 20 ng/mL. Restaging CT scans of the chest, abdomen, and pelvis on 06/22/2019 showed a small spiculated residual nodular density in the right upper lobe measuring 1.3 cm, decreased in size from 3.5 cm on a prior PET/CT from January 2019. It was felt to be most likely infectious/inflammatory. There were persistent tree-in-bud type nodularity in both lungs, particularly the lower lobes, felt to be suggestive of multifocal infectious/inflammatory change. There were no new pulmonary nodules and there was no pulmonary consolidation noted. There was no evidence of visceral/sherman metastatic disease in the abdomen/pelvis. There were faint sclerotic lesions in the C7 and T1 vertebral bodies. A bone scan on 06/24/2019 showed multiple focal areas of abnormal uptake which corresponded to the FDG avid osseous lesions noted on the PET/CT from 06/07/2019. These include with the upper thoracic spine, left T9 transverse process, and left posterior ischium. Overall, the findings were felt to be consistent with osteoblastic metastatic disease favoring metastatic prostate cancer over multiple myeloma. He began treatment with bicalutamide 50 mg daily, and he was then seen here on to continue his androgen deprivation locally. He received his initial injection of Depo-Lupron 22.5 mg on 07/01/2019. He tolerated with no adverse effects, and he then continued with a second Lupron injection on 10/01/2019. At that point his PSA had decreased to 0.11 ng/mL. He was seen for a follow-up visit at [facility] on 10/25/2019. His PET/CT showed an FDG avid right frontotemporal calvarial lesion measuring 2 cm, but with interval resolution of abnormal FDG uptake within a sclerotic left posterior iliac lesion. There was no evidence of metastatic disease. With that finding, he was recommended to restart treatment for the myeloma with daratumumab in combination with cyclophosphamide 100 mg weekly, Revlimid 10 mg daily on a 21/28-day schedule, and dexamethasone 8 mg. He began his week 1 daratumumab on 10/30/2019. He tolerated the daratumumab without acute toxicity, and he then continued the daratumumab weekly. At his follow-up visit on 11/20/2019 the lenalidomide and cyclophosphamide were put on hold due to neutropenia, ANC 1300. Both were restarted on 12/04/2019 but with the lenalidomide dosage reduced to 5 mg daily. As of December 2019 the frequency of the daratumumab infusions was reduced to every 2 weeks and during that time he continued treatment for the prostate cancer with Zoladex in combination with enzalutamide. He also continued replacement IVIG. His repeat bone marrow aspiration/biopsy on 09/09/2020 showed 40% cellularity with involvement by plasma cell neoplasm, though with <5% plasma cells reported on both the aspirate and the core biopsy. His M protein is reported <0.1. His PET/CT imaging showed at least 3 FDG avid marrow lesions and worsening of the clivus lesion with adjacent soft tissue involvement and large cortical defect. At his follow-up visit at [facility] on 09/15/2020 it was recommended that he transition to salvage therapy with belantamab mafodotin. He received cycle 1 on 10/08/2020. He tolerated it well and continue with cycle 2 on 11/11/2020. He was seen for follow-up at [facility] on 12/03/2020. There was again evidence of further disease progression by PET/CT. He was recommended to change treatment to weekly carfilzomib beginning at 20 mg/m2 by IV infusion together with pomalidomide 3 mg daily on a 21/28-day schedule and dexamethasone 12 mg IV weekly. He was seen here on 01/14/2021 to begin his day 1 treatment. His baseline echocardiogram showed adequate LV function with estimated ejection fraction at 60%. He tolerated his treatment without acute toxicity. He presented for day 8 treatment on 01/21/2021. At that time he had developed a new, painful nodule in the right lateral forehead area. Head CT on 01/22/2021 showed lytic destructive areas throughout the skull. The most concerning lytic area was in the right frontal bone, correlating with the palpable mass. It was associated with complete destruction of the bone with soft tissue mass extending to the dura. The most significant finding, though, was a large soft tissue mass centered at the skull base in greatest to the right of the midline. There was destruction of the clivus and skull base including the foramen magnum. Further evaluation with MRI showed a 4.3 cm malignant mass with osseous destruction centered at the clivus/right sphenoid/skull base and invading into the sella and inferior medial right temporal lobe. There was also associated encasement of the intracranial portion of the right carotid artery. The mass was noted to obliterate the foramen ovale and the foramen despite no some with likely involvement/encasement of the right cranial nerve V3 branch. There was invasion to the level of the right orbital apex with associated narrowing. With those findings, he began a course of palliative radiation. He continued with his day 15 carfilzomib on 01/28/2021. He is seen for a scheduled visit. He is due for follow-up at [facility] on 18 February. At that time he is scheduled to begin preparation for eventual CAR-T therapy. He does complain that he is tired, and he has limited activity. ECOG score is 2. His appetite has been okay. He does not have fever or night sweats. He has some sinus drainage and he has a little bit of cough. He has not had sore mouth or throat. He has a little short of breath at times. He does not complain of chest pain. He has a little nausea and he continues to have some constipation. It is managed adequately with senna. He has no complaints. He had has chronic back pain, which is managed adequately with his medication. He also had has been having pain and severe muscle cramps in both legs. He is still having some headache. His neuropathy is the same. Medications: Acyclovir 1 (200 mg) Tablet Oral daily, Albuterol Sulfate 1 ((2.5 mg/3ml) 0.083%) Nebulization solution Inhalation four times a day PRN, Baclofen 1 (10 mg) Tablet Oral at bedtime PRN, Casodex 1 Tablet (of 50 mg) Oral daily, Colace Capsule Oral daily PRN, cultrelle 1 Capsule Oral daily, Cyproheptadine HCl 1 (4 mg) Tablet Oral b.i.d. PRN, D3-1000 Tablet Oral daily, Dapsone 1 Tablet (of 100 mg) Oral daily, Effexor XR 1 (75 mg) Capsule SR 24 HR Oral daily, Folic Acid 1 (1000 mcg) Tablet Oral b.i.d., Gabapentin 1 Capsule (of 600 mg) Oral at bedtime, Hydrocodone-Acetaminophen 1 (10-325 mg) Tablet Oral four times a day PRN, Ipratropium-Albuterol 1 (20-100 mcg/act) Aerosol, solution Inhalation daily, Mirtazapine 1 Tablet (of 15 mg) Oral daily, Multivitamins 1 Capsule Oral daily, Pantoprazole Sodium 1 Tablet (of 40 mg) Tablet, enteric coated Oral daily PRN, Phos-NaK 1 Packet (of 280-160-250 mg) Pack Oral daily for 90 days, Questran 1 (4 g) Pack Oral daily, Xanax 1 Tablet (of 0.5 mg) Oral t.i.d. PRN, Zofran 1 Tablet (of 8 mg) Oral four times a day PRN Allergies: No Known Allergies. Vital Signs: Performed on Feb 04, 2021 10:29 Height - 67.00 in Weight - 173.2 lbs (LOW) BSA - 1.90 sq.m BMI - 27.13 Temperature - 98.6 F Pulse - 74 /min Respiration - 18 /min BP - 1665/97 mm(hg) (HIGH) O2 Sat - 96 % Pain - 6 Fatigue - 9 Physical Examination: Constitutional - He appears somewhat weak generally, Eyes - Sclerae nonicteric. Conjunctivae clear, ENMT - No lesions noted in the oral cavity, Hematologic/Lymphatic - No cervical, clavicular, or axillary adenopathy, Respiratory - Lungs sound clear, Cardiovascular - Heart rhythm is regular. There is no murmur, gallop, or rub noted, Abdomen - Soft. Liver and spleen are not enlarged. There is no abdominal mass or ascites noted and there is no inguinal adenopathy, Extremities - There are venous stasis changes bilaterally. There is no edema, Neurologic - No focal neurologic deficits noted. Lab/Imaging: Test performed on Feb 04, 2021 09:50 Sodium 135 mmol/L Potassium 4.3 mmol/L Chloride 101 mmol/L CO2 25 mmol/L Anion Gap 13.3 BUN 26 mg/dL Creatinine 1.0 mg/dL Cr Clearance (Est) 79.9300 mL/min eGFR 74.5 mL/min Glucose 79 mg/dL Osmolality - Calculated 284 mOsm/kg Calcium 9.0 mg/dL Protein, Total 6.7 g/dL Albumin 3.4 g/dL Globulin 3.3 g/dL Bilirubin, Total 0.8 mg/dL ALT (SGPT) 20 U/L AST (SGOT) 18 U/L Alkaline Phosphatase 119 IU/L WBC 4.1 10 3/uL RBC 3.18 10 6/uL HGB 10.9 g/dL HCT 33.8 % MCV 106.3 fl MCH 34.3 pg MCHC 32.2 g/dL RDW 23.4 % Platelet Count 37 10 3/cmm MPV 11.8 fL Neutrophils 1.53 10 3/uL Lymphocytes 1.7 10 3/uL Monocytes 0.5 10 3/uL Eosinophils 0.3 10 3/uL Basophils 0.0 10 3/uL Neutrophil % 37.7 % Lymphocyte % 41.4 % Monocyte % 13.1 % Eosinophil % 6.4 % Basophils % 0.7 % NRBC % 0 % Problem List: 1. IgA kappa myeloma, stage IIIB. He had severe osteopenia with multiple vertebral compression fractures at initial diagnosis in October 2009. 2. His bone marrow aspiration/biopsy on 06/12/2019 showed unexpected finding of moderately differentiated metastatic adenocarcinoma of the mid most consistent with prostatic origin. His PET/CT and bone scans showed several foci of osteoblastic involvement felt to be most consistent with metastatic prostate cancer. 3. 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 He is on replacement IVIG due to recurrent episodes of pneumonia. 4. Chronic anemia, multifactorial, transfusion dependent. 5. He has evidence of transfusion associated iron overload. 6. Treatment related peripheral neuropathy. 7. History of cerebellar stroke in September 2017. 8. Depression. Problems Addressed with this Encounter and Plan: 1. IgA kappa myeloma, stage IIIB. He had severe osteopenia with multiple vertebral compression fractures at initial diagnosis in October 2009. He has been followed at [facility] and has been extensively treated. His prior treatments included: Induction therapy on the Total Therapy 4 program followed by tandem stem cell transplants with high-dose melphalan conditioning. Maintenance therapy with VRD, stopped in February 2013 due to side effects. Multiple salvage therapies following relapse in July 2014, including repeat stem cell transplant in May 2018. Daratumumab in combination with cyclophosphamide, lenalidomide, and dexamethasone, stopped as of September 2020. Belantamab mafodotin at a standard dose of 2.5 mg/kg by IV infusion every 3 weeks beginning October 08, 2020. Cycle 2 administered 11/11/2020. At his follow-up visit at [facility] in November 2020 there was evidence of further disease progression by PET/CT. He has now going to start further treatment with carfilzomib administered by IV infusion weekly, initially at a dosage of 20 mg/m2, to be escalated as tolerated, and administered in conjunction with pomalidomide 3 mg daily on a 21/28-day schedule and with dexamethasone 12 mg IV weekly. His baseline echocardiogram showed adequate LV function. He is currently at day 22 of his 1st cycle. He has moderately severe thrombocytopenia, and at one point he did require platelet pheresis for recurrent epistaxis. He has since then had no further bleeding. He also continues to have transfusion dependent anemia. His overall clinical status appears stable. He will proceed with a 22 carfilzomib. The dosage remains the same. He returns in 2 weeks. 2. At day 8 he presented with a new palpable mass in the right forehead area laterally. He was confirmed by CT and subsequently by MRI to have a bony destructive lesion at that site. More significantly, there was a large mass noted involving the clivus/skull base. He is undergoing palliative radiation. 3. He has chronic anemia which appears to be multifactorial. He will be transfused as needed. 4. He also has metastatic prostate cancer, diagnosed by bone marrow aspiration/biopsy on 06/12/2019. He has had a good response to androgen deprivation therapy. He continues enzalutamide 160 mg daily. Signed By: Christopher Brody M.D. <<Signature on File>>
--- NOTE | 2021-02-09 14:05 | ONCRAD TMN_ITS ---
Radiation Oncology Treatment Management Note Patient Name: Falco Cardona Date of : 1955 Date of Service: 02/09/2021 Attending Physician: Gary Gutierrez M.D. Flaco Cardona is a 65 year old white male recently diagnosed with diagnosed with IgA kappa multiple myeloma in October 2009 after being evaluated for anemia, hypercalcemia, renal failure, and multiple vertebral body compression fractures. A recent CT of the head obtained for a new skull lesion discerned a destructive and expansile lesion of the right lateral frontal bone measuring 3.3 cm and a skull base lesion invading the sphenoid sinuses and the foramen magnum with involvement of the right temporal lobe. This mass significantly involves the clivus and extends into the cavernous sinus encasing the right carotid artery. Lytic destruction was evident throughout the skull. An MR I of the brain ordered on January 22, 2021 confirmed the aggressive mass in the clivus extending into the sella turcica and encasing the right carotid artery at the level of the cavernous sinuses. The mass invades the right temporal lobe and is narrowing the right orbital apex with probable displacement of the cranial nerves. The mass measures 4.2 cm x 4.3 cm. Also reported was a 3.5 cm enhancing mass invading through the right calvarium into the right frontotemporal region. A 6 mm calvarial lesion was also observed in the midline frontal region. The patient has received 21 Gy of a prescribed 30 Ni with a 3-dimensional conformal radiotherapy plan utilizing opposed lateral portal pablo. Upon review of systems, he denied any neurological complaints. On physical examination, the patient weighed 172 lbs. His temperature was 98.4 ???F with a blood pressure of 132/94 mmHg. His pulse was 79 bpm and his respiratory rate was 18. Cranial nerves were intact. Right scalp nodule has regressed. Continue cranial radiotherapy as planned. Signed by: Dr. Gary Gutierrez 02/09/2021 2:03:00 PM
== END 2021-02-11 23:59 | disposition home or self-care (01) ==
LOC: ONCMED 06:33
PROVIDERS: Internal Medicine Medical Oncology; Absent Provider Radiology Radiation Oncology; PCP Family Medicine; Visit Provider Radiology Radiation Oncology
DX: Z51.0 Encounter for antineoplastic radiation therapy (principal); Z51.12 Encounter for antineoplastic immunotherapy; C90.00 Multiple myeloma not having achieved remission; C79.51 Secondary malignant neoplasm of bone; D80.1 Nonfamilial hypogammaglobulinemia; Z85.46 Personal history of malignant neoplasm of prostate; D50.9 Iron deficiency anemia, unspecified; G62.0 Drug-induced polyneuropathy; T45.1X5D Adverse effect of antineoplastic and immunosuppressive drugs, subsequent encounter; F32.9 Major depressive disorder, single episode, unspecified; Z86.73 Personal history of transient ischemic attack (TIA), and cerebral infarction without residual deficits; Z79.899 Other long term (current) drug therapy
CPT/HCPCS: 36415; 36430; 77290; 77295; 77300; 77334; 77336; 77387; 77412; 80053; 85025; 86850; 86900; 86920; 96361; 96367; 96375; 96413; 99205; 99215; J1100; J1200; J1940; J2405; J3490; J7040; J7050; J9047; P9040; P9053

== ENCOUNTER 2021-03-05 06:33 | Outpatient (RCR) | payer MEDICARE, BC, SELFPAY ==
--- NOTE | 2021-02-12 08:43 | N.ONRD TS_ITS ---
Radiation OncologyTreatment Summary Patient Name: Flaco Cardona Date of : 1955 Date of Service: 02/12/2021 Attending Physician: Gary Gutierrez M.D. Flaco Cardona has completed cranial radiotherapy for the management of IgA kappa multiple myeloma diagnosed in October 2009 after being evaluated for anemia, hypercalcemia, renal failure, and multiple vertebral body compression fractures. A recent CT of the head obtained for a new skull lesion discerned a destructive and expansile lesion of the right lateral frontal bone measuring 3.3 cm and a skull base lesion invading the sphenoid sinuses and the foramen magnum with involvement of the right temporal lobe. This mass significantly involves the clivus and extends into the cavernous sinus encasing the right carotid artery. Lytic destruction was evident throughout the skull. An MR I of the brain ordered on January 22, 2021 confirmed the aggressive mass in the clivus extending into the sella turcica and encasing the right carotid artery at the level of the cavernous sinuses. The mass invades the right temporal lobe and is narrowing the right orbital apex with probable displacement of the cranial nerves. The mass measures 4.2 cm x 4.3 cm. Also reported was a 3.5 cm enhancing mass invading through the right calvarium into the right frontotemporal region. A 6 mm calvarial lesion was also observed in the midline frontal region. Daily radiotherapy was administered between the dates February 01, 2021 through February 12, 2021. A prescribed dose of 30 Gy was delivered in 10 fractions encompassing 11 elapsed days. The calvarium and clival mass were treated utilizing a 3-dimensional conformal radiotherapy plan with an opposed lateral portal field design. The right lateral field utilized a 270??? gantry angle with a collimator angle of 0???. The field size measured 12 cm x 12 cm within the X-direction and 9 cm x 9 cm within the Y-direction. The SSD measured 91.6 cm with the beam delivering 150 monitor units. The left lateral port employed a gantry angle of 90??? and a collimator angle of 0???. The field size measured 12 cm x 12 cm within X-direction and 9 cm x 9 cm within the Y-direction. The measured SSD was 92.5 cm with the field allocating 197 monitor units. A 2 mm tissue cyber transport systems specialist was applied to the scalp deformity daily. All treatments were performed with the Varian iX linear accelerator and an isocentric technique. The dose was calculated by Anisotropic Analytic Algorithm. Photon energies of 6 and 15 MV were prescribed with the plan normalized to deliver 100% of the prescription dose to 95% of the planning target volume. Signed by: Dr. Gary Gutierrez 02/12/2021 8:42:29 AM
[2021-02-24 10:27] LABS: Basophils % 0.9 %; Eosinophils # 0.3 10^3/uL (0.0-0.8); Eosinophils % 6.6 %; Hematocrit 29.9 % (42.0-52.0); Hemoglobin 9.2 g/dL (11.7-16.6); Lymphocytes # 1.3 10^3/uL (0.8-4.8); Lymphocytes % 28.5 %; Mean Corpuscular HGB Conc 30.8 g/dL (30.0-36.0); Mean Corpuscular Hemoglobin 34.7 pg (28.0-34.0); Mean Corpuscular Volume 112.8 fl (80-94); Mean Platelet Volume 10.2 fL (7.4-10.4); Monocytes # 0.4 10^3/uL (0.2-0.9); Monocytes % 8.9 %; Neutrophils # 2.39 10^3/uL (1.8-7.7); Neutrophils % 54.6 %; Nucleated Red Blood Cells % 0 %; Platelet Count 106 10^3/cmm (130-400); Red Blood Count 2.65 10^6/uL (4.1-5.3); Red Cell Distribution Width 22.5 % (12.1-15.1); White Blood Count 4.4 10^3/uL (4.0-10.0)
[2021-02-24 11:01] LABS: Alanine Aminotransferase 23 U/L (0-41); Albumin Level 3.9 g/dL (3.5-5.2); Alkaline Phosphatase 105 IU/L (40-130); Anion Gap 14.5 (5-19); Aspartate Amino Transferase 31 U/L (0-40); Blood Urea Nitrogen 25 mg/dL (8-23); Calcium 9.3 mg/dL (8.5-10.5); Carbon Dioxide 24 mmol/L (22-29); Chloride 104 mmol/L (98-107); Globulin 2.8 g/dL (1.3-4.6); Glomerular Filtration Rate 66.8 mL/min (90-130); Glucose 86 mg/dL (65-115); Osmolality Calculated 290 mOsm/kg (285-295); Potassium 4.5 mmol/L (3.5-5.1); Sodium 138 mmol/L (136-145); Total Bilirubin 0.5 mg/dL (0.15-1.2); Total Protein 6.7 g/dL (6.6-8.7)
[2021-02-24] MEDS: famotidine 20 mg/2 mL INJ IVP (12:20)
[2021-02-24] MEDS: sodium chloride 0.9% 500 ML 999 ML IV (12:20)
[2021-02-24] MEDS: acetaminophen 325 mg Tablet 650 MG PO (12:20)
[2021-02-24] MEDS: dextrose 5% 250 ML 75 ML IV (12:20)
[2021-02-24] MEDS: ondansetron 2 mg/ML SDV 2 mL 8 MG IV (12:21)
[2021-02-24] MEDS: diphenhydrAMINE 50 mg/mL SDV 1mL 25 MG IV (12:21)
[2021-02-24 14:51] LABS: Prostate Specific Antigen 0.012 ng/mL (0-4)
[2021-02-24 16:11] LABS: Iron 204 ug/dL (59-158); Percent Saturation 82.2 % (20-50); Total Iron Binding Capacity 248 mcg/dl; Unsaturated Iron Binding 44 ug/dL (112-347)
[2021-02-24 16:29] LABS: Ferritin 3335 ng/mL (30-400)
[2021-03-03 09:58] LABS: Basophils % 0.5 %; Eosinophils # 0.4 10^3/uL (0.0-0.8); Eosinophils % 6.9 %; Hematocrit 27.8 % (42.0-52.0); Hemoglobin 8.7 g/dL (11.7-16.6); Lymphocytes # 1.5 10^3/uL (0.8-4.8); Lymphocytes % 26.2 %; Mean Corpuscular HGB Conc 31.3 g/dL (30.0-36.0); Mean Corpuscular Hemoglobin 35.4 pg (28.0-34.0); Mean Platelet Volume 11.1 fL (7.4-10.4); Monocytes # 0.6 10^3/uL (0.2-0.9); Monocytes % 10.7 %; Neutrophils % 55.2 %; Nucleated Red Blood Cells % 0 %; Platelet Count 55 10^3/cmm (130-400); Red Blood Count 2.46 10^6/uL (4.1-5.3); Red Cell Distribution Width 21.7 % (12.1-15.1); White Blood Count 5.8 10^3/uL (4.0-10.0)
[2021-03-03 10:22] LABS: Alanine Aminotransferase 24 U/L (0-41); Albumin Level 3.6 g/dL (3.5-5.2); Alkaline Phosphatase 95 IU/L (40-130); Anion Gap 14.2 (5-19); Aspartate Amino Transferase 27 U/L (0-40); Blood Urea Nitrogen 19 mg/dL (8-23); Calcium 9.3 mg/dL (8.5-10.5); Carbon Dioxide 25 mmol/L (22-29); Chloride 103 mmol/L (98-107); Globulin 3.1 g/dL (1.3-4.6); Glomerular Filtration Rate 66.8 mL/min (90-130); Glucose 82 mg/dL (65-115); Osmolality Calculated 287 mOsm/kg (285-295); Potassium 4.2 mmol/L (3.5-5.1); Sodium 138 mmol/L (136-145); Total Bilirubin 0.6 mg/dL (0.15-1.2); Total Protein 6.7 g/dL (6.6-8.7)
[2021-03-03] MEDS: dextrose 5% 250 ML 75 ML IV (11:12)
[2021-03-03] MEDS: acetaminophen 325 mg Tablet 650 MG PO (11:12)
[2021-03-03] MEDS: sodium chloride 0.9% 500 ML 999 ML IV (11:12)
[2021-03-03] MEDS: famotidine 20 mg/2 mL INJ IVP (11:39)
[2021-03-03] MEDS: ondansetron 2 mg/ML SDV 2 mL 8 MG IV (11:40)
[2021-03-03] MEDS: diphenhydrAMINE 50 mg/mL SDV 1mL 25 MG IV (11:43)
--- NOTE | 2021-03-03 19:20 | ONC FU_ITS ---
Dr. Brody Patient Follow-Up Note Patient: Flaco Cardona Unit #: [id number]: 1955 Dicatated By: Christopher Brody M.D.Date of Visit:Mar 03, 2021 Onc Med Follow-up/Prog Note Chief Complaint: Myeloma/prostate cancer. History of Present Illness: This is a 65 year-old man with IgA kappa myeloma, stage IIIB. During followup he was found to have metastatic prostate cancer involving the bone marrow. He was diagnosed with IgA kappa myeloma in October 2009. He presented at that time with anemia, hypercalcemia, renal failure, and severe osteopenia with multiple vertebral compression fractures. He was seen at the [facility] for his initial evaluation. He was treated on their standard arm Total Therapy 4 which included M-VTD-PACE induction and a second induction with VTD-PACE. He then underwent tandem transplants with high-dose melphalan conditioning in February and in March 2010. He reportedly had an excellent response to the treatment, and he was then consolidated with VTD-PACE in June 2010 and July 2010 followed by maintenance VRD. His maintenance therapy was complicated by depression due to Revlimid and severe neuropathy, and treatment was stopped by June 2011. He restarted treatment with Revlimid in August 2012, but he was again unable to tolerate it due to depression. He stopped treatment again in February 2013. He underwent evaluation at the [facility] in July 2014. At that time he was felt to have disease progression with MRI reporting new lesions in the clivus and in the right humerus. Bone marrow at that time showed 10% plasma cells in the aspirate and 20% in the biopsy. His M protein quantitated at 1 g compared to 0.3 g in February 2014. It was opted at that time to resume treatment with pomalidomide in combination with cyclophosphamide and dexamethasone. As of 03/05/2015 he had completed 7 cycles of treatment with the cyclophosphamide administered on a day 1/day 15 schedule. He had a restaging evaluation at the [facility] on 08/12/2015. Bone marrow aspiration/biopsy at that time showed an overall cellularity of 35%. The aspirate showed 6% plasma cells. By flow cytometry total plasma cells were estimated at 1.23%, with 0.69% myeloma cells and 0.54% normal plasma cells. The chromosome analysis showed a translocation involving chromosomes 4 and 8 in a single cell. The clinical significance of that finding was uncertain. He was advised to continue treatment with pomalidomide, dexamethasone, and cyclophosphamide. As of November 2015 the cyclophosphamide was put on hold due to persistent neutropenia. He had follow-up at [facility] in June 2017. His MRI bone marrow blood supply exam on 07/07/2017 showed a slight increase of mild hyperintense homogeneous signal in the marrow of the axial and peripheral skeletons. There was a slight increase of mildly restricted diffusion noted in the marrow cavity. There was interval development of a 2.5 cm focal lesion in the right posterior ilium with restricted diffusion and a 2 cm focal lesion in the right posterior elements at approximately T6, also with restricted diffusion. Bilateral small calvarial lesions were noted with interval punctate and bilateral interval rib lesions were noted. His bone marrow aspiration/biopsy on 07/10/2017 showed overall cellularity of 30% with the differential showing 7% plasma cells. The immunohistochemical stain for CD138 showed 5-10% plasma cells with interstitial and patchy distribution. His M protein was quantitated 0.7 g/dL. He was seen for a follow-up visit here on 07/11/2017. At that point he had become significantly more fatigued. He complained of shortness of breath, and he had been having episodes of passing out. His hemoglobin had dropped to 8.7 g. He was transfused 2 U of packed red blood cells on 07/13/2017. He had symptomatic improvement. He then returned to [facility] and on 07/15/2017 he began treatment with daratuzumab in addition to the pomalidomide/dexamethasone. He had no significant toxicity with the initial infusion of daratuzumab. During subsequent follow-up, there was a gradual decline in his granulocyte count. It nadired at 1200 at week 5 of daratuzumab, but it subsequently increased. He received week 8 of daratuzumab on 09/05/2017. His treatment was then put on hold due to persistent/recurrent pneumonia. He was admitted to the hospital on 09/14/2017 and again on 09/24/2017. With the second admission he was feeling weak and he had fallen several times. Brain MRI reported a 3.7 x 1.7 cm marrow replacing lesion within the clivus, consistent with plasmacytoma. A 7 mm focus of acute ischemia was noted in the right cerebellum. There was a small amount of associated edema. With those findings, he was transferred to [facility] for further management. His evaluation there was consistent with cerebellar stroke with subacute lacunar ischemic infarct on the right cerebellar hemisphere. Also reported was an expansile myelomatous clival lesion with bony erosion of the left carotid canal, erosion of the anterior and posterior cortex of the clivus, and extension into the sphenoid sinuses. The pneumonia improved after 7 days of IV cefepime. He was seen here again on 10/19/2017 and at that time he completed his 9th infusion of daratumumab. His next scheduled treatment was put on hold due to neutropenia and symptoms of respiratory infection. On 11/10/2017 he was admitted to the hospital with neutropenic fever. He was transferred to [facility] for further care. After recovering from that illness he had a restaging evaluation for the myeloma. His bone marrow aspiration/biopsy showed 5% plasma cells. His M protein quantitated at 0.4 g/dL. MRI bone marrow blood supply on 12/18/2017 showed interval worsening with increased size of the focal lesions involving the right temporal bone, clivus, and left parietal bone. There were only minimal changes noted in the spine from the previous studies. There was minimal progression of lesions in the proximal right humerus and in the upper sternum. With those findings, it was recommended that he change treatment to carfilzomib in combination with dexamethasone. He began cycle 1 on 12/27/2017 with the carfilzomib dosed at 20 mg/m???. He also started monthly replacement therapy with IVIG. At day 8 of cycle 1 the carfilzomib dosage was escalated to 36 mg/m???. He tolerated it well, and he was able to continue with cycle 2 on 01/24/2018. As of February 2018 he had completed 3 cycles of treatment. In May 2018 he underwent a stem cell transplant procedure at [facility]. He has had a gradual recovery following that treatment. I had seen him for follow-up here in September 2018. At that time he appeared stable clinically. He then continued his further follow-up at [facility]. His repeat bone marrow aspiration/biopsy on 06/12/2019 showed an unexpected finding of involvement with moderately differentiated metastatic adenocarcinoma which was felt to be most consistent with prostatic origin. It was morphologically negative for plasma cell neoplasm. His PSA was elevated in the range of 20 ng/mL. Restaging CT scans of the chest, abdomen, and pelvis on 06/22/2019 showed a small spiculated residual nodular density in the right upper lobe measuring 1.3 cm, decreased in size from 3.5 cm on a prior PET/CT from January 2019. It was felt to be most likely infectious/inflammatory. There were persistent tree-in-bud type nodularity in both lungs, particularly the lower lobes, felt to be suggestive of multifocal infectious/inflammatory change. There were no new pulmonary nodules and there was no pulmonary consolidation noted. There was no evidence of visceral/sherman metastatic disease in the abdomen/pelvis. There were faint sclerotic lesions in the C7 and T1 vertebral bodies. A bone scan on 06/24/2019 showed multiple focal areas of abnormal uptake which corresponded to the FDG avid osseous lesions noted on the PET/CT from 06/07/2019. These include with the upper thoracic spine, left T9 transverse process, and left posterior ischium. Overall, the findings were felt to be consistent with osteoblastic metastatic disease favoring metastatic prostate cancer over multiple myeloma. He began treatment with bicalutamide 50 mg daily, and he was then seen here on to continue his androgen deprivation locally. He received his initial injection of Depo-Lupron 22.5 mg on 07/01/2019. He tolerated with no adverse effects, and he then continued with a second Lupron injection on 10/01/2019. At that point his PSA had decreased to 0.11 ng/mL. He was seen for a follow-up visit at [facility] on 10/25/2019. His PET/CT showed an FDG avid right frontotemporal calvarial lesion measuring 2 cm, but with interval resolution of abnormal FDG uptake within a sclerotic left posterior iliac lesion. There was no evidence of metastatic disease. With that finding, he was recommended to restart treatment for the myeloma with daratumumab in combination with cyclophosphamide 100 mg weekly, Revlimid 10 mg daily on a 21/28-day schedule, and dexamethasone 8 mg. He began his week 1 daratumumab on 10/30/2019. He tolerated the daratumumab without acute toxicity, and he then continued the daratumumab weekly. At his follow-up visit on 11/20/2019 the lenalidomide and cyclophosphamide were put on hold due to neutropenia, ANC 1300. Both were restarted on 12/04/2019 but with the lenalidomide dosage reduced to 5 mg daily. As of December 2019 the frequency of the daratumumab infusions was reduced to every 2 weeks and during that time he continued treatment for the prostate cancer with Zoladex in combination with enzalutamide. He also continued replacement IVIG. His repeat bone marrow aspiration/biopsy on 09/09/2020 showed 40% cellularity with involvement by plasma cell neoplasm, though with <5% plasma cells reported on both the aspirate and the core biopsy. His M protein is reported <0.1. His PET/CT imaging showed at least 3 FDG avid marrow lesions and worsening of the clivus lesion with adjacent soft tissue involvement and large cortical defect. At his follow-up visit at [facility] on 09/15/2020 it was recommended that he transition to salvage therapy with belantamab mafodotin. He received cycle 1 on 10/08/2020. He tolerated it well and continue with cycle 2 on 11/11/2020. He was seen for follow-up at [facility] on 12/03/2020. There was again evidence of further disease progression by PET/CT. He was recommended to change treatment to weekly carfilzomib beginning at 20 mg/m2 by IV infusion together with pomalidomide 3 mg daily on a 21/28-day schedule and dexamethasone 12 mg IV weekly. He was seen here on 01/14/2021 to begin his day 1 treatment. His baseline echocardiogram showed adequate LV function with estimated ejection fraction at 60%. He tolerated his treatment without acute toxicity. He presented for day 8 treatment on 01/21/2021. At that time he had developed a new, painful nodule in the right lateral forehead area. Head CT on 01/22/2021 showed lytic destructive areas throughout the skull. The most concerning lytic area was in the right frontal bone, correlating with the palpable mass. It was associated with complete destruction of the bone with soft tissue mass extending to the dura. The most significant finding, though, was a large soft tissue mass centered at the skull base in greatest to the right of the midline. There was destruction of the clivus and skull base including the foramen magnum. Further evaluation with MRI showed a 4.3 cm malignant mass with osseous destruction centered at the clivus/right sphenoid/skull base and invading into the sella and inferior medial right temporal lobe. There was also associated encasement of the intracranial portion of the right carotid artery. The mass was noted to obliterate the foramen ovale and the foramen despite no some with likely involvement/encasement of the right cranial nerve V3 branch. There was invasion to the level of the right orbital apex with associated narrowing. With those findings, he began a course of palliative radiation. He completed the radiation on 02/12/2021 to a total dose of 3000 cGy administered in 10 fractions. He tolerated it well. In the meantime, he continued with his day 15 carfilzomib on 01/28/2021 and with day 22 treatment on 02/04/2021. He returned to [facility] for T-cell harvesting on 02/17/2021. He then began cycle 2 of carfilzomib/pomalidomide on 02/24/2021. He is seen for a followup visit. He says his energy is not too good. He has a very little bit of light work. ECOG score is 2. Appetite also was not too good, but his weight is stable. He is not having fever or night sweats. He has been having some sinus congestion, and he has bleeding from the right nostril if he blows his nose. He has had no mouth sores. He has some shortness of breath with activity, but his breathing is not too bad. He does have some cough, mainly when he is lying down at night. He does not complain of chest pain. He has no GI/ complaints other than occasional diarrhea. His back pain has not been too bad, but he has continued to have painful muscle cramps at night in his feet and legs. His neuropathy is the same. Medications: Acyclovir 1 (200 mg) Tablet Oral daily, Albuterol Sulfate 1 ((2.5 mg/3ml) 0.083%) Nebulization solution Inhalation four times a day PRN, amLODIPine Besylate 1 Tablet (of 5 mg) Oral daily PRN, Baclofen 1 (10 mg) Tablet Oral at bedtime PRN, Casodex 1 Tablet (of 50 mg) Oral daily, Colace Capsule Oral daily PRN, cultrelle 1 Capsule Oral daily, Cyproheptadine HCl 1 (4 mg) Tablet Oral b.i.d. PRN, D3-1000 Tablet Oral daily, Dapsone 1 Tablet (of 100 mg) Oral daily, Effexor XR 1 (75 mg) Capsule SR 24 HR Oral daily, Folic Acid 1 (1000 mcg) Tablet Oral b.i.d., Gabapentin 1 Capsule (of 600 mg) Oral at bedtime, Hydrocodone-Acetaminophen 1 (10-325 mg) Tablet Oral four times a day PRN, Ipratropium-Albuterol 1 (20-100 mcg/act) Aerosol, solution Inhalation daily, Mirtazapine 1 Tablet (of 15 mg) Oral daily, Multivitamins 1 Capsule Oral daily, Pantoprazole Sodium 1 Tablet (of 40 mg) Tablet, enteric coated Oral daily PRN, Phos-NaK 1 Packet (of 280-160-250 mg) Pack Oral daily for 90 days, Questran 1 (4 g) Pack Oral daily, Xanax 1 Tablet (of 0.5 mg) Oral t.i.d. PRN, Zofran 1 Tablet (of 8 mg) Oral four times a day PRN Allergies: No Known Allergies. Vital Signs: Performed on Mar 03, 2021 10:40 Height - 67.00 in Weight - 168.6 lbs (HIGH) BSA - 1.88 sq.m BMI - 26.41 Temperature - 98.1 F (LOW) Pulse - 80 /min Respiration - 18 /min BP - 175/89 mm(hg) (HIGH) O2 Sat - 98 % Pain - 6 Fatigue - 9 Physical Examination: Constitutional - He appears somewhat weak generally, Eyes - Sclerae nonicteric. Conjunctivae clear, ENMT - No lesions noted in the oral cavity, Hematologic/Lymphatic - No cervical, clavicular, or axillary adenopathy, Respiratory - Lungs sound clear, Cardiovascular - Heart rhythm is regular. There is no murmur, gallop, or rub noted, Abdomen - Soft. Liver and spleen are not enlarged. There is no abdominal mass or ascites noted and there is no inguinal adenopathy, Extremities - There are venous stasis changes bilaterally. There is no lower extremity edema. There is mild swelling of the dorsum of the right hand, Neurologic - No focal neurologic deficits noted. Lab/Imaging: Test performed on Mar 03, 2021 09:35 Sodium 138 mmol/L Potassium 4.2 mmol/L Chloride 103 mmol/L CO2 25 mmol/L Anion Gap 14.2 BUN 19 mg/dL Creatinine 1.1 mg/dL Cr Clearance (Est) 72.6600 mL/min eGFR 66.8 mL/min Glucose 82 mg/dL Osmolality - Calculated 287 mOsm/kg Calcium 9.3 mg/dL Protein, Total 6.7 g/dL Albumin 3.6 g/dL Globulin 3.1 g/dL Bilirubin, Total 0.6 mg/dL ALT (SGPT) 24 U/L AST (SGOT) 27 U/L Alkaline Phosphatase 95 IU/L WBC 5.8 10 3/uL RBC 2.46 10 6/uL HGB 8.7 g/dL HCT 27.8 % MCV 113.0 fl MCH 35.4 pg MCHC 31.3 g/dL RDW 21.7 % Platelet Count 55 10 3/cmm MPV 11.1 fL Neutrophils 3.20 10 3/uL Lymphocytes 1.5 10 3/uL Monocytes 0.6 10 3/uL Eosinophils 0.4 10 3/uL Basophils 0.0 10 3/uL Neutrophil % 55.2 % Lymphocyte % 26.2 % Monocyte % 10.7 % Eosinophil % 6.9 % Basophils % 0.5 % NRBC % 0 % Problem List: 1. IgA kappa myeloma, stage IIIB. He had severe osteopenia with multiple vertebral compression fractures at initial diagnosis in October 2009. 2. His bone marrow aspiration/biopsy on 06/12/2019 showed unexpected finding of moderately differentiated metastatic adenocarcinoma of the mid most consistent with prostatic origin. His PET/CT and bone scans showed several foci of osteoblastic involvement felt to be most consistent with metastatic prostate cancer. 3. 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 He is on replacement IVIG due to recurrent episodes of pneumonia. 4. Chronic anemia, multifactorial, transfusion dependent. 5. He has evidence of transfusion associated iron overload. 6. Treatment related peripheral neuropathy. 7. History of cerebellar stroke in September 2017. 8. Depression. Problems Addressed with this Encounter and Plan: 1. IgA kappa myeloma, stage IIIB. He had severe osteopenia with multiple vertebral compression fractures at initial diagnosis in October 2009. He has been followed at [facility] and has been extensively treated. His prior treatments included: Induction therapy on the Total Therapy 4 program followed by tandem stem cell transplants with high-dose melphalan conditioning. Maintenance therapy with VRD, stopped in February 2013 due to side effects. Multiple salvage therapies following relapse in July 2014, including repeat stem cell transplant in May 2018. Daratumumab in combination with cyclophosphamide, lenalidomide, and dexamethasone, stopped as of September 2020. Belantamab mafodotin at a standard dose of 2.5 mg/kg by IV infusion every 3 weeks beginning October 08, 2020. Cycle 2 administered 11/11/2020. At his follow-up visit at [facility] in November 2020 there was evidence of further disease progression by PET/CT. He has now going to start further treatment with carfilzomib administered by IV infusion weekly, initially at a dosage of 20 mg/m2, to be escalated as tolerated, and administered in conjunction with pomalidomide 3 mg daily on a 21/28-day schedule and with dexamethasone 12 mg IV weekly. His baseline echocardiogram showed adequate LV function. Following completion of his first full cycle of carfilzomib/pomalidomide he returned to [facility] for T-cell harvesting in preparation for car-T therapy. On 02/24/2021 he returned here to begin cycle 2 of carfilzomib/pomalidomide. He continues to have transfusion dependent anemia and moderately severe thrombocytopenia, but he otherwise appears to be tolerating the treatment well. He will proceed now with cycle 2-day 8 carfilzomib. The dosage remains the same at 68 mg by IV infusion. He returns for treatment in 1 week. 2. At day 8 he presented with a new palpable mass in the right forehead area laterally. He was confirmed by CT and subsequently by MRI to have a bony destructive lesion at that site. More significantly, there was a large mass noted involving the clivus/skull base. He was given palliative radiation to the calvarium, completed on 02/12/2021 to a total dose of 3000 cGy administered in 10 fractions. He tolerated it well. 3. He has chronic anemia which appears to be multifactorial. He will be transfused as needed. 4. He also has metastatic prostate cancer, diagnosed by bone marrow aspiration/biopsy on 06/12/2019. He has had a good response to androgen deprivation therapy. He continues enzalutamide 160 mg daily. Signed By: Christopher Brody M.D. <<Signature on File>>
--- NOTE | 2021-03-05 09:46 | ONCRAD EPV_ITS ---
Radiation Oncology Follow-Up Note Patient Name: Flaco Cardona Date of : 1955 Date of Service: 03/05/2021 Attending Physician: Gary Gutierrez M.D. Flaco Cardona returned this morning for a routinely scheduled post-radiotherapy follow-up appointment. He completed cranial radiotherapy in February for the management of IgA kappa multiple myeloma diagnosed in October 2009. A recent CT of the head obtained for a new skull lesion discerned a destructive and expansile lesion of the right lateral frontal bone measuring 3.3 cm and a skull base lesion invading the sphenoid sinuses and the foramen magnum with involvement of the right temporal lobe. This mass significantly involves the clivus and extends into the cavernous sinus encasing the right carotid artery. Lytic destruction was evident throughout the skull. An MR I of the brain ordered on January 22, 2021 confirmed the aggressive mass in the clivus extending into the sella turcica and encasing the right carotid artery at the level of the cavernous sinuses. The mass invades the right temporal lobe and is narrowing the right orbital apex with probable displacement of the cranial nerves. The mass measured 4.2 cm x 4.3 cm. Also reported was a 3.5 cm enhancing mass invading through the right calvarium into the right frontotemporal region. A 6 mm calvarial lesion was also observed in the midline frontal region. Daily radiotherapy was administered between the dates February 01, 2021 through February 12, 2021. A prescribed dose of 30 Gy was delivered in 10 fractions encompassing 11 elapsed days. On review of systems, the patient reported improvement in his vision and he denied pain. On physical examination, the patient weighed 171 lbs. The temperature was 97.6???F and his blood pressure was 152/100 mmHg. The pulse was 72 bpm and respiratory rate was 20 breaths per minute. In summary, the patient returned for a routine post-radiotherapy follow-up. He has no sequelae from treatment. He currently has been prescribed Kyprolis (cycle 2 day 8 was administered this week) under the supervision of Christopher Brody M.D. Signed by: Dr. Gary Gutierrez 03/05/2021 9:44:40 AM
--- NOTE | 2021-03-07 16:16 | ONC FU_ITS ---
[facility] Patient Note Patient: Flaco Cardona Unit #: [id number]: 1955 Dictated By: Artis NixonDate of Visit: Feb 24, 2021 Onc MED Follow-Up/Prog Note Chief Complaint: Myeloma/prostate cancer. History of Present Illness: Mr Cardona is a 65 year-old gentleman with IgA kappa myeloma, stage IIIB. During followup he was found to have metastatic prostate cancer involving the bone marrow. He was diagnosed with IgA kappa myeloma in October 2009. He presented at that time with anemia, hypercalcemia, renal failure, and severe osteopenia with multiple vertebral compression fractures. He was seen at the [facility] for his initial evaluation. He was treated on their standard arm Total Therapy 4 which included M-VTD-PACE induction and a second induction with VTD-PACE. He then underwent tandem transplants with high-dose melphalan conditioning in February and in March 2010. He reportedly had an excellent response to the treatment, and he was then consolidated with VTD-PACE in June 2010 and July 2010 followed by maintenance VRD. His maintenance therapy was complicated by depression due to Revlimid and severe neuropathy, and treatment was stopped by June 2011. He restarted treatment with Revlimid in August 2012, but he was again unable to tolerate it due to depression. He stopped treatment again in February 2013. He underwent evaluation at the [facility] in July 2014. At that time he was felt to have disease progression with MRI reporting new lesions in the clivus and in the right humerus. Bone marrow at that time showed 10% plasma cells in the aspirate and 20% in the biopsy. His M protein quantitated at 1 g compared to 0.3 g in February 2014. It was opted at that time to resume treatment with pomalidomide in combination with cyclophosphamide and dexamethasone. As of 03/05/2015 he had completed 7 cycles of treatment with the cyclophosphamide administered on a day 1/day 15 schedule. He had a restaging evaluation at the [facility] on 08/12/2015. Bone marrow aspiration/biopsy at that time showed an overall cellularity of 35%. The aspirate showed 6% plasma cells. By flow cytometry total plasma cells were estimated at 1.23%, with 0.69% myeloma cells and 0.54% normal plasma cells. The chromosome analysis showed a translocation involving chromosomes 4 and 8 in a single cell. The clinical significance of that finding was uncertain. He was advised to continue treatment with pomalidomide, dexamethasone, and cyclophosphamide. As of November 2015 the cyclophosphamide was put on hold due to persistent neutropenia. He had follow-up at [facility] in June 2017. His MRI bone marrow blood supply exam on 07/07/2017 showed a slight increase of mild hyperintense homogeneous signal in the marrow of the axial and peripheral skeletons. There was a slight increase of mildly restricted diffusion noted in the marrow cavity. There was interval development of a 2.5 cm focal lesion in the right posterior ilium with restricted diffusion and a 2 cm focal lesion in the right posterior elements at approximately T6, also with restricted diffusion. Bilateral small calvarial lesions were noted with interval punctate and bilateral interval rib lesions were noted. His bone marrow aspiration/biopsy on 07/10/2017 showed overall cellularity of 30% with the differential showing 7% plasma cells. The immunohistochemical stain for CD138 showed 5-10% plasma cells with interstitial and patchy distribution. His M protein was quantitated 0.7 g/dL. He was seen for a follow-up visit here on 07/11/2017. At that point he had become significantly more fatigued. He complained of shortness of breath, and he had been having episodes of passing out. His hemoglobin had dropped to 8.7 g. He was transfused 2 U of packed red blood cells on 07/13/2017. He had symptomatic improvement. He then returned to [facility] and on 07/15/2017 he began treatment with daratuzumab in addition to the pomalidomide/dexamethasone. He had no significant toxicity with the initial infusion of daratuzumab. During subsequent follow-up, there was a gradual decline in his granulocyte count. It nadired at 1200 at week 5 of daratuzumab, but it subsequently increased. He received week 8 of daratuzumab on 09/05/2017. His treatment was then put on hold due to persistent/recurrent pneumonia. He was admitted to the hospital on 09/14/2017 and again on 09/24/2017. With the second admission he was feeling weak and he had fallen several times. Brain MRI reported a 3.7 x 1.7 cm marrow replacing lesion within the clivus, consistent with plasmacytoma. A 7 mm focus of acute ischemia was noted in the right cerebellum. There was a small amount of associated edema. With those findings, he was transferred to [facility] for further management. His evaluation there was consistent with cerebellar stroke with subacute lacunar ischemic infarct on the right cerebellar hemisphere. Also reported was an expansile myelomatous clival lesion with bony erosion of the left carotid canal, erosion of the anterior and posterior cortex of the clivus, and extension into the sphenoid sinuses. The pneumonia improved after 7 days of IV cefepime. He was seen here again on 10/19/2017 and at that time he completed his 9th infusion of daratumumab. His next scheduled treatment was put on hold due to neutropenia and symptoms of respiratory infection. On 11/10/2017 he was admitted to the hospital with neutropenic fever. He was transferred to [facility] for further care. After recovering from that illness he had a restaging evaluation for the myeloma. His bone marrow aspiration/biopsy showed 5% plasma cells. His M protein quantitated at 0.4 g/dL. MRI bone marrow blood supply on 12/18/2017 showed interval worsening with increased size of the focal lesions involving the right temporal bone, clivus, and left parietal bone. There were only minimal changes noted in the spine from the previous studies. There was minimal progression of lesions in the proximal right humerus and in the upper sternum. With those findings, it was recommended that he change treatment to carfilzomib in combination with dexamethasone. He began cycle 1 on 12/27/2017 with the carfilzomib dosed at 20 mg/m???. He also started monthly replacement therapy with IVIG. At day 8 of cycle 1 the carfilzomib dosage was escalated to 36 mg/m???. He tolerated it well, and he was able to continue with cycle 2 on 01/24/2018. As of February 2018 he had completed 3 cycles of treatment. In May 2018 he underwent a stem cell transplant procedure at [facility]. He has had a gradual recovery following that treatment. I had seen him for follow-up here in September 2018. At that time he appeared stable clinically. He then continued his further follow-up at [facility]. His repeat bone marrow aspiration/biopsy on 06/12/2019 showed an unexpected finding of involvement with moderately differentiated metastatic adenocarcinoma which was felt to be most consistent with prostatic origin. It was morphologically negative for plasma cell neoplasm. His PSA was elevated in the range of 20 ng/mL. Restaging CT scans of the chest, abdomen, and pelvis on 06/22/2019 showed a small spiculated residual nodular density in the right upper lobe measuring 1.3 cm, decreased in size from 3.5 cm on a prior PET/CT from January 2019. It was felt to be most likely infectious/inflammatory. There were persistent tree-in-bud type nodularity in both lungs, particularly the lower lobes, felt to be suggestive of multifocal infectious/inflammatory change. There were no new pulmonary nodules and there was no pulmonary consolidation noted. There was no evidence of visceral/sherman metastatic disease in the abdomen/pelvis. There were faint sclerotic lesions in the C7 and T1 vertebral bodies. A bone scan on 06/24/2019 showed multiple focal areas of abnormal uptake which corresponded to the FDG avid osseous lesions noted on the PET/CT from 06/07/2019. These include with the upper thoracic spine, left T9 transverse process, and left posterior ischium. Overall, the findings were felt to be consistent with osteoblastic metastatic disease favoring metastatic prostate cancer over multiple myeloma. He began treatment with bicalutamide 50 mg daily, and he was then seen here on to continue his androgen deprivation locally. He received his initial injection of Depo-Lupron 22.5 mg on 07/01/2019. He tolerated with no adverse effects, and he then continued with a second Lupron injection on 10/01/2019. At that point his PSA had decreased to 0.11 ng/mL. He was seen for a follow-up visit at [facility] on 10/25/2019. His PET/CT showed an FDG avid right frontotemporal calvarial lesion measuring 2 cm, but with interval resolution of abnormal FDG uptake within a sclerotic left posterior iliac lesion. There was no evidence of metastatic disease. With that finding, he was recommended to restart treatment for the myeloma with daratumumab in combination with cyclophosphamide 100 mg weekly, Revlimid 10 mg daily on a 21/28-day schedule, and dexamethasone 8 mg. He began his week 1 daratumumab on 10/30/2019. He tolerated the daratumumab without acute toxicity, and he then continued the daratumumab weekly. At his follow-up visit on 11/20/2019 the lenalidomide and cyclophosphamide were put on hold due to neutropenia, ANC 1300. Both were restarted on 12/04/2019 but with the lenalidomide dosage reduced to 5 mg daily. As of December 2019 the frequency of the daratumumab infusions was reduced to every 2 weeks and during that time he continued treatment for the prostate cancer with Zoladex in combination with enzalutamide. He also continued replacement IVIG. His repeat bone marrow aspiration/biopsy on 09/09/2020 showed 40% cellularity with involvement by plasma cell neoplasm, though with <5% plasma cells reported on both the aspirate and the core biopsy. His M protein is reported <0.1. His PET/CT imaging showed at least 3 FDG avid marrow lesions and worsening of the clivus lesion with adjacent soft tissue involvement and large cortical defect. At his follow-up visit at [facility] on 09/15/2020 it was recommended that he transition to salvage therapy with belantamab mafodotin. He received cycle 1 on 10/08/2020. He tolerated it well and continue with cycle 2 on 11/11/2020. He was seen for follow-up at [facility] on 12/03/2020. There was again evidence of further disease progression by PET/CT. He was recommended to change treatment to weekly carfilzomib beginning at 20 mg/m2 by IV infusion together with pomalidomide 3 mg daily on a 21/28-day schedule and dexamethasone 12 mg IV weekly. He was seen here on 01/14/2021 to begin his day 1 treatment. His baseline echocardiogram showed adequate LV function with estimated ejection fraction at 60%. He tolerated his treatment without acute toxicity. He presented for day 8 treatment on 01/21/2021. At that time he had developed a new, painful nodule in the right lateral forehead area. Head CT on 01/22/2021 showed lytic destructive areas throughout the skull. The most concerning lytic area was in the right frontal bone, correlating with the palpable mass. It was associated with complete destruction of the bone with soft tissue mass extending to the dura. The most significant finding, though, was a large soft tissue mass centered at the skull base in greatest to the right of the midline. There was destruction of the clivus and skull base including the foramen magnum. Further evaluation with MRI showed a 4.3 cm malignant mass with osseous destruction centered at the clivus/right sphenoid/skull base and invading into the sella and inferior medial right temporal lobe. There was also associated encasement of the intracranial portion of the right carotid artery. The mass was noted to obliterate the foramen ovale and the foramen despite no some with likely involvement/encasement of the right cranial nerve V3 branch. There was invasion to the level of the right orbital apex with associated narrowing. With those findings, he began a course of palliative radiation. He completed the radiation on 02/12/2021 to a total dose of 3000 cGy administered in 10 fractions. He tolerated it well. In the meantime, he continued with his day 15 carfilzomib on 01/28/2021 and with day 22 treatment on 02/04/2021. He returned to [facility] for T-cell harvesting on 02/17/2021. Mr Cardona is here today for followup and cycle carfilzomib. He is doing well overall. 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 However he states has been having horrible leg cramps . He states they are worse at night and keep him awake. He has tried gabapentin and Lyrica and does not feel that either 1 of these are helping anymore. He has not yet tried lorazepam for the leg cramps. He denies any lower extremity swelling or weakness. He denies any warmth or tenderness. He states the leg cramps are just worse at night and are altering his sleeping patterns. He denies any new shortness of breath orthopnea. He denies any fever or chills. He states he has not had any nausea vomiting his appetite count of comes and goes but is good for the most part . He denies any diarrhea or constipation. He states he has chronic neuropathy but that is stable. His ECOG is 1 today. Past Medical History: Depression Multiple myeloma Peripheral neuropathy Prostate cancer Past Surgical History: Carpal tunnel release on the left Multiple vertebroplasty/kyphoplasty procedures Tcell [facility] for futue CAR-T UAMS in 2020 Stem cell transplant in 2019 Cataract excision in 2016 Colonoscopy in 2016 Allergies: No Known Allergies. Medications: Acyclovir 1 (200 mg) Tablet Oral daily Albuterol Sulfate 1 ((2.5 mg/3ml) 0.083%) Nebulization solution Inhalation four times a day PRN amLODIPine Besylate 1 Tablet (of 5 mg) Oral daily PRN Baclofen 1 (10 mg) Tablet Oral at bedtime PRN Casodex 1 Tablet (of 50 mg) Oral daily Colace Capsule Oral daily PRN cultrelle 1 Capsule Oral daily Cyproheptadine HCl 1 (4 mg) Tablet Oral b.i.d. PRN D3-1000 Tablet Oral daily Dapsone 1 Tablet (of 100 mg) Oral daily Effexor XR 1 (75 mg) Capsule SR 24 HR Oral daily Folic Acid 1 (1000 mcg) Tablet Oral b.i.d. Gabapentin 1 Capsule (of 600 mg) Oral at bedtime Hydrocodone-Acetaminophen 1 (10-325 mg) Tablet Oral four times a day PRN Ipratropium-Albuterol 1 (20-100 mcg/act) Aerosol, solution Inhalation daily Mirtazapine 1 Tablet (of 15 mg) Oral daily Multivitamins 1 Capsule Oral daily Pantoprazole Sodium 1 Tablet (of 40 mg) Tablet, enteric coated Oral daily PRN Phos-NaK 1 Packet (of 280-160-250 mg) Pack Oral daily for 90 days Questran 1 (4 g) Pack Oral daily Xanax 1 Tablet (of 0.5 mg) Oral t.i.d. PRN Zofran 1 Tablet (of 8 mg) Oral four times a day PRN Family History: Family history significant for father having of lymphoma at age 58. A sister also has multiple myeloma. Social History: Mr. Cardona is and he is a disabled. Mr. Cardona no longer smokes but had smoked 0.5 packs/day for 17 years. Review Of Symptoms: <See Above> Vital Signs: Performed on Feb 24, 2021 11:20 Height - 67.00 in Weight - 162.6 lbs (LOW) BSA - 1.85 sq.m BMI - 25.47 Temperature - 98.9 F (HIGH) Pulse - 89 /min Respiration - 20 /min BP - 166/94 mm(hg) (HIGH) O2 Sat - 97 % Pain - 10 Fatigue - 8,1 - No physically strenuous activity, but ambulatory and able to carry out light or sedentary work (e.g. office work, light house work). (ECOG) Physical Examination: Constitutional Alert, oriented, no acute distress. Skin pink, warm and dry. Head Normocephalic; atraumatic. Eyes Conjunctivae and sclerae are clear and without icterus. Pupils are reactive and equal. ENMT Sinuses are nontender. No oral exudates, ulcers, masses, thrush or mucositis. Oropharynx clear. Tongue normal. Neck Supple without masses or thyromegaly. No jugular venous distension. Hematologic/Lymphatic No petechiae or purpura. Respiratory Lungs are clear to auscultation without rhonchi or wheezing. Cardiovascular Regular rate and rhythm of heart without murmurs,clicks, gallops or rubs. Abdomen Non-tender, non-distended, no masses, ascites. Back/Spine Non-tender to palpation. Extremities No visible deformities, no cyanosis, clubbing or edema. Musculoskeletal No tenderness or swelling, normal range of motion without obvious weakness. Integumentary No rashes or lesions. Neurologic No sensory or motor deficits, normal cerebellar function, normal gait. Psychiatric Alert and oriented times three. Coherent speech. Verbalizes understanding of our discussions today. Laboratory: Test performed on Feb 24, 2021 09:55 Ferritin 3335 ng/mL Iron 204 mcg/dL Iron Binding Capacity (TIBC) 248 mcg/dl % Iron Saturation 82.2 % UIBC 44 mcg/dL PSA 0.012 ng/mL Impression: 1. IgA kappa myeloma, stage IIIB. He had severe osteopenia with multiple vertebral compression fractures at initial diagnosis in October 2009. 2. His bone marrow aspiration/biopsy on 06/12/2019 showed unexpected finding of moderately differentiated metastatic adenocarcinoma of the mid most consistent with prostatic origin. His PET/CT and bone scans showed several foci of osteoblastic involvement felt to be most consistent with metastatic prostate cancer. 3. 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 He is on replacement IVIG due to recurrent episodes of pneumonia. 4. Chronic anemia, multifactorial, transfusion dependent. 5. He has evidence of transfusion associated iron overload. 6. Treatment related peripheral neuropathy. 7. History of cerebellar stroke in September 2017. 8. Depression. Plan/Problems Addressed at this Visit: 1. IgA kappa myeloma, stage IIIB. He had severe osteopenia with multiple vertebral compression fractures at initial diagnosis in October 2009. He has been followed at [facility] and has been extensively treated. His prior treatments included: Induction therapy on the Total Therapy 4 program followed by tandem stem cell transplants with high-dose melphalan conditioning. Maintenance therapy with VRD, stopped in February 2013 due to side effects. Multiple salvage therapies following relapse in July 2014, including repeat stem cell transplant in May 2018. Daratumumab in combination with cyclophosphamide, lenalidomide, and dexamethasone, stopped as of September 2020. Belantamab mafodotin at a standard dose of 2.5 mg/kg by IV infusion every 3 weeks beginning October 08, 2020. Cycle 2 administered 11/11/2020. At his follow-up visit at [facility] in November 2020 there was evidence of further disease progression by PET/CT. He has now going to start further treatment with carfilzomib administered by IV infusion weekly, initially at a dosage of 20 mg/m2, to be escalated as tolerated, and administered in conjunction with pomalidomide 3 mg daily on a 21/28-day schedule and with dexamethasone 12 mg IV weekly. His baseline echocardiogram showed adequate LV function. Following completion of his first full cycle of carfilzomib/pomalidomide he returned to [facility] for T-cell harvesting in preparation for CAR-T therapy.He continues to have transfusion dependent anemia and moderately severe thrombocytopenia, but he otherwise appears to be tolerating the treatment well. A. Proceed now with cycle 2-day 1 carfilzomib. The dosage remains the same at 68 mg by IV infusion. B. Today's labs were reviewed in detail and discussed with Mr. Cardona and a copy was given to him. WBC 4.4, hemoglobin 9.2, platelets 106,000 ANC is 2390. Potassium 4.5 creatinine 1.1 LFTs are normal. C. Return in 1 week for cycle 2-day 8 carfilzomib. D. Mr. Cardona was instructed to contact us in interim should questions or problems arise. 2. At day 8 he presented with a new palpable mass in the right forehead area laterally. He was confirmed by CT and subsequently by MRI to have a bony destructive lesion at that site. More significantly, there was a large mass noted involving the clivus/skull base. He was given palliative radiation to the calvarium, completed on 02/12/2021 to a total dose of 3000 cGy administered in 10 fractions. He tolerated it well. 3. He has chronic anemia which appears to be multifactorial. He will be transfused as needed. A. He does have elevated ferritin from all his transfusions and we have considered starting him on iron chelation but had not yet done so for this year fact that he is on so many other medications at this time. We will recheck his iron studies as this may be contributing to his severe leg cramps. 4. He also has metastatic prostate cancer, diagnosed by bone marrow aspiration/biopsy on 06/12/2019. He has had a good response to androgen deprivation therapy. He continues enzalutamide 160 mg daily. 5. Severe leg cramps of unknown etiology. A. I have asked him to try Ativan for his leg cramps to see if this will give him any relief. B. He has tried gabapentin and Lyrica with success in the past but states that that is no longer helping and he has been at max dosing. C. We will check his iron studies as he has had but evidence of iron overload in the past and may need to start iron chelation to see if this will help with his leg cramps. D. It is noted that his MCV and MCH are also elevated so we will plan to check his B12 and folate levels with a future lab draw. E. He reports his magnesium at [facility] on 02/18/2021 was 2.0. Signed By: Artis Nixon-, AOCNP Christopher Brody MD<<Signature on File>>
== END 2021-03-05 11:30 | disposition home or self-care (01) ==
LOC: ONCMED 06:33
PROVIDERS: Internal Medicine Medical Oncology; Nurse Practitioner; Absent Provider Radiology Radiation Oncology; PCP Family Medicine; Visit Provider Radiology Radiation Oncology
DX: Z51.0 Encounter for antineoplastic radiation therapy (principal); Z51.11 Encounter for antineoplastic chemotherapy; C90.00 Multiple myeloma not having achieved remission; C61 Malignant neoplasm of prostate; C79.51 Secondary malignant neoplasm of bone; M85.88 Other specified disorders of bone density and structure, other site; D80.1 Nonfamilial hypogammaglobulinemia; D64.9 Anemia, unspecified; G62.9 Polyneuropathy, unspecified; F32.9 Major depressive disorder, single episode, unspecified; Z86.73 Personal history of transient ischemic attack (TIA), and cerebral infarction without residual deficits; Z79.899 Other long term (current) drug therapy
CPT/HCPCS: 36415; 77014; 77336; 77387; 77412; 77427; 80053; 82728; 83540; 83550; 84153; 85025; 96361; 96366; 96367; 96375; 96413; 99024; 99215; J1200; J1568; J2405; J3490; J7040; J9047

== ENCOUNTER 2021-03-05 11:35 | Outpatient (CLI) | payer MEDICARE, BC, SELFPAY ==
[2021-03-05] VITALS (14 sets, daily range): BP systolic 150–168; BP diastolic 77–108; PULSE 18–88; RESP 16–19; TEMP 36.3–36.9; O2SAT 94–98
[2021-03-05 10:19] LABS: Basophils % 0.3 %; Eosinophils # 0.4 10^3/uL (0.0-0.8); Eosinophils % 5.6 %; Hematocrit 25.9 % (42.0-52.0); Hemoglobin 8.1 g/dL (11.7-16.6); Lymphocytes # 2.4 10^3/uL (0.8-4.8); Lymphocytes % 32.5 %; Mean Corpuscular HGB Conc 31.3 g/dL (30.0-36.0); Mean Corpuscular Hemoglobin 35.5 pg (28.0-34.0); Mean Corpuscular Volume 113.6 fl (80-94); Mean Platelet Volume 10.9 fL (7.4-10.4); Monocytes # 0.6 10^3/uL (0.2-0.9); Monocytes % 8.6 %; Neutrophils # 3.92 10^3/uL (1.8-7.7); Neutrophils % 52.5 %; Nucleated Red Blood Cells % 0 %; Platelet Count 30 10^3/cmm (130-400); Red Blood Count 2.28 10^6/uL (4.1-5.3); White Blood Count 7.5 10^3/uL (4.0-10.0)
--- NOTE | 2021-03-05 20:20 | PC.NURSE ---
D/C Patient AAOX4 at time of D/C, vitals recorded, IV access removed intact, nurse walked patient with all his personal belongings to his personal vehicle in the main entrance parking lot.
== END 2021-03-05 20:11 | disposition home or self-care (01) ==
LOC: OPMS 11:42 → MEDSURG 11:44
PROVIDERS: PCP Family Medicine; Visit Provider Nurse Practitioner
DX: D69.6 Thrombocytopenia, unspecified (principal); E83.111 Hemochromatosis due to repeated red blood cell transfusions; C61 Malignant neoplasm of prostate; C79.52 Secondary malignant neoplasm of bone marrow; D80.1 Nonfamilial hypogammaglobulinemia; R50.9 Fever, unspecified; C90.02 Multiple myeloma in relapse; D64.81 Anemia due to antineoplastic chemotherapy; C90.00 Multiple myeloma not having achieved remission
CPT/HCPCS: 36430; 85025; 86850; 86900; 86920; P9016; P9035

== ENCOUNTER 2021-03-10 06:40 | Outpatient (RCR) | payer MEDICARE, BC, SELFPAY ==
[2021-03-10 12:39] LABS: Basophils % 0.4 %; Eosinophils # 0.3 10^3/uL (0.0-0.8); Hematocrit 31.7 % (42.0-52.0); Lymphocytes # 2.3 10^3/uL (0.8-4.8); Lymphocytes % 47.5 %; Mean Corpuscular HGB Conc 31.5 g/dL (30.0-36.0); Mean Corpuscular Hemoglobin 33.7 pg (28.0-34.0); Mean Corpuscular Volume 106.7 fl (80-94); Mean Platelet Volume 11.9 fL (7.4-10.4); Monocytes # 0.5 10^3/uL (0.2-0.9); Monocytes % 10.5 %; Neutrophils # 1.64 10^3/uL (1.8-7.7); Nucleated Red Blood Cells % 0 %; Red Blood Count 2.97 10^6/uL (4.1-5.3); Red Cell Distribution Width 21.6 % (12.1-15.1); White Blood Count 4.8 10^3/uL (4.0-10.0)
[2021-03-10 13:16] LABS: Platelet Count 28 10^3/cmm (130-400); Slide Review Slide Review Perform
[2021-03-10] MEDS: acetaminophen 325 mg Tablet 650 MG PO (15:00)
[2021-03-10] MEDS: dextrose 5% 250 ML 75 ML IV (15:00)
[2021-03-10] MEDS: sodium chloride 0.9% 500 ML 999 ML IV (15:00)
[2021-03-10] MEDS: famotidine 20 mg/2 mL INJ IVP (15:05)
[2021-03-10] MEDS: diphenhydrAMINE 50 mg/mL SDV 1mL 25 MG IV (15:06)
[2021-03-10] MEDS: ondansetron 2 mg/ML SDV 2 mL 8 MG IV (15:09)
[2021-03-10 15:14] VITALS: BP 132/91; PULSE 75; RESP 16; TEMP 37.7; O2SAT 98
[2021-03-10 15:29] VITALS: BP 150/80; PULSE 72; RESP 16; TEMP 37.2; O2SAT 96
== END 2021-03-14 23:59 | disposition home or self-care (01) ==
LOC: ONCMED 06:40
PROVIDERS: Absent Provider Radiology Radiation Oncology; PCP Family Medicine; Visit Provider Nurse Practitioner
DX: Z51.11 Encounter for antineoplastic chemotherapy (principal); C61 Malignant neoplasm of prostate; C79.52 Secondary malignant neoplasm of bone marrow; E83.111 Hemochromatosis due to repeated red blood cell transfusions; C90.02 Multiple myeloma in relapse; D80.1 Nonfamilial hypogammaglobulinemia; D64.81 Anemia due to antineoplastic chemotherapy; T45.1X5D Adverse effect of antineoplastic and immunosuppressive drugs, subsequent encounter; Z79.899 Other long term (current) drug therapy
CPT/HCPCS: 36415; 36430; 85025; 86900; 96361; 96375; 96413; J1200; J2405; J3490; J7040; J9047; P9055

== ENCOUNTER 2021-04-22 09:56 | Outpatient (RCR) | payer MEDICARE, BC, SELFPAY ==
[2021-04-22 11:49] LABS: Basophils % 0.6 %; Eosinophils # 0.1 10^3/uL (0.0-0.8); Eosinophils % 1.7 %; Hematocrit 31.3 % (42.0-52.0); Lymphocytes # 1.9 10^3/uL (0.8-4.8); Lymphocytes % 28.9 %; Mean Corpuscular HGB Conc 31.9 g/dL (30.0-36.0); Mean Corpuscular Hemoglobin 35.8 pg (28.0-34.0); Mean Corpuscular Volume 112.2 fl (80-94); Mean Platelet Volume 10.1 fL (7.4-10.4); Monocytes # 0.5 10^3/uL (0.2-0.9); Monocytes % 6.9 %; Neutrophils # 3.99 10^3/uL (1.8-7.7); Neutrophils % 61.4 %; Nucleated Red Blood Cells % 0 %; Platelet Count 95 10^3/cmm (130-400); Red Blood Count 2.79 10^6/uL (4.1-5.3); Red Cell Distribution Width 19.3 % (12.1-15.1); White Blood Count 6.5 10^3/uL (4.0-10.0)
== END 2021-05-14 23:59 | disposition home or self-care (01) ==
LOC: ONCMED 09:56
PROVIDERS: Absent Provider Radiology Radiation Oncology; PCP Family Medicine; Visit Provider Nurse Practitioner
DX: E83.111 Hemochromatosis due to repeated red blood cell transfusions (principal)
CPT/HCPCS: 36415; 85025

== ENCOUNTER 2021-06-30 07:44 | Outpatient (RCR) | payer MEDICARE, BC, SELFPAY ==
[2021-06-15 11:35] LABS: Basophils % 1.4 %; Eosinophils # 0.2 10^3/uL (0.0-0.8); Eosinophils % 7.4 %; Hematocrit 26.4 % (42.0-52.0); Hemoglobin 8.2 g/dL (11.7-16.6); Lymphocytes # 0.4 10^3/uL (0.8-4.8); Lymphocytes % 18.9 %; Mean Corpuscular HGB Conc 31.1 g/dL (30.0-36.0); Mean Corpuscular Hemoglobin 30.9 pg (28.0-34.0); Mean Corpuscular Volume 99.6 fl (80-94); Mean Platelet Volume 11.2 fL (7.4-10.4); Monocytes # 0.4 10^3/uL (0.2-0.9); Monocytes % 17.1 %; Neutrophils # 1.19 10^3/uL (1.8-7.7); Neutrophils % 54.7 %; Nucleated Red Blood Cells % 0 %; Red Blood Count 2.65 10^6/uL (4.1-5.3); White Blood Count 2.2 10^3/uL (4.0-10.0)
[2021-06-15 11:43] LABS: Platelet Count 26 10^3/cmm (130-400)
[2021-06-15] MEDS: sodium chloride 0.9% 250 ML 999 ML IV (12:05)
[2021-06-15] MEDS: acetaminophen 325 mg Tablet 650 MG PO (12:10)
[2021-06-15] MEDS: diphenhydrAMINE 25 mg Capsule PO (12:10)
[2021-06-15] MEDS: FUROsemide 10 mg/mL SDV 2mL 20 MG IV (12:50)
[2021-06-30] VITALS (10 sets, daily range): BP systolic 121–151; BP diastolic 70–98; PULSE 74–80; RESP 18; TEMP 36.1–37.3; O2SAT 95–97
[2021-06-30] MEDS: sodium chloride 0.9% 250 ML 999 ML IV (09:30)
[2021-06-30 09:59] LABS: Basophils % 0.4 %; Eosinophils % 1.7 %; Hematocrit 25.1 % (42.0-52.0); Hemoglobin 7.8 g/dL (11.7-16.6); Lymphocytes # 0.6 10^3/uL (0.8-4.8); Lymphocytes % 23.1 %; Mean Corpuscular HGB Conc 31.1 g/dL (30.0-36.0); Mean Corpuscular Hemoglobin 31.3 pg (28.0-34.0); Mean Corpuscular Volume 100.8 fl (80-94); Mean Platelet Volume 10.7 fL (7.4-10.4); Monocytes # 0.3 10^3/uL (0.2-0.9); Monocytes % 11.3 %; Neutrophils % 63.1 %; Nucleated Red Blood Cells % 0 %; Platelet Count 32 10^3/cmm (130-400); Red Blood Count 2.49 10^6/uL (4.1-5.3); Red Cell Distribution Width 19.4 % (12.1-15.1); White Blood Count 2.4 10^3/uL (4.0-10.0)
[2021-06-30] MEDS: acetaminophen 325 mg Tablet 650 MG PO (10:00)
[2021-06-30] MEDS: diphenhydrAMINE 25 mg Capsule PO (10:00)
[2021-06-30] MEDS: FUROsemide 10 mg/mL SDV 2mL 20 MG IV (13:20)
== END 2021-07-12 23:59 | disposition home or self-care (01) ==
LOC: ONCMED 07:44
PROVIDERS: Nurse Practitioner; PCP Family Medicine; Visit Provider Internal Medicine Medical Oncology
DX: C61 Malignant neoplasm of prostate (principal); C79.52 Secondary malignant neoplasm of bone marrow; E83.111 Hemochromatosis due to repeated red blood cell transfusions; Z79.899 Other long term (current) drug therapy
CPT/HCPCS: 36415; 36430; 85025; 86850; 86900; 86920; 96374; J1940; J7050; P9040

== ENCOUNTER 2021-07-29 12:59 | Outpatient (RCR) | payer MEDICARE, BC, SELFPAY ==
[2021-07-15] MEDS: lidocaine 1% INJ 20 mL INJECTION (14:25)
[2021-07-15] MEDS: goserelin acetate 10.8 mg Implant SUBCUT (14:30)
--- NOTE | 2021-07-19 09:48 | ONC FU_ITS ---
Sully George Progress Note Patient: Flaco Cardona Unit #: [id number]: [id number] Dicatated By: Sully George N.P.Date of Visit:Jul 15, 2021 Onc MED Follow-up/Prog Note Chief Complaint: Myeloma/prostate cancer. History of Present Illness: This is a 65 year-old man with IgA kappa myeloma, stage IIIB. During followup he was found to have metastatic prostate cancer involving the bone marrow. He was diagnosed with IgA kappa myeloma in October 2009. He presented at that time with anemia, hypercalcemia, renal failure, and severe osteopenia with multiple vertebral compression fractures. He was seen at the [facility] for his initial evaluation. He was treated on their standard arm Total Therapy 4 which included M-VTD-PACE induction and a second induction with VTD-PACE. He then underwent tandem transplants with high-dose melphalan conditioning in February and in March 2010. He reportedly had an excellent response to the treatment, and he was then consolidated with VTD-PACE in June 2010 and July 2010 followed by maintenance VRD. His maintenance therapy was complicated by depression due to Revlimid and severe neuropathy, and treatment was stopped by June 2011. He restarted treatment with Revlimid in August 2012, but he was again unable to tolerate it due to depression. He stopped treatment again in February 2013. He underwent evaluation at the [facility] in July 2014. At that time he was felt to have disease progression with MRI reporting new lesions in the clivus and in the right humerus. Bone marrow at that time showed 10% plasma cells in the aspirate and 20% in the biopsy. His M protein quantitated at 1 g compared to 0.3 g in February 2014. It was opted at that time to resume treatment with pomalidomide in combination with cyclophosphamide and dexamethasone. As of 03/05/2015 he had completed 7 cycles of treatment with the cyclophosphamide administered on a day 1/day 15 schedule. He had a restaging evaluation at the [facility] on 08/12/2015. Bone marrow aspiration/biopsy at that time showed an overall cellularity of 35%. The aspirate showed 6% plasma cells. By flow cytometry total plasma cells were estimated at 1.23%, with 0.69% myeloma cells and 0.54% normal plasma cells. The chromosome analysis showed a translocation involving chromosomes 4 and 8 in a single cell. The clinical significance of that finding was uncertain. He was advised to continue treatment with pomalidomide, dexamethasone, and cyclophosphamide. As of November 2015 the cyclophosphamide was put on hold due to persistent neutropenia. He had follow-up at [facility] in June 2017. His MRI bone marrow blood supply exam on 07/07/2017 showed a slight increase of mild hyperintense homogeneous signal in the marrow of the axial and peripheral skeletons. There was a slight increase of mildly restricted diffusion noted in the marrow cavity. There was interval development of a 2.5 cm focal lesion in the right posterior ilium with restricted diffusion and a 2 cm focal lesion in the right posterior elements at approximately T6, also with restricted diffusion. Bilateral small calvarial lesions were noted with interval punctate and bilateral interval rib lesions were noted. His bone marrow aspiration/biopsy on 07/10/2017 showed overall cellularity of 30% with the differential showing 7% plasma cells. The immunohistochemical stain for CD138 showed 5-10% plasma cells with interstitial and patchy distribution. His M protein was quantitated 0.7 g/dL. He was seen for a follow-up visit here on 07/11/2017. At that point he had become significantly more fatigued. He complained of shortness of breath, and he had been having episodes of passing out. His hemoglobin had dropped to 8.7 g. He was transfused 2 U of packed red blood cells on 07/13/2017. He had symptomatic improvement. He then returned to [facility] and on 07/15/2017 he began treatment with daratuzumab in addition to the pomalidomide/dexamethasone. He had no significant toxicity with the initial infusion of daratuzumab. During subsequent follow-up, there was a gradual decline in his granulocyte count. It nadired at 1200 at week 5 of daratuzumab, but it subsequently increased. He received week 8 of daratuzumab on 09/05/2017. His treatment was then put on hold due to persistent/recurrent pneumonia. He was admitted to the hospital on 09/14/2017 and again on 09/24/2017. With the second admission he was feeling weak and he had fallen several times. Brain MRI reported a 3.7 x 1.7 cm marrow replacing lesion within the clivus, consistent with plasmacytoma. A 7 mm focus of acute ischemia was noted in the right cerebellum. There was a small amount of associated edema. With those findings, he was transferred to [facility] for further management. His evaluation there was consistent with cerebellar stroke with subacute lacunar ischemic infarct on the right cerebellar hemisphere. Also reported was an expansile myelomatous clival lesion with bony erosion of the left carotid canal, erosion of the anterior and posterior cortex of the clivus, and extension into the sphenoid sinuses. The pneumonia improved after 7 days of IV cefepime. He was seen here again on 10/19/2017 and at that time he completed his 9th infusion of daratumumab. His next scheduled treatment was put on hold due to neutropenia and symptoms of respiratory infection. On 11/10/2017 he was admitted to the hospital with neutropenic fever. He was transferred to [facility] for further care. After recovering from that illness he had a restaging evaluation for the myeloma. His bone marrow aspiration/biopsy showed 5% plasma cells. His M protein quantitated at 0.4 g/dL. MRI bone marrow blood supply on 12/18/2017 showed interval worsening with increased size of the focal lesions involving the right temporal bone, clivus, and left parietal bone. There were only minimal changes noted in the spine from the previous studies. There was minimal progression of lesions in the proximal right humerus and in the upper sternum. With those findings, it was recommended that he change treatment to carfilzomib in combination with dexamethasone. He began cycle 1 on 12/27/2017 with the carfilzomib dosed at 20 mg/m???. He also started monthly replacement therapy with IVIG. At day 8 of cycle 1 the carfilzomib dosage was escalated to 36 mg/m???. He tolerated it well, and he was able to continue with cycle 2 on 01/24/2018. As of February 2018 he had completed 3 cycles of treatment. In May 2018 he underwent a stem cell transplant procedure at [facility]. He has had a gradual recovery following that treatment. I had seen him for follow-up here in September 2018. At that time he appeared stable clinically. He then continued his further follow-up at [facility]. His repeat bone marrow aspiration/biopsy on 06/12/2019 showed an unexpected finding of involvement with moderately differentiated metastatic adenocarcinoma which was felt to be most consistent with prostatic origin. It was morphologically negative for plasma cell neoplasm. His PSA was elevated in the range of 20 ng/mL. Restaging CT scans of the chest, abdomen, and pelvis on 06/22/2019 showed a small spiculated residual nodular density in the right upper lobe measuring 1.3 cm, decreased in size from 3.5 cm on a prior PET/CT from January 2019. It was felt to be most likely infectious/inflammatory. There were persistent tree-in-bud type nodularity in both lungs, particularly the lower lobes, felt to be suggestive of multifocal infectious/inflammatory change. There were no new pulmonary nodules and there was no pulmonary consolidation noted. There was no evidence of visceral/sherman metastatic disease in the abdomen/pelvis. There were faint sclerotic lesions in the C7 and T1 vertebral bodies. A bone scan on 06/24/2019 showed multiple focal areas of abnormal uptake which corresponded to the FDG avid osseous lesions noted on the PET/CT from 06/07/2019. These include with the upper thoracic spine, left T9 transverse process, and left posterior ischium. Overall, the findings were felt to be consistent with osteoblastic metastatic disease favoring metastatic prostate cancer over multiple myeloma. He began treatment with bicalutamide 50 mg daily, and he was then seen here on to continue his androgen deprivation locally. He received his initial injection of Depo-Lupron 22.5 mg on 07/01/2019. He tolerated with no adverse effects, and he then continued with a second Lupron injection on 10/01/2019. At that point his PSA had decreased to 0.11 ng/mL. He was seen for a follow-up visit at [facility] on 10/25/2019. His PET/CT showed an FDG avid right frontotemporal calvarial lesion measuring 2 cm, but with interval resolution of abnormal FDG uptake within a sclerotic left posterior iliac lesion. There was no evidence of metastatic disease. With that finding, he was recommended to restart treatment for the myeloma with daratumumab in combination with cyclophosphamide 100 mg weekly, Revlimid 10 mg daily on a 21/28-day schedule, and dexamethasone 8 mg. He began his week 1 daratumumab on 10/30/2019. He tolerated the daratumumab without acute toxicity, and he then continued the daratumumab weekly. At his follow-up visit on 11/20/2019 the lenalidomide and cyclophosphamide were put on hold due to neutropenia, ANC 1300. Both were restarted on 12/04/2019 but with the lenalidomide dosage reduced to 5 mg daily. As of December 2019 the frequency of the daratumumab infusions was reduced to every 2 weeks and during that time he continued treatment for the prostate cancer with Zoladex in combination with enzalutamide. He also continued replacement IVIG. His repeat bone marrow aspiration/biopsy on 09/09/2020 showed 40% cellularity with involvement by plasma cell neoplasm, though with <5% plasma cells reported on both the aspirate and the core biopsy. His M protein is reported <0.1. His PET/CT imaging showed at least 3 FDG avid marrow lesions and worsening of the clivus lesion with adjacent soft tissue involvement and large cortical defect. At his follow-up visit at [facility] on 09/15/2020 it was recommended that he transition to salvage therapy with belantamab mafodotin. He received cycle 1 on 10/08/2020. He tolerated it well and continue with cycle 2 on 11/11/2020. He was seen for follow-up at [facility] on 12/03/2020. There was again evidence of further disease progression by PET/CT. He was recommended to change treatment to weekly carfilzomib beginning at 20 mg/m2 by IV infusion together with pomalidomide 3 mg daily on a 21/28-day schedule and dexamethasone 12 mg IV weekly. He was seen here on 01/14/2021 to begin his day 1 treatment. His baseline echocardiogram showed adequate LV function with estimated ejection fraction at 60%. He tolerated his treatment without acute toxicity. He presented for day 8 treatment on 01/21/2021. At that time he had developed a new, painful nodule in the right lateral forehead area. Head CT on 01/22/2021 showed lytic destructive areas throughout the skull. The most concerning lytic area was in the right frontal bone, correlating with the palpable mass. It was associated with complete destruction of the bone with soft tissue mass extending to the dura. The most significant finding, though, was a large soft tissue mass centered at the skull base in greatest to the right of the midline. There was destruction of the clivus and skull base including the foramen magnum. Further evaluation with MRI showed a 4.3 cm malignant mass with osseous destruction centered at the clivus/right sphenoid/skull base and invading into the sella and inferior medial right temporal lobe. There was also associated encasement of the intracranial portion of the right carotid artery. The mass was noted to obliterate the foramen ovale and the foramen despite no some with likely involvement/encasement of the right cranial nerve V3 branch. There was invasion to the level of the right orbital apex with associated narrowing. With those findings, he began a course of palliative radiation. He completed the radiation on 02/12/2021 to a total dose of 3000 cGy administered in 10 fractions. He tolerated it well. In the meantime, he continued with his day 15 carfilzomib on 01/28/2021 and with day 22 treatment on 02/04/2021. He returned to [facility] for T-cell harvesting on 02/17/2021. He then began cycle 2 of carfilzomib/pomalidomide on 02/24/2021. Patient presents today for follow-up. He states that he is getting stronger every day after he had a stem cell transplant. He is here to resume his and his IVIG. He states his appetite has been good. No fever, chills, night sweats. Shortness of breath with activity but that is also improving. No cough no chest pain. No GI or problems. He is having acute pain in his left arm after running into the wall upon arrival at the clinic. Mild bruising was noted. He denies headaches or dizziness. Review Of Symptoms: See above. Past Medical History: Depression Multiple myeloma Peripheral neuropathy Prostate cancer Past Surgical History: Carpal tunnel release on the left Multiple vertebroplasty/kyphoplasty procedures Tcell [place] for futue CAR-T [facility] in 2020 Stem cell transplant in 2019 Cataract excision in 2016 Colonoscopy in 2016 Allergies: No Known Allergies. Medications: Acyclovir 1 (200 mg) Tablet Oral daily Albuterol Sulfate 1 ((2.5 mg/3ml) 0.083%) Nebulization solution Inhalation four times a day PRN amLODIPine Besylate 1 Tablet (of 5 mg) Oral daily PRN Baclofen 1 (10 mg) Tablet Oral at bedtime PRN Casodex 1 Tablet (of 50 mg) Oral daily Colace Capsule Oral daily PRN cultrelle 1 Capsule Oral daily Cyproheptadine HCl 1 (4 mg) Tablet Oral b.i.d. PRN D3-1000 Tablet Oral daily Dapsone 1 Tablet (of 100 mg) Oral daily Effexor XR 1 (75 mg) Capsule SR 24 HR Oral daily Folic Acid 1 (1000 mcg) Tablet Oral b.i.d. Gabapentin 1 Capsule (of 600 mg) Oral at bedtime Hydrocodone-Acetaminophen 1 (10-325 mg) Tablet Oral four times a day PRN Ipratropium-Albuterol 1 (20-100 mcg/act) Aerosol, solution Inhalation daily Mirtazapine 1 Tablet (of 15 mg) Oral daily Multivitamins 1 Capsule Oral daily Pantoprazole Sodium 1 Tablet (of 40 mg) Tablet, enteric coated Oral daily PRN Phos-NaK 1 Packet (of 280-160-250 mg) Pack Oral daily for 90 days Questran 1 (4 g) Pack Oral daily Xanax 1 Tablet (of 0.5 mg) Oral t.i.d. PRN Zofran 1 Tablet (of 8 mg) Oral four times a day PRN Family History: Family history significant for father having of lymphoma at age 58. A sister also has multiple myeloma. Social History: Mr. Cardona is and he is a disabled. Mr. Cardona no longer smokes but had smoked 0.5 packs/day for 17 years. Physical Examination: Performed on Jul 15, 2021 16:30: Height - 67.00 in, Temperature - 99.2 F (HIGH), Pulse - 83 /min, Respiration - 18 /min, BP - 150/92 mm(hg) (HIGH), O2 Sat - 91 % (LOW), Performed on Jul 15, 2021 15:47: Height - 67.00 in, Weight - 155.4 lbs (LOW), BSA - 1.82 sq.m, BMI - 24.34, Temperature - 98.9 F (HIGH), Pulse - 78 /min, Respiration - 18 /min, BP - 116/67 mm(hg), O2 Sat - 96 %, Pain - 10, and Fatigue - 6. Performance Status: 1 - No physically strenuous activity, but ambulatory and able to carry out light or sedentary work (e.g. office work, light house work). (ECOG) Constitutional Alert, cooperative, oriented. Mood and affect appropriate. Appears close to chronological age. Well nourished. Well developed. Head Normocephalic; no scars. Eyes Conjunctivae and sclerae are clear and without icterus. Pupils are reactive and equal. Respiratory Lungs are clear to auscultation without rhonchi or wheezing. Cardiovascular Regular rate and rhythm of heart without murmurs, gallops or rubs. Abdomen Non-tender, non-distended, no masses, ascites or hepatosplenomegaly. Good bowel sounds. No guarding or rebound tenderness. Extremities No visible deformities, no cyanosis, clubbing or edema. Pulses 3+ and equal bilaterally. Musculoskeletal No tenderness or swelling, normal range of motion without obvious weakness. Integumentary No rashes, scars, or lesions suggestive of malignancy. Psychiatric Alert and oriented times three. Coherent speech. Verbalizes understanding of our discussions today. Laboratory: Test performed on Jun 30, 2021 09:45 Irradiated Leuko Red RBC [id number] AP RCLRI XM COMPATIBLE WBC 2.4 10 3/uL RBC 2.49 10 6/uL HGB 7.8 g/dL HCT 25.1 % MCV 100.8 fl MCH 31.3 pg MCHC 31.1 g/dL RDW 19.4 % Platelet Count 32 10 3/cmm MPV 10.7 fL Neutrophils 1.50 10 3/uL Lymphocytes 0.6 10 3/uL Monocytes 0.3 10 3/uL Eosinophils 0.0 10 3/uL Basophils 0.0 10 3/uL Neutrophil % 63.1 % Lymphocyte % 23.1 % Monocyte % 11.3 % Eosinophil % 1.7 % Basophils % 0.4 % NRBC % 0 % Anti-D Positive Blood Type AP Antibody Screen (Gel) NEGATIVE Test performed on Jun 30, 2021 08:34 Manual Diff DT. CBC ALREADY COMPLETED Test performed on Mar 03, 2021 09:35 Sodium 138 mmol/L Potassium 4.2 mmol/L Chloride 103 mmol/L CO2 25 mmol/L Anion Gap 14.2 BUN 19 mg/dL Creatinine 1.1 mg/dL Cr Clearance (Est) 72.6600 mL/min eGFR 66.8 mL/min Glucose 82 mg/dL Osmolality - Calculated 287 mOsm/kg Calcium 9.3 mg/dL Protein, Total 6.7 g/dL Albumin 3.6 g/dL Globulin 3.1 g/dL Bilirubin, Total 0.6 mg/dL ALT (SGPT) 24 U/L AST (SGOT) 27 U/L Alkaline Phosphatase 95 IU/L Test performed on Feb 24, 2021 09:55 Ferritin 3335 ng/mL Iron 204 mcg/dL Iron Binding Capacity (TIBC) 248 mcg/dl % Iron Saturation 82.2 % UIBC 44 mcg/dL PSA 0.012 ng/mL Test performed on Feb 01, 2021 10:25 Irradiated Red Blood Cells [id number] AP RCI XM COMPATIBLE Impression: 1. IgA kappa myeloma, stage IIIB. He had severe osteopenia with multiple vertebral compression fractures at initial diagnosis in October 2009. 2. His bone marrow aspiration/biopsy on 06/12/2019 showed unexpected finding of moderately differentiated metastatic adenocarcinoma of the mid most consistent with prostatic origin. His PET/CT and bone scans showed several foci of osteoblastic involvement felt to be most consistent with metastatic prostate cancer. 3. 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 He is on replacement IVIG due to recurrent episodes of pneumonia. 4. Chronic anemia, multifactorial, transfusion dependent. 5. He has evidence of transfusion associated iron overload. 6. Treatment related peripheral neuropathy. 7. History of cerebellar stroke in September 2017. 8. Depression. Plan: Patient presents today for follow-up. He is recently received his stem cell transplant and he presents today to receive his IVIG and his Zoladex injection. Which he receives every 3 months. He will return to the clinic in 1 month with CBC, CMP, PSA. Signed By: Sully George N.P. <<Signature on File>>
[2021-07-29 15:04] LABS: Basophils % 0.4 %; Eosinophils % 1.5 %; Lymphocytes # 1.2 10^3/uL (0.8-4.8); Lymphocytes % 44.4 %; Mean Corpuscular HGB Conc 30.6 g/dL (30.0-36.0); Mean Corpuscular Hemoglobin 33.2 pg (28.0-34.0); Mean Corpuscular Volume 108.4 fl (80-94); Mean Platelet Volume 12.3 fL (7.4-10.4); Monocytes # 0.3 10^3/uL (0.2-0.9); Monocytes % 9.6 %; Neutrophils # 1.12 10^3/uL (1.8-7.7); Nucleated Red Blood Cells % 0 %; Red Cell Distribution Width 23.9 % (12.1-15.1); White Blood Count 2.6 10^3/uL (4.0-10.0)
[2021-07-29 15:15] LABS: Hematocrit 20.6 % (42.0-52.0); Hemoglobin 6.3 g/dL (11.7-16.6); Platelet Count 21 10^3/cmm (130-400)
[2021-07-30] VITALS (8 sets, daily range): BP systolic 136–149; BP diastolic 84–94; PULSE 68–78; RESP 18; TEMP 36.3–36.6; O2SAT 97–99
[2021-07-30] MEDS: acetaminophen 325 mg Tablet 650 MG PO (08:25)
[2021-07-30] MEDS: sodium chloride 0.9% 250 ML 999 ML IV (08:25)
[2021-07-30] MEDS: FUROsemide 10 mg/mL SDV 2mL 20 MG IV (08:25)
[2021-07-30] MEDS: diphenhydrAMINE 25 mg Capsule PO (08:25)
== END 2021-08-12 23:59 | disposition home or self-care (01) ==
LOC: ONCMED 12:59
PROVIDERS: PCP Family Medicine; Visit Provider Nurse Practitioner Family
DX: C90.00 Multiple myeloma not having achieved remission (principal); D80.1 Nonfamilial hypogammaglobulinemia; M85.80 Other specified disorders of bone density and structure, unspecified site; C61 Malignant neoplasm of prostate; C79.51 Secondary malignant neoplasm of bone; D50.9 Iron deficiency anemia, unspecified; G62.9 Polyneuropathy, unspecified; F32.A Depression, unspecified; Z86.73 Personal history of transient ischemic attack (TIA), and cerebral infarction without residual deficits; Z79.818 Long term (current) use of other agents affecting estrogen receptors and estrogen levels; Z79.899 Other long term (current) drug therapy
CPT/HCPCS: 36415; 36430; 85025; 86850; 86900; 86920; 96365; 96366; 96372; 96374; 96402; 99215; J1568; J1940; J7050; J9202; P9040

== ENCOUNTER 2021-07-30 08:15 | Outpatient (CLI) | payer MEDICARE, BC, SELFPAY | END 2021-07-30 08:16 | disposition home or self-care (01) | PROVIDERS: PCP Family Medicine; Visit Provider Internal Medicine Medical Oncology | DX: C61 Malignant neoplasm of prostate (principal) | CPT/HCPCS: 96374 ==

== ENCOUNTER 2021-09-06 07:07 | Outpatient (RCR) | payer MEDICARE, BC, SELFPAY ==
[2021-08-25] VITALS (7 sets, daily range): BP systolic 112–131; BP diastolic 51–78; PULSE 74–84; RESP 18; TEMP 36.8–37.2; O2SAT 97–99
[2021-08-25 11:51] LABS: Basophils % 0.5 %; Eosinophils # 0.1 10^3/uL (0.0-0.8); Eosinophils % 1.7 %; Hematocrit 25.4 % (42.0-52.0); Hemoglobin 8.1 g/dL (11.7-16.6); Lymphocytes # 1.3 10^3/uL (0.8-4.8); Lymphocytes % 31.3 %; Mean Corpuscular HGB Conc 31.9 g/dL (30.0-36.0); Mean Corpuscular Hemoglobin 33.6 pg (28.0-34.0); Mean Corpuscular Volume 105.4 fl (80-94); Mean Platelet Volume 10.8 fL (7.4-10.4); Monocytes # 0.3 10^3/uL (0.2-0.9); Monocytes % 7.4 %; Neutrophils # 2.46 10^3/uL (1.8-7.7); Neutrophils % 58.6 %; Nucleated Red Blood Cells % 0 %; Red Blood Count 2.41 10^6/uL (4.1-5.3); Red Cell Distribution Width 23.3 % (12.1-15.1); White Blood Count 4.2 10^3/uL (4.0-10.0)
[2021-08-25 11:56] LABS: Platelet Count 24 10^3/cmm (130-400)
[2021-08-25] MEDS: diphenhydrAMINE 25 mg Capsule PO (13:10)
[2021-08-25] MEDS: acetaminophen 325 mg Tablet 650 MG PO (13:10)
[2021-08-25] MEDS: sodium chloride 0.9% 250 ML 999 ML IV (13:10)
[2021-08-25 14:16] LABS: Prostate Specific Antigen < 0.014 ng/mL (0-4)
[2021-08-25] MEDS: FUROsemide 10 mg/mL SDV 2mL 20 MG IV (15:00)
[2021-08-25 15:03] LABS: Alanine Aminotransferase 40 U/L (0-41); Albumin Level 3.9 g/dL (3.5-5.2); Alkaline Phosphatase 212 IU/L (40-130); Anion Gap 16.7 (5-19); Aspartate Amino Transferase 35 U/L (0-40); Blood Urea Nitrogen 26 mg/dL (8-23); Calcium 9.5 mg/dL (8.5-10.5); Carbon Dioxide 25 mmol/L (22-29); Chloride 102 mmol/L (98-107); Globulin 2.1 g/dL (1.3-4.6); Glomerular Filtration Rate 46.7 mL/min (90-130); Glucose 75 mg/dL (65-115); Osmolality Calculated 291 mOsm/kg (285-295); Potassium 4.7 mmol/L (3.5-5.1); Sodium 139 mmol/L (136-145); Total Bilirubin 0.3 mg/dL (0.15-1.2)
[2021-08-25] MEDS: sodium chloride 0.9% (100 ml) 100 ML 75 ML (15:05)
--- NOTE | 2021-08-25 19:51 | ONC FU_ITS ---
Sully George Progress Note Patient: Flaco Cardona Unit #: [id number]: 1955 Dicatated By: Sully George N.P.Date of Visit:Aug 25, 2021 Onc MED Follow-up/Prog Note Chief Complaint: Myeloma/prostate cancer. History of Present Illness: This is a 65 year-old man with IgA kappa myeloma, stage IIIB. During followup he was found to have metastatic prostate cancer involving the bone marrow. He was diagnosed with IgA kappa myeloma in October 2009. He presented at that time with anemia, hypercalcemia, renal failure, and severe osteopenia with multiple vertebral compression fractures. He was seen at the [facility] for his initial evaluation. He was treated on their standard arm Total Therapy 4 which included M-VTD-PACE induction and a second induction with VTD-PACE. He then underwent tandem transplants with high-dose melphalan conditioning in February and in March 2010. He reportedly had an excellent response to the treatment, and he was then consolidated with VTD-PACE in June 2010 and July 2010 followed by maintenance VRD. His maintenance therapy was complicated by depression due to Revlimid and severe neuropathy, and treatment was stopped by June 2011. He restarted treatment with Revlimid in August 2012, but he was again unable to tolerate it due to depression. He stopped treatment again in February 2013. He underwent evaluation at the [facility] in July 2014. At that time he was felt to have disease progression with MRI reporting new lesions in the clivus and in the right humerus. Bone marrow at that time showed 10% plasma cells in the aspirate and 20% in the biopsy. His M protein quantitated at 1 g compared to 0.3 g in February 2014. It was opted at that time to resume treatment with pomalidomide in combination with cyclophosphamide and dexamethasone. As of 03/05/2015 he had completed 7 cycles of treatment with the cyclophosphamide administered on a day 1/day 15 schedule. He had a restaging evaluation at the [facility] on 08/12/2015. Bone marrow aspiration/biopsy at that time showed an overall cellularity of 35%. The aspirate showed 6% plasma cells. By flow cytometry total plasma cells were estimated at 1.23%, with 0.69% myeloma cells and 0.54% normal plasma cells. The chromosome analysis showed a translocation involving chromosomes 4 and 8 in a single cell. The clinical significance of that finding was uncertain. He was advised to continue treatment with pomalidomide, dexamethasone, and cyclophosphamide. As of November 2015 the cyclophosphamide was put on hold due to persistent neutropenia. He had follow-up at [facility] in June 2017. His MRI bone marrow blood supply exam on 07/07/2017 showed a slight increase of mild hyperintense homogeneous signal in the marrow of the axial and peripheral skeletons. There was a slight increase of mildly restricted diffusion noted in the marrow cavity. There was interval development of a 2.5 cm focal lesion in the right posterior ilium with restricted diffusion and a 2 cm focal lesion in the right posterior elements at approximately T6, also with restricted diffusion. Bilateral small calvarial lesions were noted with interval punctate and bilateral interval rib lesions were noted. His bone marrow aspiration/biopsy on 07/10/2017 showed overall cellularity of 30% with the differential showing 7% plasma cells. The immunohistochemical stain for CD138 showed 5-10% plasma cells with interstitial and patchy distribution. His M protein was quantitated 0.7 g/dL. He was seen for a follow-up visit here on 07/11/2017. At that point he had become significantly more fatigued. He complained of shortness of breath, and he had been having episodes of passing out. His hemoglobin had dropped to 8.7 g. He was transfused 2 U of packed red blood cells on 07/13/2017. He had symptomatic improvement. He then returned to [facility] and on 07/15/2017 he began treatment with daratuzumab in addition to the pomalidomide/dexamethasone. He had no significant toxicity with the initial infusion of daratuzumab. During subsequent follow-up, there was a gradual decline in his granulocyte count. It nadired at 1200 at week 5 of daratuzumab, but it subsequently increased. He received week 8 of daratuzumab on 09/05/2017. His treatment was then put on hold due to persistent/recurrent pneumonia. He was admitted to the hospital on 09/14/2017 and again on 09/24/2017. With the second admission he was feeling weak and he had fallen several times. Brain MRI reported a 3.7 x 1.7 cm marrow replacing lesion within the clivus, consistent with plasmacytoma. A 7 mm focus of acute ischemia was noted in the right cerebellum. There was a small amount of associated edema. With those findings, he was transferred to [facility] for further management. His evaluation there was consistent with cerebellar stroke with subacute lacunar ischemic infarct on the right cerebellar hemisphere. Also reported was an expansile myelomatous clival lesion with bony erosion of the left carotid canal, erosion of the anterior and posterior cortex of the clivus, and extension into the sphenoid sinuses. The pneumonia improved after 7 days of IV cefepime. He was seen here again on 10/19/2017 and at that time he completed his 9th infusion of daratumumab. His next scheduled treatment was put on hold due to neutropenia and symptoms of respiratory infection. On 11/10/2017 he was admitted to the hospital with neutropenic fever. He was transferred to [facility] for further care. After recovering from that illness he had a restaging evaluation for the myeloma. His bone marrow aspiration/biopsy showed 5% plasma cells. His M protein quantitated at 0.4 g/dL. MRI bone marrow blood supply on 12/18/2017 showed interval worsening with increased size of the focal lesions involving the right temporal bone, clivus, and left parietal bone. There were only minimal changes noted in the spine from the previous studies. There was minimal progression of lesions in the proximal right humerus and in the upper sternum. With those findings, it was recommended that he change treatment to carfilzomib in combination with dexamethasone. He began cycle 1 on 12/27/2017 with the carfilzomib dosed at 20 mg/m???. He also started monthly replacement therapy with IVIG. At day 8 of cycle 1 the carfilzomib dosage was escalated to 36 mg/m???. He tolerated it well, and he was able to continue with cycle 2 on 01/24/2018. As of February 2018 he had completed 3 cycles of treatment. In May 2018 he underwent a stem cell transplant procedure at [facility]. He has had a gradual recovery following that treatment. I had seen him for follow-up here in September 2018. At that time he appeared stable clinically. He then continued his further follow-up at [facility]. His repeat bone marrow aspiration/biopsy on 06/12/2019 showed an unexpected finding of involvement with moderately differentiated metastatic adenocarcinoma which was felt to be most consistent with prostatic origin. It was morphologically negative for plasma cell neoplasm. His PSA was elevated in the range of 20 ng/mL. Restaging CT scans of the chest, abdomen, and pelvis on 06/22/2019 showed a small spiculated residual nodular density in the right upper lobe measuring 1.3 cm, decreased in size from 3.5 cm on a prior PET/CT from January 2019. It was felt to be most likely infectious/inflammatory. There were persistent tree-in-bud type nodularity in both lungs, particularly the lower lobes, felt to be suggestive of multifocal infectious/inflammatory change. There were no new pulmonary nodules and there was no pulmonary consolidation noted. There was no evidence of visceral/sherman metastatic disease in the abdomen/pelvis. There were faint sclerotic lesions in the C7 and T1 vertebral bodies. A bone scan on 06/24/2019 showed multiple focal areas of abnormal uptake which corresponded to the FDG avid osseous lesions noted on the PET/CT from 06/07/2019. These include with the upper thoracic spine, left T9 transverse process, and left posterior ischium. Overall, the findings were felt to be consistent with osteoblastic metastatic disease favoring metastatic prostate cancer over multiple myeloma. He began treatment with bicalutamide 50 mg daily, and he was then seen here on to continue his androgen deprivation locally. He received his initial injection of Depo-Lupron 22.5 mg on 07/01/2019. He tolerated with no adverse effects, and he then continued with a second Lupron injection on 10/01/2019. At that point his PSA had decreased to 0.11 ng/mL. He was seen for a follow-up visit at [facility] on 10/25/2019. His PET/CT showed an FDG avid right frontotemporal calvarial lesion measuring 2 cm, but with interval resolution of abnormal FDG uptake within a sclerotic left posterior iliac lesion. There was no evidence of metastatic disease. With that finding, he was recommended to restart treatment for the myeloma with daratumumab in combination with cyclophosphamide 100 mg weekly, Revlimid 10 mg daily on a 21/28-day schedule, and dexamethasone 8 mg. He began his week 1 daratumumab on 10/30/2019. He tolerated the daratumumab without acute toxicity, and he then continued the daratumumab weekly. At his follow-up visit on 11/20/2019 the lenalidomide and cyclophosphamide were put on hold due to neutropenia, ANC 1300. Both were restarted on 12/04/2019 but with the lenalidomide dosage reduced to 5 mg daily. As of December 2019 the frequency of the daratumumab infusions was reduced to every 2 weeks and during that time he continued treatment for the prostate cancer with Zoladex in combination with enzalutamide. He also continued replacement IVIG. His repeat bone marrow aspiration/biopsy on 09/09/2020 showed 40% cellularity with involvement by plasma cell neoplasm, though with <5% plasma cells reported on both the aspirate and the core biopsy. His M protein is reported <0.1. His PET/CT imaging showed at least 3 FDG avid marrow lesions and worsening of the clivus lesion with adjacent soft tissue involvement and large cortical defect. At his follow-up visit at [facility] on 09/15/2020 it was recommended that he transition to salvage therapy with belantamab mafodotin. He received cycle 1 on 10/08/2020. He tolerated it well and continue with cycle 2 on 11/11/2020. He was seen for follow-up at [facility] on 12/03/2020. There was again evidence of further disease progression by PET/CT. He was recommended to change treatment to weekly carfilzomib beginning at 20 mg/m2 by IV infusion together with pomalidomide 3 mg daily on a 21/28-day schedule and dexamethasone 12 mg IV weekly. He was seen here on 01/14/2021 to begin his day 1 treatment. His baseline echocardiogram showed adequate LV function with estimated ejection fraction at 60%. He tolerated his treatment without acute toxicity. He presented for day 8 treatment on 01/21/2021. At that time he had developed a new, painful nodule in the right lateral forehead area. Head CT on 01/22/2021 showed lytic destructive areas throughout the skull. The most concerning lytic area was in the right frontal bone, correlating with the palpable mass. It was associated with complete destruction of the bone with soft tissue mass extending to the dura. The most significant finding, though, was a large soft tissue mass centered at the skull base in greatest to the right of the midline. There was destruction of the clivus and skull base including the foramen magnum. Further evaluation with MRI showed a 4.3 cm malignant mass with osseous destruction centered at the clivus/right sphenoid/skull base and invading into the sella and inferior medial right temporal lobe. There was also associated encasement of the intracranial portion of the right carotid artery. The mass was noted to obliterate the foramen ovale and the foramen despite no some with likely involvement/encasement of the right cranial nerve V3 branch. There was invasion to the level of the right orbital apex with associated narrowing. With those findings, he began a course of palliative radiation. He completed the radiation on 02/12/2021 to a total dose of 3000 cGy administered in 10 fractions. He tolerated it well. In the meantime, he continued with his day 15 carfilzomib on 01/28/2021 and with day 22 treatment on 02/04/2021. He returned to [facility] for T-cell harvesting on 02/17/2021. He then began cycle 2 of carfilzomib/pomalidomide on 02/24/2021. Patient presents today for follow-up. He states he has been feeling pretty good. He did have a fall which resulted in 2 rib fractures on the left side. Although it is improving it is still pretty painful. His fatigue has been increasing and he feels like he may need a blood transfusion today. He denies sinus drainage or sore throat. No shortness of breath, cough, chest pain. No GI or problems. No joint pain or bone pain other than what was listed above. No headaches or dizziness. Review Of Symptoms: See above. Past Medical History: Depression Multiple myeloma Peripheral neuropathy Prostate cancer Past Surgical History: Carpal tunnel release on the left Multiple vertebroplasty/kyphoplasty procedures Tcell [place] for futue CAR-T [facility] in 2020 Stem cell transplant in 2019 Cataract excision in 2016 Colonoscopy in 2016 Allergies: No Known Allergies. Medications: Acyclovir 1 (200 mg) Tablet Oral daily Albuterol Sulfate 1 ((2.5 mg/3ml) 0.083%) Nebulization solution Inhalation four times a day PRN amLODIPine Besylate 1 Tablet (of 5 mg) Oral daily PRN Baclofen 1 (10 mg) Tablet Oral at bedtime PRN Casodex 1 Tablet (of 50 mg) Oral daily Colace Capsule Oral daily PRN cultrelle 1 Capsule Oral daily Cyproheptadine HCl 1 (4 mg) Tablet Oral b.i.d. PRN D3-1000 Tablet Oral daily Dapsone 1 Tablet (of 100 mg) Oral daily Effexor XR 1 (75 mg) Capsule SR 24 HR Oral daily Folic Acid 1 (1000 mcg) Tablet Oral b.i.d. Gabapentin 1 Capsule (of 600 mg) Oral at bedtime Hydrocodone-Acetaminophen 1 (10-325 mg) Tablet Oral four times a day PRN Ipratropium-Albuterol 1 (20-100 mcg/act) Aerosol, solution Inhalation daily Mirtazapine 1 Tablet (of 15 mg) Oral daily Multivitamins 1 Capsule Oral daily Pantoprazole Sodium 1 Tablet (of 40 mg) Tablet, enteric coated Oral daily PRN Phos-NaK 1 Packet (of 280-160-250 mg) Pack Oral daily for 90 days Questran 1 (4 g) Pack Oral daily Xanax 1 Tablet (of 0.5 mg) Oral t.i.d. PRN Zofran 1 Tablet (of 8 mg) Oral four times a day PRN Family History: Family history significant for father having of lymphoma at age 58. A sister also has multiple myeloma. Social History: Mr. Cardona is and he is a disabled. Mr. Cardona no longer smokes but had smoked 0.5 packs/day for 17 years. Physical Examination: Performed on Aug 25, 2021 14:47: Height - 67.00 in, Temperature - 99.5 F (HIGH), Pulse - 92 /min, Respiration - 16 /min, BP - 109/74 mm(hg), O2 Sat - 97 %, Pain - 9, and Fatigue - 8. Performance Status: 1 - No physically strenuous activity, but ambulatory and able to carry out light or sedentary work (e.g. office work, light house work). (ECOG) Constitutional Alert, cooperative, oriented. Mood and affect appropriate. Appears close to chronological age. Well nourished. Well developed. Head Normocephalic; no scars. Respiratory Lungs are clear to auscultation without rhonchi or wheezing. Cardiovascular Regular rate and rhythm of heart without murmurs, gallops or rubs. Abdomen Non-tender, non-distended, no masses, ascites or hepatosplenomegaly. Good bowel sounds. No guarding or rebound tenderness. Musculoskeletal Left chest wall tenderness from previous fall causing fractured ribs. Laboratory: Test performed on Aug 25, 2021 11:30 Sodium 139 mmol/L Potassium 4.7 mmol/L Chloride 102 mmol/L CO2 25 mmol/L Anion Gap 16.7 BUN 26 mg/dL Creatinine 1.5 mg/dL Cr Clearance (Est) 47.6500 mL/min eGFR 46.7 mL/min Glucose 75 mg/dL Osmolality - Calculated 291 mOsm/kg Calcium 9.5 mg/dL Protein, Total 6.0 g/dL Albumin 3.9 g/dL Globulin 2.1 g/dL Bilirubin, Total 0.3 mg/dL ALT (SGPT) 40 U/L AST (SGOT) 35 U/L Alkaline Phosphatase 212 IU/L Irradiated Leuko Red RBC [id number] AP RCLRI XM COMPATIBLE Neutrophils 2.46 10 3/uL Eosinophils 0.1 10 3/uL Basophils 0.0 10 3/uL Neutrophil % 58.6 % Eosinophil % 1.7 % Basophils % 0.5 % NRBC % 0 % Manual Diff No DUPLICATE TEST. Anti-D Positive Blood Type AP Antibody Screen (Gel) NEGATIVE PSA < 0.014 ng/mL Impression: 1. IgA kappa myeloma, stage IIIB. He had severe osteopenia with multiple vertebral compression fractures at initial diagnosis in October 2009. 2. His bone marrow aspiration/biopsy on 06/12/2019 showed unexpected finding of moderately differentiated metastatic adenocarcinoma of the mid most consistent with prostatic origin. His PET/CT and bone scans showed several foci of osteoblastic involvement felt to be most consistent with metastatic prostate cancer. 3. 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 He is on replacement IVIG due to recurrent episodes of pneumonia. 4. Chronic anemia, multifactorial, transfusion dependent. 5. He has evidence of transfusion associated iron overload. 6. Treatment related peripheral neuropathy. 7. History of cerebellar stroke in September 2017. 8. Depression. Plan: Patient presents today for follow-up. He has been having increased fatigue and his hemoglobin is at 8.1 today he will be transfused 2 units of irradiated packed red blood cells. Patient receives IVIG monthly and he will return tomorrow to receive his monthly dose. Patient has a history of prostate cancer his PSA today is less than 0.014. He is currently on Zoladex every 3 months and tolerating that well. He will return in 1 month with CBC CMP and PSA. Signed By: Sully George N.Eric. <<Signature on File>>
[2021-09-02 13:12] LABS: Basophils % 0.6 %; Eosinophils # 0.1 10^3/uL (0.0-0.8); Eosinophils % 1.5 %; Hematocrit 29.9 % (42.0-52.0); Hemoglobin 9.7 g/dL (11.7-16.6); Lymphocytes # 1.7 10^3/uL (0.8-4.8); Lymphocytes % 49.6 %; Mean Corpuscular HGB Conc 32.4 g/dL (30.0-36.0); Mean Corpuscular Hemoglobin 32.3 pg (28.0-34.0); Mean Corpuscular Volume 99.7 fl (80-94); Mean Platelet Volume 12.6 fL (7.4-10.4); Monocytes # 0.3 10^3/uL (0.2-0.9); Monocytes % 7.4 %; Neutrophils # 1.37 10^3/uL (1.8-7.7); Neutrophils % 40.6 %; Nucleated Red Blood Cells % 0 %; Red Cell Distribution Width 22.2 % (12.1-15.1); White Blood Count 3.4 10^3/uL (4.0-10.0)
[2021-09-02 13:15] LABS: Platelet Count 21 10^3/cmm (130-400)
[2021-09-06 11:07] LABS: Basophils % 0.5 %; Eosinophils # 0.1 10^3/uL (0.0-0.8); Eosinophils % 1.1 %; Hematocrit 30.4 % (42.0-52.0); Hemoglobin 9.8 g/dL (11.7-16.6); Lymphocytes # 1.8 10^3/uL (0.8-4.8); Lymphocytes % 42.1 %; Mean Corpuscular HGB Conc 32.2 g/dL (30.0-36.0); Mean Corpuscular Hemoglobin 33.1 pg (28.0-34.0); Mean Corpuscular Volume 102.7 fl (80-94); Mean Platelet Volume 13.2 fL (7.4-10.4); Monocytes # 0.3 10^3/uL (0.2-0.9); Monocytes % 6.7 %; Neutrophils # 2.14 10^3/uL (1.8-7.7); Neutrophils % 49.1 %; Nucleated Red Blood Cells % 0 %; Red Blood Count 2.96 10^6/uL (4.1-5.3); Red Cell Distribution Width 22.6 % (12.1-15.1); White Blood Count 4.4 10^3/uL (4.0-10.0)
[2021-09-06 11:20] LABS: Platelet Count 20 10^3/cmm (130-400); Slide Review Slide Review Perform
== END 2021-09-11 23:59 | disposition home or self-care (01) ==
LOC: ONCMED 07:07
PROVIDERS: Nurse Practitioner Family; PCP Family Medicine; Visit Provider Internal Medicine Medical Oncology
DX: C90.00 Multiple myeloma not having achieved remission (principal); D80.1 Nonfamilial hypogammaglobulinemia; C61 Malignant neoplasm of prostate; C79.51 Secondary malignant neoplasm of bone; J18.9 Pneumonia, unspecified organism; D64.9 Anemia, unspecified; Z86.73 Personal history of transient ischemic attack (TIA), and cerebral infarction without residual deficits; Z79.899 Other long term (current) drug therapy
CPT/HCPCS: 36415; 36430; 80053; 84153; 85025; 86850; 86900; 86920; 96365; 96366; 96374; 99215; J1568; J1940; J7050; P9040

== ENCOUNTER 2021-11-11 08:00 | Oncology outpatient (recurring) (ONCR) | payer MEDICARE, BC, SELFPAY ==
[2021-10-14] VITALS (7 sets, daily range): BP systolic 130–161; BP diastolic 72–93; PULSE 77–95; TEMP 36.1–36.6; O2SAT 93–99
[2021-10-14 12:45] LABS: Basophils % 0.4 %; Eosinophils # 0.1 10^3/uL (0.0-0.8); Eosinophils % 1.6 %; Hematocrit 24.2 % (42.0-52.0); Hemoglobin 7.9 g/dL (11.7-16.6); Lymphocytes # 2.2 10^3/uL (0.8-4.8); Lymphocytes % 39.6 %; Mean Corpuscular HGB Conc 32.6 g/dL (30.0-36.0); Mean Corpuscular Hemoglobin 36.6 pg (28.0-34.0); Mean Platelet Volume 13.2 fL (7.4-10.4); Monocytes # 0.5 10^3/uL (0.2-0.9); Monocytes % 9.2 %; Neutrophils # 2.71 10^3/uL (1.8-7.7); Neutrophils % 48.8 %; Nucleated Red Blood Cells % 0 %; Platelet Count 29 10^3/cmm (130-400); Red Blood Count 2.16 10^6/uL (4.1-5.3); Red Cell Distribution Width 22.4 % (12.1-15.1); White Blood Count 5.6 10^3/uL (4.0-10.0)
[2021-10-14 13:03] LABS: Alanine Aminotransferase 23 U/L (0-41); Albumin Level 3.6 g/dL (3.5-5.2); Alkaline Phosphatase 169 IU/L (40-130); Anion Gap 16.6 (5-19); Aspartate Amino Transferase 27 U/L (0-40); Blood Urea Nitrogen 25 mg/dL (8-23); Calcium 9.2 mg/dL (8.5-10.5); Carbon Dioxide 24 mmol/L (22-29); Chloride 103 mmol/L (98-107); Globulin 3.6 g/dL (1.3-4.6); Glomerular Filtration Rate 43.3 mL/min (90-130); Glucose 95 mg/dL (65-115); Osmolality Calculated 292 mOsm/kg (285-295); Potassium 4.6 mmol/L (3.5-5.1); Sodium 139 mmol/L (136-145); Total Bilirubin 0.5 mg/dL (0.15-1.2); Total Protein 7.2 g/dL (6.6-8.7)
[2021-10-14 13:07] LABS: Slide Review Slide Review Perform
[2021-10-14 13:09] LABS: Prostate Specific Antigen < 0.014 ng/mL (0-4)
[2021-10-14] MEDS: sodium chloride 0.9% 250 ML 75 ML IV (14:17)
[2021-10-14] MEDS: acetaminophen 325 mg Tablet 650 MG PO (14:17)
[2021-10-14] MEDS: diphenhydrAMINE 25 mg Capsule PO (14:17)
[2021-10-14] MEDS: lidocaine 1% INJ 20 mL SUBCUT (16:11)
[2021-10-14] MEDS: goserelin acetate 10.8 mg Implant SUBCUT (16:31)
[2021-10-15] MEDS: sodium chloride 0.9% 250 ML 75 ML IV (08:30)
[2021-10-15] MEDS: acetaminophen 325 mg Tablet 650 MG PO (08:34)
[2021-10-15] MEDS: diphenhydrAMINE 25 mg Capsule PO ×2 (08:35)
[2021-10-15] MEDS: sodium chloride 0.9% 100 mL Bag 50 ML IV (08:36)
[2021-10-15 08:42] VITALS: BP 141/82; PULSE 94; RESP 18; TEMP 37.2; O2SAT 99
[2021-10-15] MEDS: FUROsemide 10 mg/mL SDV 2mL 20 MG IVP (10:44)
[2021-10-15] MEDS: sodium chloride 0.9% (100 ml) 100 ML 75 ML (10:45)
[2021-10-26 08:37] LABS: Basophils % 0.9 %; Eosinophils # 0.2 10^3/uL (0.0-0.8); Eosinophils % 5.3 %; Hematocrit 24.3 % (42.0-52.0); Hemoglobin 8.5 g/dL (11.7-16.6); Lymphocytes # 1.2 10^3/uL (0.8-4.8); Lymphocytes % 36.5 %; Mean Platelet Volume 12.7 fL (7.4-10.4); Monocytes # 0.2 10^3/uL (0.2-0.9); Monocytes % 6.6 %; Neutrophils % 50.4 %; Nucleated Red Blood Cells % 0 %; Red Blood Count 2.43 10^6/uL (4.1-5.3); Red Cell Distribution Width 20.8 % (12.1-15.1); White Blood Count 3.2 10^3/uL (4.0-10.0)
[2021-10-26 09:02] LABS: Platelet Count 23 10^3/cmm (130-400); Slide Review Slide Review Perform
[2021-10-26 14:12] VITALS: BP 121/46; PULSE 82; RESP 18; TEMP 36.6; O2SAT 98
--- NOTE | 2021-10-26 15:33 | PC.NURSE ---
Patient came in for the lab draw repeated with the platelets 12 on 10-21-21 with the peripheral labs drawn and repeated with platelets 23 today, no new orders per Dr Brody.
== END 2021-11-11 23:59 | disposition home or self-care (01) ==
PROVIDERS: Internal Medicine Medical Oncology; PCP Family Medicine; Visit Provider Nurse Practitioner Family
DX: Z53.9 Procedure and treatment not carried out, unspecified reason (principal)
CPT/HCPCS: 36415; 36430; 80053; 84153; 85025; 86850; 86900; 86920; 96366; 96367; 96372; 96375; 96402; 99214; J1568; J1940; J7050; J9202; P9040

== ENCOUNTER 2021-11-14 14:20 | Emergency (ER) | payer MEDICARE, BC, SELFPAY ==
[2021-11-14 14:34] VITALS: BP 125/73; PULSE 89; RESP 24; TEMP 36.9; O2SAT 95; BMI 23.5
--- NOTE | 2021-11-14 14:44 | CTR_ITS ---
PROCEDURE INFORMATION: Exam: CTA Chest With Contrast Exam date and time: 11/14/2021 4:21 PM Age: 65 years old Clinical indication: Shortness of breath; Additional info: Pe TECHNIQUE: Imaging protocol: Computed tomographic angiography of the chest with contrast. 3D rendering (Not supervised by radiologist): MIP and/or 3D reconstructed images were created by the technologist. Radiation optimization: All CT scans at this facility use at least one of these dose optimization techniques: automated exposure control; mA and/or kV adjustment per patient size (includes targeted exams where dose is matched to clinical indication); or iterative reconstruction. Contrast material: VISI 320; Contrast volume: 75 ml; Contrast route: INTRAVENOUS (IV); COMPARISON: CTA Chest-Pulmonary Emb [id number] 09/16/2017 1:08 PM RADIATION DOSE METRICS: Total DLP (mGy-cm): 577.79 FINDINGS: Pulmonary arteries: Pulmonary arteries are normal in caliber. No filling defects are demonstrated. No evidence of pulmonary embolism. Aorta: Atherosclerosis of the thoracic aorta. No aortic aneurysm or dissection. Lungs: Changes of centrilobular emphysema demonstrated. Bronchial wall thickening and bronchiectasis both lungs. Focal fibrosis in the right upper lobe. No consolidative pulmonary infiltrates are noted. Noncalcified 9 mm right lower lobe lung nodule, unchanged from 09/16/2017. Pleural spaces: No pleural effusion or pneumothorax noted. Heart: No cardiomegaly. No pericardial effusion. The coronary arteries demonstrate atherosclerotic calcifications. Lymph nodes: Unremarkable. No enlarged lymph nodes. Diaphragm: Large hiatal hernia noted. Bones/joints: Diffuse osteopenia. Multiple chronic vertebral compression fractures, with changes of vertebroplasty at multiple levels. No acute osseous abnormality. Soft tissues: Mild left-sided gynecomastia. No acute abnormality noted. CT/CT angio chest PE protcl [id number] IMPRESSION: 1. Pulmonary arteries appear unremarkable. No evidence of pulmonary embolism. 2. No evidence of thoracic aortic aneurysm or dissection. 3. Diffuse osteopenia. Multiple chronic vertebral compression fractures, with changes of vertebroplasty at multiple levels. No acute osseous abnormality. 4. Noncalcified 9 mm right lower lobe lung nodule, unchanged from 09/16/2017. Stable pulmonary nodule(s) for which no further follow-up is recommended. (Reference: Jayjay) REFERENCES: Jayjay Booker et al. Guidelines for Management of Incidental Pulmonary Nodules Detected on CT Images: From the Fleischner Society 2017. Radiology. 2017;284(1):228-243.
--- NOTE | 2021-11-14 14:45 | ECG_ITS ---
[facility] Test Date: 2021-11-14 Pat Name: Flaco Cardona Department: Room: Gender: Male [employer]: : 1955 Requested By: Mazin Hoover Order Number: [id number] Dmitri MD: Ilan Gibson M.D. Measurements Intervals [place] Rate: 83 P: 61 MT: 166 QRS: 7 QRSD: 85 T: 46 QT: 368 QTc: 433 Interpretive Statements SINUS RHYTHM Compared to ECG 09/21/2018 00:23:52 Sinus tachycardia no longer present Electronically Signed On 11-15-2021 8:39:57 CDT by Ilan Gibson M.D. [id number]
--- NOTE | 2021-11-14 14:45 | ED_ITS ---
HPI - SOB/Dyspnea General: Chief Complaint: Shortness of Breath/Dyspnea Stated Complaint: weakness, sob, confusion Time Seen by Provider: 11/14/21 14:39 History of Present Illness: HPI Narrative: 65-year-old presents with shortness of breath. Denies any focal pain. States this started a week ago. States his home health checked his hemoglobin was 7.8. He has not noticed any external bleeding. He has previous history of multiple myeloma and had a T-cell transplant in April. Denies any fevers or chills. Denies lower extremity pain or swelling. Review of Systems Narrative: - CONSTITUTIONAL: Denies weight loss, fever and chills. - HEENT: Denies changes in vision and hearing. - RESPIRATORY: As above - CV: Denies palpitations and CP. - GI: Denies abdominal pain, nausea, vomiting and diarrhea. - : Denies dysuria and urinary frequency. - MSK: Denies myalgia and joint pain. - SKIN: Denies rash and pruritus. - NEUROLOGICAL: Denies headache, weakness, numbness and syncope. 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 Multiple myeloma in relapse Multiple myeloma not having achieved remission Nonfamilial hypogammaglobulinemia Osteopenia Secondary malignant neoplasm of bone marrow Family History (Updated 10/14/21 @ 13:10 by Pau Dickerson LPN) Father Cancer Lymphoma Denies family history of Diabetes CAD (coronary artery disease) Clotting disorder Dementia Hyperlipidemia Psychiatric illness Chronic kidney disease (CKD) Suicide Anesthesia complication Bleeding disorder Lung disease Hypertension Stroke Social History (Updated 10/14/21 @ 13:08 by Pau Dickerson LPN) Smoking and tobacco status: former smoker Alcohol intake: never Physical Exam Narrative: EXAM NARRATIVE: - GENERAL: Alert and oriented x 3. No acute distress. Well-nourished. - EYES: EOMI. Anicteric. - HENT: Atraumatic, no C-spine tenderness. Moist mucous membranes. No scleral icterus. No cervical lymphadenopathy. - LUNGS: Clear to auscultation bilaterally. No accessory muscle use. Equal lung sounds bilaterally. No respiratory distress. - CARDIOVASCULAR: Regular rate and rhythm. No murmur. No JVD. - ABDOMEN: Soft, non-tender and non-distended. Negative CVA tenderness bilaterally, no rebound or guarding, negative Esparza sign. No palpable masses. - EXTREMITIES: No edema. Non-tender. - SKIN: No rashes or lesions. Warm. - NEUROLOGIC: No meningismus or focal neurological deficits. CN II-XII grossly intact. - PSYCHIATRIC: Cooperative. Appropriate mood and affect. Course Vital Signs: Vital signs: Vital Signs Temperature 98.5 F 11/14/21 15:19 Pulse Rate 89 11/14/21 17:19 Respiratory Rate 16 11/14/21 17:19 Blood Pressure 147/98 11/14/21 17:19 Pulse Oximetry 97 11/14/21 17:19 MDM - SOB/Dyspnea Medical Decision Making 65-year-old presents with shortness of breath and generalized weakness. Denies any focal numbness or tingling. Nonfocal neurologic exam. Lung sounds are clear. Patient has previously had multiple lab abnormalities including bone marrow suppression and chronic kidney disease and elevated LFTs. These are still present today. Platelets are low at 18 but these are his chronic number and he does not have any sign of acute bleeding. Hemoglobin is also borderline low at 7.8 but again he has had similar low numbers in the past. BNP level is elevated to 1000. Lasix provided. CTA does not reveal any sign of PE pneumonia or other acute abnormality. There is a pulmonary nodule for which outpatient follow-up was recommended this was communicated to patient. At this time I believe patient would be safe for discharge and outpatient follow-up. Return precautions provided. Plan was reviewed with the patient who expressed understanding. Questions answered. Patient will follow up with PCP. Patient discharged in stable condition. Lab Data : 11/14/21 15:12 11/14/21 15:12 Labs/Radiology: Radiology Impressions Chest CTA 11/14/21 14:44 IMPRESSION: 1. Pulmonary arteries appear unremarkable. No evidence of pulmonary embolism. 2. No evidence of thoracic aortic aneurysm or dissection. 3. Diffuse osteopenia. Multiple chronic vertebral compression fractures, with changes of vertebroplasty at multiple levels. No acute osseous abnormality. 4. Noncalcified 9 mm right lower lobe lung nodule, unchanged from 09/16/2017. Stable pulmonary nodule(s) for which no further follow-up is recommended. (Reference: [place]) REFERENCES: Jayjay Booker et al. Guidelines for Management of Incidental Pulmonary Nodules Detected on CT Images: From the Fleischner Society 2017. Radiology. 2017;284(1):228-243. Laboratory Results WBC 2.2 10^3/uL (4.0-10.0) L 11/14/21 15:12 RBC 2.14 10^6/uL (4.1-5.3) L 11/14/21 15:12 Hgb 7.8 g/dL (11.7-16.6) L 11/14/21 15:12 Hct 24.3 % (42.0-52.0) L 11/14/21 15:12 MCV 113.6 fl (80-94) H 11/14/21 15:12 MCH 36.4 pg (28.0-34.0) H 11/14/21 15:12 MCHC 32.1 g/dL (30.0-36.0) 11/14/21 15:12 RDW 22.5 % (12.1-15.1) H 11/14/21 15:12 Plt Count 18 10^3/cmm (130-400) L* 11/14/21 15:12 MPV 12.2 fL (7.4-10.4) H 11/14/21 15:12 Neut % (Auto) 51.6 % 11/14/21 15:12 Lymph % (Auto) 40.6 % 11/14/21 15:12 Meagher % (Auto) 6.4 % 11/14/21 15:12 Eos % (Auto) 0.9 % 11/14/21 15:12 Baso % (Auto) 0.0 % 11/14/21 15:12 Neut # (Auto) 1.13 10^3/uL (1.8-7.7) L 11/14/21 15:12 Lymph # (Auto) 0.9 10^3/uL (0.8-4.8) 11/14/21 15:12 Meagher # (Auto) 0.1 10^3/uL (0.2-0.9) L 11/14/21 15:12 Eos # (Auto) 0.0 10^3/uL (0.0-0.8) 11/14/21 15:12 Baso # (Auto) 0.0 10^3/uL (0.0-0.1) 11/14/21 15:12 Nucleated RBC % (auto) 0 % 11/14/21 15:12 Nucleated RBCs # 0.0 /100WBC 11/14/21 15:12 Sodium 136 mmol/L (136-145) 11/14/21 15:12 Potassium 4.0 mmol/L (3.5-5.1) 11/14/21 15:12 Chloride 101 mmol/L (98-107) 11/14/21 15:12 Carbon Dioxide 26 mmol/L (22-29) 11/14/21 15:12 Anion Gap 13.0 (5-19) 11/14/21 15:12 BUN 28 mg/dL (8-23) H 11/14/21 15:12 Creatinine 1.4 mg/dL (0.7-1.2) H 11/14/21 15:12 GFR Calculation 50.5 mL/min (90-130) L 11/14/21 15:12 Glucose 85 mg/dL (65-115) 11/14/21 15:12 Calculated Osmolality 287 mOsm/kg (285-295) 11/14/21 15:12 Calcium 8.3 mg/dL (8.5-10.5) L 11/14/21 15:12 Total Bilirubin 0.3 mg/dL (0.15-1.2) 11/14/21 15:12 AST 75 U/L (0-40) H 11/14/21 15:12 ALT 59 U/L (0-41) H 11/14/21 15:12 Alkaline Phosphatase 257 IU/L (40-130) H 11/14/21 15:12 Troponin T Baseline 22 ng/L (0-15) H 11/14/21 15:12 NT-Pro-B Natriuret Pep 1065 pg/mL (0-125) H 11/14/21 15:12 Total Protein 6.6 g/dL (6.6-8.7) 11/14/21 15:12 Albumin 3.4 g/dL (3.5-5.2) L 11/14/21 15:12 Globulin 3.2 g/dL (1.3-4.6) 11/14/21 15:12 SARS-CoV-2 Ag (Rapid) Negative (Negative) 11/14/21 15:12 EKG Data EKG 1: Other EKG Comments: Normal sinus rhythm, rate of 83, no sign of acute ischemia or other acute abnormality. Discharge Plan Discharge Condition: Stable Prescriptions: No Action loperamide 2 mg capsule 2 mg PO Q4H PRN0RF Rx Instructions: administer after each loose stool until symptoms controlled; do not exceed 8 mg per 24 hrs zinc sulfate 50 mg zinc (220 mg) tablet 50 mg PO BID 0RF cholecalciferol (vitamin D3) 50 mcg (2,000 unit) capsule 50 mcg PO DAILY 0RF pantoprazole 40 mg tablet,delayed release (DR/EC) 40 mg PO DAILY Qty: 30 5RF benzonatate 100 mg capsule 100 mg PO BID 0RF benzonatate 100 mg capsule 100 mg PO BID PRN (Reason: cough) Qty: 30 5RF ondansetron HCl 8 mg tablet 8 mg PO Q6H PRN (Reason: nausea and vomiting) 0RF ondansetron 8 mg tablet,disintegrating 8 mg PO BID PRN (Reason: nausea and vomiting) 1 Days Qty: 60 5RF acyclovir 200 mg capsule 200 mg PO DAILY 0RF albuterol sulfate 2.5 mg /3 mL (0.083 %) solution for nebulization 2.5 mg inhalation Q6H PRN (Reason: shortness of breath or wheezing) 0RF amlodipine 5 mg tablet 5 mg PO DAILY 0RF baclofen 10 mg tablet 10 mg PO .at bedtime PRN0RF bicalutamide [Casodex] 50 mg tablet 50 mg PO DAILY 0RF docusate sodium [Colace] 100 mg capsule 100 mg PO DAILY 0RF Culturelle 10 billion cell capsule 1 cap PO DAILY 0RF cyproheptadine 4 mg tablet 4 mg PO BID PRN0RF dapsone 100 mg tablet 100 mg PO DAILY 0RF venlafaxine [Effexor XR] 75 mg capsule,extended release 24hr 75 mg PO DAILY 0RF folic acid 1 mg tablet 1 mg PO BID 0RF gabapentin 600 mg tablet 600 mg PO .at bedtime 0RF hydrocodone-acetaminophen 10-325 mg tablet 1 tab PO Q6H PRN0RF ipratropium-albuterol 20-100 mcg/actuation mist 1 puff inhalation DAILY 0RF mirtazapine 15 mg tablet 15 mg PO DAILY 0RF multivitamin Tablet 1 tab PO DAILY 0RF potassium, sodium phosphates [Phos-NaK] 280-160-250 mg powder in packet 1 packet PO DAILY 0RF cholestyramine (with sugar) [Questran] 4 gram powder PO 0RF alprazolam [Xanax] 0.5 mg tablet 0.5 mg PO TID PRN0RF Compazine 10 mg Tablet 10 mg PO Q4H PRN (Reason: Mild Nausea) Qty: 30 3RF lorazepam 1 mg Tablet 0.5 - 1 mg PO Q6H PRN (Reason: Severe Nausea) Qty: 30 3RF Referrals: Palmer Garza MD [Primary Care Provider] - Coding Level of Care Code ED Manifest/Order Organizer Print Orders for Naida Loco
[2021-11-14 15:19] VITALS: BP 125/73; PULSE 89; RESP 24; TEMP 36.9; O2SAT 95
[2021-11-14 15:22] LABS: Eosinophils % 0.9 %; Hematocrit 24.3 % (42.0-52.0); Hemoglobin 7.8 g/dL (11.7-16.6); Lymphocytes # 0.9 10^3/uL (0.8-4.8); Lymphocytes % 40.6 %; Mean Corpuscular HGB Conc 32.1 g/dL (30.0-36.0); Mean Corpuscular Hemoglobin 36.4 pg (28.0-34.0); Mean Corpuscular Volume 113.6 fl (80-94); Mean Platelet Volume 12.2 fL (7.4-10.4); Monocytes # 0.1 10^3/uL (0.2-0.9); Monocytes % 6.4 %; Neutrophils # 1.13 10^3/uL (1.8-7.7); Neutrophils % 51.6 %; Nucleated Red Blood Cells % 0 %; Red Blood Count 2.14 10^6/uL (4.1-5.3); Red Cell Distribution Width 22.5 % (12.1-15.1); White Blood Count 2.2 10^3/uL (4.0-10.0)
[2021-11-14 15:37] LABS: Platelet Count 18 10^3/cmm (130-400)
[2021-11-14 15:52] LABS: SARS Covid-2 Antigen Negative (Negative); Troponin(5th) Baseline 22 ng/L (0-15)
[2021-11-14 15:59] LABS: Alanine Aminotransferase 59 U/L (0-41); Albumin Level 3.4 g/dL (3.5-5.2); Alkaline Phosphatase 257 IU/L (40-130); Aspartate Amino Transferase 75 U/L (0-40); Blood Urea Nitrogen 28 mg/dL (8-23); Calcium 8.3 mg/dL (8.5-10.5); Carbon Dioxide 26 mmol/L (22-29); Chloride 101 mmol/L (98-107); Globulin 3.2 g/dL (1.3-4.6); Glomerular Filtration Rate 50.5 mL/min (90-130); Glucose 85 mg/dL (65-115); NT Pro B Type Natriuretic Pept 1065 pg/mL (0-125); Osmolality Calculated 287 mOsm/kg (285-295); Sodium 136 mmol/L (136-145); Total Bilirubin 0.3 mg/dL (0.15-1.2); Total Protein 6.6 g/dL (6.6-8.7)
[2021-11-14] MEDS: iodixanol 320 mg/mL 100mL Btl IV (16:22)
[2021-11-14 16:28] VITALS: BP 134/80; PULSE 89; RESP 16; O2SAT 96
[2021-11-14] MEDS: FUROsemide 10 mg/mL SDV 4mL 40 MG IVP (16:28)
[2021-11-14 17:19] VITALS: BP 147/98; PULSE 89; RESP 16; O2SAT 97
[2021-11-14 18:02] VITALS: BP 147/98; PULSE 89; RESP 16; O2SAT 97
== END 2021-11-14 18:04 | disposition home or self-care (01) ==
PROVIDERS: Emergency Provider Emergency Medicine; PCP Family Medicine
DX: R06.02 Shortness of breath (principal); Z87.891 Personal history of nicotine dependence; Z20.822 Contact with and (suspected) exposure to COVID-19
CPT/HCPCS: 71275; 80053; 83880; 84484; 85025; 87426; 93005; 96374; 99284; J1940; Q9967

== ENCOUNTER 2021-12-23 14:38 | Emergency (ER) | payer MEDICARE, BC, SELFPAY ==
[2021-12-23 14:47] VITALS: BP 132/85; PULSE 80; RESP 16; TEMP 36.7; O2SAT 98
[2021-12-23 14:50] VITALS: BP 158/95; PULSE 81; RESP 18; O2SAT 99
--- NOTE | 2021-12-23 15:24 | XRR_ITS ---
PROCEDURE INFORMATION: Exam: XR Pelvis Exam date and time: 12/23/2021 3:33 PM Age: 66 years old Clinical indication: Pain and injury or trauma; Fall; Blunt trauma (contusions or hematomas); Does not apply; Pelvic region; Pelvic pain; Additional info: Fall and pain posterior TECHNIQUE: Imaging protocol: Radiologic exam of the pelvis. Views: 1 or 2 view. COMPARISON: CR Hip 2-3v RIGHT wwo Pelv* [id number] 01/11/2018 10:45 AM FINDINGS: Bones/joints: No obvious acute fracture dislocation. Minimal acetabular spurring consistent with early degenerative disease. Well maintained hip joint spaces on this nonweightbearing exam. Probable mild sclerosis within the superior femoral heads bilaterally. Osteonecrosis may be present in this setting. MRI correlation may be obtained if clinically indicated. New ill-defined area of sclerosis along the SI joints are also present, likely related to chronic degenerative/hypertrophic disease. Lower lumbar spine cemented vertebral plasty changes are again noted. Soft tissues: Unremarkable. Other findings: Single view submitted. XR/XR pelvis 1-2V* [id number] IMPRESSION: No obvious acute fracture or dislocation. Probable bilateral femoral head sclerosis. See discussion above. Other findings as above.
--- NOTE | 2021-12-23 15:24 | CT_ITS ---
WS: [id number] CT HEAD NONCONTRAST HISTORY: fall, weakness left leg TECHNIQUE: Contiguous axial imaging performed through the brain in 2.5 mm imaging. Bone and soft tiss ue windows. Sagittal and coronal reformats reviewed. All CT scans at [facility] use at least one of these dose optimization techniques: automated exposure control; mA and/or kV adjustment per pa tient size (includes targeted exams where dose is matched to clinical indication); or iterative recon struction. DLP: 1076.38 mGy.cm COMPARISON: 01/22/2021 No acute intracranial hemorrhage, midline shift or mass effect. Very mild atrophy and moderate diffuse small vessel ischemic disease. Prior lacunar infarcts in the internal capsules bilaterally. Ventricles: Normal size with no hydrocephalus. No inferior displacement of cerebellar tonsils. Paranasal sinuses: Improved air-fluid level since the prior study. Mastoid air cells: Mastoid air cells are negative. Calvarium and scalp: Patient has numerous calvarial lytic lesions greater along the RIGHT frontal and parietal bone. These have been previously described. 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 Mass extends into the posterior nasopharyngeal cavity as on the p rior study. Mass extends through Meckel's caves. CT/CT head wo con* [id number] IMPRESSION: 1. No acute intracranial hemorrhage or edema. 2. Cerebral atrophy with moderate small vessel ischemic disease and small lacu francia infarcts. No acute infarct identified. 3. 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 This was described in detail on a prior MRI fro 01/22/2021.
--- NOTE | 2021-12-23 15:24 | XRR_ITS ---
PROCEDURE INFORMATION: Exam: XR Thoracic Spine Exam date and time: 12/23/2021 3:33 PM Age: 66 years old Clinical indication: Pain and injury or trauma; Fall; Blunt trauma (contusions or hematomas); Pain in thoracic spine; Additional info: Fall and pain TECHNIQUE: Imaging protocol: Radiologic exam of the thoracic spine. Views: 3 views. COMPARISON: CR Thoracic Spine 3+ views* [id number] 07/22/2017 1:50 PM FINDINGS: Bones/joints: Osteopenia. Multilevel vertebral body compression deformity status post cemented vertebral plasty in similar appearance to prior exam. No obvious subluxation or significant retropulsed element. No acute fracture is visualized. Lower cervical spine multilevel disc degeneration and endplate/uncovertebral osteophytes are also present similar to prior exam. Soft tissues: Unremarkable. Other findings: Three views submitted. XR/XR thoracic spine 3V* [id number] IMPRESSION: No obvious acute findings. Stable chronic findings versus July 2017 as described above.
[2021-12-23 15:30] VITALS: BP 158/95; PULSE 81; RESP 18; TEMP 36.7; O2SAT 99
--- NOTE | 2021-12-23 15:31 | W.ED.FALL ---
HPI - Fall General: Chief Complaint: Fall Stated Complaint: fallx4 Time Seen by Provider: 12/23/21 15:05 Source: patient and family (Spouse) Mode of arrival: ambulatory Limitations: no limitations History of Present Illness: This patient arrives at the emergency department from home accompanied by his spouse. He patient has a history of multiple myeloma as well as metastatic prostate cancer is followed by oncology here as well as has had treatments at [facility] in [place]. He was most recently hospitalized [facility] in November of this year for a month long hospitalization for viral influenza and pneumonia. Since he has been home over the past week he has had multiple falls. This been attributed to deconditioning but there is also question whether he had some left leg weakness over the past number of days. He did have 1 fall where he struck his head a few days ago without any loss of consciousness. He also apparently fell yesterday on his backside and has some pain in his sacral area. He denies any palpitations, syncope etc. it is more that he seems to be weak and cannot ambulate even with his walker safely. They were requested to come to the emergency department for evaluation of these issues. He states has been eating and drinking normally and has not been ill over the past week with nausea vomiting diarrhea headache, chest pain shortness of breath etc. Symptoms prior to fall: none Associated symptoms-after fall: Denies abdominal pain, chest pain, headache(s), lightheadedness, neck pain or vertigo Review of Systems Const: Denies: fever(s), chills or change in appetite Eyes: Denies: change in vision ENMT: Denies: odynophagia or nasal congestion Card: Denies: chest pain, palpitations, irregular heart rhythm, lightheadedness, syncope or pre-syncope Resp: Denies: dyspnea, productive cough or non-productive cough GI: Denies: abdominal pain, nausea, vomiting or diarrhea : Denies: flank pain, difficulty urinating or dysuria Musc: Reports: back pain; Denies: neck pain Skin/Breast: Denies: rash or pruritus Neuro: Reports: numbness in extremities (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), weakness in extremities and frequent falls; Denies: headache(s), dizziness, vertigo or Slurred speech present Psych: Denies: anxiety or depression Endo: Denies: polyuria or polydipsia Asael/Lymph: Denies: easy bruising PFSH ED PFSH: Medical History Anemia due to antineoplastic chemotherapy Fever, unspecified 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 Multiple myeloma in relapse Multiple myeloma not having achieved remission Nonfamilial hypogammaglobulinemia Osteopenia Secondary malignant neoplasm of bone marrow Family History Father Cancer Lymphoma Denies family history of Diabetes CAD (coronary artery disease) Clotting disorder Dementia Hyperlipidemia Psychiatric illness Chronic kidney disease (CKD) Suicide Anesthesia complication Bleeding disorder Lung disease Hypertension Stroke Social History (Updated 10/14/21 @ 13:08 by Pau Dickerson LPN) Smoking and tobacco status: former smoker Alcohol intake: never Physical Exam Narrative: EXAM NARRATIVE: The patient is alert, goal-directed, no acute distress. Const: COMMON NORMALS: no acute distress, average body habitus, patient oriented x3 and alert GENERAL APPEARANCE: cooperative HENMT: COMMON NORMALS: normocephalic and atraumatic HEAD & SCALP: normal to inspection, normocephalic and atraumatic FACE & SINUS: normal facial exam Eye: COMMON NORMALS: Equal, round and reactive pupils present, EOMs intact bilaterally and conjunctivae normal CONJUNCTIVA: Yes conjunctivae normal PUPIL: Yes Equal, round and reactive pupils present Neck/C-Spine: COMMON NORMALS: full ROM CERVICAL SPINE: Yes cervical ROM normal, No Cervical spine tenderness, No step off deformity, No Paracervical muscle tenderness and No Paracervical spasm Chest: COMMONS NORMALS: normal inspection of the chest Resp: COMMON NORMALS: normal respiratory effort, No use of accessory muscles and clear to auscultation bilaterally EFFORT & INSPECTION: Yes able to speak in complete sentences AUSCULTATION: clear to auscultation bilaterally Cardio: COMMON NORMALS: regular rate, regular rhythm, No murmurs present (Cardio) and Peripheral pulses 2+ throughout RATE: regular rate RHYTHM: regular rhythm PERIPHERAL PULSES: Peripheral pulses 2+ throughout GI: COMMON NORMALS: Normal to inspection, nondistended, normoactive bowel sounds present, Soft to palpation and non-tender PALPATION: Yes Soft to palpation Back/Pelvis: GENERAL BACK: No ecchymosis THORACIC SPINE/UPPER BACK: Yes thoracic spinal tenderness PELVIS: Yes no pain with anterior-posterior compression and Yes no pain with lateral compression SACROILIAC JOINTS: Yes SI joints normal SACRUM: tenderness Extremity: COMMON NORMALS: normal to inspection, full ROM and capillary refill normal Neuro: COMMON NORMALS: patient oriented x3, moves all extremities and no sensory deficits noted SENSORIUM/ORIENTATION: Yes alert CRANIAL NERVES: Yes CN normal except as noted SPEECH: speech normal SENSORY EXAM: Yes extremities (Altered sensation to touch bilateral lower extremities) MOTOR EXAM: Other motor observations present (Mild weakness left lower extremity compared with the right) Course Reevaluation(s): Reevaluation #1: Case management came by and discussed possible rehabilitation placement with patient and spouse in anticipation of possible discharge depending on findings today. Did relay to the family that that could not occur today from the emergency department should he be discharged home. Time: 16:10 Reevaluation #2: Patient remained stable. He was visited by his oncologist as well. At this juncture does not appear to be any central nervous system issues related to his falls or as a result of his falls to include acute stroke, acute hemorrhage trauma related or other concerns. Some of his weakness I think may be related to his most recent falls causing him some hip and low back pain. 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 Case management will be following up regarding potential return to rehab to continue to recondition him to return to premorbid activity. Time: 17:16 Consultations: Consultation #1: I discussed current findings with Dr. Brody his oncologist. We will make of visit to the patient and talk with both patient and spouse before their discharge. Time: 16:49 Vital Signs: Vital signs: Vital Signs Temperature 98.0 F 12/23/21 15:30 Pulse Rate 81 12/23/21 15:30 Respiratory Rate 18 12/23/21 15:30 Blood Pressure 158/95 12/23/21 15:30 Pulse Oximetry 99 12/23/21 15:30 Oxygen Delivery Me thod 12/23/21 15:30 MDM - Fall Medical Decision Making Patient with a history of multiple myeloma as well as metastatic prostate cancer who was recently had a prolonged hospitalization at [facility] in [place]. Spent some time in rehab and has returned home but is not turned to his prehospitalization level of strength and activity has had several falls. There was some concern whether he had some left leg weakness that may of been a result of a possible acute VACUUM TECHNICIAN event etc. It was noted a couple of days ago after one of his falls. His evaluation today does not suggest acute stroke or acute traumatic hemorrhage etc. In fact his hemoglobin is improved his platelet counts improved over previous levels. He does have slight elevation of his transaminase levels but discussion with oncologist reveals that this is likely a secondary effect of some of his chemotherapy treatments. Case management was also involved and will work towards possible return to the rehab for a period of time to help improve his functional status. Again no demonstrable weakness related to a VACUUM TECHNICIAN event again given his time relationship to his falls is likely related to musculoskeletal etiology. No evidence of acute fracture on his studies today. He was hydrated with IV fluids as well. Patient is stable to be discharged home at this time. Medical Records I reviewed the patient's medical records. Lab Data I reviewed the patient's lab results. : 12/23/21 15:37 12/23/21 15:[address] 12/23/21 15:24 IMPRESSION: 1. No acute intracranial hemorrhage or edema. 2. Cerebral atrophy with moderate small vessel ischemic disease and small lacunar infarcts. No acute infarct identified. 3. 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 This was described in detail on a prior MRI from 01/22/2021. Pelvis X-Ray 12/23/21 15:24 IMPRESSION: No obvious acute fracture or dislocation. Probable bilateral femoral head sclerosis. See discussion above. Other findings as above. Thoracic Spine X-Ray 12/23/21 15:24 IMPRESSION: No obvious acute findings. Stable chronic findings versus July 2017 as described above. Laboratory Results WBC 4.8 10^3/uL (4.0-10.0) 12/23/21 15:37 RBC 2.83 10^6/uL (4.1-5.3) L 12/23/21 15:37 Hgb 9.3 g/dL (11.7-16.6) L 12/23/21 15:37 Hct 29.8 % (42.0-52.0) L 12/23/21 15:37 MCV 105.3 fl (80-94) H 12/23/21 15:37 MCH 32.9 pg (28.0-34.0) 12/23/21 15:37 MCHC 31.2 g/dL (30.0-36.0) 12/23/21 15:37 RDW 20.1 % (12.1-15.1) H 12/23/21 15:37 Plt Count 148 10^3/cmm (130-400) 12/23/21 15:37 MPV 9.8 fL (7.4-10.4) 12/23/21 15:37 Neut % (Auto) 67.3 % 12/23/21 15:37 Lymph % (Auto) 22.8 % 12/23/21 15:37 [place] % (Auto) 6.6 % 12/23/21 15:37 Eos % (Auto) 1.7 % 12/23/21 15:37 Baso % (Auto) 0.6 % 12/23/21 15:37 Neut # (Auto) 3.25 10^3/uL (1.8-7.7) 12/23/21 15:37 Lymph # (Auto) 1.1 10^3/uL (0.8-4.8) 12/23/21 15:37 [place] # (Auto) 0.3 10^3/uL (0.2-0.9) 12/23/21 15:37 Eos # (Auto) 0.1 10^3/uL (0.0-0.8) 12/23/21 15:37 Baso # (Auto) 0.0 10^3/uL (0.0-0.1) 12/23/21 15:37 Nucleated RBC % (auto) 0 % 12/23/21 15:37 Nucleated RBCs # 0.0 /100WBC 12/23/21 15:37 Sodium 141 mmol/L (136-145) 12/23/21 15:37 Potassium 4.5 mmol/L (3.5-5.1) 12/23/21 15:37 Chloride 104 mmol/L (98-107) 12/23/21 15:37 Carbon Dioxide 31 mmol/L (22-29) H 12/23/21 15:37 Anion Gap 10.5 (5-19) 12/23/21 15:37 BUN 22 mg/dL (8-23) 12/23/21 15:37 Creatinine 1.1 mg/dL (0.7-1.2) 12/23/21 15:37 GFR Calculation 66.6 mL/min (90-130) L 12/23/21 15:37 Glucose 88 mg/dL (65-115) 12/23/21 15:37 Calculated Osmolality 295 mOsm/kg (285-295) 12/23/21 15:37 Calcium 9.1 mg/dL (8.5-10.5) 12/23/21 15:37 Total Bilirubin 0.3 mg/dL (0.15-1.2) 12/23/21 15:37 AST 57 U/L (0-40) H 12/23/21 15:37 ALT 89 U/L (0-41) H 12/23/21 15:37 Alkaline Phosphatase 328 IU/L (40-130) H 12/23/21 15:37 Total Protein 6.4 g/dL (6.6-8.7) L 12/23/21 15:37 Albumin 3.5 g/dL (3.5-5.2) 12/23/21 15:37 Globulin 2.9 g/dL (1.3-4.6) 12/23/21 15:37 Discharge Plan Discharge Patient Disposition: Home Clinical Impression: Fall from ground level, Contusion of sacral region, Multiple myeloma, Fluid volume depletion Condition: Stable Prescriptions: No Action loperamide 2 mg capsule 2 mg PO Q4H PRN Rx Instructions: administer after each loose stool until symptoms controlled; do not exceed 8 mg per 24 hrs zinc sulfate 50 mg zinc (220 mg) tablet 50 mg PO BID cholecalciferol (vitamin D3) 50 mcg (2,000 unit) capsule 50 mcg PO DAILY pantoprazole 40 mg tablet,delayed release (DR/EC) 40 mg PO DAILY Qty: 30 5RF benzonatate 100 mg capsule 100 mg PO BID benzonatate 100 mg capsule 100 mg PO BID PRN (Reason: cough) Qty: 30 5RF ondansetron HCl 8 mg tablet 8 mg PO Q6H PRN (Reason: nausea and vomiting) ondansetron 8 mg tablet,disintegrating 8 mg PO BID PRN (Reason: nausea and vomiting) 1 Days Qty: 60 5RF acyclovir 200 mg capsule 200 mg PO DAILY albuterol sulfate 2.5 mg /3 mL (0.083 %) solution for nebulization 2.5 mg inhalation Q6H PRN (Reason: shortness of breath or wheezing) amlodipine 5 mg tablet 5 mg PO DAILY baclofen 10 mg tablet 10 mg PO .at bedtime PRN bicalutamide [Casodex] 50 mg tablet 50 mg PO DAILY docusate sodium [Colace] 100 mg capsule 100 mg PO DAILY Culturelle 10 billion cell capsule 1 cap PO DAILY cyproheptadine 4 mg tablet 4 mg PO BID PRN dapsone 100 mg tablet 100 mg PO DAILY venlafaxine [Effexor XR] 75 mg capsule,extended release 24hr 75 mg PO DAILY folic acid 1 mg tablet 1 mg PO BID gabapentin 600 mg tablet 600 mg PO .at bedtime hydrocodone-acetaminophen 10-325 mg tablet 1 tab PO Q6H PRN ipratropium-albuterol 20-100 mcg/actuation mist 1 puff inhalation DAILY mirtazapine 15 mg tablet 15 mg PO DAILY multivitamin Tablet 1 tab PO DAILY potassium, sodium phosphates [Phos-NaK] 280-160-250 mg powder in packet 1 packet PO DAILY cholestyramine (with sugar) [Questran] 4 gram powder PO alprazolam [Xanax] 0.5 mg tablet 0.5 mg PO TID PRN Compazine 10 mg Tablet 10 mg PO Q4H PRN (Reason: Mild Nausea) Qty: 30 3RF lorazepam 1 mg Tablet 0.5 - 1 mg PO Q6H PRN (Reason: Severe Nausea) Qty: 30 3RF Discharge Orders: Discharge ED (Routine); Ordered 12/23/21 Ordered By: Refugio Colindres Referrals: Palmer Garza MD [Primary Care Provider] - Discharge Diet: Usual diet Discharge Activity: Increase activity as tolerated, Use walker/crutches as instructed and As per PT/OT instructions Patient Instructions: Opioid Safety Activity Restrictions/Additional Instructions: Continue all your usual prescribed medications. Drink at least 2 quarts of water or sports drinks daily. Use your walker and/or other devices to assist in ambulation. Case management should be contacting you tomorrow regarding discussion for return to rehab. If you have any new persistent or worsening symptoms return to this or the nearest emergency department. Coding Level of Care Code ED Metal Trim Erector for Naida Fwgianluca Exam Comprehensive
[2021-12-23] MEDS: sodium chloride 0.9% 500 ML IV (15:44)
[2021-12-23 15:51] LABS: Basophils % 0.6 %; Eosinophils # 0.1 10^3/uL (0.0-0.8); Eosinophils % 1.7 %; Hematocrit 29.8 % (42.0-52.0); Hemoglobin 9.3 g/dL (11.7-16.6); Lymphocytes # 1.1 10^3/uL (0.8-4.8); Lymphocytes % 22.8 %; Mean Corpuscular HGB Conc 31.2 g/dL (30.0-36.0); Mean Corpuscular Hemoglobin 32.9 pg (28.0-34.0); Mean Corpuscular Volume 105.3 fl (80-94); Mean Platelet Volume 9.8 fL (7.4-10.4); Monocytes # 0.3 10^3/uL (0.2-0.9); Monocytes % 6.6 %; Neutrophils # 3.25 10^3/uL (1.8-7.7); Neutrophils % 67.3 %; Nucleated Red Blood Cells % 0 %; Platelet Count 148 10^3/cmm (130-400); Red Blood Count 2.83 10^6/uL (4.1-5.3); Red Cell Distribution Width 20.1 % (12.1-15.1); White Blood Count 4.8 10^3/uL (4.0-10.0)
[2021-12-23 16:21] LABS: Alanine Aminotransferase 89 U/L (0-41); Albumin Level 3.5 g/dL (3.5-5.2); Alkaline Phosphatase 328 IU/L (40-130); Anion Gap 10.5 (5-19); Aspartate Amino Transferase 57 U/L (0-40); Blood Urea Nitrogen 22 mg/dL (8-23); Calcium 9.1 mg/dL (8.5-10.5); Carbon Dioxide 31 mmol/L (22-29); Chloride 104 mmol/L (98-107); Globulin 2.9 g/dL (1.3-4.6); Glomerular Filtration Rate 66.6 mL/min (90-130); Glucose 88 mg/dL (65-115); Osmolality Calculated 295 mOsm/kg (285-295); Potassium 4.5 mmol/L (3.5-5.1); Sodium 141 mmol/L (136-145); Total Bilirubin 0.3 mg/dL (0.15-1.2); Total Protein 6.4 g/dL (6.6-8.7)
[2021-12-23 18:07] VITALS: BP 158/95; PULSE 81; RESP 18; TEMP 36.7; O2SAT 99
--- NOTE | 2021-12-24 10:15 | DCPLANNER ---
forest fire prevention manager had message to speak with patient and his about possible rehab services. forest fire prevention manager spoke with patients , and was told that patient wanted to be placed in [facility] [place]. forest fire prevention manager faxed patients information to the rehab facility at [phone] phone number to the facility is [phone].
== END 2021-12-23 18:08 | disposition home or self-care (01) ==
PROVIDERS: Emergency Provider Emergency Medicine; PCP Family Medicine
DX: S30.0XXA Contusion of lower back and pelvis, initial encounter (principal); C90.00 Multiple myeloma not having achieved remission; E86.9 Volume depletion, unspecified; W18.30XA Fall on same level, unspecified, initial encounter; Z87.891 Personal history of nicotine dependence; Z85.46 Personal history of malignant neoplasm of prostate
CPT/HCPCS: 70450; 72072; 72170; 80053; 85025; 96360; 96361; 99285; J7040

== ENCOUNTER 2022-03-08 08:31 | Oncology outpatient (recurring) (ONCR) | payer MEDICARE, BC, SELFPAY ==
[2022-03-08 08:45] VITALS: BMI 24.7
[2022-03-08 09:12] LABS: Basophils % 0.4 %; Eosinophils # 0.2 10^3/uL (0.0-0.8); Eosinophils % 2.4 %; Hematocrit 34.2 % (42.0-52.0); Hemoglobin 11.2 g/dL (11.7-16.6); Lymphocytes # 1.7 10^3/uL (0.8-4.8); Lymphocytes % 22.9 %; Mean Corpuscular HGB Conc 32.7 g/dL (30.0-36.0); Mean Corpuscular Hemoglobin 36.7 pg (28.0-34.0); Mean Corpuscular Volume 112.1 fl (80-94); Mean Platelet Volume 9.4 fL (7.4-10.4); Monocytes # 0.5 10^3/uL (0.2-0.9); Monocytes % 6.3 %; Neutrophils # 5.02 10^3/uL (1.8-7.7); Neutrophils % 67.6 %; Nucleated Red Blood Cells % 0 %; Platelet Count 123 10^3/cmm (130-400); Red Blood Count 3.05 10^6/uL (4.1-5.3); White Blood Count 7.4 10^3/uL (4.0-10.0)
[2022-03-08 10:21] LABS: Alanine Aminotransferase 163 U/L (0-41); Albumin Level 3.7 g/dL (3.5-5.2); Alkaline Phosphatase 324 U/L (40-130); Anion Gap 12.7 (5-19); Aspartate Amino Transferase 84 U/L (0-40); Blood Urea Nitrogen 36 mg/dL (8-23); Calcium 9.3 mg/dL (8.5-10.5); Carbon Dioxide 30 mmol/L (22-29); Chloride 105 mmol/L (98-107); Globulin 3.1 g/dL (1.3-4.6); Glomerular Filtration Rate 60.2 mL/min (90-130); Glucose 78 mg/dL (65-115); Iron 141 ug/dL (59-158); Osmolality Calculated 303 mOsm/kg (285-295); Percent Saturation 68.7 % (20-50); Potassium 4.7 mmol/L (3.5-5.1); Prostate Specific Antigen < 0.014 ng/mL (0-4); Sodium 143 mmol/L (136-145); Total Bilirubin 0.2 mg/dL (0.15-1.2); Total Iron Binding Capacity 205 mcg/dl; Total Protein 6.8 g/dL (6.6-8.7); Unsaturated Iron Binding 64 ug/dL (112-347)
[2022-03-08] MEDS: acetaminophen 325 mg Tablet 650 MG PO (10:26)
[2022-03-08] MEDS: sodium chloride 0.9% 250 ML 75 ML IV (10:27)
[2022-03-08] MEDS: diphenhydrAMINE 25 mg Capsule PO (10:27)
[2022-03-08] MEDS: lidocaine 1% INJ 20 mL MDV (mL) SUBCUT (10:33)
[2022-03-08 10:36] LABS: Ferritin 3991 ng/mL (30-400)
[2022-03-08] MEDS: goserelin acetate 10.8 mg Implant SUBCUT (10:49)
[2022-03-08 11:20] VITALS: BP 127/75; PULSE 79; RESP 18; TEMP 36.6; O2SAT 98
== END 2022-03-14 23:59 | disposition home or self-care (01) ==
PROVIDERS: Internal Medicine Medical Oncology; PCP Family Medicine; Visit Provider Nurse Practitioner Family
DX: Z51.12 Encounter for antineoplastic immunotherapy (principal); C90.02 Multiple myeloma in relapse; D64.81 Anemia due to antineoplastic chemotherapy; T45.1X5A Adverse effect of antineoplastic and immunosuppressive drugs, initial encounter; C61 Malignant neoplasm of prostate
CPT/HCPCS: 80053; 82728; 83540; 83550; 84153; 85025; 96365; 96366; 96372; 96402; J1568; J7050; J9202

== ENCOUNTER 2022-04-21 09:08 | Oncology outpatient (recurring) (ONCR) | payer MEDICARE, BC, SELFPAY ==
[2022-04-21 09:56] LABS: Basophils % 0.2 %; Eosinophils # 0.1 10^3/uL (0.0-0.8); Eosinophils % 1.6 %; Hematocrit 30.8 % (42.0-52.0); Hemoglobin 9.8 g/dL (11.7-16.6); Lymphocytes # 0.6 10^3/uL (0.8-4.8); Lymphocytes % 11.7 %; Mean Corpuscular HGB Conc 31.8 g/dL (30.0-36.0); Mean Corpuscular Hemoglobin 35.3 pg (28.0-34.0); Mean Corpuscular Volume 110.8 fl (80-94); Mean Platelet Volume 10.5 fL (7.4-10.4); Monocytes # 0.2 10^3/uL (0.2-0.9); Monocytes % 3.6 %; Neutrophils # 4.08 10^3/uL (1.8-7.7); Neutrophils % 81.1 %; Nucleated Red Blood Cells % 0 %; Platelet Count 65 10^3/cmm (130-400); Red Blood Count 2.78 10^6/uL (4.1-5.3); Red Cell Distribution Width 13.2 % (12.1-15.1)
[2022-04-21 10:16] LABS: Anion Gap 12.3 (5-19); Blood Urea Nitrogen 8 mg/dL (8-23); Carbon Dioxide 30 mmol/L (22-29); Chloride 103 mmol/L (98-107); Glomerular Filtration Rate 74.3 mL/min (90-130); Potassium 3.3 mmol/L (3.5-5.1); Sodium 142 mmol/L (136-145)
[2022-04-21 10:17] LABS: Alanine Aminotransferase 80 U/L (0-41); Albumin Level 3.1 g/dL (3.5-5.2); Alkaline Phosphatase 317 U/L (40-130); Aspartate Amino Transferase 51 U/L (0-40); Calcium 8.9 mg/dL (8.5-10.5); Globulin 3.5 g/dL (1.3-4.6); Glucose 75 mg/dL (65-115); Immunoglobulin IGA 146 mg/dL (70-400); Immunoglobulin IGG 900 mg/dL (700-1600); Immunoglobulin IGM 66 mg/dL (40-230); Osmolality Calculated 291 mOsm/kg (285-295); Total Bilirubin 0.6 mg/dL (0.15-1.2); Total Protein 6.6 g/dL (6.6-8.7)
[2022-04-21] MEDS: diphenhydrAMINE 25 mg Capsule PO (10:41)
[2022-04-21] MEDS: acetaminophen 325 mg Tablet 650 MG PO (10:41)
[2022-04-21 10:43] LABS: Prostate Specific Antigen 0.018 ng/mL (0-4)
[2022-04-21 10:55] VITALS: BP 169/97; PULSE 78; RESP 20; TEMP 35.5; O2SAT 99
[2022-04-21 11:10] VITALS: BP 165/90; PULSE 76; RESP 18; TEMP 36.1; O2SAT 99
[2022-04-21 11:25] VITALS: BP 154/90; PULSE 77; RESP 18; TEMP 36.1; O2SAT 99
[2022-04-21 11:40] VITALS: BP 156/90; PULSE 83; RESP 20; TEMP 36.1; O2SAT 98
[2022-04-21 11:55] VITALS: BP 154/84; PULSE 80; RESP 20; TEMP 36.1; O2SAT 99
[2022-04-21 13:00] VITALS: BP 154/86; PULSE 75; RESP 20; TEMP 36.1; O2SAT 99
[2022-04-22 08:59] LABS: PROTEIN, TOTAL 6.1 g/dL (6.1-8.1)
[2022-04-22 13:08] LABS: KAPPA LIGHT CHAIN, FREE, SERUM 49.9 mg/L (3.3-19.4); KAPPA/LAMBDA LIGHT CHAINS FREE 1.22 (0.26-1.65); LAMBDA LIGHT CHAIN, FREE, SERU 40.8 mg/L (5.7-26.3)
[2022-04-22 13:23] LABS: ABNORMAL PROTEIN BAND 1 0.2 g/dL (NONE DETECTED); ALBUMIN 2.7 g/dL (3.8-4.8); ALPHA 1 GLOBULIN 0.7 g/dL (0.2-0.3); ALPHA 2 GLOBULIN 1.2 g/dL (0.5-0.9); BETA 1 GLOBULIN 0.3 g/dL (0.4-0.6); BETA 2 GLOBULIN 0.4 g/dL (0.2-0.5); GAMMA GLOBULIN 0.9 g/dL (0.8-1.7)
== END 2022-05-14 23:59 | disposition home or self-care (01) ==
PROVIDERS: Internal Medicine Medical Oncology; PCP Family Medicine; Visit Provider Nurse Practitioner Family
DX: C90.02 Multiple myeloma in relapse (principal); D64.81 Anemia due to antineoplastic chemotherapy; T45.1X5A Adverse effect of antineoplastic and immunosuppressive drugs, initial encounter; C61 Malignant neoplasm of prostate; E83.111 Hemochromatosis due to repeated red blood cell transfusions; C79.52 Secondary malignant neoplasm of bone marrow; Z79.899 Other long term (current) drug therapy; Z92.3 Personal history of irradiation; Z87.891 Personal history of nicotine dependence; Z79.2 Long term (current) use of antibiotics; M85.80 Other specified disorders of bone density and structure, unspecified site
CPT/HCPCS: 80053; 82784; 83883; 84153; 84155; 84165; 85025; 86334; 96365; 96366; 99214; J1459

== ENCOUNTER 2022-05-19 08:19 | Oncology outpatient (recurring) (ONCR) | payer MEDICARE, BC, SELFPAY ==
[2022-05-19] VITALS (9 sets, daily range): BP systolic 99–157; BP diastolic 63–96; PULSE 70–91; RESP 18; TEMP 35.9–36.6; O2SAT 97–98
[2022-05-19 09:07] LABS: Basophils # 0.1 10^3/uL (0.0-0.1); Basophils % 0.6 %; Eosinophils # 0.2 10^3/uL (0.0-0.8); Eosinophils % 1.8 %; Hematocrit 38.8 % (42.0-52.0); Hemoglobin 12.5 g/dL (11.7-16.6); Lymphocytes # 1.6 10^3/uL (0.8-4.8); Lymphocytes % 19.2 %; Mean Corpuscular HGB Conc 32.2 g/dL (30.0-36.0); Mean Corpuscular Hemoglobin 34.8 pg (28.0-34.0); Mean Corpuscular Volume 108.1 fl (80-94); Mean Platelet Volume 9.4 fL (7.4-10.4); Monocytes # 0.4 10^3/uL (0.2-0.9); Monocytes % 4.9 %; Neutrophils # 6.12 10^3/uL (1.8-7.7); Neutrophils % 73.1 %; Nucleated Red Blood Cells % 0 %; Platelet Count 163 10^3/cmm (130-400); Red Blood Count 3.59 10^6/uL (4.1-5.3); Red Cell Distribution Width 14.6 % (12.1-15.1); White Blood Count 8.4 10^3/uL (4.0-10.0)
[2022-05-19 09:25] LABS: Alanine Aminotransferase 122 U/L (0-41); Albumin Level 4.5 g/dL (3.5-5.2); Alkaline Phosphatase 241 U/L (40-130); Anion Gap 14.9 (5-19); Aspartate Amino Transferase 77 U/L (0-40); Blood Urea Nitrogen 32 mg/dL (8-23); Calcium 9.5 mg/dL (8.5-10.5); Carbon Dioxide 27 mmol/L (22-29); Chloride 99 mmol/L (98-107); Globulin 3.6 g/dL (1.3-4.6); Glomerular Filtration Rate 66.6 mL/min (90-130); Glucose 68 mg/dL (65-115); Osmolality Calculated 289 mOsm/kg (285-295); Potassium 3.9 mmol/L (3.5-5.1); Sodium 137 mmol/L (136-145); Total Bilirubin 0.4 mg/dL (0.15-1.2); Total Protein 8.1 g/dL (6.6-8.7)
[2022-05-19] MEDS: sodium chloride 0.9% 250 ML 35 ML IV (10:26)
[2022-05-19] MEDS: acetaminophen 325 mg Tablet 650 MG PO (10:27)
[2022-05-19] MEDS: diphenhydrAMINE 25 mg Capsule PO (10:28)
[2022-05-19 12:00] LABS: Prostate Specific Antigen < 0.014 ng/mL (0-4)
[2022-05-20 15:04] LABS: PROTEIN, TOTAL 7.6 g/dL (6.1-8.1)
[2022-05-23 12:03] LABS: KAPPA LIGHT CHAIN, FREE, SERUM 36.6 mg/L (3.3-19.4); KAPPA/LAMBDA LIGHT CHAINS FREE 0.99 (0.26-1.65); LAMBDA LIGHT CHAIN, FREE, SERU 37.1 mg/L (5.7-26.3)
[2022-05-24 08:24] LABS: ALBUMIN 4.1 g/dL (3.8-4.8); ALPHA 1 GLOBULIN 0.4 g/dL (0.2-0.3); BETA 1 GLOBULIN 0.5 g/dL (0.4-0.6); BETA 2 GLOBULIN 0.3 g/dL (0.2-0.5); GAMMA GLOBULIN 1.4 g/dL (0.8-1.7)
== END 2022-06-14 23:59 | disposition home or self-care (01) ==
PROVIDERS: Internal Medicine Medical Oncology; PCP Family Medicine; Visit Provider Nurse Practitioner Family
DX: C90.02 Multiple myeloma in relapse (principal); D64.81 Anemia due to antineoplastic chemotherapy; T45.1X5A Adverse effect of antineoplastic and immunosuppressive drugs, initial encounter; C61 Malignant neoplasm of prostate; C79.52 Secondary malignant neoplasm of bone marrow; Z79.899 Other long term (current) drug therapy; Z92.3 Personal history of irradiation; Z87.891 Personal history of nicotine dependence; M85.80 Other specified disorders of bone density and structure, unspecified site; D80.1 Nonfamilial hypogammaglobulinemia; Z79.818 Long term (current) use of other agents affecting estrogen receptors and estrogen levels; K21.9 Gastro-esophageal reflux disease without esophagitis
CPT/HCPCS: 80053; 83883; 84153; 84155; 84165; 85025; 96365; 96366; 99214; J1459; J7050

== ENCOUNTER → 2022-07-07 14:29 | Outpatient (BNVA) | payer MEDICARE, BC, SELFPAY | PROVIDERS: PCP Family Medicine; Visit Provider Internal Medicine Medical Oncology | DX: C90.02 Multiple myeloma in relapse (principal); M85.88 Other specified disorders of bone density and structure, other site; D80.1 Nonfamilial hypogammaglobulinemia; D64.9 Anemia, unspecified; D69.6 Thrombocytopenia, unspecified; Z79.899 Other long term (current) drug therapy; C61 Malignant neoplasm of prostate; Z79.818 Long term (current) use of other agents affecting estrogen receptors and estrogen levels; Z87.01 Personal history of pneumonia (recurrent) | CPT/HCPCS: 99214 ==

== ENCOUNTER 2022-08-11 08:31 | Oncology outpatient (recurring) (ONCR) | payer MEDICARE, BC, SELFPAY ==
[2022-08-11 09:18] VITALS: BP 133/84; PULSE 98; RESP 18; TEMP 37.2
[2022-08-11 09:27] LABS: Basophils % 0.6 %; Eosinophils # 0.3 10^3/uL (0.0-0.8); Hematocrit 30.1 % (42.0-52.0); Hemoglobin 9.9 g/dL (11.7-16.6); Lymphocytes # 0.8 10^3/uL (0.8-4.8); Mean Corpuscular HGB Conc 32.9 g/dL (30.0-36.0); Mean Corpuscular Volume 109.5 fl (80-94); Mean Platelet Volume 9.4 fL (7.4-10.4); Monocytes # 0.4 10^3/uL (0.2-0.9); Neutrophils # 5.43 10^3/uL (1.8-7.7); Nucleated Red Blood Cells % 0 %; Platelet Count 152 10^3/cmm (130-400); Red Blood Count 2.75 10^6/uL (4.1-5.3); Red Cell Distribution Width 15.1 % (12.1-15.1)
[2022-08-11 10:01] LABS: Alanine Aminotransferase 27 U/L (0-41); Albumin Level 3.2 g/dL (3.5-5.2); Alkaline Phosphatase 114 U/L (40-130); Anion Gap 12.5 (5-19); Aspartate Amino Transferase 26 U/L (0-40); Blood Urea Nitrogen 24 mg/dL (8-23); Carbon Dioxide 29 mmol/L (22-29); Chloride 98 mmol/L (98-107); Globulin 3.1 g/dL (1.3-4.6); Glomerular Filtration Rate 60.2 mL/min (90-130); Glucose 77 mg/dL (65-115); Immunoglobulin IGA 125 mg/dL (70-400); Immunoglobulin IGG 792 mg/dL (700-1600); Immunoglobulin IGM 65 mg/dL (40-230); Osmolality Calculated 285 mOsm/kg (285-295); Potassium 3.5 mmol/L (3.5-5.1); Sodium 136 mmol/L (136-145); Total Bilirubin 0.2 mg/dL (0.15-1.2); Total Protein 6.3 g/dL (6.6-8.7)
[2022-08-11 10:02] LABS: Prostate Specific Antigen < 0.014 ng/mL (0-4)
[2022-08-12 07:25] LABS: PROTEIN, TOTAL 5.8 g/dL (6.1-8.1)
[2022-08-12 12:35] LABS: ABNORMAL PROTEIN BAND 1 0.2 g/dL (NONE DETECTED); ALPHA 1 GLOBULIN 0.5 g/dL (0.2-0.3); BETA 1 GLOBULIN 0.3 g/dL (0.4-0.6); BETA 2 GLOBULIN 0.3 g/dL (0.2-0.5); GAMMA GLOBULIN 0.7 g/dL (0.8-1.7)
[2022-08-12 12:44] LABS: KAPPA LIGHT CHAIN, FREE, SERUM 68.3 mg/L (3.3-19.4); KAPPA/LAMBDA LIGHT CHAINS FREE 2.48 (0.26-1.65); LAMBDA LIGHT CHAIN, FREE, SERU 27.5 mg/L (5.7-26.3)
== END 2022-08-12 23:59 | disposition home or self-care (01) ==
LOC: ONCMED 08:31
PROVIDERS: Nurse Practitioner Family; PCP Family Medicine; Visit Provider Internal Medicine Medical Oncology
DX: C90.02 Multiple myeloma in relapse (principal); C61 Malignant neoplasm of prostate; C79.52 Secondary malignant neoplasm of bone marrow; R91.8 Other nonspecific abnormal finding of lung field; Z79.52 Long term (current) use of systemic steroids; Z79.818 Long term (current) use of other agents affecting estrogen receptors and estrogen levels; Z79.899 Other long term (current) drug therapy; D80.1 Nonfamilial hypogammaglobulinemia
CPT/HCPCS: 71046; 80053; 82784; 83883; 84153; 84155; 84165; 85025; 99214

== ENCOUNTER 2022-08-25 13:24 | Oncology outpatient (recurring) (ONCR) | payer MEDICARE, BC, SELFPAY ==
[2022-08-25 14:25] VITALS: BP 145/78; PULSE 78; RESP 18; TEMP 36.4; O2SAT 98
[2022-08-25] MEDS: acetaminophen 325 mg Tablet 650 MG PO (14:45)
[2022-08-25] MEDS: diphenhydrAMINE 25 mg Capsule PO (14:45)
[2022-08-25] MEDS: sodium chloride 0.9% 250 ML 75 ML IV (14:50)
[2022-08-25] MEDS: lidocaine 1% INJ 20 mL MDV (mL) SUBCUT (15:05)
[2022-08-25] MEDS: goserelin acetate 10.8 mg Implant SUBCUT (15:18)
== END 2022-09-11 23:59 | disposition home or self-care (01) ==
LOC: ONCMED 13:24
PROVIDERS: PCP Family Medicine; Visit Provider Internal Medicine Medical Oncology
DX: C90.02 Multiple myeloma in relapse (principal); D80.1 Nonfamilial hypogammaglobulinemia; C61 Malignant neoplasm of prostate; C79.52 Secondary malignant neoplasm of bone marrow; Z79.52 Long term (current) use of systemic steroids; Z79.818 Long term (current) use of other agents affecting estrogen receptors and estrogen levels; Z79.899 Other long term (current) drug therapy; Z87.891 Personal history of nicotine dependence
CPT/HCPCS: 96365; 96366; 96401; 96402; 99214; J1459; J7050; J9202

== ENCOUNTER 2022-11-17 12:32 | Oncology outpatient (recurring) (ONCR) | payer MEDICARE, BC, SELFPAY ==
[2022-11-17 12:44] VITALS: BP 96/65; PULSE 94; RESP 18; TEMP 36.7; O2SAT 96
[2022-11-17 13:06] LABS: Basophils % 0.4 %; Eosinophils # 0.1 10^3/uL (0.0-0.8); Eosinophils % 1.8 %; Hematocrit 31.4 % (42.0-52.0); Lymphocytes # 1.4 10^3/uL (0.8-4.8); Lymphocytes % 21.5 %; Mean Corpuscular HGB Conc 31.8 g/dL (30.0-36.0); Mean Corpuscular Hemoglobin 33.3 pg (28.0-34.0); Mean Corpuscular Volume 104.7 fl (80-94); Mean Platelet Volume 9.1 fL (7.4-10.4); Monocytes # 0.4 10^3/uL (0.2-0.9); Monocytes % 6.6 %; Neutrophils # 4.63 10^3/uL (1.8-7.7); Neutrophils % 69.1 %; Nucleated Red Blood Cells % 0 %; Platelet Count 186 10^3/cmm (130-400); Red Cell Distribution Width 15.4 % (12.1-15.1); White Blood Count 6.7 10^3/uL (4.0-10.0)
[2022-11-17 13:34] LABS: Alanine Aminotransferase 39 U/L (0-41); Albumin Level 3.8 g/dL (3.5-5.2); Alkaline Phosphatase 175 U/L (40-130); Aspartate Amino Transferase 34 U/L (0-40); Blood Urea Nitrogen 22 mg/dL (8-23); Calcium 9.3 mg/dL (8.5-10.5); Carbon Dioxide 29 mmol/L (22-29); Chloride 97 mmol/L (98-107); Globulin 3.1 g/dL (1.3-4.6); Glomerular Filtration Rate 54.9 mL/min (90-130); Glucose 122 mg/dL (65-115); Immunoglobulin IGA 115 mg/dL (70-400); Immunoglobulin IGG 773 mg/dL (700-1600); Immunoglobulin IGM 45 mg/dL (40-230); Osmolality Calculated 287 mOsm/kg (285-295); Sodium 136 mmol/L (136-145); Total Bilirubin 0.3 mg/dL (0.15-1.2); Total Protein 6.9 g/dL (6.6-8.7)
[2022-11-17 13:41] LABS: Prostate Specific Antigen < 0.014 ng/mL (0-4)
[2022-11-17 13:43] LABS: Anion Gap 14.7 (5-19); Potassium 4.7 mmol/L (3.5-5.1)
[2022-11-17] MEDS: lidocaine 1% INJ 20 mL MDV (mL) SUBCUT (14:23)
[2022-11-17] MEDS: goserelin acetate 10.8 mg Implant SUBCUT (14:37)
[2022-11-18 14:59] LABS: PROTEIN, TOTAL 6.4 g/dL (6.1-8.1)
[2022-11-18 17:45] LABS: ABNORMAL PROTEIN BAND 1 0.3 g/dL (NONE DETECTED); ALBUMIN 3.5 g/dL (3.8-4.8); ALPHA 1 GLOBULIN 0.5 g/dL (0.2-0.3); ALPHA 2 GLOBULIN 1.1 g/dL (0.5-0.9); BETA 1 GLOBULIN 0.4 g/dL (0.4-0.6); BETA 2 GLOBULIN 0.3 g/dL (0.2-0.5); GAMMA GLOBULIN 0.7 g/dL (0.8-1.7)
[2022-11-18 18:14] LABS: KAPPA LIGHT CHAIN, FREE, SERUM 37.4 mg/L (3.3-19.4); KAPPA/LAMBDA LIGHT CHAINS FREE 1.48 (0.26-1.65); LAMBDA LIGHT CHAIN, FREE, SERU 25.2 mg/L (5.7-26.3)
== END 2022-12-12 23:59 | disposition home or self-care (01) ==
PROVIDERS: PCP Family Medicine; Visit Provider Internal Medicine Medical Oncology
DX: C90.02 Multiple myeloma in relapse (principal); C79.52 Secondary malignant neoplasm of bone marrow; D80.1 Nonfamilial hypogammaglobulinemia; C61 Malignant neoplasm of prostate; Z79.52 Long term (current) use of systemic steroids; Z79.818 Long term (current) use of other agents affecting estrogen receptors and estrogen levels; Z79.899 Other long term (current) drug therapy; Z92.3 Personal history of irradiation; Z92.21 Personal history of antineoplastic chemotherapy; Z94.81 Bone marrow transplant status
CPT/HCPCS: 80053; 82784; 83883; 84153; 84155; 84165; 85025; 96372; 96402; 99215; J9202

== ENCOUNTER 2023-02-14 09:55 | Oncology outpatient (recurring) (ONCR) | payer MEDICARE, BC, SELFPAY ==
[2023-02-14 10:15] VITALS: BP 115/79; PULSE 87; RESP 17; TEMP 36.6; O2SAT 96; BMI 24.5
[2023-02-14 10:42] LABS: Basophils % 0.4 %; Eosinophils # 0.1 10^3/uL (0.0-0.8); Eosinophils % 1.2 %; Hematocrit 34.7 % (37-53); Lymphocytes # 1.6 10^3/uL (0.8-4.8); Lymphocytes % 23.6 %; Mean Corpuscular Hemoglobin 35.5 pg (27-33); Mean Corpuscular Volume 104.5 fl (82-101); Monocytes # 0.3 10^3/uL (0.2-0.9); Monocytes % 3.8 %; Neutrophils # 4.84 10^3/uL (1.8-7.7); Neutrophils % 70.4 %; Nucleated Red Blood Cells % 0 %; Platelet Count 128 10^3/cmm (157-399); Red Blood Count 3.32 10^6/uL (3.85-5.65); Red Cell Distribution Width 13.8 % (12.1-15.1); White Blood Count 6.87 10^3/uL (3.29-11.43)
[2023-02-14 11:14] LABS: Alanine Aminotransferase 32 U/L (0-41); Alkaline Phosphatase 96 U/L (40-130); Anion Gap 13.1 (5-19); Aspartate Amino Transferase 28 U/L (0-40); Blood Urea Nitrogen 32 mg/dL (8-23); Carbon Dioxide 27 mmol/L (22-29); Chloride 100 mmol/L (98-107); Globulin 2.8 g/dL (1.3-4.6); Glomerular Filtration Rate 50.2 mL/min (90-130); Glucose 120 mg/dL (65-115); Immunoglobulin IGA 110 mg/dL (70-400); Immunoglobulin IGG 829 mg/dL (700-1600); Immunoglobulin IGM 61 mg/dL (40-230); Osmolality Calculated 290 mOsm/kg (285-295); Potassium 4.1 mmol/L (3.5-5.1); Sodium 136 mmol/L (136-145); Total Bilirubin 0.4 mg/dL (0.15-1.2); Total Protein 6.8 g/dL (6.6-8.7)
[2023-02-14 11:16] LABS: Prostate Specific Antigen < 0.014 ng/mL (0-4)
[2023-02-14] MEDS: lidocaine 1% INJ 20 mL MDV (mL) SUBCUT (12:22)
[2023-02-14] MEDS: goserelin acetate 10.8 mg Implant SUBCUT (12:31)
[2023-02-15 08:05] LABS: PROTEIN, TOTAL 6.3 g/dL (6.1-8.1)
[2023-02-15 10:39] LABS: KAPPA/LAMBDA LIGHT CHAINS FREE 1.53 (0.26-1.65); LAMBDA LIGHT CHAIN, FREE, SERU 20.2 mg/L (5.7-26.3)
[2023-02-16 08:23] LABS: ABNORMAL PROTEIN BAND 1 0.1 g/dL (NONE DETECTED); ALBUMIN 3.4 g/dL (3.8-4.8); ALPHA 1 GLOBULIN 0.4 g/dL (0.2-0.3); ALPHA 2 GLOBULIN 1.1 g/dL (0.5-0.9); BETA 1 GLOBULIN 0.4 g/dL (0.4-0.6); BETA 2 GLOBULIN 0.4 g/dL (0.2-0.5); GAMMA GLOBULIN 0.8 g/dL (0.8-1.7)
== END 2023-03-14 23:59 | disposition home or self-care (01) ==
PROVIDERS: Internal Medicine Medical Oncology; PCP Family Medicine; Visit Provider Internal Medicine Medical Oncology
DX: C90.02 Multiple myeloma in relapse (principal); D64.81 Anemia due to antineoplastic chemotherapy; T45.1X5A Adverse effect of antineoplastic and immunosuppressive drugs, initial encounter; C61 Malignant neoplasm of prostate; C79.52 Secondary malignant neoplasm of bone marrow; Z79.899 Other long term (current) drug therapy; Z92.3 Personal history of irradiation; Z87.891 Personal history of nicotine dependence; M85.80 Other specified disorders of bone density and structure, unspecified site; D80.1 Nonfamilial hypogammaglobulinemia; Z79.818 Long term (current) use of other agents affecting estrogen receptors and estrogen levels; K21.9 Gastro-esophageal reflux disease without esophagitis
CPT/HCPCS: 80053; 82784; 83883; 84153; 84155; 84165; 85025; 96372; 96402; 99214; J9202

== ENCOUNTER 2023-05-09 11:35 | Oncology outpatient (recurring) (ONCR) | payer MEDICARE, BC, SELFPAY ==
[2023-05-09 11:36] VITALS: BP 119/79; PULSE 75; RESP 16; TEMP 36.9; O2SAT 94
[2023-05-09 12:07] LABS: Basophils % 0.4 %; Eosinophils # 0.1 10^3/uL (0.0-0.8); Eosinophils % 1.7 %; Hematocrit 33.3 % (37-53); Lymphocytes # 2.3 10^3/uL (0.8-4.8); Lymphocytes % 31.8 %; Mean Corpuscular HGB Conc 32.7 g/dL (30-55); Mean Corpuscular Hemoglobin 35.3 pg (27-33); Mean Corpuscular Volume 107.8 fl (82-101); Mean Platelet Volume 9.5 fL (7.4-10.4); Monocytes # 0.5 10^3/uL (0.2-0.9); Monocytes % 7.5 %; Neutrophils # 4.23 10^3/uL (1.8-7.7); Neutrophils % 58.3 %; Nucleated Red Blood Cells % 0 %; Platelet Count 135 10^3/cmm (157-399); Red Blood Count 3.09 10^6/uL (3.85-5.65); Red Cell Distribution Width 15.4 % (12.1-15.1); White Blood Count 7.24 10^3/uL (3.29-11.43)
[2023-05-09 12:39] LABS: Alanine Aminotransferase 25 U/L (0-41); Alkaline Phosphatase 92 U/L (40-130); Aspartate Amino Transferase 20 U/L (0-40); Blood Urea Nitrogen 21 mg/dL (8-23); Calcium 9.2 mg/dL (8.5-10.5); Carbon Dioxide 27 mmol/L (22-29); Chloride 102 mmol/L (98-107); Globulin 2.7 g/dL (1.3-4.6); Glomerular Filtration Rate 50.2 mL/min (90-130); Glucose 96 mg/dL (65-115); Immunoglobulin IGA 138 mg/dL (70-400); Immunoglobulin IGG 844 mg/dL (700-1600); Immunoglobulin IGM 123 mg/dL (40-230); Osmolality Calculated 287 mOsm/kg (285-295); Sodium 137 mmol/L (136-145); Total Bilirubin 0.3 mg/dL (0.15-1.2); Total Protein 6.7 g/dL (6.6-8.7)
[2023-05-09 12:41] LABS: Prostate Specific Antigen < 0.014 ng/mL (0-4)
[2023-05-09 12:42] LABS: Anion Gap 12.3 (5-19); Potassium 4.3 mmol/L (3.5-5.1)
[2023-05-09] MEDS: lidocaine 1% INJ 20 mL MDV (mL) SUBCUT (13:26)
[2023-05-09] MEDS: goserelin acetate 10.8 mg Implant SUBCUT (13:29)
[2023-05-10 09:34] LABS: PROTEIN, TOTAL 6.5 g/dL (6.1-8.1)
[2023-05-10 12:50] LABS: KAPPA LIGHT CHAIN, FREE, SERUM 50.7 mg/L (3.3-19.4); KAPPA/LAMBDA LIGHT CHAINS FREE 1.52 (0.26-1.65); LAMBDA LIGHT CHAIN, FREE, SERU 33.4 mg/L (5.7-26.3)
[2023-05-11 08:59] LABS: ABNORMAL PROTEIN BAND 1 0.2 g/dL (NONE DETECTED); ALBUMIN 3.7 g/dL (3.8-4.8); ALPHA 1 GLOBULIN 0.4 g/dL (0.2-0.3); ALPHA 2 GLOBULIN 0.9 g/dL (0.5-0.9); BETA 1 GLOBULIN 0.4 g/dL (0.4-0.6); BETA 2 GLOBULIN 0.3 g/dL (0.2-0.5); GAMMA GLOBULIN 0.8 g/dL (0.8-1.7)
== END 2023-05-14 23:59 | disposition home or self-care (01) ==
PROVIDERS: Nurse Practitioner Family; PCP Family Medicine; Visit Provider Internal Medicine Medical Oncology
DX: Z51.11 Encounter for antineoplastic chemotherapy; C90.02 Multiple myeloma in relapse; C79.52 Secondary malignant neoplasm of bone marrow; C61 Malignant neoplasm of prostate; Z79.899 Other long term (current) drug therapy; Z53.9 Procedure and treatment not carried out, unspecified reason
CPT/HCPCS: 36415; 80053; 82784; 83883; 84153; 84155; 84165; 85025; 96372; 96402; 99214; J9202